=== PATIENT | male | born 1960 | race Caucasian/White ===

== ENCOUNTER 2021-05-04 19:39 | Emergency (ER) | payer OTHER, SELFPAY ==
--- NOTE | ~2021-05-04 | XR_ITS ---
EXAMINATION: XR KNEE, LEFT CLINICAL INFORMATION: BK and fall COMPARISON: None TECHNIQUE: Two views of the left knee. FINDINGS: There has been prior [id number] amputation of the tibia and fibula. There is soft tissue thickening and multiple surgical clips at the amputation site. The knee joint is intact. No acute fracture involving the knee joint. No joint effusion. Joint spaces are maintained. There are atherosclerotic calcifications. XR/XR knee LT 2V IMPRESSION: No acute traumatic injury. Expected postoperative changes from prior [id number] amputation.
[2021-05-04 20:56] VITALS: BP 133/76; BP 138/80; PULSE 88; PULSE 91; RESP 16; TEMP 36.5; O2SAT 99; BMI 37.4
--- NOTE | 2021-05-04 21:47 | ECG_ITS ---
Test Reason : FALL Blood Pressure : / mmHG Vent. Rate : 079 BPM Atrial Rate : 079 BPM P-R Int : 224 ms QRS Dur : 086 ms QT Int : 376 ms P-R-T Axes : 019 -11 080 degrees QTc Int : 431 ms Sinus rhythm with 1st degree A-V block Otherwise normal ECG When compared with ECG of 18-MAY-2007 08:57, VA interval has increased Nonspecific T wave abnormality now evident in Lateral leads Referred By: Dalila Matthew Electronically Signed By:KANU BOONE
--- NOTE | 2021-05-04 21:47 | ED_ITS ---
HPI - General Adult General Chief complaint: Wound/Laceration Stated complaint: FALL Time Seen by Provider: 05/04/21 21:47 Source: patient Mode of arrival: EMS History of Present Illness HPI narrative: This is a 61-year-old male who presents from a rehab facility after he states he does not like the place and got up to leave and then fell onto the floor causing bleeding from his recent BKA on the left. Patient denies hitting his head or loss of consciousness and denies pain anywhere else in his body. Otherwise, he denies fever, chills, shortness of breath, chest pain/palpitations, GI or symptoms. Related Data Allergies Allergy/AdvReac Type Severity Reaction Status Date / Time bee pollen [bee stings] Allergy Shortness Verified 05/04/21 20:23 of Breath Review of Systems Review of Systems: Pertinent positives and negatives as stated in HPI 10 point review of systems is otherwise negative. PMFSH Past Medical History Source: nursing notes reviewed Medical History Diabetes Toe amputee Unilateral complete BKA Social History Social History Advance Directives: No Advance Directives Information Provided: Yes Physical Exam Vital Signs: Vital Signs: Last Vital Signs Temp 97.7 F 05/04/21 20:56 Pulse 88 05/04/21 20:56 Resp 16 05/04/21 20:56 BP 133/76 05/04/21 20:56 Pulse Ox 99 05/04/21 20:56 Body Mass Index 37.4 VITAL SIGNS: Reviewed. GENERAL: Chronically ill, well nourished, in no acute distress. HEAD: Normocephalic/atraumatic EYES: PERRLA, EOMI OROPHARYNX: no oral lesions noted, posterior pharynx clear LUNGS: Normal breath sounds. No adventitious sounds or accessory muscle use. SpO2<99> CARDIOVASCULAR: Regular rate and rhythm without noted murmurs, no JVD or lower extremity edema. ABDOMEN: Obese, Soft, non-tender, non-distended with bowel sounds. RIGHT LOWER EXTREMITY: HEALING ULCER TO MEDIAL ASPECT OF DISTAL LOWER EXTREMITY WITH DRESSING CDI LEFT LOWER EXTREMITY: BKA, staple still intact, lateral aspect with minimal bleeding and obvious dehiscence however this does not appear to be new as there is noted granulation on the borders SKIN: Inspection of the skin reveals no rashes NEUROLOGIC: Alert and oriented x 4. Strength and sensation to light touch were grossly intact x 4. Course Course Course Narrative: 61-year-old male with multiple medical comorbidities, originally seen at [facility] for his surgery and otherwise on happy at the short-term rehab and on review of triage note staff at the facility say that patient purposely slipped out of the wheelchair. Although patient has wound dehiscence on his right BKA this does not appear to be new, however the noted hemostatic bleeding at the site likely occurred when patient slipped out of the chair but is otherwise stable at this time. Will obtain lab work and x-ray of the stump and if patient is stable for discharge will need to discuss his return to the facility or patient may need case management. Review of all investigations otherwise without acute findings and patient refuses to go back to the rehab center and is alert and oriented. He made arrangements with his brother who will be coming to pick him up and patient states that he gets VNA services through [facility]. Patient is otherwise discharged in stable condition with instructions to adhere to all recommendations from his surgeon as well as the VNA service. Medical Decision Making Lab Data Result diagrams: 05/04/21 22:22 05/04/21 22:22 Labs: Lab Results 05/04/21 05/04/21 05/04/21 Range/Units 22:22 22:22 22:22 WBC 10.0 (4.8-10.8) X10*3/uL RBC 3.62 L (4.60-5.80) X10*6/uL Hgb 9.1 L (14.0-18.0) g/dl Hct 30.0 L (42-52) % MCV 82.9 (80-98) fL MCH 25.1 L (27.0-33.0) pg MCHC 30.3 L (31.0-36.0) g/dl RDW 15.7 (11.0-16.0) % Plt Count 352 (160-400) X10*3/uL MPV 9.9 (9.4-12.4) fL Immature Gran % (Auto) 0.4 (0.0-0.4) % Neut % (Auto) 64.3 (45-73) % Lymph % (Auto) 25.5 (20-40) % Fajardo % (Auto) 4.8 (2-11) % Eos % (Auto) 4.7 H (0-4) % Baso % (Auto) 0.3 (0-2) % Lymph # (Auto) 2.6 (1.2-4.9) X10*3/uL Fajardo # (Auto) 0.5 (0.1-1.2) X10*3/uL Eos # (Auto) 0.5 H (0.0-0.4) X10*3/uL Baso # (Auto) 0.0 (0.0-0.2) X10*3/uL Abs Immat Gran (auto) 0.04 H (0.00-0.03) X10*3/uL Absolute Neuts (auto) 6.4 (2.0-8.3) X10*3/uL Absolute Nucleated RBC 0.000 (0.0-0.012) X10*3/uL Nucleated RBC % (auto) 0.0 (0.0-0.2) /100WBC PT 12.0 (9.9-13.0) SEC INR 1.1 (0.9-1.1) Sodium 138 (135-145) mmol/L Potassium 4.8 (3.3-5.1) mmol/L Chloride 106 (96-108) mmol/L Carbon Dioxide 25 (22-29) mmol/L Anion Gap 12 (12-20) BUN 12 (9-16) mg/dL Creatinine 1.08 (0.5-1.4) mg/dL Estim Creat Clear Calc 98.2 Estimated GFR > 60 Random Glucose 133 H (60-115) mg/dL Calcium 9.2 (8.4-10.2) mg/dL Total Bilirubin 0.4 (0.0-1.0) mg/dL AST 11 (5-37) U/L ALT 18 (0-40) U/L Alkaline Phosphatase 130 H (39-117) U/L Total Protein 7.9 (6.5-8.0) g/dL Albumin 3.6 (3.5-5.0) g/dL Coronavirus (PCR) (Negative) COVID-19 ([facility]) COVID-19 Clin Com Influenza Type A (PCR) (Negative) Influenza Type B (PCR) (Negative) RSV RNA Qual (PCR) (Negative) 05/04/21 05/04/21 Range/Units 22:22 22:22 WBC (4.8-10.8) X10*3/uL RBC (4.60-5.80) X10*6/uL Hgb (14.0-18.0) g/dl Hct (42-52) % MCV (80-98) fL MCH (27.0-33.0) pg MCHC (31.0-36.0) g/dl RDW (11.0-16.0) % Plt Count (160-400) X10*3/uL MPV (9.4-12.4) fL Immature Gran % (Auto) (0.0-0.4) % Neut % (Auto) (45-73) % Lymph % (Auto) (20-40) % Fajardo % (Auto) (2-11) % Eos % (Auto) (0-4) % Baso % (Auto) (0-2) % Lymph # (Auto) (1.2-4.9) X10*3/uL Fajardo # (Auto) (0.1-1.2) X10*3/uL Eos # (Auto) (0.0-0.4) X10*3/uL Baso # (Auto) (0.0-0.2) X10*3/uL Abs Immat Gran (auto) (0.00-0.03) X10*3/uL Absolute Neuts (auto) (2.0-8.3) X10*3/uL Absolute Nucleated RBC (0.0-0.012) X10*3/uL Nucleated RBC % (auto) (0.0-0.2) /100WBC PT (9.9-13.0) SEC INR (0.9-1.1) Sodium (135-145) mmol/L Potassium (3.3-5.1) mmol/L Chloride (96-108) mmol/L Carbon Dioxide (22-29) mmol/L Anion Gap (12-20) BUN (9-16) mg/dL Creatinine (0.5-1.4) mg/dL Estim Creat Clear Calc Estimated GFR Random Glucose (60-115) mg/dL Calcium (8.4-10.2) mg/dL Total Bilirubin (0.0-1.0) mg/dL AST (5-37) U/L ALT (0-40) U/L Alkaline Phosphatase (39-117) U/L Total Protein (6.5-8.0) g/dL Albumin (3.5-5.0) g/dL Coronavirus (PCR) NEGATIVE (Negative) COVID-19 ([facility]) Cancelled COVID-19 Clin Com Cancelled Influenza Type A (PCR) NEGATIVE (Negative) Influenza Type B (PCR) NEGATIVE (Negative) RSV RNA Qual (PCR) NEGATIVE (Negative) ECG Data Attestation: I personally reviewed and interpreted this ECG as follows: Prior ECG tracings: available for review (2006) Interpretation: Sinus rhythm with first-degree AV block, HR-79, CO-224, no STEMI, QRS/QTC are within normal limits Discharge Plan Discharge Clinical Impression: Fall Patient Disposition: Home, Self-Care Instructions: Fall Prevention for Older Adults (ED), Wound Healing and Your Diet (ED), Wound Dehiscence (ED), Fall Prevention (ED) Additional Instructions: 1. Resume all home medications as prescribed. 2. Follow-up with your doctor by calling the office in the morning to establish further outpatient management. Return to the ER for acute worsening symptoms. Referrals: Carmel Kong MD [Primary Care Provider] - 2 days
[2021-05-04 22:34] LABS: MANUAL DIFF FLAG NO
[2021-05-04 22:36] LABS: Basophils Percent Auto 0.3 % (0-2); Eosinophils Absolute Auto 0.5 X10*3/uL (0.0-0.4); Eosinophils Percent Auto 4.7 % (0-4); Hemoglobin 9.1 g/dl (14.0-18.0); Imm Gran Abs Auto 0.04 X10*3/uL (0.00-0.03); Imm Gran Pct Auto 0.4 % (0.0-0.4); Lymphocytes Absolute Auto 2.6 X10*3/uL (1.2-4.9); Lymphocytes Percent Auto 25.5 % (20-40); Mean Corpuscular HGB Conc 30.3 g/dl (31.0-36.0); Mean Corpuscular Hemoglobin 25.1 pg (27.0-33.0); Mean Corpuscular Volume 82.9 fL (80-98); Mean Platelet Volume 9.9 fL (9.4-12.4); Monocytes Absolute Auto 0.5 X10*3/uL (0.1-1.2); Monocytes Percent Auto 4.8 % (2-11); Neutrophils Absolute Auto 6.4 X10*3/uL (2.0-8.3); Neutrophils Percent Auto 64.3 % (45-73); Platelet Count 352 X10*3/uL (160-400); Red Blood Count 3.62 X10*6/uL (4.60-5.80); Red Cell Distribution Width 15.7 % (11.0-16.0)
[2021-05-04 22:52] LABS: INTERNATIONAL NORM RATIO 1.1 (0.9-1.1)
[2021-05-04 23:12] LABS: Alanine Aminotransferase 18 U/L (0-40); Albumin Level 3.6 g/dL (3.5-5.0); Anion Gap 12 (12-20); Aspartate Amino Transferase 11 U/L (5-37); Bilirubin Total 0.4 mg/dL (0.0-1.0); Blood Urea Nitrogen 12 mg/dL (9-16); Calcium 9.2 mg/dL (8.4-10.2); Carbon Dioxide 25 mmol/L (22-29); Chloride 106 mmol/L (96-108); Creatinine Clr Calc Pharmacy 98.2; Estimated Glomerular Filt Rate > 60; Glucose Random 133 mg/dL (60-115); Potassium 4.8 mmol/L (3.3-5.1); Sodium 138 mmol/L (135-145); Total Protein 7.9 g/dL (6.5-8.0)
[2021-05-04 23:15] LABS: Alkaline Phosphatase 130 U/L (39-117)
[2021-05-04 23:22] LABS: Influenza A PCR NEGATIVE (Negative); Influenza B PCR NEGATIVE (Negative); Resp Syncy Virus RNA Qual PCR NEGATIVE (Negative); SARS COV2 PCR INHOUSE NEGATIVE (Negative)
--- NOTE | 2021-05-05 01:54 | PC.NURSE ---
Patient was resistent to being admitted and refused to go back to rehab placement. Patient got himself up out of bed and was wheeling himself around in his wc and was stating you cant keep me here and I am leaving. Patent stated that his sister would take care of him. Patient also stated that he has a visiting nurse that comes in daily.
== END 2021-05-05 01:57 | disposition home or self-care (01) ==
PROVIDERS: Emergency Provider Student in an Organized Health Care Education/Training Program; PCP Internal Medicine
DX: Z03.89 Encounter for observation for other suspected diseases and conditions ruled out (principal); Z91.81 History of falling; Z89.512 Acquired absence of left leg below knee; Z89.421 Acquired absence of other right toe(s)
CPT/HCPCS: 0241U; 36415; 73560; 80053; 85025; 85610; 87635; 93005; 99283

== ENCOUNTER 2021-06-05 13:17 | Emergency (ER) | payer OTHER, SELFPAY ==
--- NOTE | ~2021-06-05 | US_ITS ---
EXAMINATION: US EXTREMITY NONVASCULAR CLINICAL INFORMATION: Left below-knee amputation pain. Evaluate for fluid collection. COMPARISON: Radiographs of the left knee from 06/05/2021 TECHNIQUE: Sonographic imaging of the left lower extremity at the site of below-knee amputation was performed using a high-resolution linear transducer. US/US extremity nonvascular FINDINGS AND IMPRESSION: The soft tissues are scanned throughout the region of the stump. There is no soft tissue mass or fluid collection. No abscess.
--- NOTE | ~2021-06-05 | XR_ITS ---
EXAMINATION: XR KNEE, LEFT CLINICAL INFORMATION: This is a 61-year-old male who status post below knee amputation. Pain. Status post fall. COMPARISON: Comparison is made to a previous study dated 05/04/2021. TECHNIQUE: 2 views of the left knee. FINDINGS: The surgical skin clips have been removed when compared to previous study. The other metallic clips are still present. The patient is status post below knee amputation with transection of the proximal diaphysis of both the tibia and fibula, respectively. There is dystrophic bone adjacent to the amputation site which appears new and is likely reactive. Vascular calcifications are seen within the posterior soft tissues consistent with atherosclerotic disease. On the lateral view there appears to be overall decrease in density in inferior and posterior to the amputation site. It is uncertain whether this represents fluid. This would be best evaluated with an ultrasound. No fracture or dislocation is seen. XR/XR knee LT 2V IMPRESSION: 1. The patient is status post below knee amputation. 2. No acute fracture or dislocation is seen. 3. Possible soft tissue swelling inferior and posterior to the application site.
[2021-06-05 13:25] VITALS: BP 112/68; PULSE 87; RESP 16; TEMP 36.7; O2SAT 99; BMI 39.3
--- NOTE | 2021-06-05 13:28 | ED_ITS ---
HPI - General Adult General Chief complaint: General Medical <CHERELLE Jarquin Last Filed: 06/05/21 18:08> Stated complaint: left leg pain <CHERELLE Jarquin Last Filed: 06/05/21 18:08> Time Seen by Provider: 06/05/21 13:28 <CHERELLE Jarquin Last Filed: 06/05/21 18:08> Source: patient <CHERELLE Jarquin Last Filed: 06/05/21 18:08> Mode of arrival: EMS <CHERELLE Jarquin Last Filed: 06/05/21 18:08> Limitations: no limitations <CHERELLE Jarquin Last Filed: 06/05/21 18:08> History of Present Illness HPI narrative: 61-year-old male presents for falling at home today. Patient had a left BKA 3 months ago [facility], [place]. Patient was seen here in April for fall, sent home with VNA services. Patient states VNA services never happened, he was sent to a rehab, but states they would not let him use the bathroom so he came home, and has been home for 1 day. States he is supposed to walk with a walker, but he goes to the bathroom without the walker because he does not want ?no help from anybody?. With his falls he did not have any loss of consciousnes, he did not hit his head. Patient has not been fitted for his prosthesis yet, states because he has had wound dehiscence. Patient states he is not getting follow- up. Patient states his sisters at home and called EMS because patient kept falling. Patient denies hitting his head or loss of consciousness and denies pain anywhere else in his body.? Otherwise, he denies fever, chills, shortness of breath, chest pain/palpitations, GI or symptoms. <CHERELLE Jarquin Last Filed: 06/05/21 18:08> Related Data Home medications: Home Medications Medication Instructions Recorded Confirmed amlodipine 10 mg tablet 10 mg PO DAILY 06/05/21 06/05/21 aspirin 81 mg tablet 81 mg PO DAILY 06/05/21 06/05/21 atorvastatin 40 mg tablet 40 mg PO BEDTIME 06/05/21 06/05/21 cholecalciferol (vit D3) 1,000 1 tab PO DAILY 06/05/21 06/05/21 unit-vitamin K2 (MK4) 100 mcg tablet clopidogrel 75 mg tablet 1 tab PO DAILY 06/05/21 06/05/21 clopidogrel 75 mg tablet 75 mg PO DAILY 06/05/21 06/05/21 doxazosin 4 mg tablet 4 mg PO BEDTIME 06/05/21 06/05/21 dulaglutide 1.5 mg/0.5 mL 0.5 ml SUBCUT QWEEK 06/05/21 06/05/21 subcutaneous pen injector (Trulicity) furosemide 20 mg tablet 20 mg PO DAILY 06/05/21 06/05/21 gabapentin 600 mg tablet 600 mg PO TID 06/05/21 06/05/21 glipizide 2.5 mg tablet, extended 2.5 mg PO DAILY 06/05/21 06/05/21 release 24 hr lisinopril 40 mg tablet 40 mg PO DAILY 06/05/21 06/05/21 metformin 750 mg tablet,extended 750 mg PO DAILY 06/05/21 06/05/21 release 24 hr metoprolol tartrate 50 mg tablet 50 mg PO BID 06/05/21 06/05/21 omeprazole 20 mg capsule,delayed 1 cap PO BID 06/05/21 06/05/21 release rivaroxaban 15 mg tablet (Xarelto) 15 mg PO DAILY 06/05/21 06/05/21 <CHERELLE Jarquin - Last Filed: 06/05/21 18:08> Allergies/adverse reactions: Allergies Allergy/AdvReac Type Severity Reaction Status Date / Time bee pollen [bee stings] Allergy Shortness Verified 05/04/21 20:23 of Breath <CHERELLE Jarquin Last Filed: 06/05/21 18:08> Review of Systems Constitutional: Constitutional: Denies chills, Denies fatigue, Denies fe renaldo(s), Denies headache(s), Denies malaise and Denies weakness <CHERELLE Jarquin Last Filed: 06/05/21 18:08> Eyes: Eyes: Denies diplopia <CHERELLE Jarquin Last Filed: 06/05/21 18:08> ENT: Denies vertigo, Denies dizziness, Denies otalgia, Denies headache(s), Denies mouth pain, Denies post nasal drip and Denies sore throat <CHERELLE Virk Chi - Last Filed: 06/05/21 18:08> Cardiovascular: Cardiovascular: Denies chest pain, Denies syncope, Denies leg edema, Denies lightheadedness, Denies Loss of Consciousness, Denies palpitations and Denies dyspnea <CHERELLE Jarquin Last Filed: 06/05/21 18:08> Respiratory: Respiratory: Denies chest congestion, Denies cough and Denies dyspnea <CHERELLE Jarquin Last Filed: 06/05/21 18:08> Gastrointestinal: Gastrointestinal: Denies abdominal pain, Denies h ematochezia, Denies constipation, Denies diarrhea and Denies vomiting <CHERELLE Jarquin Last Filed: 06/05/21 18:08> Genitourinary: Genitourinary: Reports no additional male genitourinary complaints <CHERELLE Jarquin Last Filed: 06/05/21 18:08> Musculoskeletal: Comments: Left leg pain <CHERELLE Jarquin Last Filed: 06/05/21 18:08> Integumentary/Breasts: Skin/Breast: Reports wounds <CHERELLE Jarquin Last Filed: 06/05/21 18:08> Comments: Wound dehiscence status post [id number] amputation on left <CHERELLE Jarquin Last Filed: 06/05/21 18:08> Neurologic: Denies confusion, Denies vertigo, Denies dizziness, Denies syncope, Denies headache(s) and Denies weakness <CHERELLE Jarquin Last Filed: 06/05/21 18:08> Psychiatric: Psychiatric: Reports anxiety, Denies confusion and Denies dep ression <CHERELLE Jarquin Last Filed: 06/05/21 18:08> Endocrine: Endocrine: Denies fatigue and Denies palpitations <CHERELLE Jarquin Last Filed: 06/05/21 18:08> PMFSH Past Medical History Medical History: Medical History Diabetes Toe amputee Unilateral complete BKA <CHERELLE Jarquin Last Filed: 06/05/21 18:08> Social History Social History: Social History Alcohol intake: unknown Patient Tobacco Use Status: Tobacco use Unknown Use of substances other than those prescribed or required for medical reasons: Unknown Advance Directives: No Advance Directives Information Provided: No <CHERELLE Jarquin - Last Filed: 06/05/21 18:08> Physical Exam Vital Signs: Vital Signs: Last Vital Signs Temp 97.6 F 06/05/21 22:35 Pulse 68 06/05/21 23:24 Resp 16 06/05/21 22:35 BP 147/65 H 06/05/21 23:24 Pulse Ox 98 06/05/21 22:35 Body Mass Index 39.3 <CHERELLE Jarquin - Last Filed: 06/05/21 18:08> Vital Signs: Last Vital Signs Temp 97.6 F 06/05/21 22:35 Pulse 68 06/05/21 23:24 Resp 16 06/05/21 22:35 BP 147/65 H 06/05/21 23:24 Pulse Ox 98 06/05/21 22:35 Body Mass Index 39.3 <Leandro Goode MD - Last Filed: 06/06/21 01:56> Const: General: no acute distress, alert, awake and ill appearing chronically; No confusion <CHERELLE Jarquin - Last Filed: 06/05/21 18:08> Nutritional Appearance: obese centrally obese <CHERELLE Jarquin - Last Filed: 06/05/21 18:08> Orientation/consciousness: patient oriented x3 and No confusion <CHERELLE Jarquin - Last Filed: 06/05/21 18:08> Limitations: no limitations <CHERELLE Jarquin Last Filed: 06/05/21 18:08> HENMT: Head: Yes normal to inspection, Yes normocephalic and Yes atraumatic <CHERELLE Jarquin - Last Filed: 06/05/21 18:08> Ears: hearing grossly normal bilaterally, external ears normal, TM's normal bilaterally and EAC's normal <CHERELLE Jarquin - Last Filed: 06/05/21 18:08> General nose exam: Normal external nose present <CHERELLE Jarquin Last Filed: 06/05/21 18:08> Face and sinus: Yes normal facial exam and Yes sinuses nontender <Florecita Harris [facility] Last Filed: 06/05/21 18:08> Mouth: Normal oral and palatal mucosa present <Florecita Harris [facility] Last Filed: 06/05/21 18:08> Throat: Yes posterior oropharynx normal <Florecita Harris [facility] Last Filed: 06/05/21 18:08> Eyes: Conjunctivae: conjunctivae normal <Florecita Harris [facility] Last Filed: 06/05/21 18:08> Pupils: Equal, round and reactive pupils present <Florecita Harris [facility] Last Filed: 06/05/21 18:08> EOM: EOMs intact bilaterally <Florecita Harris [facility] Last Filed: 06/05/21 18:08> Neck: Neck: Yes full ROM, Yes no lymphadenopathy and Yes supple <Florecita Harris [facility] Last Filed: 06/05/21 18:08> Resp: Effort & Inspection: normal respiratory effort and able to speak in complete sentences <Florecita Harris [facility] Last Filed: 06/05/21 18:08> Auscultation: clear to auscultation bilaterally, no crackles, no rales, no rhonchi and no wheezes <Florecita Harris [facility] Last Filed: 06/05/21 18:08> Cardio: Rate: regular rate <Florecita Harris [facility] Last Filed: 06/05/21 18:08> Rhythm: regular rhythm <Florecita Harris [facility] Last Filed: 06/05/21 18:08> Heart sounds: S1 normal heart sound present and S2 normal heart sound present <Florecita Harris [facility] Last Filed: 06/05/21 18:08> GI: Inspection: Yes normal to inspection <Florecita Harris [facility] Last Filed: 06/05/21 18:08> Palpation (GI): Soft to palpation, nontender, no guarding and not rigid <Florecita Harris [facility] Last Filed: 06/05/21 18:08> Percussion: Yes normal to percussion <Florecita Harris [facility] Last Filed: 06/05/21 18:08> Auscultation: normal bowel sounds <CHERELLE Jarquin Last Filed: 06/05/21 18:08> Skin: Other: Hemosiderin deposits right lower extremity, left below-knee amputation with wound dehiscence on lateral side, no redness, swelling, warmth. Multiple excoriations bilateral arms <CHERELLE Jarquin Last Filed: 06/05/21 18:08> Neuro: General: patient oriented x3 and No confusion <CHERELLE Jarquin Last Filed: 06/05/21 18:08> Cranial nerves: Yes Equal, round and reactive pupils present <CHERELLE Jarquin Last Filed: 06/05/21 18:08> Extrem: Other: Left obhfe-spel-bzuiveisdq, patient has full range of motion of left hip <CHERELLE Jarquin Last Filed: 06/05/21 18:08> Psych: Appearance: grossly normal <CHERELLE Jarquin Last Filed: 18:08> Affect: normal affect <CHERELLE Jarquin Last Filed: 06/05/21 18:08> Attitude: cooperative <CHERELLE Jarquin Last Filed: 06/05/21 18:08> Thought process: Normal thought process present <CHERELLE Jarquin Last Filed: 06/05/21 18:08> Course Course Course Narrative: 61-year-old male who is sent home from rehab yesterday and has been home for 1 day has experienced multiple falls because he is not using his walker. On exam, patient is chronically-ill appearing, and has a left xfnak-[id number] a mputation. There is wound dehiscence on lateral aspect. I obtained a wound culture. The area is not significantly red, swollen, or warm. Will get labs, x-ray, discussed with case management, get physical therapy evaluation. <CHERELLE Jarquin Last Filed: 06/05/21 18:08> Reevaluation(s) Reevaluation #1: Edmond with case management called sister [place], who lives on the 2nd floor. [place] states patient is not safe to stay with her. We will get a formal physical therapy evaluation, and Edmond will look into patient's insurance and try to get patient accepted to a assisted facility. XR shows :1. The patient is status post below knee amputation. 2. No acute fracture or dislocation is seen 3. Possible soft tissue swelling inferior and posterior to the application site. Radiology report also reads: On the lateral view there appears to be overall decrease in density in inferior and posterior to the amputation site. It is uncertain whether this represents fluid. This would be best evaluated with an ultrasound. Ordered US <CHERELLE Jarquin Last Filed: 06/05/21 18:08> Reevaluation #2: Care mgt note: pt was recently at [facility] , somewhere in [place], he is not sure where but does not want to return there.? evidently he left AMA.? the patient would like to go to a different [facility] as he cannot stay c his sister who lives on [address] and is unable to care for him.? ? pt will entertain snf's that are close to [place], [place] -? where his sister is. ? pt will have to stay in contract c [employer] insurance for this. ? we are waiting for a PT eval at this time and the snf may have a difficult time getting auth on the weekend which may create a barrier to getting him to [facility] before monday. ? dc plan is to [facility] pending PT eval and auth.? cm to cont. to follow. PT eval states patient would benefit from a formal assisted rehab, with prosthesis fitting US The soft tissues are scanned throughout the region of the stump. There is no soft tissue mass or fluid collection. No abscess. ? <CHERELLE Jarquin - Last Filed: 06/05/21 18:08> Reevaluation #3: Patient admitted to Physician obs started at 5:30 p.m. patient placed in physician obs due to case management evaluation that patient needs to go to short-term rehab and it being the weekend, making it difficult to get insurance authorization for placement in a rehab over the weekend. Physical therapy also wants patient to go to short-term rehab. Patient is resting comfortably, no apparent distress, lungs are clear, abdomen nontender, neurologically intact, cardiovascular regular rate and rhythm. <CHERELLE Jarquin Last Filed: 06/05/21 18:08> Time: 17:29 <CHERELLE Jarquin Last Filed: 06/05/21 18:08> Medical Decision Making Lab Data Result diagrams: : 06/05/21 14:44 06/05/21 14:44 <CHERELLE Jarquin - Last Filed: 06/05/21 18:08> Labs: Lab Results 06/05/21 06/05/21 06/05/21 Range/Units 14:44 14:44 14:44 WBC 9.7 (4.8-10.8) X10*3/uL RBC 4.20 L (4.60-5.80) X10*6/uL Hgb 10.2 L (14.0-18.0) g/dl Hct 33.9 L (42-52) % MCV 80.7 (80-98) fL MCH 24.3 L (27.0-33.0) pg MCHC 30.1 L (31.0-36.0) g/dl RDW 15.5 (11.0-16.0) % Plt Count 337 (160-400) X10*3/uL MPV 10.0 (9.4-12.4) fL Immature Gran % (Auto) 0.3 (0.0-0.4) % Neut % (Auto) 66.5 (45-73) % Lymph % (Auto) 22.1 (20-40) % Curry % (Auto) 5.3 (2-11) % Eos % (Auto) 5.4 H (0-4) % Baso % (Auto) 0.4 (0-2) % Lymph # (Auto) 2.2 (1.2-4.9) X10*3/uL Curry # (Auto) 0.5 (0.1-1.2) X10*3/uL Eos # (Auto) 0.5 H (0.0-0.4) X10*3/uL Baso # (Auto) 0.0 (0.0-0.2) X10*3/uL Abs Immat Gran (auto) 0.03 (0.00-0.03) X10*3/uL Absolute Neuts (auto) 6.5 (2.0-8.3) X10*3/uL Absolute Nucleated RBC 0.000 (0.0-0.012) X10*3/uL Nucleated RBC % (auto) 0.0 (0.0-0.2) /100WBC PT 12.5 (9.9-13.0) SEC INR 1.1 (0.9-1.1) APTT 36.3 (24.1-38.0) SEC Sodium 140 (135-145) mmol/L Potassium 4.2 (3.3-5.1) mmol/L Chloride 108 (96-108) mmol/L Carbon Dioxide 26 (22-29) mmol/L Anion Gap 10 L (12-20) BUN 24 H D (9-16) mg/dL Creatinine 1.20 (0.5-1.4) mg/dL Estim Creat Clear Calc 90.6 Estimated GFR > 60 Random Glucose 146 H (60-115) mg/dL Calcium 9.5 (8.4-10.2) mg/dL Total Bilirubin 0.3 (0.0-1.0) mg/dL AST 17 D (5-37) U/L ALT 35 (0-40) U/L Alkaline Phosphatase 131 H (39-117) U/L Total Protein 6.9 (6.5-8.0) g/dL Albumin 3.6 (3.5-5.0) g/dL <CHERELLE Jarquin - Last Filed: 06/05/21 18:08> Lab Results 06/05/21 06/05/21 06/05/21 Range/Units 14:44 14:44 14:44 WBC 9.7 (4.8-10.8) X10*3/uL RBC 4.20 L (4.60-5.80) X10*6/uL Hgb 10.2 L (14.0-18.0) g/dl Hct 33.9 L (42-52) % MCV 80.7 (80-98) fL MCH 24.3 L (27.0-33.0) pg MCHC 30.1 L (31.0-36.0) g/dl RDW 15.5 (11.0-16.0) % Plt Count 337 (160-400) X10*3/uL MPV 10.0 (9.4-12.4) fL Immature Gran % (Auto) 0.3 (0.0-0.4) % Neut % (Auto) 66.5 (45-73) % Lymph % (Auto) 22.1 (20-40) % Curry % (Auto) 5.3 (2-11) % Eos % (Auto) 5.4 H (0-4) % Baso % (Auto) 0.4 (0-2) % Lymph # (Auto) 2.2 (1.2-4.9) X10*3/uL Curry # (Auto) 0.5 (0.1-1.2) X10*3/uL Eos # (Auto) 0.5 H (0.0-0.4) X10*3/uL Baso # (Auto) 0.0 (0.0-0.2) X10*3/uL Abs Immat Gran (auto) 0.03 (0.00-0.03) X10*3/uL Absolute Neuts (auto) 6.5 (2.0-8.3) X10*3/uL Absolute Nucleated RBC 0.000 (0.0-0.012) X10*3/uL Nucleated RBC % (auto) 0.0 (0.0-0.2) /100WBC PT 12.5 (9.9-13.0) SEC INR 1.1 (0.9-1.1) APTT 36.3 (24.1-38.0) SEC Sodium 140 (135-145) mmol/L Potassium 4.2 (3.3-5.1) mmol/L Chloride 108 (96-108) mmol/L Carbon Dioxide 26 (22-29) mmol/L Anion Gap 10 L (12-20) BUN 24 H D (9-16) mg/dL Creatinine 1.20 (0.5-1.4) mg/dL Estim Creat Clear Calc 90.6 Estimated GFR > 60 Random Glucose 146 H (60-115) mg/dL Calcium 9.5 (8.4-10.2) mg/dL Total Bilirubin 0.3 (0.0-1.0) mg/dL AST 17 D (5-37) U/L ALT 35 (0-40) U/L Alkaline Phosphatase 131 H (39-117) U/L Total Protein 6.9 (6.5-8.0) g/dL Albumin 3.6 (3.5-5.0) g/dL <Leandro Goode MD - Last Filed: 06/06/21 01:56> Discharge Plan Discharge Clinical Impression: Hx of BKA Qualifiers: Laterality: left Qualified Code(s): Z89.512 - Acquired absence of left leg below knee <CHERELLE Jarquin - Last Filed: 06/05/21 18:08> Prescriptions: No Action omeprazole 20 mg capsule,delayed release(DR/EC) 1 cap PO BID RF: 0 Trulicity 1.5 mg/0.5 mL pen injector 0.5 ml subcut QWEEK RF: 0 clopidogrel 75 mg tablet 1 tab PO DAILY RF: 0 atorvastatin 40 mg Tablet 40 mg PO BEDTIME RF: 0 clopidogrel 75 mg Tablet 75 mg PO DAILY RF: 0 amlodipine 10 mg Tablet 10 mg PO DAILY RF: 0 glipizide 2.5 mg Tablet Extended Release 24hr 2.5 mg PO DAILY RF: 0 metoprolol tartrate 50 mg Tablet 50 mg PO BID RF: 0 doxazosin 4 mg Tablet 4 mg PO BEDTIME RF: 0 aspirin 81 mg Tablet 81 mg PO DAILY RF: 0 furosemide 20 mg Tablet 20 mg PO DAILY RF: 0 lisinopril 40 mg Tablet 40 mg PO DAILY RF: 0 metformin 750 mg Tablet Extended Release 24 Hr 750 mg PO DAILY RF: 0 Xarelto 15 mg Tablet 15 mg PO DAILY RF: 0 gabapentin 600 mg Tablet 600 mg PO TID RF: 0 vitamin D3-vitamin K2 (MK4) 1,000-100 unit-mcg Tablet 1 tab PO DAILY RF: 0 <CHERELLE Jarquin - Last Filed: 06/05/21 18:08>
--- NOTE | 2021-06-05 14:48 | MHC.CM.ED ---
pt was recently at [facility] , somewhere in [place], he is not sure where but does not want to return there. evidently he left AMA. the patient would like to go to a different STR as he cannot stay c his sister who lives on [address] and is unable to care for him. pt will entertain snf's that are close to [place], [place] - where his sister is. pt will have to stay in contract c [employer] insurance for this. we are waiting for a PT eval at this time and the snf may have a difficult time getting auth on the weekend which may create a barrier to getting him to STR before monday. dc plan is to STR pending PT eval and auth. cm to cont. to follow.
[2021-06-05 14:50] LABS: MANUAL DIFF FLAG NO
[2021-06-05 14:51] LABS: Basophils Percent Auto 0.4 % (0-2); Eosinophils Absolute Auto 0.5 X10*3/uL (0.0-0.4); Eosinophils Percent Auto 5.4 % (0-4); Hematocrit 33.9 % (42-52); Hemoglobin 10.2 g/dl (14.0-18.0); Imm Gran Abs Auto 0.03 X10*3/uL (0.00-0.03); Imm Gran Pct Auto 0.3 % (0.0-0.4); Lymphocytes Absolute Auto 2.2 X10*3/uL (1.2-4.9); Lymphocytes Percent Auto 22.1 % (20-40); Mean Corpuscular HGB Conc 30.1 g/dl (31.0-36.0); Mean Corpuscular Hemoglobin 24.3 pg (27.0-33.0); Mean Corpuscular Volume 80.7 fL (80-98); Monocytes Absolute Auto 0.5 X10*3/uL (0.1-1.2); Monocytes Percent Auto 5.3 % (2-11); Neutrophils Absolute Auto 6.5 X10*3/uL (2.0-8.3); Neutrophils Percent Auto 66.5 % (45-73); Platelet Count 337 X10*3/uL (160-400); Red Cell Distribution Width 15.5 % (11.0-16.0); White Blood Count 9.7 X10*3/uL (4.8-10.8)
[2021-06-05 14:56] LABS: INTERNATIONAL NORM RATIO 1.1 (0.9-1.1); Prothrombin Time 12.5 SEC (9.9-13.0)
[2021-06-05 14:59] LABS: Partial Thromboplastin Time 36.3 SEC (24.1-38.0)
--- NOTE | 2021-06-05 15:02 | PC.NURSE ---
physical therapist at bedside at this time
[2021-06-05 15:08] LABS: Alanine Aminotransferase 35 U/L (0-40); Albumin Level 3.6 g/dL (3.5-5.0); Alkaline Phosphatase 131 U/L (39-117); Anion Gap 10 (12-20); Aspartate Amino Transferase 17 U/L (5-37); Bilirubin Total 0.3 mg/dL (0.0-1.0); Blood Urea Nitrogen 24 mg/dL (9-16); Calcium 9.5 mg/dL (8.4-10.2); Carbon Dioxide 26 mmol/L (22-29); Chloride 108 mmol/L (96-108); Creatinine Clr Calc Pharmacy 90.6; Estimated Glomerular Filt Rate > 60; Glucose Random 146 mg/dL (60-115); Potassium 4.2 mmol/L (3.3-5.1); Sodium 140 mmol/L (135-145); Total Protein 6.9 g/dL (6.5-8.0)
[2021-06-05 17:12] VITALS: BP 135/67; PULSE 80; RESP 16; TEMP 36.7; O2SAT 94
[2021-06-05 22:35] VITALS: BP 147/65; PULSE 68; RESP 16; TEMP 36.4; O2SAT 98
[2021-06-05 23:24] VITALS: BP 147/65; PULSE 68
[2021-06-05] MEDS: Gabapentin 600 MG TABLET PO (23:24)
[2021-06-05] MEDS: Metoprolol Tartrate 50 MG TABLET PO (23:24)
[2021-06-05] MEDS: Doxazosin Mesylate 2 MG TABLET 4 MG PO (23:24)
[2021-06-05] MEDS: Atorvastatin Calcium 40 MG TABLET PO (23:25)
[2021-06-05] MEDS: Omeprazole 20 MG CAPSULE.DR PO (23:25)
[2021-06-06] VITALS (11 sets, daily range): BP systolic 77–132; BP diastolic 40–67; PULSE 54–85; RESP 14–18; TEMP 36–36.6; O2SAT 91–99
[2021-06-06] MEDS: amLODIPine Besylate 10 MG TABLET PO (09:16)
[2021-06-06] MEDS: Gabapentin 600 MG TABLET PO (09:17)
[2021-06-06] MEDS: lisinopriL 40 MG TABLET PO (09:17)
[2021-06-06] MEDS: Clopidogrel Bisulfate 75 MG TABLET PO (09:17)
[2021-06-06] MEDS: Aspirin 81 MG TAB.CHEW PO (09:17)
[2021-06-06] MEDS: Furosemide 20 MG TABLET PO (09:18)
[2021-06-06] MEDS: Omeprazole 20 MG CAPSULE.DR PO (09:18)
[2021-06-06] MEDS: Metoprolol Tartrate 50 MG TABLET PO (09:18)
[2021-06-06] MEDS: Rivaroxaban 15 MG TABLET PO (09:43)
[2021-06-06] MEDS: glipiZIDE XL 2.5 MG TAB.ER.24 PO (09:43)
[2021-06-06] MEDS: metFORMIN HCl ER 750 MG TAB.ER.24H PO (09:43)
[2021-06-06 11:09] LABS: Glucose, Whole Blood 160 mg/dL (60-115)
--- NOTE | 2021-06-06 11:30 | PC.NURSE ---
pt's l bka moderatel amt of purulent drainage note. l bka cleansed with ns followed by 4x4,, telfa and shaquille bandage.
[2021-06-06 12:56] LABS: Appearance Urine CLEAR; Color Urine YELLOW; Glucose Urine UA NEG (NEG); Leukocyte Esterase Urine 1+ (NEG); Nitrite Urine NEG (NEG); PH 5.5 (5.0-8.0); Specific Gravity - Urine 1.025 (1.005-1.025); Urine Blood TRACE (NEG); Urine Ketones NEG (NEG); Urine Protein NEG (NEG-TRACE)
[2021-06-06 13:09] LABS: Bacteria Urine TRACE /LPF; Squamous Epithelial Cell Urine TRACE /LPF
--- NOTE | 2021-06-06 14:07 | MHC.CM.ED ---
ref's have been made to area STR's. auth will be needed through monday. pt would like to stay as close to [place] as possible as his sister lives there. cm to cont. to follow.
[2021-06-06 14:29] LABS: Glucose, Whole Blood 121 mg/dL (60-115)
[2021-06-06 19:43] LABS: Glucose, Whole Blood 89 mg/dL (60-115)
--- NOTE | 2021-06-06 23:18 | PC.NURSE ---
This RN rec'd report from NATALIA Martinez at this time. This RN reviewing pt's chart/labs and notes elevated WBC count in UA as well as UA positive for leukocyte esterase. Dr Herman made aware. Per Dr Herman, suspicion for UA contamination. Plan for repeat clean catch UA. Pt to be made aware of need for additional urine sample.
--- NOTE | 2021-06-06 23:35 | PC.NURSE ---
This RN to bedside to meet/assess pt and notify of need for UA. Pt resting on stretcher in NAD, breathing with ease on RA. Pt aaox4. Pt's VS assessed, noted to be hypotensive as charted but is asx, denying dizziness, weakness, CP, SOB/MARKY, abd pain, n/v/d. Pt denies urinary sx. Pt also noted to be slightly hypoxic on RA. Upon this RN questioning pt about O2 dependency, pt admits yeah, I wear oxygen all of the time at home, but I didn't say nothing about to anyone and nobody asked. Pt reports he is on baseline 2L NC. Pt placed on 2L NC, sats improved to >/= 94%. Pt reports he has given two urine samples since his arrival to ED, but this RN only sees one resulted UA in computer. This RN called lab and asked if they have two separate UA samples in lab. Per Claudine in lab, there is no additional urine sample in lab. Pt made aware to clean head of penis with wipes x 2 prior to collecting urine sample. Pt expresses his understanding of these instructions. Dr Herman made aware of pt's BP and pt's c/o LLE pain. Per Virgil, tylenol to be ordered. Pt stretcher remains in low locked position, rails raised, call gong within reach.
[2021-06-06] MEDS: Acetaminophen 325 MG TABLET 650 MG PO (23:46)
[2021-06-07] VITALS (9 sets, daily range): BP systolic 111–142; BP diastolic 51–82; PULSE 60–83; RESP 16–18; TEMP 36.4–36.7; O2SAT 94–98
--- NOTE | 2021-06-07 02:16 | PC.NURSE ---
PT REPOSITIONED. PT DRESSING ON LEFT LEG CHANGED. PT GIVEN SANDWICH AND DIET GINGERALE.
--- NOTE | 2021-06-07 05:59 | PC.NURSE ---
This RN to bedside to assess pt. Pt asleep without NC on. This RN woke pt to reconnect NC, pt aaox4, states I don't want it on right now. When I need it, I'll let you know. This RN assessed pt's SpO2, sat 97% on RA, HR 61. Stretcher remains in low locked position, rails raised, call gong within reach.
[2021-06-07 06:36] LABS: Appearance Urine CLEAR; Color Urine YELLOW; Glucose Urine UA NEG (NEG); Leukocyte Esterase Urine 1+ (NEG); Nitrite Urine NEG (NEG); Specific Gravity - Urine >= 1.030 (1.005-1.025); UACC Culture Trigger YES; Urine Blood NEG (NEG); Urine Ketones NEG (NEG); Urine Protein NEG (NEG-TRACE)
[2021-06-07 06:47] LABS: Bacteria Urine 2+ /LPF; Squamous Epithelial Cell Urine 1+ /LPF
--- NOTE | 2021-06-07 07:39 | PC.NURSE ---
pt alert and oriented, skin pwd, respirations even and unlabored, pt ate 100% of his breakfast, pt assisted back into bed pt sniff placement
[2021-06-07] MEDS: Aspirin 81 MG TAB.CHEW PO (09:28)
[2021-06-07] MEDS: lisinopriL 40 MG TABLET PO (09:29)
[2021-06-07] MEDS: Gabapentin 600 MG TABLET PO ×2 (09:29→16:26)
[2021-06-07] MEDS: amLODIPine Besylate 10 MG TABLET PO (09:29)
[2021-06-07] MEDS: Furosemide 20 MG TABLET PO (09:29)
[2021-06-07] MEDS: Omeprazole 20 MG CAPSULE.DR PO ×2 (09:30→21:00)
[2021-06-07] MEDS: Metoprolol Tartrate 50 MG TABLET PO ×2 (09:30→21:00)
[2021-06-07] MEDS: Clopidogrel Bisulfate 75 MG TABLET PO (09:31)
[2021-06-07] MEDS: glipiZIDE XL 2.5 MG TAB.ER.24 PO (09:31)
[2021-06-07] MEDS: Rivaroxaban 15 MG TABLET PO (09:31)
[2021-06-07] MEDS: metFORMIN HCl ER 750 MG TAB.ER.24H PO (09:31)
[2021-06-07] MEDS: Cholecalciferol (Vitamin D3) 25 MCG TABLET PO (09:31)
[2021-06-07 09:45] LABS: Glucose, Whole Blood 114 mg/dL (60-115)
--- NOTE | 2021-06-07 10:01 | MHC.CM.ED ---
Addendum entered by Zakiya Chatman 06/07/21 10:03: Rapid Covid swab ordered. Original Note: Patient remains in ER. No bed offers have been made yet. Patient received [employer]ane [employer]ane Covid vaccine on 02/25. Copy of HCP obtained from [facility]. Referral broadcasted in [employer] to all facilities contracted with patient's insurance within 15 miles of his home. Continue to monitor for d/c needs.
--- NOTE | 2021-06-07 12:56 | MHC.CM.ED ---
Received message from Gerry at [facility] services requesting a return telephone call. Attempted to reach Gerry via telephone at [phone]. Left message requesting return telephone call. Continue to monitor for d/c needs.
[2021-06-07 13:37] LABS: COVID-19 Test Negative (Negative)
--- NOTE | 2021-06-07 16:00 | MHC.CM.ED ---
Patient remains in the ER. [facility] and [facility] are the only facilities willing to offer a bed at this time. NATALIA Caldwell CM will speak with patient about discharge planning. Continue to monitor for d/c needs.
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
[2021-06-07] MEDS: Atorvastatin Calcium 40 MG TABLET PO (21:00)
--- NOTE | 2021-06-07 21:00 | PC.NURSE ---
PT MEDICATED PER EMAR. PT IN W/C C/O IM HERE FOR SO LONG, WHEN CAN I LEAVE?'. CASE MGT IN ROOM TO SPEAK WITH PT. VS OBTAINED. PT DENIES ANY OTHER COMPLAINTS. WILL CONTINUE TO MONITOR PT.
[2021-06-08] VITALS: BP 132/58; PULSE 68; RESP 18
[2021-06-08 02:31] VITALS: BP 135/55; PULSE 64
[2021-06-08] MEDS: Doxazosin Mesylate 2 MG TABLET 4 MG PO ×2 (02:31→21:16)
--- NOTE | 2021-06-08 03:00 | PC.NURSE ---
PT IN HOSPITAL BED, SLEEPING, WAKES TO VOICE. RESPIRATIONS EASY, N/L. SKIN W/D. PT AWAITING FOR PT EVAL. WILL CONTINUE TO MONITOR PT.
--- NOTE | 2021-06-08 05:23 | PC.NURSE ---
PT IN W/C REQUESTING TO GO TO BED. PT IN HOSPITAL BED AND DENIES ANY COMPLAINTS. PT ALERT, RESPIRATIONS EASY, N/L. SKIN W/D. WILL CONTINUE TO MONITOR PT.
--- NOTE | 2021-06-08 07:08 | PC.NURSE ---
REPORT TO NATALIA BATES.
[2021-06-08 08:22] VITALS: BP 115/63; PULSE 79; RESP 16; O2SAT 99
[2021-06-08 08:39] LABS: Glucose, Whole Blood 218 mg/dL (60-115)
--- NOTE | 2021-06-08 08:46 | MHC.CM.ED ---
Patient remains in ER. [facility] aware their facility is 1st choice. Continue to monitor for d/c needs.
--- NOTE | 2021-06-08 08:55 | PC.NURSE ---
Pt is alert and oriented, able to make needs known to staff. BP soft this morning in 90s, repeat 115/63, Deedee VILLARREAL aware and BP meds held this morning. AM poc 218. Left leg stump dressing changed, some slough noted to medical corner of wound and healthy tissue to bed of wound, Deedee VILLARREAL in to assess wound, no new orders at this time. Pt able to utilize wheelchair to bathroom for AM care.
[2021-06-08] MEDS: Gabapentin 600 MG TABLET PO ×3 (09:10→21:16)
[2021-06-08] MEDS: Cholecalciferol (Vitamin D3) 25 MCG TABLET PO (09:10)
[2021-06-08] MEDS: Omeprazole 20 MG CAPSULE.DR PO ×2 (09:10→21:17)
[2021-06-08] MEDS: Aspirin 81 MG TAB.CHEW PO (09:10)
[2021-06-08] MEDS: Furosemide 20 MG TABLET PO (09:10)
[2021-06-08] MEDS: metFORMIN HCl ER 750 MG TAB.ER.24H PO (09:11)
[2021-06-08] MEDS: Rivaroxaban 15 MG TABLET PO (09:11)
[2021-06-08] MEDS: glipiZIDE XL 2.5 MG TAB.ER.24 PO (09:11)
[2021-06-08] MEDS: Clopidogrel Bisulfate 75 MG TABLET PO (09:11)
--- NOTE | 2021-06-08 11:51 | PC.NURSE ---
late entry for 11am. pt is up in wc, given coffee, wears mask appropriately. no complaints at this time. states once this stump is better i'm out of here . reoriented to pending CM status.
--- NOTE | 2021-06-08 12:20 | MHC.CM.ED ---
[facility] is able to offer a bed and is in the process of obtaining insurance auth. Continue to monitor for d/c needs.
--- NOTE | 2021-06-08 16:42 | PC.NURSE ---
pt has been self sufficient and without complaint.
[2021-06-08 18:00] VITALS: BP 121/65; PULSE 77; RESP 18; O2SAT 98
[2021-06-08 21:16] VITALS: BP 121/65; PULSE 72
[2021-06-08] MEDS: Atorvastatin Calcium 40 MG TABLET PO (21:16)
[2021-06-08 21:17] VITALS: BP 121/65; PULSE 74
[2021-06-08] MEDS: Metoprolol Tartrate 50 MG TABLET PO (21:17)
--- NOTE | 2021-06-08 23:13 | PC.NURSE ---
RN to RN with Kisha. Pt has been pleasant, chatting with staff and visitors, eating well and self sufficient with BR.
[2021-06-09] VITALS: RESP 68; O2SAT 98
--- NOTE | 2021-06-09 08:26 | MHC.CM.ED ---
Patient remains in ER. [facility] is still trying to obtain insurance auth. Continue to monitor for d/c needs.
[2021-06-09 08:53] LABS: Glucose, Whole Blood 179 mg/dL (60-115)
--- NOTE | 2021-06-09 09:47 | PC.NURSE ---
THIS RN WENT TO GIVE PATIENT MORNING MEDS. PATIENT TOLD ME I DON'T WANT ANY DAMN MEDS RIGHT NOW AND WENT BACK TO SLEEP. MEDS RETURNED TO [facility].
[2021-06-09 11:01] VITALS: BP 127/57; PULSE 72; RESP 18; TEMP 36.1; O2SAT 98
[2021-06-09] MEDS: amLODIPine Besylate 10 MG TABLET PO (11:02)
[2021-06-09] MEDS: Aspirin 81 MG TAB.CHEW PO (11:03)
[2021-06-09] MEDS: Metoprolol Tartrate 50 MG TABLET PO ×2 (11:03→21:10)
[2021-06-09] MEDS: Omeprazole 20 MG CAPSULE.DR PO ×2 (11:03→21:10)
[2021-06-09] MEDS: Furosemide 20 MG TABLET PO (11:03)
[2021-06-09] MEDS: Gabapentin 600 MG TABLET PO ×2 (11:03→21:11)
[2021-06-09] MEDS: Clopidogrel Bisulfate 75 MG TABLET PO (11:03)
[2021-06-09] MEDS: Cholecalciferol (Vitamin D3) 25 MCG TABLET PO (11:03)
[2021-06-09] MEDS: lisinopriL 40 MG TABLET PO (11:03)
[2021-06-09] MEDS: Rivaroxaban 15 MG TABLET PO (11:04)
--- NOTE | 2021-06-09 11:11 | PC.NURSE ---
patient originally refused pills. Eventually allowed me to give him his daily pills. Refuse diabetic pills. Explained importance to patient on taking these pills. patient states I am not taking that sh. VSS. Resting safely.
--- NOTE | 2021-06-09 18:46 | MHC.CM.ED ---
CM met with pt. Pt is aware that he will go to [facility] at 10 am tomorrow06/10/21. Informed that CM has requested that he has a wheelchair available to him when he arrives. Pt requesting telephone. Telephone given. CM to follow for d/c needs.
[2021-06-09 21:10] VITALS: BP 142/82; PULSE 78
[2021-06-09] MEDS: Doxazosin Mesylate 2 MG TABLET 4 MG PO (21:10)
[2021-06-09] MEDS: Atorvastatin Calcium 40 MG TABLET PO (21:11)
[2021-06-09 21:15] VITALS: BP 146/82; PULSE 72; RESP 18; O2SAT 98
[2021-06-09 22:00] VITALS: BP 107/59; PULSE 60; RESP 16; TEMP 36.8; O2SAT 100
[2021-06-10 07:45] VITALS: BP 83/41; PULSE 64; RESP 17; O2SAT 97
[2021-06-10 08:06] VITALS: BP 115/53
--- NOTE | 2021-06-10 08:27 | MHC.CM.ED ---
Patient will leave at 10am for [facility]. [facility] booked. Med nec in chart. Patient, Macie FISHER and Chelle VILLARREAL aware. Continue to monitor for d/c needs.
== END 2021-06-10 10:52 | disposition skilled nursing facility (03) ==
PROVIDERS: Internal Medicine; Physician Assistant; Emergency Provider Emergency Medicine; PCP Internal Medicine
DX: M79.605 Pain in left leg (principal); T81.30XA Disruption of wound, unspecified, initial encounter; Y83.9 Surgical procedure, unspecified as the cause of abnormal reaction of the patient, or of later complication, without mention of misadventure at the time of the procedure; Y92.9 Unspecified place or not applicable; M79.662 Pain in left lower leg; Z20.822 Contact with and (suspected) exposure to COVID-19; Z79.899 Other long term (current) drug therapy; Z89.512 Acquired absence of left leg below knee; Z91.81 History of falling
CPT/HCPCS: 36415; 73560; 76882; 80053; 81001; 82947; 85025; 85610; 85730; 87071; 87073; 87086; 87205; 87635; 97162; 99285

== ENCOUNTER 2022-03-13 15:55 | Emergency (ER) | payer OTHER, SELFPAY ==
--- NOTE | ~2022-03-13 | XR_ITS ---
EXAMINATION: XR CHEST CLINICAL INFORMATION: SOB COMPARISON: None TECHNIQUE: 2 views of the chest were obtained. FINDINGS: The lungs are hypoexpanded but clear of acute process. Heart size and pulmonary vascularity is normal. No gross bony abnormality seen except for mild dextro scoliosis. No lytic process. XR/XR chest 2V IMPRESSION: Mild dextro scoliosis. No acute process seen.
[2022-03-13 16:03] VITALS: BP 129/62; BP 150/70; PULSE 75; PULSE 80; RESP 16; TEMP 36.8; O2SAT 100; O2SAT 97; BMI 40.8
--- NOTE | 2022-03-13 16:14 | ED.GENADULT ---
HPI - General Adult General Chief complaint: General Medical Stated complaint: SOB 99% RA, STILL 99% ON 2LPM PER EMS Time Seen by Provider: 03/13/22 16:14 Source: patient and EMS Mode of arrival: EMS Limitations: no limitations History of Present Illness HPI narrative: Patient is a 61 year old male presenting to the emergency department today with shortness of breath secondary to being hot. Patient states that he is feeling hot at his house and that causes him to be short of breath and now he wants to stay here because he is alone when he is home. Patient denies any current dizziness, lightheadedness, abdominal pain, nausea, vomiting, fever, chills, blurry vision, double vision, loss of vision, chest pain, difficulty breathing, shortness of breath, back pain, night sweats, pain with urination, increased urinary frequency, increased urinary urgency, blood in his urine or stool, syncope or a near syncopal episode, recent trauma or falls, bowel incontinence, bladder incontinence, bowel retention, bladder retention, or any other complaints at this time. Patient states that he was seen at [facility] for this last night and they didn't do anything for him and kicked him out. Onset (ago): day(s) (1) Severity scale (1-10): 1 Relieving factors: none Exacerbating factors: none Associated symptoms: denies other symptoms Treatments prior to arrival: none Related Data Home Medications Medication Instructions Recorded Confirmed amlodipine 10 mg tablet 10 mg PO DAILY 06/05/21 06/05/21 aspirin 81 mg tablet 81 mg PO DAILY 06/05/21 06/05/21 atorvastatin 40 mg tablet 40 mg PO BEDTIME 06/05/21 06/05/21 cholecalciferol (vit D3) 1,000 1 tab PO DAILY 06/05/21 06/05/21 unit-vitamin K2 (MK4) 100 mcg tablet clopidogrel 75 mg tablet 1 tab PO DAILY 06/05/21 06/05/21 clopidogrel 75 mg tablet 75 mg PO DAILY 06/05/21 06/05/21 doxazosin 4 mg tablet 4 mg PO BEDTIME 06/05/21 06/05/21 dulaglutide 1.5 mg/0.5 mL 0.5 ml subcut QWEEK 06/05/21 06/05/21 subcutaneous pen injector (Trulicity) furosemide 20 mg tablet 20 mg PO DAILY 06/05/21 06/05/21 gabapentin 600 mg tablet 600 mg PO TID 06/05/21 06/05/21 glipizide 2.5 mg tablet, extended 2.5 mg PO DAILY 06/05/21 06/05/21 release 24 hr lisinopril 40 mg tablet 40 mg PO DAILY 06/05/21 06/05/21 metformin 750 mg tablet,extended 750 mg PO DAILY 06/05/21 06/05/21 release 24 hr metoprolol tartrate 50 mg tablet 50 mg PO BID 06/05/21 06/05/21 omeprazole 20 mg capsule,delayed 1 cap PO BID 06/05/21 06/05/21 release rivaroxaban 15 mg tablet (Xarelto) 15 mg PO DAILY 06/05/21 06/05/21 insulin detemir U-100 100 unit/mL 70 unit subcut BID@0630,1630 06/06/21 06/06/21 subcutaneous solution (Levemir U-100 Insulin) Allergies Allergy/AdvReac Type Severity Reaction Status Date / Time bee pollen [bee stings] Allergy Shortness Verified 05/04/21 20:23 of Breath Review of Systems Constitutional: Constitutional: Reports no additional constitutional complaints, Denies chills, Denies fever(s) and Denies night sweats Eyes: Eyes: Reports no additional eye complaints, Denies blurry vision, Denies change in vision, Denies diplopia, Denies eye discharge, Denies loss of vision and Denies eye pain ENT: Denies dizziness Cardiovascular: Cardiovascular: Reports no additional cardiovascular complaints, Denies chest pain, Denies lightheadedness, Denies Loss of Consciousness and Denies dyspnea Respiratory: Respiratory: Reports no additional respiratory complaints and Denies dyspnea Gastrointestinal: Gastrointestinal: Reports no additional gastrointestinal complaints, Denies abdominal pain, Denies melena, Denies hematochezia, Denies change in bowel habits and Denies change in stool character Genitourinary: Genitourinary: Reports no additional male genitourinary complaints, Denies hematuria, Denies oliguria, Denies difficulty urinating, Denies dysuria, Denies urinary frequency, Denies urinary hesitancy, Denies urinary incontinence and Denies urinary urgency Musculoskeletal: Musculoskeletal: Reports no additional musculoskeletal complaints, Denies numbness and Denies tingling Comments: left leg below knee amputation Neurologic: Denies dizziness, Denies loss of vision, Denies numbness and Denies tingling Psychiatric: Psychiatric: Reports no additional psychiatric complaints Endocrine: Endocrine: Reports no additional endocrine complaints Hematologic/Lymphatic: Hematologic/Lymphatic: Reports no additional hematologic/lymphatic complaints Allergic/Immunologic: Allergic/Immunologic: Reports no additional allergic/immunologic complaints [facility] Past Medical History Attestation statement: The following information was validated with the patient. Source: old records reviewed Medical History Diabetes Toe amputee Unilateral complete BKA Social History Social History Alcohol intake: unknown Patient Tobacco Use Status: Tobacco use Unknown Advance Directives: Yes Advance Directives on File: Yes Advance Directives Date on File: 06/07/21 Physical Exam ED Vital Signs: Vital Signs - 24 hr 03/13/22 16:03 03/13/22 18:45 Temperature 98.2 F 97.6 F Pulse Rate 75 64 Respiratory Rate 16 20 Blood Pressure 129/62 129/69 Pulse Oximetry 97 96 Oxygen Delivery Method Room Air Room Air BMI result Body Mass Index 40.8 Const General: cooperative, no acute distress, alert and awake Nutritional Appearance: well nourished Orientation/consciousness: patient oriented x3 Limitations: no limitations HENMT Head: Yes normal to inspection and Yes atraumatic Ears: hearing grossly normal bilaterally and external ears normal General nose exam: Normal external nose present, no nasal discharge noted and no epistaxis Face and sinus: Yes normal facial exam, No abrasion and No laceration Mouth: Normal oral and palatal mucosa present, no drooling and no muffled voice Eyes General: appearance normal, both eyes and all related structures Periorbital: periorbital findings normal Eyelids: Yes eyelids normal Conjunctivae: conjunctivae normal Pupils: Equal, round and reactive pupils present EOM: EOMs intact bilaterally Neck Neck: Yes normal visual inspection, Yes full ROM and Yes no lymphadenopathy Chest Chest palpation & inspection: normal inspection of the chest Resp Effort & Inspection: normal respiratory effort and able to speak in complete sentences Auscultation: clear to auscultation bilaterally Cardio Rate: regular rate Rhythm: regular rhythm GI Inspection: Yes normal to inspection Neuro General: patient oriented x3 and moves all extremities Cranial nerves: Yes Equal, round and reactive pupils present Cognition (Neuro): normal cognition Motor exam (neuro): 5/5 motor strength present throughout Sensory Exam: Normal double simultaneous stimulation for sensation Coordination: [id number] test normal Extrem Other: below left knee left lower leg amputee Psych Appearance: grossly normal Mental Status: mental status grossly normal Affect: normal affect Attitude: cooperative Thought process: Normal thought process present Thought content: Normal thought content present Insight: Good insight present (Psych) Medical Decision Making MDM Narrative Medical decision making narrative: Patient is a 61 year old male presenting to the emergency department today with resolved shortness of breath. Patient's physical exam was unremarkable. Patient's blood work showed a slightly elevated creatinine but was otherwise unremarkable. Patient's chest x-ray showed no acute process. I explained my physical exam findings as well as all test results to the patient. I answered all questions asked by the patient. Patient to be evaluated by case management tomorrow for possible assisted living placement. Differential Diagnosis Differential Diagnosis: feeling warm Medical Records Medical records reviewed: Yes I reviewed the patient's medical records. Lab Data Lab results reviewed: Yes I reviewed the patient's lab results. Result diagrams: 03/13/22 18:02 03/13/22 18:02 Labs: Lab Results 03/13/22 03/13/22 03/13/22 Range/Units 18:01 18:02 18:02 WBC 10.1 (4.8-10.8) X10*3/uL RBC 5.21 (4.60-5.80) X10*6/uL Hgb 12.7 L (14.0-18.0) g/dl Hct 41.5 L (42.0-52.0) % MCV 79.7 L (80.0-98.0) fL MCH 24.4 L (27.0-33.0) pg MCHC 30.6 L (31.0-36.0) g/dl RDW 14.6 (11.0-16.0) % Plt Count 348 (160-400) X10*3/uL MPV 10.1 (9.4-12.4) fL Immature Gran % (Auto) 0.5 H (0.0-0.4) % Neut % (Auto) 65.1 (45-73) % Lymph % (Auto) 25.1 (20-40) % [place] % (Auto) 5.8 (2-11) % Eos % (Auto) 3.0 (0-4) % Baso % (Auto) 0.5 (0-2) % Lymph # (Auto) 2.5 (1.2-4.9) X10*3/uL [place] # (Auto) 0.6 (0.1-1.2) X10*3/uL Eos # (Auto) 0.3 (0.0-0.4) X10*3/uL Baso # (Auto) 0.1 (0.0-0.2) X10*3/uL Abs Immat Gran (auto) 0.05 H (0.00-0.03) X10*3/uL Absolute Neuts (auto) 6.6 (2.0-8.3) x10*3/uL Absolute Nucleated RBC 0.000 (0.0-0.012) X10*3/uL Nucleated RBC % (auto) 0.0 (0.0-0.2) /100WBC Sodium 139 (135-145) mmol/L Potassium 4.0 (3.3-5.1) mmol/L Chloride 104 (96-108) mmol/L Carbon Dioxide 26 (22-29) mmol/L Anion Gap 13 (12-20) BUN 19 H (9-16) mg/dL Creatinine 1.63 H (0.5-1.4) mg/dL Estim Creat Clear Calc 64.2 Estimated GFR 43 Random Glucose 159 H (60-115) mg/dL Calcium 9.5 (8.4-10.2) mg/dL Magnesium 2.0 (1.6-2.6) mg/dL Total Bilirubin 0.6 (0.0-1.0) mg/dL AST 15 (5-37) U/L ALT 18 (0-40) U/L Alkaline Phosphatase 136 H (39-117) U/L Total Protein 7.5 (6.5-8.0) g/dL Albumin 3.9 (3.5-5.0) g/dL COVID-19 (JOSUE) (Negative) COVID-19 Clin Com Influenza Type A (JOCY) Negative (Negative) Influenza Type B (JOCY) Negative (Negative) Influenza A & B Note See Note 06/26/22 Range/Units 18:02 WBC (4.8-10.8) X10*3/uL RBC (4.60-5.80) X10*6/uL Hgb (14.0-18.0) g/dl Hct (42.0-52.0) % MCV (80.0-98.0) fL MCH (27.0-33.0) pg MCHC (31.0-36.0) g/dl RDW (11.0-16.0) % Plt Count (160-400) X10*3/uL MPV (9.4-12.4) fL Immature Gran % (Auto) (0.0-0.4) % Neut % (Auto) (45-73) % Lymph % (Auto) (20-40) % [place] % (Auto) (2-11) % Eos % (Auto) (0-4) % Baso % (Auto) (0-2) % Lymph # (Auto) (1.2-4.9) X10*3/uL [place] # (Auto) (0.1-1.2) X10*3/uL Eos # (Auto) (0.0-0.4) X10*3/uL Baso # (Auto) (0.0-0.2) X10*3/uL Abs Immat Gran (auto) (0.00-0.03) X10*3/uL Absolute Neuts (auto) (2.0-8.3) x10*3/uL Absolute Nucleated RBC (0.0-0.012) X10*3/uL Nucleated RBC % (auto) (0.0-0.2) /100WBC Sodium (135-145) mmol/L Potassium (3.3-5.1) mmol/L Chloride (96-108) mmol/L Carbon Dioxide (22-29) mmol/L Anion Gap (12-20) BUN (9-16) mg/dL Creatinine (0.5-1.4) mg/dL Estim Creat Clear Calc Estimated GFR Random Glucose (60-115) mg/dL Calcium (8.4-10.2) mg/dL Magnesium (1.6-2.6) mg/dL Total Bilirubin (0.0-1.0) mg/dL AST (5-37) U/L ALT (0-40) U/L Alkaline Phosphatase (39-117) U/L Total Protein (6.5-8.0) g/dL Albumin (3.5-5.0) g/dL COVID-19 (JOSUE) Negative (Negative) COVID-19 Clin Com See Note Influenza Type A (JOCY) (Negative) Influenza Type B (JOCY) (Negative) Influenza A & B Note Imaging Data Chest x-ray: Attestation: I personally reviewed and interpreted this imaging study as follows: My impression: No acute process. Radiologist's impression: EXAMINATION: XR CHEST CLINICAL INFORMATION: SOB COMPARISON: None TECHNIQUE: 2 views of the chest were obtained. FINDINGS: The lungs are hypoexpanded but clear of acute process. Heart size and pulmonary vascularity is normal. No gross bony abnormality seen except for mild dextro scoliosis. No lytic process. XR/XR chest 2V IMPRESSION: Mild dextro scoliosis. No acute process seen. Dictated By: Cirilo Rdz MD Signed By: Electronically signed by Cirilo Rdz MD 03/13/22 8798 Discharge Plan Discharge Clinical Impression: Hot skin Patient Disposition: Still a Patient Prescriptions: No [facility] omeprazole 20 mg capsule,delayed release(DR/EC) 1 cap PO BID Trulicity 1.5 mg/0.5 mL pen injector 0.5 ml subcut QWEEK clopidogrel 75 mg tablet 1 tab PO DAILY atorvastatin 40 mg Tablet 40 mg PO BEDTIME clopidogrel 75 mg Tablet 75 mg PO DAILY amlodipine 10 mg Tablet 10 mg PO DAILY glipizide 2.5 mg Tablet Extended Release 24hr 2.5 mg PO DAILY metoprolol tartrate 50 mg Tablet 50 mg PO BID doxazosin 4 mg Tablet 4 mg PO BEDTIME aspirin 81 mg Tablet 81 mg PO DAILY furosemide 20 mg Tablet 20 mg PO DAILY lisinopril 40 mg Tablet 40 mg PO DAILY metformin 750 mg Tablet Extended Release 24 Hr 750 mg PO DAILY Xarelto 15 mg Tablet 15 mg PO DAILY gabapentin 600 mg Tablet 600 mg PO TID vitamin D3-vitamin K2 (MK4) 1,000-100 unit-mcg Tablet 1 tab PO DAILY Levemir U-100 Insulin 100 unit/mL Solution 70 unit SUBCUT BID@1630,3987
--- NOTE | 2022-03-13 16:27 | MHC.CM.ED ---
Received case management consult from Blaire VILLARREAL. Patient came to ER due to feeling hot . Patient was at [facility] and was discharged. Patient activated EMS to come to [facility]. Work up is pending at this time. However, patient stated to Blaire that he didn't feel he can safely go home tonight. T/W met with patient in regards to discharge planning. Patient lives with his sister and brother in law and is active with [facility]. Patient states he just wants to spend 1 night in the ER so he can safely go home tomorrow. Patient's sister is currently in the hospital and his brother in law will return home tomorrow. T/W explained work up is pending. Blaire VILLARREAL aware. Continue to monitor for d/c needs.
[2022-03-13 18:06] LABS: MANUAL DIFF FLAG NO
[2022-03-13 18:14] LABS: Basophils Absolute Auto 0.1 X10*3/uL (0.0-0.2); Basophils Percent Auto 0.5 % (0-2); Eosinophils Absolute Auto 0.3 X10*3/uL (0.0-0.4); Hematocrit 41.5 % (42.0-52.0); Hemoglobin 12.7 g/dl (14.0-18.0); Imm Gran Abs Auto 0.05 X10*3/uL (0.00-0.03); Imm Gran Pct Auto 0.5 % (0.0-0.4); Lymphocytes Absolute Auto 2.5 X10*3/uL (1.2-4.9); Lymphocytes Percent Auto 25.1 % (20-40); Mean Corpuscular HGB Conc 30.6 g/dl (31.0-36.0); Mean Corpuscular Hemoglobin 24.4 pg (27.0-33.0); Mean Corpuscular Volume 79.7 fL (80.0-98.0); Mean Platelet Volume 10.1 fL (9.4-12.4); Monocytes Absolute Auto 0.6 X10*3/uL (0.1-1.2); Monocytes Percent Auto 5.8 % (2-11); Neutrophils Absolute Auto 6.6 x10*3/uL (2.0-8.3); Neutrophils Percent Auto 65.1 % (45-73); Platelet Count 348 X10*3/uL (160-400); Red Blood Count 5.21 X10*6/uL (4.60-5.80); Red Cell Distribution Width 14.6 % (11.0-16.0); White Blood Count 10.1 X10*3/uL (4.8-10.8)
[2022-03-13 18:23] LABS: COVID-19 Test Negative (Negative); IDNOW Serial# 16C4AD1C
[2022-03-13 18:24] LABS: Influenza A Negative (Negative); Influenza B2 Negative (Negative)
[2022-03-13 18:34] LABS: Alanine Aminotransferase 18 U/L (0-40); Albumin Level 3.9 g/dL (3.5-5.0); Alkaline Phosphatase 136 U/L (39-117); Anion Gap 13 (12-20); Aspartate Amino Transferase 15 U/L (5-37); Bilirubin Total 0.6 mg/dL (0.0-1.0); Blood Urea Nitrogen 19 mg/dL (9-16); Calcium 9.5 mg/dL (8.4-10.2); Carbon Dioxide 26 mmol/L (22-29); Chloride 104 mmol/L (96-108); Creatinine Clr Calc Pharmacy 64.2; Estimated Glomerular Filt Rate 43; Glucose Random 159 mg/dL (60-115); Sodium 139 mmol/L (135-145); Total Protein 7.5 g/dL (6.5-8.0)
--- NOTE | 2022-03-13 18:40 | PC.NURSE ---
pt alert and oriented, skin appropriate for ethnicity, respirations even and unlabored, pt pivoted on the commode very limited assistance, pt does reports some epigastric pain, states he has heart burn, pain at 10/10
[2022-03-13 18:45] VITALS: BP 129/69; PULSE 64; RESP 20; TEMP 36.4; O2SAT 96
[2022-03-13 23:20] VITALS: BP 149/67; RESP 16; TEMP 37.1
--- NOTE | 2022-03-14 01:19 | PC.NURSE ---
pt in no distress resting in bed. pt c/o left leg pain rated 10/10. pt states that this is chronic pain. pt given assistance getting repositioned in bed.
--- NOTE | 2022-03-14 02:45 | PC.NURSE ---
pt assisted up to W/C, voided in BR. no signs of distress
[2022-03-14 03:00] VITALS: BP 144/77; PULSE 60; RESP 20; O2SAT 96
[2022-03-14 06:11] VITALS: BP 106/51; PULSE 67; RESP 20; O2SAT 95
--- NOTE | 2022-03-14 12:22 | MHC.CM.PN ---
Met with pt who was sleeping. Reviewed home care situation and services. Pt requesting to sleep in the ED one more night . Informed pt that the ED is for persons with medical needs and not for lodging. Discussed return to home with existing [facility] services and family support. Pt states his PCP is Dr. Becerril, [facility] and that he uses an electric scooter to get to appointments, stores and the pharmacy. Discussed returning to home via BLS d/t unilateral BKA and poor safety awareness: pt agrees. Attempted to contact pt's next of kin/sister however the VM was not able to accept messages. Pt to return to home via [facility]. ED providers updated
[2022-03-14 13:15] VITALS: BP 139/59; PULSE 68; RESP 14; O2SAT 96
== END 2022-03-14 14:00 | disposition home or self-care (01) ==
PROVIDERS: Physician Assistant Medical; Emergency Provider Emergency Medicine Emergency Medical Services
DX: R20.8 Other disturbances of skin sensation (principal); E11.9 Type 2 diabetes mellitus without complications; Z89.512 Acquired absence of left leg below knee; Z20.822 Contact with and (suspected) exposure to COVID-19
CPT/HCPCS: 71046; 80053; 83735; 85025; 87502; 87635; 99284

== ENCOUNTER 2022-05-08 12:36 | Emergency (ER) | payer OTHER, SELFPAY ==
--- NOTE | ~2022-05-08 | US_ITS ---
EXAMINATION: ULTRASOUND ARTERIAL DUPLEX LOWER EXTREMITY LEFT CLINICAL INFORMATION: Left upper leg bruising, rule out vascular abnormality. COMPARISON: None TECHNIQUE: Multiple 2-D grayscale and duplex Doppler ultrasound images of the arteries of the left lower extremity were obtained. FINDINGS: Duplex Doppler interrogation of the bilateral lower extremities showed normal tri and biphasic arterial waveforms. Arterial peak systolic velocities are as follows: Left: Common femoral: 133 cm/sec Profunda femoral: 199 cm/sec Superficial femoral proximal: 106 cm/sec Superficial femoral mid: 134 cm/sec. Superficial femoral distal: 92 cm/sec Popliteal: 74 cm/sec. Status post below-knee amputation. Mild echogenic atherosclerotic plaque. US/US arterial duplex LE LT IMPRESSION: No hemodynamically significant arterial stenosis in the visualized arteries of the left lower extremity.
--- NOTE | 2022-05-08 12:41 | ED.GENADULT ---
HPI - General Adult General Chief complaint: Extremity Injury, Lower Stated complaint: L LEG PAIN Time Seen by Provider: 05/08/22 12:41 Source: patient and EMS Mode of arrival: EMS Limitations: no limitations History of Present Illness HPI narrative: Patient is a 62 year old male presenting to the emergency department today with left leg pain. Patient states that he noticed bruising to his left leg stump with some minimal pain. Patient states that he is not sure what the bruise is from but denies recent trauma. Patient states that he does have a prosthetic that goes on that leg and he has been using it. Patient states that he also has a small weeping wound on his right lower leg that his visiting nurse helps with. Patient denies any dizziness, lightheadedness, abdominal pain, nausea, vomiting, fever, chills, blurry vision, double vision, loss of vision, chest pain, difficulty breathing, shortness of breath, back pain, night sweats, pain with urination, increased urinary frequency, increased urinary urgency, blood in his urine or stool, syncope or a near syncopal episode, recent trauma or falls, bowel incontinence, bladder incontinence, bowel retention, bladder retention, or any other complaints at this time. Onset (ago): day(s) Location: left and lower extremity Radiation: non-radiation Severity: mild Severity scale (1-10): 3 Relieving factors: none Exacerbating factors: none Associated symptoms: denies other symptoms Treatments prior to arrival: none Related Data Home Medications Medication Instructions Recorded Confirmed amlodipine 10 mg tablet 10 mg PO DAILY 06/05/21 06/05/21 aspirin 81 mg tablet 81 mg PO DAILY 06/05/21 06/05/21 atorvastatin 40 mg tablet 40 mg PO BEDTIME 06/05/21 06/05/21 cholecalciferol (vit D3) 1,000 1 tab PO DAILY 06/05/21 06/05/21 unit-vitamin K2 (MK4) 100 mcg tablet clopidogrel 75 mg tablet 1 tab PO DAILY 06/05/21 06/05/21 clopidogrel 75 mg tablet 75 mg PO DAILY 06/05/21 06/05/21 doxazosin 4 mg tablet 4 mg PO BEDTIME 06/05/21 06/05/21 dulaglutide 1.5 mg/0.5 mL 0.5 ml subcut QWEEK 06/05/21 06/05/21 subcutaneous pen injector (Trulicity) furosemide 20 mg tablet 20 mg PO DAILY 06/05/21 06/05/21 gabapentin 600 mg tablet 600 mg PO TID 06/05/21 06/05/21 glipizide 2.5 mg tablet, extended 2.5 mg PO DAILY 06/05/21 06/05/21 release 24 hr lisinopril 40 mg tablet 40 mg PO DAILY 06/05/21 06/05/21 metformin 750 mg tablet,extended 750 mg PO DAILY 06/05/21 06/05/21 release 24 hr metoprolol tartrate 50 mg tablet 50 mg PO BID 06/05/21 06/05/21 omeprazole 20 mg capsule,delayed 1 cap PO BID 06/05/21 06/05/21 release rivaroxaban 15 mg tablet (Xarelto) 15 mg PO DAILY 06/05/21 06/05/21 insulin detemir U-100 100 unit/mL 70 unit subcut BID@0630,1630 06/06/21 06/06/21 subcutaneous solution (Levemir U-100 Insulin) Allergies Allergy/AdvReac Type Severity Reaction Status Date / Time bee pollen [bee stings] Allergy Shortness Verified 05/04/21 20:23 of Breath Review of Systems Constitutional: Constitutional: Reports no additional constitutional complaints, Denies chills, Denies fever(s) and Denies night sweats Eyes: Eyes: Reports no additional eye complaints, Denies blurry vision, Denies change in vision, Denies diplopia, Denies eye discharge, Denies loss of vision and Denies eye pain ENT: Denies dizziness Cardiovascular: Cardiovascular: Reports no additional cardiovascular complaints, Denies chest pain, Denies lightheadedness, Denies Loss of Consciousness and Denies dyspnea Respiratory: Respiratory: Reports no additional respiratory complaints and Denies dyspnea Gastrointestinal: Gastrointestinal: Reports no additional gastrointestinal complaints, Denies abdominal pain, Denies melena, Denies hematochezia, Denies change in bowel habits and Denies change in stool character Genitourinary: Genitourinary: Reports no additional male genitourinary complaints, Denies hematuria, Denies oliguria, Denies difficulty urinating, Denies dysuria, Denies urinary frequency, Denies urinary hesitancy, Denies urinary incontinence and Denies urinary urgency Musculoskeletal: Musculoskeletal: Reports no additional musculoskeletal complaints, Denies numbness and Denies tingling Integumentary/Breasts: Comments: bruising to the left upper leg Neurologic: Denies dizziness, Denies loss of vision, Denies numbness and Denies tingling Psychiatric: Psychiatric: Reports no additional psychiatric complaints Endocrine: Endocrine: Reports no additional endocrine complaints Hematologic/Lymphatic: Hematologic/Lymphatic: Reports no additional hematologic/lymphatic complaints Allergic/Immunologic: Allergic/Immunologic: Reports no additional allergic/immunologic complaints [facility] Past Medical History Attestation statement: The following information was validated with the patient. Source: old records reviewed Medical History Diabetes Toe amputee Unilateral complete BKA Social History Social History Alcohol intake: unknown Patient Tobacco Use Status: Tobacco use Unknown Advance Directives: Yes Advance Directives on File: Yes Advance Directives Date on File: 06/07/21 Physical Exam ED Vital Signs: Vital Signs - 24 hr 05/08/22 12:56 05/08/22 16:22 Pulse Rate 72 65 Respiratory Rate 16 16 Blood Pressure 133/63 136/42 L Pulse Oximetry 96 95 Oxygen Delivery Method Room Air Room Air BMI result Body Mass Index 40.5 Const General: cooperative, no acute distress, alert and awake Nutritional Appearance: well nourished Orientation/consciousness: patient oriented x3 Limitations: no limitations HENMT Head: Yes normal to inspection and Yes atraumatic Ears: hearing grossly normal bilaterally and external ears normal General nose exam: Normal external nose present, no nasal discharge noted and no epistaxis Face and sinus: Yes normal facial exam, No abrasion and No laceration Mouth: Normal oral and palatal mucosa present, no drooling and no muffled voice Eyes General: appearance normal, both eyes and all related structures Periorbital: periorbital findings normal Eyelids: Yes eyelids normal Conjunctivae: conjunctivae normal Pupils: Equal, round and reactive pupils present EOM: EOMs intact bilaterally Neck Neck: Yes normal visual inspection, Yes full ROM and Yes no lymphadenopathy Chest Chest palpation & inspection: normal inspection of the chest Resp Effort & Inspection: normal respiratory effort and able to speak in complete sentences Auscultation: clear to auscultation bilaterally Cardio Rate: regular rate Rhythm: regular rhythm GI Inspection: Yes normal to inspection Skin Other: erythematous rash present to the right abdomen, specifically under panus Wounds: wounds noted (chronic wound to the right lower leg, no erythema or warmth appreciated) Neuro General: patient oriented x3 and moves all extremities Cranial nerves: Yes Equal, round and reactive pupils present Cognition (Neuro): normal cognition Motor exam (neuro): 5/5 motor strength present throughout Sensory Exam: Normal double simultaneous stimulation for sensation Coordination: [id number] test normal Extrem Other: below knee amputation on the left side with circumferential bruising in various stages of the healing to the left upper leg General: Yes full ROM and Yes capillary refill normal Psych Appearance: grossly normal Mental Status: mental status grossly normal Affect: normal affect Attitude: cooperative Thought process: Normal thought process present Thought content: Normal thought content present Insight: Good insight present (Psych) Medical Decision Making MDM Narrative Medical decision making narrative: Patient is a 62 year old male presenting to the emergency department today with left leg pain and bruising. Patient's physical exam showed an obvious yeast dermatitis to his right abdomen/below his panus and circumferential bruising in various stages of healing to his left upper leg. Additionally, patient has below knee amputation of the left lower leg and has a chronic slow healing wound on the anterior right lower leg with no erythema or warmth. Patient's blood work showed a slightly elevated white blood cell count however, I believe this to be reactive and not due to any acute infectious process. Patient was concerned that the bruising meant that he would have to have lose more of the left leg however, the patient's left upper leg arterial ultrasound showed no acute process. I assured the patient that due to his negative work up and normal clinical presentation, he is not at present risk of losing more of his left leg. I explained to the patient that the bruising is likely secondary to his use of an ill fitting prosthetic leg. I explained that the patient should be using OTC topical yeast medications on his affected area under his panus. I explained my physical exam findings as well as all test results to the patient. I answered all questions asked by the patient. I stressed the importance of the patient taking his medication as prescribed. I stressed the importance of the patient following up with his primary care provider. I stressed the importance of the patient returning to the emergency department immediately if his symptoms were to worsen or if he were to develop any dizziness, shortness of breath, difficulty breathing, chest pain, blurry vision, loss of vision, nausea, vomiting, abdominal pain, fever, chills, back pain, or any other complaints. Patient verbalized agreement and understanding with this treatment plan and discharge. Differential Diagnosis Differential Diagnosis: superficial bruising, yeast infection Medical Records Medical records reviewed: Yes I reviewed the patient's medical records. Lab Data Lab results reviewed: Yes I reviewed the patient's lab results. Result diagrams: 05/08/22 14:01 05/08/22 15:01 Labs: Lab Results 05/08/22 05/08/22 05/08/22 Range/Units 14:01 14:01 15:01 WBC 12.5 H (4.8-10.8) X10*3/uL RBC 4.37 L (4.60-5.80) X10*6/uL Hgb 11.1 L (14.0-18.0) g/dl Hct 35.7 L (42.0-52.0) % MCV 81.7 (80.0-98.0) fL MCH 25.4 L (27.0-33.0) pg MCHC 31.1 (31.0-36.0) g/dl RDW 14.3 (11.0-16.0) % Plt Count 382 (160-400) X10*3/uL MPV 10.1 (9.4-12.4) fL Immature Gran % (Auto) 1.7 H (0.0-0.4) % Neut % (Auto) 71.8 (45-73) % Lymph % (Auto) 16.1 L (20-40) % [place] % (Auto) 6.0 (2-11) % Eos % (Auto) 4.1 H (0-4) % Baso % (Auto) 0.3 (0-2) % Lymph # (Auto) 2.0 (1.2-4.9) X10*3/uL [place] # (Auto) 0.8 (0.1-1.2) X10*3/uL Eos # (Auto) 0.5 H (0.0-0.4) X10*3/uL Baso # (Auto) 0.0 (0.0-0.2) X10*3/uL Abs Immat Gran (auto) 0.21 H (0.00-0.03) X10*3/uL Absolute Neuts (auto) 9.0 H (2.0-8.3) x10*3/uL Absolute Nucleated RBC 0.000 (0.0-0.012) X10*3/uL Nucleated RBC % (auto) 0.0 (0.0-0.2) /100WBC PT 14.3 H (10.0-13.1) SEC INR 1.2 H (0.9-1.1) APTT 40.0 H (26.0-36.4) SEC Sodium 137 (135-145) mmol/L Potassium 4.1 (3.3-5.1) mmol/L Chloride 103 (96-108) mmol/L Carbon Dioxide 24 (22-29) mmol/L Anion Gap 14 (12-20) BUN 26 H (9-16) mg/dL Creatinine 1.30 (0.5-1.4) mg/dL Estim Creat Clear Calc 84.0 Estimated GFR 56 Random Glucose 164 H (60-115) mg/dL Calcium 9.1 (8.4-10.2) mg/dL Magnesium 1.9 (1.6-2.6) mg/dL Total Bilirubin 0.7 (0.0-1.0) mg/dL AST 9 (5-37) U/L ALT 10 (0-40) U/L Alkaline Phosphatase 122 H (39-117) U/L Total Protein 6.6 (6.5-8.0) g/dL Albumin 3.3 L (3.5-5.0) g/dL Imaging Data Arterial US - left upepr leg: Attestation: I personally reviewed and interpreted this imaging study as follows: My impression: No acute process. Radiologist's impression: EXAMINATION: ULTRASOUND ARTERIAL DUPLEX LOWER EXTREMITY LEFT CLINICAL INFORMATION: Left upper leg bruising, rule out vascular abnormality.? COMPARISON: None? TECHNIQUE: Multiple 2-D grayscale and duplex Doppler ultrasound images of the arteries of the left lower extremity were obtained.? FINDINGS: Duplex Doppler interrogation of the bilateral lower extremities showed normal tri and biphasic arterial waveforms. Arterial peak systolic velocities are as follows: Left: Common femoral: ? ? ? 133 cm/sec Profunda femoral:? ? ? 199 cm/sec Superficial femoral proximal:? 106 cm/sec Superficial femoral mid: ? ? 134 cm/sec. Superficial femoral distal:? ? 92 cm/sec Popliteal: ? 74 cm/sec. Status post below-knee amputation. Mild echogenic atherosclerotic plaque. US/US arterial duplex LE LT IMPRESSION: No hemodynamically significant arterial stenosis in the visualized arteries of the left lower extremity.? Dictated By: Ayo Mcdonald MD Signed By: Electronically signed by Ayo Mcdonald MD 05/08/22 4105 Discharge Plan Discharge Clinical Impression: Superficial bruising, Yeast dermatitis Patient Disposition: Home, Self-Care Instructions: Contusion in Adults (ED), Skin Yeast Infection (ED) Additional Instructions: Follow up with your primary care provider. Return to the emergency department immediately if your symptoms worsen or if you develop any dizziness, shortness of breath, difficulty breathing, chest pain, blurry vision, loss of vision, nausea, vomiting, abdominal pain, fever, chills, back pain, or any other complaints. Prescriptions: No Action omeprazole 20 mg capsule,delayed release(DR/EC) 1 cap PO BID Trulicity 1.5 mg/0.5 mL pen injector 0.5 ml subcut QWEEK clopidogrel 75 mg tablet 1 tab PO DAILY atorvastatin 40 mg Tablet 40 mg PO BEDTIME clopidogrel 75 mg Tablet 75 mg PO DAILY amlodipine 10 mg Tablet 10 mg PO DAILY glipizide 2.5 mg Tablet Extended Release 24hr 2.5 mg PO DAILY metoprolol tartrate 50 mg Tablet 50 mg PO BID doxazosin 4 mg Tablet 4 mg PO BEDTIME aspirin 81 mg Tablet 81 mg PO DAILY furosemide 20 mg Tablet 20 mg PO DAILY lisinopril 40 mg Tablet 40 mg PO DAILY metformin 750 mg Tablet Extended Release 24 Hr 750 mg PO DAILY Xarelto 15 mg Tablet 15 mg PO DAILY gabapentin 600 mg Tablet 600 mg PO TID vitamin D3-vitamin K2 (MK4) 1,000-100 unit-mcg Tablet 1 tab PO DAILY Levemir U-100 Insulin 100 unit/mL Solution 70 unit SUBCUT BID@0630,1630 Referrals: [facility] [place]] (Call to establish and follow up with a primary care provider. If you already have a primary care provider, please call and follow up with them. ) [facility] [place]] (Call to establish and follow up with a primary care provider. If you already have a primary care provider, please call and follow up with them. ) [facility] [Provider [facility]] (Call to establish and follow up with a primary care provider. If you already have a primary care provider, please call and follow up with them. ) Interventions: ED Discharge Assessment Last Done: 05/08/22 17:03 Discharge Date/Time: 05/08/22 17:04 Print Language: [place]
[2022-05-08 12:56] VITALS: BP 133/63; BP 133/93; PULSE 72; PULSE 77; RESP 16; O2SAT 95; O2SAT 96; BMI 40.5
[2022-05-08 14:07] LABS: MANUAL DIFF FLAG NO
[2022-05-08 14:08] LABS: Basophils Percent Auto 0.3 % (0-2); Eosinophils Absolute Auto 0.5 X10*3/uL (0.0-0.4); Eosinophils Percent Auto 4.1 % (0-4); Hematocrit 35.7 % (42.0-52.0); Hemoglobin 11.1 g/dl (14.0-18.0); Imm Gran Abs Auto 0.21 X10*3/uL (0.00-0.03); Imm Gran Pct Auto 1.7 % (0.0-0.4); Lymphocytes Percent Auto 16.1 % (20-40); Mean Corpuscular HGB Conc 31.1 g/dl (31.0-36.0); Mean Corpuscular Hemoglobin 25.4 pg (27.0-33.0); Mean Corpuscular Volume 81.7 fL (80.0-98.0); Mean Platelet Volume 10.1 fL (9.4-12.4); Monocytes Absolute Auto 0.8 X10*3/uL (0.1-1.2); Neutrophils Percent Auto 71.8 % (45-73); Platelet Count 382 X10*3/uL (160-400); Red Blood Count 4.37 X10*6/uL (4.60-5.80); Red Cell Distribution Width 14.3 % (11.0-16.0); White Blood Count 12.5 X10*3/uL (4.8-10.8)
[2022-05-08 14:15] LABS: INTERNATIONAL NORM RATIO 1.2 (0.9-1.1); Prothrombin Time 14.3 SEC (10.0-13.1)
[2022-05-08 15:26] LABS: Alanine Aminotransferase 10 U/L (0-40); Albumin Level 3.3 g/dL (3.5-5.0); Alkaline Phosphatase 122 U/L (39-117); Anion Gap 14 (12-20); Aspartate Amino Transferase 9 U/L (5-37); Bilirubin Total 0.7 mg/dL (0.0-1.0); Blood Urea Nitrogen 26 mg/dL (9-16); Calcium 9.1 mg/dL (8.4-10.2); Carbon Dioxide 24 mmol/L (22-29); Chloride 103 mmol/L (96-108); Estimated Glomerular Filt Rate 56; Glucose Random 164 mg/dL (60-115); Potassium 4.1 mmol/L (3.3-5.1); Sodium 137 mmol/L (135-145); Total Protein 6.6 g/dL (6.5-8.0)
[2022-05-08 15:27] LABS: Magnesium 1.9 mg/dL (1.6-2.6)
[2022-05-08 16:22] VITALS: BP 136/42; PULSE 65; RESP 16; O2SAT 95
== END 2022-05-08 17:04 | disposition home or self-care (01) ==
PROVIDERS: Physician Assistant Medical; Emergency Provider Emergency Medicine
DX: S80.12XA Contusion of left lower leg, initial encounter (principal); M79.605 Pain in left leg; R60.0 Localized edema; B37.2 Candidiasis of skin and nail; X58.XXXA Exposure to other specified factors, initial encounter; Y93.9 Activity, unspecified; Y92.9 Unspecified place or not applicable; Y99.9 Unspecified external cause status; Z79.899 Other long term (current) drug therapy; E11.9 Type 2 diabetes mellitus without complications; Z79.4 Long term (current) use of insulin; Z79.82 Long term (current) use of aspirin
CPT/HCPCS: 36415; 80053; 82550; 83735; 85025; 85610; 85730; 93926; 99283; 99284

== ENCOUNTER 2022-05-08 20:14 | Emergency (ER) | payer OTHER, SELFPAY ==
--- NOTE | ~2022-05-08 | US_ITS ---
EXAMINATION: US VENOUS ULTRASOUND WITH DOPPLER LOWER EXTREMITY, LEFT CLINICAL INFORMATION: Left leg pain. History of left below knee amputation. COMPARISON: None TECHNIQUE: Ultrasound of the deep veins is performed from the hip to the calf with compression sonography and color and pulse Doppler assessment. Spectral analysis with color-flow imaging is performed. FINDINGS: There is no evidence for deep venous thrombosis in the left common femoral, profunda femoral, femoral and popliteal veins. No left popliteal cyst. The subcutaneous soft tissues are unremarkable. US/US venous duplex LE LT IMPRESSION: No evidence of deep venous thrombosis in the visualized veins of the left lower extremity.
--- NOTE | ~2022-05-08 | XR_ITS ---
EXAMINATION: XR FEMUR, LEFT CLINICAL INFORMATION: Pain. COMPARISON: 06/05/2021 knee radiographs TECHNIQUE: AP and lateral views of the left femur were obtained. FINDINGS: No fracture or cortical disruption. Alignment maintained at the knee and hip. Partially visualized below knee arthroplasty. Vascular calcifications. XR/XR femur LT 2V IMPRESSION: No acute osseous abnormality.
[2022-05-08 20:24] VITALS: BP 138/80; PULSE 78
[2022-05-08 21:20] VITALS: BP 144/71; PULSE 71; RESP 24; TEMP 35.9; O2SAT 98; BMI 40.6
--- NOTE | 2022-05-08 23:35 | PC.NURSE ---
per pt: this is bullshit, I want to lay down, i had a bed when I was here earlier. I'm going to lay down on the floor. Pt educated to limited bed availability in PE area. Pt verbalized understanding of education and verbally confirmed that he would not lay on the floor.
--- NOTE | 2022-05-08 23:55 | ED.GENADULT ---
HPI - General Adult General Chief complaint: General Medical Stated complaint: left leg pain Time Seen by Provider: 05/08/22 23:55 Source: patient and EMS Mode of arrival: EMS Limitations: no limitations History of Present Illness HPI narrative: 62-year-old male s/p a left BKA with chronic use of prosthesis he claimed that is fitting well with no pain or symptoms related to the prosthesis, declined any trauma, was seen earlier for left thigh pain that started about 3 days ago and progressively getting worse, patient had an arterial ultrasound showed no arterial occlusion, patient also noted a bruise on his left thigh that started 3 days ago patient do not recall falling or trauma to the left thigh. Related Data Home Medications Medication Instructions Recorded Confirmed amlodipine 10 mg tablet 10 mg PO DAILY 06/05/21 06/05/21 aspirin 81 mg tablet 81 mg PO DAILY 06/05/21 06/05/21 atorvastatin 40 mg tablet 40 mg PO BEDTIME 06/05/21 06/05/21 cholecalciferol (vit D3) 1,000 1 tab PO DAILY 06/05/21 06/05/21 unit-vitamin K2 (MK4) 100 mcg tablet clopidogrel 75 mg tablet 1 tab PO DAILY 06/05/21 06/05/21 clopidogrel 75 mg tablet 75 mg PO DAILY 06/05/21 06/05/21 doxazosin 4 mg tablet 4 mg PO BEDTIME 06/05/21 06/05/21 dulaglutide 1.5 mg/0.5 mL 0.5 ml subcut QWEEK 06/05/21 06/05/21 subcutaneous pen injector (Trulicity) furosemide 20 mg tablet 20 mg PO DAILY 06/05/21 06/05/21 gabapentin 600 mg tablet 600 mg PO TID 06/05/21 06/05/21 glipizide 2.5 mg tablet, extended 2.5 mg PO DAILY 06/05/21 06/05/21 release 24 hr lisinopril 40 mg tablet 40 mg PO DAILY 06/05/21 06/05/21 metformin 750 mg tablet,extended 750 mg PO DAILY 06/05/21 06/05/21 release 24 hr metoprolol tartrate 50 mg tablet 50 mg PO BID 06/05/21 06/05/21 omeprazole 20 mg capsule,delayed 1 cap PO BID 06/05/21 06/05/21 release rivaroxaban 15 mg tablet (Xarelto) 15 mg PO DAILY 06/05/21 06/05/21 insulin detemir U-100 100 unit/mL 70 unit subcut BID@0630,1630 06/06/21 06/06/21 subcutaneous solution (Levemir U-100 Insulin) Allergies Allergy/AdvReac Type Severity Reaction Status Date / Time bee pollen [bee stings] Allergy Shortness Verified 05/08/22 21:23 of Breath Review of Systems Review of Systems: All other systems are reviewed and are negative Constitutional: Reports as per HPI and Reports no additional constitutional complaints Eyes: Reports as per HPI and Reports no additional eye complaints Reports system reviewed and no additional complaints, except as documented Cardiovascular: Reports as per HPI and Reports no additional cardiovascular complaints Respiratory: Reports as per HPI and Reports no additional respiratory complaints Gastrointestinal: Reports as per HPI and Reports no additional gastrointestinal complaints Genitourinary: Reports no additional female genitourinary complaints Musculoskeletal: Reports no additional musculoskeletal complaints Skin/Breast: Reports system reviewed and no additional complaints, except as docu Psychiatric: Reports no additional psychiatric complaints Endocrine: Reports no additional endocrine complaints Hematologic/Lymphatic: Reports no additional hematologic/lymphatic complaints Allergic/Immunologic: Reports no additional allergic/immunologic complaints Reports system reviewed and no additional complaints, except as documented and Reports Abnormal speech present [facility] Past Medical History Medical History Diabetes Toe amputee Unilateral complete BKA Social History Social History Alcohol intake: unknown Patient Tobacco Use Status: Tobacco use Unknown Advance Directives: Yes Advance Directives on File: Yes Advance Directives Date on File: 06/07/21 Physical Exam ED Vital Signs: Vital Signs - 24 hr 05/08/22 21:20 Temperature 96.7 F L Pulse Rate 71 Respiratory Rate 24 H Blood Pressure 144/71 H Pulse Oximetry 98 Oxygen Delivery Method Room Air BMI result Body Mass Index 40.6 Vital signs have been reviewed as appeared to be correct. Blood pressure normal. Heart rate normal. Respiration rate elevated. Temperature normal. Oxygen saturation normal. Appearance: Alert. Oriented X3. No acute distress. Head: Normal external exam. Normocephalic. Atraumatic. No Pacheco signs noted. No raccoon eyes noted Eyes: PERRLA. EOMI. Conjunctiva and sclera normal. Eyelids normal. ENT: TM's Normal. Pharynx normal. Uvula midline. Moist mucous membranes. No trismus noted. No drooling noted. No muffled voice noted. Neck: Normal inspection. Neck supple. FROM. No adenopathy. Thyroid Normal. No meningeal signs. No neck mass noted. CVS: Normal heart rate and rhythm. Heart sound normal. No murmurs noted. Pulses normal throughout. Respiratory: No respiratory distress. Painless inspiration. Breath sounds normal. No wheezes/rales/rhonchi noted. Chest nontender. No accessory muscle usage noted or decreased air movement noted. Abdomen: Soft and nontender. Bowel sounds normal in all 4 quadrants. No distention noted. No organomegaly noted. No visible injury noted. Back: No CVA tenderness. Full range of motion noted. Skin: Skin warm and dry. Normal skin color. Normal skin turgor. No rashes/lesions/lacerations noted. Extremities: Superficial ecchymosis on the anterior aspect of the left thigh, point of tenderness on the inner thigh area, no fluctuation, no deformity. S/p BKA Neuro: Oriented X 3. Cranial nerve exam: II-XII are grossly intact No motor deficit. No sensory deficit. Reflexes normal. Course Course Course Narrative: 62-year-old male with left BKA, patient has been using the same prosthesis for the past 3 months complaining of mild pain at the stump area, there is an ecchymosis on the front of the left thigh with no known trauma or injury to the left thigh likely from using the prosthesis, rhabdomyolysis is unlikely with normal CPK. Will check ultrasound for rule out DVT. Signed out to Dr. Iyer. Discharge Plan Discharge Clinical Impression: Hx of BKA Patient Disposition: Still a Patient Prescriptions: No Action omeprazole 20 mg capsule,delayed release(DR/EC) 1 cap PO BID Trulicity 1.5 mg/0.5 mL pen injector 0.5 ml subcut QWEEK clopidogrel 75 mg tablet 1 tab PO DAILY atorvastatin 40 mg Tablet 40 mg PO BEDTIME clopidogrel 75 mg Tablet 75 mg PO DAILY amlodipine 10 mg Tablet 10 mg PO DAILY glipizide 2.5 mg Tablet Extended Release 24hr 2.5 mg PO DAILY metoprolol tartrate 50 mg Tablet 50 mg PO BID doxazosin 4 mg Tablet 4 mg PO BEDTIME aspirin 81 mg Tablet 81 mg PO DAILY furosemide 20 mg Tablet 20 mg PO DAILY lisinopril 40 mg Tablet 40 mg PO DAILY metformin 750 mg Tablet Extended Release 24 Hr 750 mg PO DAILY Xarelto 15 mg Tablet 15 mg PO DAILY gabapentin 600 mg Tablet 600 mg PO TID vitamin D3-vitamin K2 (MK4) 1,000-100 unit-mcg Tablet 1 tab PO DAILY Levemir U-100 Insulin 100 unit/mL Solution 70 unit SUBCUT BID@0630,8610
[2022-05-09] MEDS: oxyCODONE HCl Immed Release 5 MG TABLET PO ×2 (00:32→12:05)
[2022-05-09 04:00] VITALS: BP 134/66; PULSE 65; O2SAT 99
--- NOTE | 2022-05-09 04:11 | PC.NURSE ---
pt asleep in recliner, respiratory effort unlabored reg no use of accessory muscles present, in no acute distress, will continu to monitor pt
--- NOTE | 2022-05-09 06:15 | PC.NURSE ---
plan of care is for US to r/o DVT in AM
--- NOTE | 2022-05-09 10:31 | PC.NURSE ---
NEEDS AMB TRANSFER HOME DUE TO MOBILITY COMPLICTIONS
[2022-05-09 10:42] VITALS: BP 117/58; PULSE 69; RESP 16; O2SAT 96
--- NOTE | 2022-05-09 13:19 | MHC.CM.ED ---
Received case management consult from Dr Hernández. Patient came to ER due to leg pain. Work up essentially negative. Patient has been to the ER multiple times recently. Patient is supposed to be active with VNA. Dr Hernández requesting T/W verify patient is active with [facility]. Patient has been active with [facility]. T/W spoke with [facility]. He is not active with their agency. They are not able to accept him as a patient. Patient's PCP is Dr Bri Becerril. T/w spoke with PCP's office. Orders for VNA were sent to [facility]. T/W sent a referral in [facility] to [facility]. They are able to accept patient and are requesting ER d/c summary and face to face. Both uploaded and sent via fax to [phone]. Dr Hernández aware. Continue to monitor for d/c needs.
== END 2022-05-09 14:57 | disposition home or self-care (01) ==
PROVIDERS: Emergency Medicine; Emergency Provider Emergency Medicine; PCP Internal Medicine
DX: M79.605 Pain in left leg (principal); R60.0 Localized edema; Z79.899 Other long term (current) drug therapy; Z79.82 Long term (current) use of aspirin
CPT/HCPCS: 73552; 93971; 99284; 99285

== ENCOUNTER 2023-05-27 01:17 | Emergency (ER) | payer OTHER, SELFPAY ==
--- NOTE | 2023-05-27 | ECG_ITS ---
Test Reason : CP Blood Pressure : / mmHG Vent. Rate : 070 BPM Atrial Rate : 070 BPM P-R Int : 234 ms QRS Dur : 086 ms QT Int : 392 ms P-R-T Axes : 005 -19 054 degrees QTc Int : 423 ms Sinus rhythm with 1st degree A-V block Nonspecific T wave abnormality Abnormal ECG When compared with ECG of 04-MAY-2021 23:05, No significant change was found Referred By: Generic ED Physician Electronically Signed By:KANU BOONE
[2023-05-27 01:39] VITALS: BP 126/73; BP 127/67; PULSE 69; PULSE 88; RESP 18; TEMP 36.7; O2SAT 91; O2SAT 98; BMI 37.7
[2023-05-27 01:44] VITALS: BP 127/67; PULSE 67; PULSE 69; RESP 11; TEMP 36.7; O2SAT 92
[2023-05-27 02:15] LABS: MANUAL DIFF FLAG NO
--- NOTE | 2023-05-27 02:21 | PC.NURSE ---
PT presented to ED via ems with multiple complaints including chest pain, eye pain, and right morataya pain. Pt was seen at [facility] for similar complaints yesterday. EMS reports that pt calls often especially when it is hot. Pt doesn't have ac at home. 324mg aspirin po given en route, 18gauge iv in left forearm placed by EMS. Right leg wound draining purulent fluid noted. Pt currently has it bandaged and indicates it is an ongoing issue that he received VNA services for daily but nurse has not been to his home in two days due to insurance issue. Right eye is inflamed, Pt notes he was prescribed eye drops at [facility]. Labs drawn, ekg ordered and completed. Continuous cardiac monitoring in place- NSR with first degree av block. Call gong within in reach. Plan of care ongoing.
[2023-05-27 02:25] LABS: Basophils Absolute Auto 0.1 X10*3/uL (0.0-0.2); Basophils Percent Auto 0.4 % (0-2); Eosinophils Absolute Auto 0.4 X10*3/uL (0.0-0.4); Eosinophils Percent Auto 2.9 % (0-4); Hematocrit 42.5 % (42.0-52.0); Hemoglobin 14.1 g/dl (14.0-18.0); Imm Gran Abs Auto 0.09 X10*3/uL (0.00-0.03); Imm Gran Pct Auto 0.7 % (0.0-0.4); Lymphocytes Absolute Auto 3.1 X10*3/uL (1.2-4.9); Mean Corpuscular HGB Conc 33.2 g/dl (31.0-36.0); Mean Corpuscular Hemoglobin 26.6 pg (27.0-33.0); Mean Platelet Volume 10.2 fL (9.4-12.4); Monocytes Absolute Auto 0.9 X10*3/uL (0.1-1.2); Monocytes Percent Auto 7.3 % (2-11); Neutrophils Absolute Auto 7.8 x10*3/uL (2.0-8.3); Neutrophils Percent Auto 63.7 % (45-73); Platelet Count 293 X10*3/uL (160-400); Red Blood Count 5.31 X10*6/uL (4.60-5.80); Red Cell Distribution Width 13.6 % (11.0-16.0); White Blood Count 12.2 X10*3/uL (4.8-10.8)
[2023-05-27 02:30] LABS: Anion Gap 14 (12-20); Blood Urea Nitrogen 22 mg/dL (9-16); Calcium 10.1 mg/dL (8.4-10.2); Carbon Dioxide 17 mmol/L (22-29); Chloride 104 mmol/L (96-108); Estimated Glomerular Filt Rate 50; Glucose Random 226 mg/dL (60-115); Potassium 3.9 mmol/L (3.3-5.1); Sodium 131 mmol/L (135-145)
[2023-05-27 02:37] LABS: Troponin-I High Sensitivity 5.8 ng/L (<3.5-35.0)
--- NOTE | 2023-05-27 02:37 | ED_ITS ---
HPI - Chest Pain General Chief Complaint: Chest Pain Stated Complaint: cp Time Seen by Provider: 05/27/23 02:22 Source: patient Mode of arrival: EMS Limitations: no limitations History of Present Illness HPI narrative: Patient with multiple comorbid conditions left BKA was seen at [facility] last night as his AC was not working it was hot with multiple complaints with workup negative Related Data Home Medications Medication Instructions Recorded Confirmed amlodipine 10 mg tablet 10 mg PO DAILY 06/05/21 06/05/21 aspirin 81 mg tablet 81 mg PO DAILY 06/05/21 06/05/21 atorvastatin 40 mg tablet 40 mg PO BEDTIME 06/05/21 06/05/21 cholecalciferol (vit D3) 1,000 1 tab PO DAILY 06/05/21 06/05/21 unit-vitamin K2 (MK4) 100 mcg tablet clopidogrel 75 mg tablet 1 tab PO DAILY 06/05/21 06/05/21 clopidogrel 75 mg tablet 75 mg PO DAILY 06/05/21 06/05/21 doxazosin 4 mg tablet 4 mg PO BEDTIME 06/05/21 06/05/21 dulaglutide 1.5 mg/0.5 mL 0.5 ml subcut QWEEK 06/05/21 06/05/21 subcutaneous pen injector (Trulicity) furosemide 20 mg tablet 20 mg PO DAILY 06/05/21 06/05/21 gabapentin 600 mg tablet 600 mg PO TID 06/05/21 06/05/21 glipizide 2.5 mg tablet, extended 2.5 mg PO DAILY 06/05/21 06/05/21 release 24 hr lisinopril 40 mg tablet 40 mg PO DAILY 06/05/21 06/05/21 metformin 750 mg tablet,extended 750 mg PO DAILY 06/05/21 06/05/21 release 24 hr metoprolol tartrate 50 mg tablet 50 mg PO BID 06/05/21 06/05/21 omeprazole 20 mg capsule,delayed 1 cap PO BID 06/05/21 06/05/21 release rivaroxaban 15 mg tablet (Xarelto) 15 mg PO DAILY 06/05/21 06/05/21 insulin detemir U-100 100 unit/mL 70 unit subcut BID@0630,1630 06/06/21 06/06/21 subcutaneous solution (Levemir U-100 Insulin) Previous Rx's Medication Instructions Recorded cephalexin 500 mg capsule 500 mg PO QID 10 days #40 caps 05/27/23 doxycycline hyclate 100 mg tablet 100 mg PO BID #20 tabs 05/27/23 Allergies Allergy/AdvReac Type Severity Reaction Status Date / Time bee pollen [bee stings] Allergy Shortness Verified 05/08/22 21:23 of Breath Review of Systems 2 Review of Systems: Yes all other systems are reviewed and are negative [facility] Past Medical History Medical History Toe amputee Unilateral complete BKA Diabetes Social History Social History Alcohol intake: former Patient Tobacco Use Status: Tobacco use Unknown Smoked in Last 30 Days: No Use of substances other than those prescribed or required for medical reasons: No Advance Directives: Yes Advance Directives on File: Yes Advance Directives Date on File: 06/07/21 Physical Exam 2 Vital Signs: Vital Signs: Last Vital Signs Temp 98.0 F 05/27/23 01:44 Pulse 69 05/27/23 01:44 Resp 11 L 05/27/23 01:44 BP 127/67 05/27/23 01:44 Pulse Ox 92 05/27/23 01:44 O2 Del Method Room Air 05/27/23 01:44 BMI result Body Mass Index 37.7 Appearance: Alert. Oriented X3. No acute distress. Eyes: PERRLA, No Nystagmus ENT: Pharynx normal. Oral Mucosa moist Neck: Normal inspection. Neck supple. CVS: Normal heart rate and rhythm. Pulses normal. Respiratory: No respiratory distress. Equal air entry bilateral, no wheezing/rales/rhonchi Abdomen: Soft and nontender. Bowel sounds are present, no mass palpable, no CVA tenderness Skin: Skin warm and dry. Normal skin color. Normal skin turgor. Extremities: No lower extremity edema. Left AKA right Choudhary lower extremity with erythema and some serous discharge Neuro: Oriented X 3. Medications Administered Discontinued Medications Generic Name Dose Route Start Last Admin Trade Name Freq PRN Reason Stop Dose Admin Cephalexin HCl 500 mg 05/27/23 04:29 05/27/23 05:08 Cephalexin 500 Mg Capsule PO 05/27/23 04:30 500 mg ONCE ONE Administration Doxycycline Monohydrate 100 mg 05/27/23 04:29 05/27/23 05:08 Doxycycline Monohydrate 100 Mg Capsule PO 05/27/23 04:30 100 mg ONCE ONE Administration Medical Decision Making Medical Decision Making [facility] Narrative: At time of evaluation patient refuse any chest pain denies any complaints wanted to sleep noted to have slight serous discharge in the right leg lower extremities with cellulitis discharge patient on doxycycline and Keflex patient says that does not have any visiting nurse coming lately for wound dressing change Lab Data [facility] Lab Attestation statement: I reviewed the patient's lab results. 05/27/23 02:11 05/27/23 02:11 Labs: Lab Results 05/27/23 Range/Units 02:11 WBC 12.2 H (4.8-10.8) X10*3/uL RBC 5.31 D (4.60-5.80) X10*6/uL Hgb 14.1 D (14.0-18.0) g/dl Hct 42.5 (42.0-52.0) % MCV 80.0 (80.0-98.0) fL MCH 26.6 L (27.0-33.0) pg MCHC 33.2 (31.0-36.0) g/dl RDW 13.6 (11.0-16.0) % Plt Count 293 (160-400) X10*3/uL MPV 10.2 (9.4-12.4) fL Immature Gran % (Auto) 0.7 H (0.0-0.4) % Neut % (Auto) 63.7 (45-73) % Lymph % (Auto) 25.0 (20-40) % Mitchell % (Auto) 7.3 (2-11) % Eos % (Auto) 2.9 (0-4) % Baso % (Auto) 0.4 (0-2) % Lymph # (Auto) 3.1 (1.2-4.9) X10*3/uL Mitchell # (Auto) 0.9 (0.1-1.2) X10*3/uL Eos # (Auto) 0.4 (0.0-0.4) X10*3/uL Baso # (Auto) 0.1 (0.0-0.2) X10*3/uL Abs Immat Gran (auto) 0.09 H (0.00-0.03) X10*3/uL Absolute Neuts (auto) 7.8 (2.0-8.3) x10*3/uL Absolute Nucleated RBC 0.000 (0.0-0.012) X10*3/uL Nucleated RBC % (auto) 0.0 (0.0-0.2) /100WBC Sodium 131 L (135-145) mmol/L Potassium 3.9 (3.3-5.1) mmol/L Chloride 104 (96-108) mmol/L Carbon Dioxide 17 L (22-29) mmol/L Anion Gap 14 (12-20) BUN 22 H (9-16) mg/dL Creatinine 1.42 H (0.5-1.4) mg/dL Estim Creat Clear Calc 73.0 Estimated GFR 50 Random Glucose 226 H (60-115) mg/dL Calcium 10.1 D (8.4-10.2) mg/dL Troponin I High Sens 5.8 (<3.5-35.0) ng/L Discharge Plan Discharge Clinical Impression: Atypical chest pain, Cellulitis of leg, right Patient Disposition: Home, Self-Care Instructions: Chest Pain (ED), Cellulitis (ED) Additional Instructions: Local care as advised of the right leg wound Take antibiotic Follow-up with PCP Prescriptions: New cephalexin 500 mg capsule 500 mg PO QID 10 Days Qty: 40 0RF doxycycline hyclate 100 mg tablet 100 mg PO BID Qty: 20 0RF No Action omeprazole 20 mg capsule,delayed release(DR/EC) 1 cap PO BID Trulicity 1.5 mg/0.5 mL pen injector 0.5 ml subcut QWEEK clopidogrel 75 mg tablet 1 tab PO DAILY atorvastatin 40 mg Tablet 40 mg PO BEDTIME clopidogrel 75 mg Tablet 75 mg PO DAILY amlodipine 10 mg Tablet 10 mg PO DAILY glipizide 2.5 mg Tablet Extended Release 24hr 2.5 mg PO DAILY metoprolol tartrate 50 mg Tablet 50 mg PO BID doxazosin 4 mg Tablet 4 mg PO BEDTIME aspirin 81 mg Tablet 81 mg PO DAILY furosemide 20 mg Tablet 20 mg PO DAILY lisinopril 40 mg Tablet 40 mg PO DAILY metformin 750 mg Tablet Extended Release 24 Hr 750 mg PO DAILY Xarelto 15 mg Tablet 15 mg PO DAILY gabapentin 600 mg Tablet 600 mg PO TID vitamin D3-vitamin K2 (MK4) 1,000-100 unit-mcg Tablet 1 tab PO DAILY Levemir U-100 Insulin 100 unit/mL Solution 70 unit SUBCUT BID@6100,2055 Interventions: ED Discharge Assessment Last Done: 05/27/23 06:39 Discharge Date/Time: 05/27/23 06:40
--- OUTSIDE RECORDS SUMMARY | 2023-05-27 03:09 | XMS_ITS | Continuity of Care Document ---
Author Name Unknown Organization [facility] Address [address] [place] [id number]- Care Team Providers Care Lease Out Man Name Role Phone Bri Becerril MD Primary Care Physician Encounter [facility] Date(s): 07/29/21 - 11/06/21 [facility] [address] [place] [address]- Attending Physician: Babak De La Cruz MD Admitting Physician: Babak De La Cruz MD Referring Physician: Bri Becerril MD Allergies, Adverse Reactions, Alerts No Known Medication Allergies Substance Reaction Severity Status Bee Stings swelling Active Immunizations Given and Recorded Vaccine Date Status Refusal Reason SARS-CoV-2 (COVID-19) Ad26 vaccine 1 02/25/21 Give n Influenza Virus Vaccine (oldterm) 07/27/20 Recorde d influenza virus vaccine, inactivated 07/17/19 Give n influenza virus vaccine, inactivated 06/19/19 Give n influenza virus vaccine, inactivated 2 12/29/17 Gi ray influenza virus vaccine, inactivated 06/08/11 Pedro rded pneumococcal 23-valent vaccine 06/06/16 Given pneumococcal 23-valent vaccine 08/08/11 Recorded tetanus/diphtheria/pertussis, acel(Tdap) 08/30/13 Recorded Pneumococcal Vaccine (oldterm) 3 05/22/07 Given 1Result Comment: Pt did give verbal consent to receive the Cricket COVID vaccine 2Early/Late Reason: Med Not Available 3Result Comment: Lot# [id number] Exp 01/29/09 Medications acetaminophen 325 mg oral tablet 650 mg, By Mouth, Every 4 hours, PRN, Temperature Greater than 100.5, Refills 0, Maintenance, Pain , Mild, 05/28/21 11:57:00 EDT, Partial fill upon patient request if the prescription is for a schedule II opioid drug. Start Date: 05/28/21 Status: Ordered albuterol 0.083% inhalation solution 3 mL = 2.5 mg, Inhalation, Every 6 hours, PRN for wheezing, # 60 each, 2 Refills, Maintenance, 09/05/19 10:10:00 EST, Solution, [facility] #[id number], 183, cm, 08/30/19 19:46:00 EST, Height, 141, kg, 08/30/19 19:46:00 EST, Dry Weight Start Date: 09/05/19 Status: Ordered amLODIPine 5 mg oral tablet 10 mg, 2, tablet, By Mouth, Daily, Refills 0, Maintenance, 05/21/21 11:25:00 EDT, Partial fill uponpatient request if the prescription is for a schedule II opioid drug. Start Date: 05/21/21 Status: Ordered Aspirin Low Dose 81 mg oral delayed release tablet See Instructions, # 90 tablet, Refills 1 Tot. Refills 1, TAKE 1 TABLET BY MOUTH DAILY, [facility] #[id number] Start Date: 06/24/19 Status: Ordered atorvastatin 40 mg oral tablet 1 tablet, By Mouth, Daily at bedtime, # 90 tablet, 1 Refills, Maintenance, 11/23/20 11:14:00 EST, [facility] #[id number], 179, cm, 11/11/20 11:50:00 EST, Height, 120.5, kg, 10/18/20 16:27:00 EST, Dry Weight Start Date: 11/23/20 Status: Ordered Betadine 10% solution See Instructions, For wound dressing, # 1 each, 5 Refills, Maintenance, 04/03/21 13:35:00 EDT, [facility]/pharmacy #[id number], Partial fill upon patient request if the prescription is for a schedule II opioid drug., For wound dressing, 183, cm, 03/17/21 11:22:00... Start Date: 04/03/21 Status: Ordered clopidogrel 75 mg oral tablet 75 mg, 1, tablet, By Mouth, Daily, # 42 tablet, Refills 0, Tot. Refills 0, Maintenance, 03/04/21 10:46:00 EDT, Route to Pharmacy Electronically, [facility], Partial fill upon patient request if the prescription is for a schedule II opioi... Start Date: 03/04/21 Stop Date: 04/15/21 Status: Ordered doxazosin 4 mg oral tablet 1 tablet, By Mouth, Daily at bedtime, # 90 tablet, 1 Refills, Maintenance, 07/31/20 13:33:00 EST, [facility] #[id number], 183, cm, 06/09/20 12:58:00 EDT, Height, 141, kg, 02/21/20 1:50:00 EDT, Dry Weight Start Date: 07/31/20 Status: Ordered furosemide 20 mg oral tablet 1, tablet, By Mouth, Daily, # 90 tablet, Refills 1, Tot. Refills 1, Maintenance, 12/23/19 9:21:00 EDT, Route to Pharmacy Electronically, [facility] #[id number], 183, cm, 11/21/19 15:07:00 EST, Height, 137, kg, 11/15/19 0:16:00 EST, Dry Weight Start Date: 12/23/19 Stop Date: 06/20/20 Status: Ordered gabapentin 600 mg oral tablet 1 tablet = 600 mg, By Mouth, 3 times a day, # 90 tablet, 1 Refills, Maintenance, 10/30/20 13:02:00 EST, Tablet, [facility] #[id number], 179, cm, 10/18/20 16:27:00 EST, Height, 120.5, kg, 10/18/20 16:27:00 EST, Dry Weight Start Date: 10/30/20 Status: Ordered glipiZIDE 2.5 mg oral tablet, extended release 1 tablet = 2.5 mg, By Mouth, Daily, # 90 tablet, 1 Refills, Maintenance, 05/08/20 13:04:00 EDT, ER Tablet, [facility] #[id number], 183, cm, 02/22/20 3:42:00 EDT, Height, 141, kg, 02/21/20 1:50:00 EDT, Dry Weight Start Date: 05/08/20 Stop Date: 11/04/20 Status: Ordered insulin lispro 100 u/ml subcutaneous injection 12-26 units, Subcutaneous Injection, 3 times a day before meals, << Sliding Scale Comments >> 100 - 149 12 units Call if less than 70 150 - 199 14 units 200 - 249 16 units 250 - 299 18 units 300 - 349 20 units 350 - 399 22 units... Start Date: 05/21/21 Status: Ordered Lantus 100 u/ml subcutaneous solution = 30 units, Subcutaneous Injection, Daily, # 10 mL, 0 Refills, Maintenance, 05/25/21 10:54:00 EDT, Solution, Partial fill upon patient request if the prescription is for a schedule II opioid drug. Start Date: 05/25/21 Status: Ordered Lantus Inj 0.42 mL = 42 units, Subcutaneous Injection, Daily at bedtime, 0 Refills, Maintenance, 05/21/21 11:26:00 EDT, Injection, Partial fill upon patient request if the prescription is for a schedule II opioid drug. Start Date: 05/21/21 Status: Ordered Left BKA prosthetic Left BKA prosthetic, See Instructions, # 1 each, Refills 0, Tot. Refills 0, Maintenance, Please fitpatient for Left BKA prosthetic, 07/20/21 9:12:00 EDT, Supply Start Date: 07/20/21 Status: Ordered lisinopril 40 mg oral tablet 1 tablet = 40 mg, By Mouth, Daily, # 30 tablet, 0 Refills, Maintenance, 05/18/21 14:56:00 EDT, Tablet, Partial fill upon patient request if the prescription is for a schedule II opioid drug. Start Date: 05/18/21 Status: Ordered metFORMIN 750 mg oral tablet, extended release 1 tablet = 750 mg, By Mouth, Daily, 0 Refills, Maintenance, 09/02/20 18:31:00 EST, Partial fill upon patient request if the prescription is for a schedule II opioid drug. Start Date: 09/02/20 Status: Ordered metoprolol 50 mg oral tablet 50 mg, 1, tablet, By Mouth, 2 times a day, # 180 tablet, Refills 0, Maintenance, 10/01/20 17:57:00 EST, Partial fill upon patient request if the prescription is for a schedule II opioid drug. Start Date: 10/01/20 Status: Ordered PriLOSEC OTC 20 mg oral delayed release tablet 1 tablet = 20 mg, By Mouth, 2 times a day, # 180 tablet, 1 Refills, Maintenance, 11/16/20 9:25:00 EST, EC Tablet, [facility] #[id number], 179, cm, 11/11/20 11:50:00 EST, Height, 120.5, kg, 10/18/20 16:27:00 EST, Dry Weight Start Date: 11/16/20 Stop Date: 05/15/21 Status: Ordered Trulicity Pen 1.5 mg/0.5 mL subcutaneous solution 0.5 mL = 1.5 mg, Subcutaneous Injection, Every week, rotate injection sites, # 2 mL, 6 Refills, Maintenance, 10/21/20 13:40:00 EST, Solution, [facility] #[id number], Partial fill upon patient request if the prescription is for a schedule II opioi... Start Date: 10/21/20 Status: Ordered Ventolin HFA 108 mcg/inh inhalation aerosol with adapter 2 puffs, Inhalation, Every 4 hours, # 18 Gm, 1 Refills, Maintenance, 11/11/19 13:17:00 EST, [facility] #[id number], 183, cm, 10/31/19 14:18:00 EST, Height, 141, kg, 08/30/19 19:46:00 EST, Dry Weight Start Date: 11/11/19 Status: Ordered Vitamin D3 1000 intl units oral tablet 1 tablet = 1,000 International_Units, By Mouth, Daily, # 90 tablet, 1 Refills, Maintenance, 12/11/19 12:04:00 EDT, Tablet, [facility] #[id number], 183, cm, 11/21/19 15:07:00 EST, Height, 137, kg, 11/15/19 0:16:00 EST, Dry Weight Start Date: 12/11/19 Stop Date: 06/08/20 Status: Ordered Xarelto 20 mg oral tablet 1 tablet = 20 mg, By Mouth, Daily at supper, # 30 tablet, 0 Refills, Maintenance, 05/29/21 23:18:00EDT, Tablet, Partial fill upon patient request if the prescription is for a schedule II opioid drug. Start Date: 05/29/21 Status: Ordered Problem List Condition Effective Dates Status Health Status Inform ant Anemia(Confirmed) Active Chronic back pain(Confirmed) Active Chronic kidney disease(Confirmed) Active Chronic obstructive pulmonar y disease (COPD)(Confirmed) Active Diabetic neuropathy(Confirmed) Active Diabetic ulcer of right lowe r leg(Confirmed) Active H/O: TIA(Confirmed) Active Heartburn(Confirmed) Active History of amputation of foot(Confirmed) Active Hyperlipidemia(Confirmed) Active Hypertensive disorder(Confirmed) Active Knee pain(Confirmed) Active Morbid obesity(Confirmed) Active Noncompliance with medicatio n regimen(Confirmed) Active Obese class II(Confirmed) Active Heme positive stool(Confirmed) Active Open wound, left below knee stump(Confirmed) Active Diabetic ulcer of left lower leg(Confirmed) Active Popliteal cyst(Confirmed) Active Type 2 diabetes mellitus(Confirmed) Active Urge incontinence(Confirmed) Active Social History Social History Type Response Smoking Status Never (less than 100 in lifetime) entered on: 06/01/21 Sex
--- OUTSIDE RECORDS SUMMARY | 2023-05-27 03:09 | XMS_ITS | Continuity of Care Document ---
Author Name Unknown Organization [facility] ter Address [address] [place] [id number]- Care Team Providers Care District Leader Name Role Phone Bri Becerril MD Primary Care Physician Encounter [facility] Date(s): 04/04/22 - 04/09/[address] [id number]- Discharge Disposition: A-D/C AMA Attending Physician: Mode Corona MD Admitting Physician: Mode Corona MD Referring Physician: Not on Staff, Referring MD Allergies, Adverse Reactions, Alerts No Known Medication Allergies Substance Reaction Severity Status Bee Stings swelling Active Immunizations Given and Recorded Vaccine Date Status Refusal Reason SARS-CoV-2 (COVID-19) mRNA-1273 vaccine 12/23/21 G iven influenza virus vaccine, inactivated 07/29/21 Pedro rded influenza virus vaccine, inactivated 07/17/19 Give n influenza virus vaccine, inactivated 06/19/19 Give n influenza virus vaccine, inactivated 1 12/29/17 Gi ray influenza virus vaccine, inactivated 06/08/11 Pedro rded SARS-CoV-2 (COVID-19) Ad26 vaccine 2 02/25/21 Give n Influenza Virus Vaccine (oldterm) 07/27/20 Recorde d pneumococcal 23-valent vaccine 06/06/16 Given pneumococcal 23-valent vaccine 08/08/11 Recorded tetanus/diphtheria/pertussis, acel(Tdap) 08/30/13 Recorded Pneumococcal Vaccine (oldterm) 3 05/22/07 Given Not Given Vaccine Date Status Refusal Reason SARS-CoV-2 mRNA ([id number]) vax 4 03/19/22 Not Given Patient Refuses 1Early/Late Reason: Med Not Available 2Result Comment: Pt did give verbal consent to receive the Cricket COVID vaccine 3Result Comment: Lot# [id number] Exp 01/29/09 4Result Comment: never vacinated Medications albuterol 0.083% inhalation solution 3 mL = 2.5 mg, Inhalation, Every 6 hours, PRN for wheezing, # 60 each, 2 Refills, Maintenance, 12/08/21 15:07:00 EDT, Solution, [facility]/pharmacy #[id number], 178, cm, 12/06/21 13:33:00 EDT, Height, 139, kg, 11/26/21 17:26:00 EST, Dry Weight Start Date: 12/08/21 Status: Ordered amLODIPine 5 mg oral tablet 5 mg, 1, tablet, By Mouth, Daily, # 90 tablet, Refills 1, Tot. Refills 1, Maintenance, 12/27/21 14:28:00 EDT, [id number] fill upon patient request if the prescription is for a schedule II opioid drug.... Start Date: 12/27/21 Status: Ordered Aspirin Low Dose 81 mg oral delayed release tablet See Instructions, TAKE 1 TABLET BY MOUTH DAILY, # 90 tablet, 0 Refills, Soft Stop, 12/27/21 14:29:00 EDT, [facility]/pharmacy #[id number], 180, cm, 12/24/21 7:50:00 EDT, Height, 127.8, kg, 12/22/21 22:17:00 EDT, Dry Weight Start Date: 12/27/21 Status: Ordered atorvastatin 40 mg oral tablet 1 tablet, By Mouth, Daily at bedtime, # 90 tablet, 0 Refills, Maintenance, 12/27/21 14:28:00 EDT, [facility]/pharmacy #[id number], 180, cm, 12/24/21 7:50:00 EDT, Height, 127.8, kg, 12/22/21 22:17:00 EDT, Dry Weight Start Date: 12/27/21 Status: Ordered BD UF MINI PEN NEEDLE [id number] BD UF MINI PEN NEEDLE [id number], See Instructions, # 300 Unknown, 3 Refills, USE TO INJECT INSULIN 3 TIMES DAILY, 180, cm, 01/07/22 16:17:00 EDT, Height, 127.8, kg, 12/27/21 17:00:00 EDT, Dry Weight Start Date: 02/01/22 Status: Ordered Carafate 1 gm oral tablet 1 Gm, 1, tablet, By Mouth, 3 times a day before meals and bedtime, # 120 tablet, Refills 0, Tot. Refills 0, Maintenance, 03/20/22 10:56:00 EDT, Route to Pharmacy Electronically, [facility]/pharmacy #[id number], Partial fill upon patient request if the prescription... Start Date: 03/20/22 Status: Ordered cefpodoxime 200 mg oral tablet 1 tablet = 200 mg, By Mouth, 2 times a day, # 6 tablet, 0 Refills, Soft Stop, 03/16/22 11:01:00 EDT, Tablet, [facility], Partial fill upon patient request if the prescription is for a schedule II opioid drug., 183, cm, 03/15/22 21:45:00 EDT, H... Start Date: 03/16/22 Stop Date: 03/19/22 Status: Ordered Chem 7 in a week Chem 7 in a week, See Instructions, # 1 each, Refills 0, Tot. Refills 0, Maintenance, Results to PCP, 12/01/21 15:18:00 EDT, Supply Start Date: 12/01/21 Status: Ordered clopidogrel 75 mg oral tablet 75 mg, 1, tablet, By Mouth, Daily, # 90 tablet, Refills 0, Tot. Refills 0, Maintenance, 01/19/22 15:07:00 EDT, Route to Pharmacy Electronically, [facility]/pharmacy #[id number], Partial fill upon patient request if the prescription is for a schedule II opioid drug... Start Date: 01/19/22 Status: Ordered doxazosin 4 mg oral tablet 1 tablet, By Mouth, Daily at bedtime, # 90 tablet, 0 Refills, Maintenance, 12/27/21 14:32:00 EDT, [facility]/pharmacy #[id number], 180, cm, 12/24/21 7:50:00 EDT, Height, 127.8, kg, 12/22/21 22:17:00 EDT, Dry Weight Start Date: 12/27/21 Status: Ordered Freestyle Lite Lancets See Instructions, # 300 each, Refills 2, Tot. Refills 2, Maintenance, Use to check glucose four times daily Dx:E11.9, 01/13/22 16:29:00 EDT, Supply, 180, cm, 01/07/22 16:17:00 EDT, Height, 127.8, kg,12/27/21 17:00:00 EDT, Dry Weight Start Date: 01/13/22 Stop Date: 04/13/22 Status: Ordered Freestyle Lite Monitor See Instructions, # 1 each, Refills 0, Tot. Refills 0, Maintenance, Use to check glucose twice daily Dx:E11.9, 03/03/22 15:29:00 EDT, Supply, 180, cm, 01/07/22 16:17:00 EDT, Height, 127.8, kg, 12/27/21 17:00:00 EDT, Dry Weight Start Date: 03/03/22 Stop Date: 04/02/22 Status: Ordered Freestyle Lite Monitor See Instructions, # 1 each, Refills 0, Tot. Refills 0, Maintenance, Use to check glucose four timesdaily Dx:E11.9, 01/05/22 13:06:00 EDT, Supply, 180, cm, 12/27/21 17:00:00 EDT, Height, 127.8, kg, 12/27/21 17:00:00 EDT, Dry Weight Start Date: 01/05/22 Stop Date: 04/05/22 Status: Ordered Freestyle Lite Test Strips See Instructions, # 300 each, Refills 2, Tot. Refills 2, Maintenance, Use to check glucoes twice daily Dx:E11.9, 01/13/22 16:30:00 EDT, Supply, 180, cm, 01/07/22 16:17:00 EDT, Height, 127.8, kg, 12/27/21 17:00:00 EDT, Dry Weight Start Date: 01/13/22 Stop Date: 04/13/22 Status: Ordered furosemide 20 mg oral tablet 1, tablet, By Mouth, Daily, for 90 days, # 90 tablet, Refills 1, Tot. Refills 1, Hard Stop 06/06/2215:08:00 EDT, 12/08/21 15:08:00 EDT, Route to Pharmacy Electronically, [facility]/pharmacy #[id number], 178, cm,12/06/21 13:33:00 EDT, Height, 139, kg, 11/26/21 17... Start Date: 12/08/21 Stop Date: 06/06/22 Status: Ordered gabapentin 300 mg oral capsule 600 mg, Capsule, By Mouth, 04/09/22 15:00:00 EDT Start Date: 04/09/22 Stop Date: 04/09/22 Status: Completed gabapentin 300 mg oral capsule 600 mg, Capsule, By Mouth, 04/09/22 9:00:00 EDT Start Date: 04/09/22 Stop Date: 04/09/22 Status: Completed gabapentin 600 mg oral tablet 1 tablet = 600 mg, By Mouth, 3 times a day, # 90 tablet, 1 Refills, Maintenance, 12/08/21 15:08:00 EDT, Tablet, [facility], 178, cm, 12/06/21 13:33:00 EDT, Height, 139, kg, 11/26/21 17:26:00 EST, Dry Weight Start Date: 12/08/21 Status: Ordered glipiZIDE 2.5 mg oral tablet, extended release 1 tablet = 2.5 mg, By Mouth, Daily, for 90 days, # 90 tablet, 1 Refills, Hard Stop 06/06/22 15:08:00 EDT, 12/08/21 15:08:00 EDT, ER Tablet, [facility], 178, cm, 12/06/21 13:33:00 EDT, Height,139, kg, 11/26/21 17:26:00 EST, Dry Weight Start Date: 12/08/21 Stop Date: 06/06/22 Status: Ordered Insulin Lispro KwikPen 100 units/mL injectable solution See Instructions, Inject 12-26 units subcut three tines daily before meals based on sliding scale Discontinue Lispro vials, # 45 mL, 3 Refills, Maintenance, 01/05/22 13:05:00 EDT, [facility],Partial fill upon patient request if the prescript... Start Date: 01/05/22 Status: Ordered Lantus Solostar Pen 100 units/mL subcutaneous solution See Instructions, 30 units Subcutaneous Injection Daily Discontinue Lantus vials, # 45 mL, 3 Refills, Maintenance, 01/05/22 13:03:00 EDT, Solution, [facility], Partial fill upon patient request if the prescription is for a schedule II opioid... Start Date: 01/05/22 Status: Ordered Left Below Knee Replacement Socket Left Below Knee Replacement Socket, See Instructions, # 1 each, Refills 0, Tot. Refills 0, Maintenance, Dx: Left Below Knee Amputation, 01/20/22 18:11:00 EDT, Supply Start Date: 01/20/22 Status: Ordered Left BKA prosthetic Left BKA prosthetic, See Instructions, # 1 each, Refills 0, Tot. Refills 0, Maintenance, Please fitpatient for Left BKA prosthetic, 07/20/21 9:12:00 EDT, Supply Start Date: 07/20/21 Status: Ordered losartan 50 mg oral tablet 50 mg, 1, tablet, By Mouth, Daily, # 90 tablet, Refills 1, Tot. Refills 1, Maintenance, 03/13/22 16:15:00 EDT, Route to Pharmacy Electronically, [facility]/pharmacy #[id number], Partial fill upon patient request if the prescription is for a schedule II opioid drug... Start Date: 03/13/22 Status: Ordered metoprolol 50 mg oral tablet 50 mg, Tablet, By Mouth, 04/08/22 21:00:00 EDT Start Date: 04/08/22 Stop Date: 04/08/22 Status: Completed metoprolol 50 mg oral tablet 50 mg, 1, tablet, By Mouth, 2 times a day, # 180 tablet, Refills 2, Tot. Refills 2, Maintenance, 03/16/22 10:59:00 EDT, Route to Pharmacy Electronically, [facility]/pharmacy #[id number], Partial fill upon patientrequest if the prescription is for a schedule II op... Start Date: 03/16/22 Stop Date: 12/11/22 Status: Ordered Pen [place], 31 G x 8 mm BD Ultra Fine III See Instructions, # 300 each, Refills 1, Tot. Refills 1, Maintenance, Use to inject Insulin five times daily Dx:E11.9, 02/02/22 11:07:00 EDT, Supply, 180, cm, 01/07/22 16:17:00 EDT, Height, 127.8, kg, 12/27/21 17:00:00 EDT, Dry Weight Start Date: 02/02/22 Status: Ordered PriLOSEC OTC 20 mg oral delayed release tablet 1 tablet = 20 mg, By Mouth, 2 times a day, for 90 days, # 180 tablet, 1 Refills, Hard Stop 06/06/2215:09:00 EDT, 12/08/21 15:09:00 EDT, EC Tablet, [facility], 178, cm, 12/06/21 13:33:00 EDT,Height, 139, kg, 11/26/21 17:26:00 EST, Dry Weight Start Date: 12/08/21 Stop Date: 06/06/22 Status: Ordered Trulicity Pen 1.5 mg/0.5 mL subcutaneous solution 0.5 mL = 1.5 mg, Subcutaneous Injection, Every week, rotate injection sites, # 6.5 mL, 3 Refills, Maintenance, 12/27/21 14:31:00 EDT, Solution, [facility], Partial fill upon patient request if the prescription is for a schedule II opioid drug.... Start Date: 12/27/21 Status: Ordered Ventolin HFA 108 mcg/inh inhalation aerosol with adapter 2 puffs, Inhalation, Every 4 hours, # 3 each, 1 Refills, Maintenance, 03/16/22 10:58:00 EDT, [facility], 183, cm, 03/15/22 21:45:00 EDT, Height, 129.6, kg, 03/15/22 21:45:00 EDT, Dry Weight Start Date: 03/16/22 Stop Date: 09/12/22 Status: Ordered Vitamin D3 1000 intl units oral tablet 1 tablet = 1,000 International_Units, By Mouth, Daily, # 90 tablet, 1 Refills, Maintenance, 12/08/21 15:07:00 EDT, Tablet, [facility], 178, cm, 12/06/21 13:33:00 EDT, Height, 139, kg, 11/26/21 17:26:00 EST, Dry Weight Start Date: 12/08/21 Stop Date: 06/06/22 Status: Ordered Xarelto 20 mg oral tablet See Instructions, TAKE 1 TABLET BY MOUTH DAILY AT SUPPER, # 90 tablet, 1 Refills, 02/10/22 23:04:00EDT, [id number], 180, cm, 01/07/22 16:17:00 EDT, Height, 127.8, kg, 12/27/21 17:00:00 EDT, Dry Weight Start Date: 02/10/22 Status: Ordered Problem List Condition Effective Dates [...] Active Noncompliance with medicatio n regimen(Confirmed) Active Heme positive stool(Confirmed) Active Open wound, left below knee stump(Confirmed) Active Severe obesity(Confirmed) Active Diabetic ulcer of left lower leg(Confirmed) Active Diabetic ulcer of lower leg(Confirmed) Active Popliteal cyst(Confirmed) Active Type 2 diabetes mellitus(Confirmed) Active Urge incontinence(Confirmed) Active Vital Signs Most recent to oldest [Reference Range]: 1 2 3 Oxygen Saturation [94-100 %] 100 % (04/09/22 12:50 PM) 99 % (04/09/22 5:35 AM) 97 % (04/08/22 9:40 PM) Pulse Rate [55-90 bpm] 68 bpm (04/09/22 12:50 PM) 74 bpm (04/09/22 5:35 AM) 89 bpm (04/08/22 9:40 PM) Blood Pressure [90-138/55-84 mm Hg] 140/70mm Hg *H* (04/09/22 12:50 PM) 119/62mm Hg (04/09/22 5:35 AM) 109/78mm Hg (04/08/22 9:40 PM) Respiratory Rate [16-30 br/min] 18 br/min (04/09/22 2:36 PM) 188 br/min *H* (04/09/22 1:51 PM) 18 br/min (04/09/22 12:51 PM) Temperature [96.8-100.4 DegF] 97.6 DegF (04/08/22 4:53 PM) 97.5 DegF (04/08/22 8:54 AM) 98.9 DegF (04/07/22 6:05 AM) Liters per Minute 2 L/min (04/09/22 12:50 PM) 2 L/min (04/09/22 5:35 AM) 1.5 L/min (04/06/22 11:29 PM) Mode of Delivery (Oxygen) Nasal cannula (04/09/22 12:50 PM) Nasal cannula (04/09/22 5:35 AM) Room air (04/08/22 9:40 PM) Blood pressure sites Arm, left (04/08/22 4:53 PM) Arm, right (04/08/22 8:54 AM) Arm, right (04/08/22 6:40 AM) Temperature Route Oral (04/08/22 4:53 PM) Oral (04/08/22 8:54 AM) Oral (04/07/22 6:05 AM) Dry Weight 133.9 kg (04/08/22 12:14 PM) Weight Obtained Via Standing scale (04/08/22 12:14 PM) Social History Social History Type Response Smoking Status Former smoker, quit more than 30 days ago; Patient wants NRT during admission No; Type: Cigarettes; Other: quit 2020. one years ago. Started at age 14 at 2 packs a day to start and one pack a week after that.; entered on: 03/10/22 Sex
--- OUTSIDE RECORDS SUMMARY | 2023-05-27 03:09 | XMS_ITS | Continuity of Care Document ---
Author Name Unknown Organization [facility] Address [address] [place] [id number]- Care Team Providers Care Fuel Cell Systems Engineer Name Role Phone Bri Becerril MD Primary Care Physician Encounter [facility] Date(s): 11/03/21 - 11/10/21 [facility] [address] [place] [address]- Attending Physician: Babak De La Cruz MD Admitting Physician: Babak De La Cruz MD Allergies, Adverse Reactions, Alerts No Known [...] 2 Refills, Maintenance, 09/05/19 10:10:00 EST, Solution, [email or web address] #[id number], 183, cm, 08/30/19 19:46:00 EST, Height, 141, [...] 1, TAKE 1 TABLET BY MOUTH DAILY, [email or web address] #[id number] Start Date: 06/24/19 Status: Ordered atorvastatin 40 mg oral tablet 1 tablet, By Mouth, Daily at bedtime, # 90 tablet, 1 Refills, Maintenance, 11/23/20 11:14:00 EST, [email or web address] #[id number], 179, cm, 11/11/20 11:50:00 EST, Height, 120.5, kg, 10/18/20 16:27:00 EST, Dry Weight Start Date: 11/23/20 Status: Ordered Betadine 10% solution See Instructions, For wound dressing, # 1 each, 5 Refills, Maintenance, 04/03/21 13:35:00 EDT, [facility]/pharmacy #[id number], Partial fill upon patient request if the prescription is for a schedule II opioid drug., For wound dressing, 183, cm, 03/17/21 11:22:00... Start Date: 04/03/21 Status: Ordered clopidogrel 75 mg oral tablet 75 mg, 1, tablet, By Mouth, Daily, # 42 tablet, Refills 0, Tot. Refills 0, Maintenance, 03/04/21 10:46:00 EDT, Route to Pharmacy Electronically, [facility], Partial fill upon patient request if the prescription is for a schedule II opioi... Start Date: 03/04/21 Stop Date: 04/15/21 Status: Ordered doxazosin 4 mg oral tablet 1 tablet, By Mouth, Daily at bedtime, # 90 tablet, 1 Refills, Maintenance, 07/31/20 13:33:00 EST, [email or web address] #[id number], 183, cm, 06/09/20 12:58:00 EDT, Height, 141, kg, 02/21/20 1:50:00 EDT, Dry Weight Start Date: 07/31/20 Status: Ordered furosemide 20 mg oral tablet 1, tablet, By Mouth, Daily, # 90 tablet, Refills 1, Tot. Refills 1, Maintenance, 12/23/19 9:21:00 EDT, Route to Pharmacy Electronically, [email or web address] #[id number], 183, cm, 11/21/19 15:07:00 EST, Height, 137, kg, 11/15/19 0:16:00 EST, Dry Weight Start Date: 12/23/19 Stop Date: 06/20/20 Status: Ordered gabapentin 600 mg oral tablet 1 tablet = 600 mg, By Mouth, 3 times a day, # 90 tablet, 1 Refills, Maintenance, 10/30/20 13:02:00 EST, Tablet, [email or web address] #[id number], 179, cm, 10/18/20 16:27:00 EST, Height, 120.5, kg, 10/18/20 16:27:00 EST, Dry Weight Start Date: 10/30/20 Status: Ordered glipiZIDE 2.5 mg oral tablet, extended release 1 tablet = 2.5 mg, By Mouth, Daily, # 90 tablet, 1 Refills, Maintenance, 05/08/20 13:04:00 EDT, ER Tablet, [email or web address] #[id number], 183, cm, 02/22/20 3:42:00 EDT, Height, 141, [...] Refills, Maintenance, 11/16/20 9:25:00 EST, EC Tablet, [facility] #[id number], 179, cm, 11/11/20 11:50:00 EST, Height, 120.5, kg, 10/18/20 16:27:00 EST, Dry Weight Start Date: 11/16/20 Stop Date: 05/15/21 Status: Ordered Trulicity Pen 1.5 mg/0.5 mL subcutaneous solution 0.5 mL = 1.5 mg, Subcutaneous Injection, Every week, rotate injection sites, # 2 mL, 6 Refills, Maintenance, 10/21/20 13:40:00 EST, Solution, [email or web address] #[id number], Partial fill upon patient request if the prescription is for a schedule II opioi... Start Date: 10/21/20 Status: Ordered Ventolin HFA 108 mcg/inh inhalation aerosol with adapter 2 puffs, Inhalation, Every 4 hours, # 18 Gm, 1 Refills, Maintenance, 11/11/19 13:17:00 EST, [facility] #[id number], 183, cm, 10/31/19 14:18:00 EST, Height, 141, kg, 08/30/19 19:46:00 EST, Dry Weight Start Date: 11/11/19 Status: Ordered Vitamin D3 1000 intl units oral tablet 1 tablet = 1,000 International_Units, By Mouth, Daily, # 90 tablet, 1 Refills, Maintenance, 12/11/19 12:04:00 EDT, Tablet, [email or web address] #[id number], 183, cm, 11/21/19 15:07:00 EST, Height, 137, [...] Most recent to oldest [Reference Range]: 1 Height 183 cm (11/03/21 11:19 AM) Weight 132 kg (11/03/21 11:19 AM) Pulse Rate [55-90 bpm] 96 bpm *H* (11/03/21 11:19 AM) Body Mass Index [18.5-24.99] 39.42 *>HHI* (11/03/21 11:19 AM) Blood Pressure [90-138/55-84 mm Hg] 150/ 68mm Hg *H* (11/03/21 11:19 AM) Mode of Delivery (Oxygen) Room air (11/03/21 11:19 AM) Blood pressure sites Arm, right (11/03/21 11:19 AM) Weight Obtained Via Patient/family state d (11/03/21 11:19 AM) Social History Social History Type Response Smoking Status Never (less than 100 in lifetime) entered on: 06/01/21 Sex
--- OUTSIDE RECORDS SUMMARY | 2023-05-27 03:10 | XMS_ITS | Continuity of Care Document ---
Author Name Unknown Organization [facility] ter Address [address] [place] [id number]- Care Team Providers Care Charger Operator Helper Name Role Phone Bri Becerril MD Primary Care Physician Encounter [facility] Date(s): 03/30/22 - 03/31/[address] [address]- Discharge Disposition: A-D/C Home Attending Physician: Chuy Mott MD Admitting Physician: Chuy Mott MD Referring Physician: Not on Staff, Referring [...] Vaccine Date Status Refusal Reason SARS-CoV-2 mRNA ([id number]) vax 4 03/19/22 Not Given Patient Refuses 1Early/Late Reason: Med Not Available 2Result Comment: Pt did give verbal consent to receive the Cricket COVID vaccine 3Result Comment: Lot# [id number] Exp 01/29/09 4Result Comment: never vacinated Medications albuterol 0.083% inhalation solution 3 mL = 2.5 mg, Inhalation, Every 6 hours, PRN for wheezing, # 60 each, 2 Refills, Maintenance, 12/08/21 15:07:00 EDT, Solution, [facility]/pharmacy #[id number], 178, cm, 12/06/21 13:33:00 EDT, Height, 139, kg, 11/26/21 17:26:00 EST, Dry Weight Start Date: 12/08/21 Status: Ordered amLODIPine 5 mg oral tablet 5 mg, 1, tablet, By Mouth, Daily, # 90 tablet, Refills 1, Tot. Refills 1, Maintenance, 12/27/21 14:28:00 EDT, Route to Pharmacy Electronically, [facility]/pharmacy #[id number], Partial fill upon patient request if the prescription is for a schedule II opioid drug.... Start Date: 12/27/21 Status: Ordered Aspirin Low Dose 81 mg oral delayed release tablet See Instructions, TAKE 1 TABLET BY MOUTH DAILY, # 90 tablet, 0 Refills, Soft Stop, 12/27/21 14:29:00 EDT, [facility]/pharmacy #1234, 180, cm, 12/24/21 7:50:00 EDT, Height, 127.8, kg, 12/22/21 22:17:00 EDT, Dry Weight Start Date: 12/27/21 Status: Ordered atorvastatin 40 mg oral tablet 1 tablet, By Mouth, Daily at bedtime, # 90 tablet, 0 Refills, Maintenance, 12/27/21 14:28:00 EDT, [facility]/pharmacy #1234, 180, cm, 12/24/21 7:50:00 EDT, Height, 127.8, kg, 12/22/21 22:17:00 EDT, Dry Weight Start Date: 12/27/21 Status: Ordered BD UF MINI PEN NEEDLE [id number] BD UF MINI PEN NEEDLE [id number], See Instructions, # 300 Unknown, 3 Refills, [...] 03/20/22 10:56:00 EDT, Route to Pharmacy Electronically, [facility]/pharmacy #[id number], Partial fill upon patient request if the prescription... Start Date: 03/20/22 Status: Ordered cefpodoxime 200 mg oral tablet 1 tablet = 200 mg, By Mouth, 2 times a day, # 6 tablet, 0 Refills, Soft Stop, 03/16/22 11:01:00 EDT, Tablet, [facility]/pharmacy #1234, Partial fill upon patient request [...] 01/19/22 15:07:00 EDT, Route to Pharmacy Electronically, [facility]/pharmacy #1234, Partial fill upon patient request if the prescription is for a schedule II opioid drug... Start Date: 01/19/22 Status: Ordered doxazosin 4 mg oral tablet 1 tablet, By Mouth, Daily at bedtime, # 90 tablet, 0 Refills, Maintenance, 12/27/21 14:32:00 EDT, [facility]/pharmacy #1234, 180, cm, 12/24/21 7:50:00 EDT, [...] 12/08/21 15:08:00 EDT, Route to Pharmacy Electronically, [facility]/pharmacy #1234, 178, cm,12/06/21 13:33:00 EDT, Height, 139, kg, 11/26/21 17... Start Date: 12/08/21 Stop Date: 06/06/22 Status: Ordered gabapentin 600 mg oral tablet [...] 03/13/22 16:15:00 EDT, Route to Pharmacy Electronically, [facility]/pharmacy #1234, Partial fill upon patient request if the prescription is for a schedule II opioid drug... Start Date: 03/13/22 Status: Ordered metoprolol 50 mg oral tablet 50 mg, 1, tablet, By Mouth, 2 times a day, # 180 tablet, Refills 2, Tot. Refills 2, Maintenance, 03/16/22 10:59:00 EDT, Route to Pharmacy Electronically, [facility]/pharmacy #1234, Partial fill upon patientrequest if the prescription is for a schedule II op... Start Date: 03/16/22 Stop Date: 12/11/22 Status: Ordered Pen [place], 31 G x 8 mm BD Ultra [...] 06/06/2215:09:00 EDT, 12/08/21 15:09:00 EDT, EC Tablet, [facility]/pharmacy #1234, 178, cm, 12/06/21 13:33:00 EDT,Height, 139, kg, 11/26/21 17:26:00 EST, Dry Weight Start Date: 12/08/21 Stop Date: 06/06/22 Status: Ordered Trulicity Pen 1.5 mg/0.5 mL subcutaneous solution 0.5 mL = 1.5 mg, Subcutaneous Injection, Every week, rotate injection sites, # 6.5 mL, 3 Refills, Maintenance, 12/27/21 14:31:00 EDT, Solution, [facility]/pharmacy #1234, Partial fill upon patient request [...] 1 Refills, Maintenance, 12/08/21 15:07:00 EDT, Tablet, [facility]/pharmacy #1234, 178, cm, 12/06/21 13:33:00 EDT, [...] 2 diabetes mellitus(Confirmed) Active Urge incontinence(Confirmed) Active Results Radiology Reports * Exam Date Time Procedure Performing Provider Status 03/30/22 3:47 PM Chest 2 Views Frontal and Lat Gerri Chahal; Milana (Verified) Notes: (Chest 2 Views Frontal and Lat) Reason For Exam: Chest Pain;Other: RESULT: Chest 2 Views Frontal and Lat Examination: Chest performed on 03/30/2022. History: Increased shortness of breath. Findings: Frontal and lateral views of the chest are compared to a prior study dated 03/29/2022. The cardiac and mediastinal silhouettes are within normal limits. The lungs are clear. The osseous and soft tissue structures are unremarkable. Impression: There is no acute cardiopulmonary disease. WSN: [id number] Ordering Physician: Carolina Waddell Dictated By: Christelle Danielle MD Dictated Date/Time: 03/30/22 3:52 pm Reviewed By: Christelle Danielle MD Signed By: Christelle Danielle MD Signed Date/Time: 03/30/22 3:52 pm Transcribed By: JOSÉ Transcribed Date/Time: 03/30/22 3:52 pm Vital Signs Most recent to oldest [Reference Range]: 1 2 3 Height 183 cm (03/31/22 2:39 PM) 183 cm (03/31/22 5:22 AM) 183 cm (03/30/22 11:18 PM) Weight 136 kg (03/31/22 2:39 PM) 136 kg (03/31/22 5:22 AM) 136 kg (03/30/22 11:18 PM) Oxygen Saturation [94-100 %] 99 % (03/31/22 2:39 PM) 98 % (03/31/22 8:37 AM) 98 % (03/31/22 5:22 AM) Pulse Rate [55-90 bpm] 69 bpm (03/31/22 2:39 PM) 65 bpm (03/31/22 8:37 AM) 64 bpm (03/31/22 5:22 AM) Body Mass Index [18.5-24.99] 40.61 *>HHI* (03/31/22 2:39 PM) 40.61 *>HHI* (03/31/22 5:22 AM) Blood Pressure [90-138/55-84 mm Hg] 168/91mm Hg *H* (03/31/22 2:39 PM) 127/79mm Hg (03/31/22 8:37 AM) 137/65mm Hg (03/31/22 5:22 AM) Respiratory Rate [16-30 br/min] 16 br/min (03/31/22 2:39 PM) 20 br/min (03/31/22 8:37 AM) 18 br/min (03/31/22 5:22 AM) Temperature [96.8-100.4 DegF] 97.6 DegF (03/31/22 2:39 PM) 98.6 DegF (03/31/22 8:37 AM) 98.1 DegF (03/31/22 5:22 AM) Liters per Minute 2 L/min (03/31/22 8:37 AM) 2 L/min (03/31/22 5:22 AM) 1.5 L/min (03/30/22 6:19 PM) Mode of Delivery (Oxygen) Room air (03/31/22 2:39 PM) Nasal cannula (03/31/22 8:37 AM) Nasal cannula (03/31/22 5:22 AM) Blood pressure sites Arm, right (03/31/22 8:37 AM) Arm, left (03/31/22 1:59 AM) Arm, left (03/31/22 1:17 AM) Temperature Route Oral (03/31/22 2:39 PM) Oral (03/31/22 8:37 AM) Oral (03/31/22 5:22 AM) Weight Obtained Via Patient/family stated (03/30/22 2:35 PM) Social History Social History Type Response Smoking Status Former smoker, quit more than 30 days ago; Patient wants NRT during admission No; Type: Cigarettes; Other: quit 2020. one years ago. Started at age 14 at 2 packs a day to start and one pack a week after that.; entered on: 03/10/22 Sex
--- OUTSIDE RECORDS SUMMARY | 2023-05-27 03:10 | XMS_ITS | Continuity of Care Document ---
Author Name Unknown Organization [facility] Address [address] [place] [phone]- Care Team Providers Care Unit Aide Tech Name Role Phone Jone DE LA ROSA, Bri Barrett Primary Care Physician Encounter [facility] Date(s): 07/26/22 - 10/08/22 [facility] [address] [place], [place] [address] Attending Physician: Babak De La Cruz MD Admitting Physician: Babak De La Cruz MD Referring Physician: Babak De La Cruz MD Allergies, [...] Vaccine Date Status Refusal Reason SARS-CoV-2 mRNA ([id number]) vax 4 03/19/22 Not Given Patient Refuses 1Early/Late Reason: Med Not Available 2Result Comment: Pt did give verbal consent to receive the Cricket COVID vaccine 3Result Comment: Lot# [id number] Exp 01/29/09 4Result Comment: never vacinated Medications albuterol 0.083% inhalation solution 3 mL = 2.5 mg, Inhalation, Every 6 hours, PRN for wheezing, # 60 each, 5 Refills, Maintenance, 05/31/22 9:33:00 EDT, Solution, [facility], 183, cm, 05/01/22 21:57:00 EDT, Height, 136,kg, 05/01/22 21:57:00 EDT, Dry Weight Start Date: 05/31/22 Status: Ordered amLODIPine 5 mg oral tablet 5 mg, 1, tablet, By Mouth, Daily, # 90 tablet, Refills 1, Tot. Refills 1, Maintenance, 07/25/22 17:23:00 EST, Route to Pharmacy Electronically, [facility], Partial fill upon patient request if the prescription is for a schedule II opioid d... Start Date: 07/25/22 Status: Ordered Aspirin Low Dose 81 mg oral delayed release tablet See Instructions, TAKE 1 TABLET BY MOUTH DAILY, # 90 tablet, 1 Refills, Soft Stop, 05/31/22 9:33:00EDT, [facility], 183, cm, 05/01/22 21:57:00 EDT, Height, 136, kg, 05/01/22 21:57:00EDT, Dry Weight Start Date: 05/31/22 Status: Ordered atorvastatin 40 mg oral tablet 1 tablet, By Mouth, Daily at bedtime, # 90 tablet, 1 Refills, Maintenance, 07/25/22 17:24:00 EST, [facility], 183, cm, 05/01/22 21:57:00 EDT, Height, 136, kg, 05/01/22 21:57:00 EDT, Dry Weight Start Date: 07/25/22 Status: Ordered Automatic arm blood pressure cuff Automatic arm blood pressure cuff, See Instructions, # 1 each, Refills 0, Tot. Refills 0, Maintenance, Use twice daily to check BP, 06/07/22 16:06:00 EDT, Supply Start Date: 06/07/22 Status: Ordered BD UF MINI PEN NEEDLE [id number] BD UF MINI PEN NEEDLE [id number], See Instructions, # 300 Unknown, 3 Refills, USE TO INJECT INSULIN 3 TIMES DAILY, 180, cm, 01/07/22 16:17:00 EDT, Height, 127.8, kg, 12/27/21 17:00:00 EDT, Dry Weight Start Date: 02/01/22 Status: Ordered BP Moitor BP Moitor, See Instructions, # 1 each, Refills 0, Tot. Refills 0, Maintenance, Dx:HTN, 09/13/22 12:07:00 EST, Supply, 183, cm, 05/01/22 21:57:00 EDT, Height, 136, kg, 05/01/22 21:57:00 EDT, Dry Weight Start Date: 09/13/22 Status: Ordered BP monitor; arm cuff BP monitor; arm cuff, See Instructions, # 1 each, Refills 0, Tot. Refills 0, Maintenance, Dx:HTN, 06/18/22 21:14:00 EDT, Supply, 183, cm, 05/01/22 21:57:00 EDT, Height, 136, kg, 05/01/22 21:57:00 EDT, Dry Weight Start Date: 06/18/22 Status: Ordered cefpodoxime 200 mg oral tablet 1 tablet = 200 mg, By Mouth, 2 times a day, # 6 tablet, 0 Refills, Soft Stop, 03/16/22 11:01:00 EDT, Tablet, [facility]/pharmacy #[id number], Partial fill upon patient request if [...] Status: Ordered clopidogrel 75 mg oral tablet 1, tablet, By Mouth, Daily, # 90 tablet, Refills 1, Tot. Refills 1, Maintenance, 07/25/22 17:18:00 EST, Route to Pharmacy Electronically, [facility], 183, cm, 05/01/22 21:57:00 EDT, Height, 136, kg, 05/01/22 21:57:00 EDT, Dry Weight Start Date: 07/25/22 Status: Ordered doxazosin 4 mg oral tablet 1 tablet, By Mouth, Daily at bedtime, # 90 tablet, 1 Refills, Maintenance, 07/25/22 17:22:00 EST, [facility], 183, cm, 05/01/22 21:57:00 EDT, Height, 136, kg, 05/01/22 21:57:00 EDT, Dry Weight Start Date: 07/25/22 Status: Ordered famotidine 20 mg oral tablet 1, tablet, By Mouth, 2 times a day, # 56 tablet, Refills 2, Tot. Refills 2, Maintenance, 09/30/22 11:22:00 EST, Route to Pharmacy Electronically, [facility], 183, cm, 05/01/22 21:57:00 EDT, Height, 136, kg, 05/01/22 21:57:00 EDT, Dry Weight Start Date: 09/30/22 Status: Ordered Freestyle Lite Lancets See Instructions, # 300 each, Refills 5, Tot. Refills 5, Maintenance, Use to check glucose four times daily Dx:E11.9, 05/31/22 9:33:00 EDT, Supply, 183, cm, 05/01/22 21:57:00 EDT, Height, 136, kg, 05/01/22 21:57:00 EDT, Dry Weight Start Date: 05/31/22 Stop Date: 11/27/22 Status: Ordered Freestyle Lite Monitor See Instructions, [...] Refills 1, Tot. Refills 1, Hard Stop 239:33:00 EDT, 08/29/22 9:33:00 EST, Route to Pharmacy Electronically, [facility], 183, cm, 05/01/22 21:57:00 EDT, Height, 136, kg, 05/01/22... Start Date: 08/29/22 Stop Date: 02/25/23 Status: Ordered gabapentin 600 mg oral tablet 1 tablet = 600 mg, By Mouth, 3 times a day, # 270 tablet, 1 Refills, Maintenance, 07/25/22 17:19:00EST, Tablet, [facility], 183, cm, 05/01/22 21:57:00 EDT, Height, 136, kg, 05/01/22 21:57:00 EDT, Dry Weight Start Date: 07/25/22 Status: Ordered glipiZIDE 2.5 mg oral tablet, extended release 1 tablet, By Mouth, Daily, # 90 tablet, 1 Refills, Maintenance, 07/25/22 17:18:00 EST, [facility], 183, cm, 05/01/22 21:57:00 EDT, Height, 136, kg, 05/01/22 21:57:00 EDT, Dry Weight Start Date: 07/25/22 Status: Ordered Insulin Lispro KwikPen 100 units/mL injectable solution See Instructions, Inject 12-26 units subcut three tines daily before meals based on sliding scale Discontinue Lispro vials, # 15 mL, 3 Refills, Maintenance, 07/25/22 17:25:00 EST, [facility], Partial fill upon patient request if the presc... Start Date: 07/25/22 Status: Ordered Lantus Solostar Pen 100 units/mL subcutaneous solution See Instructions, 30 units Subcutaneous Injection Daily Discontinue Lantus vials, # 45 mL, 0 Refills, Maintenance, 05/31/22 9:33:00 EDT, Solution, [facility], Partial fill upon patient request if the prescription is for a schedule II opio... Start Date: 05/31/22 Status: Ordered Left Below Knee Replacement Socket [...] tablet, Refills 1, Tot. Refills 1, Maintenance, 07/25/22 17:21:00 EST, Route to Pharmacy Electronically, [facility], Partial fill upon patient request if the prescription is for a schedule II opioid... Start Date: 07/25/22 Status: Ordered metoprolol 50 mg oral tablet 50 mg, 1, tablet, By Mouth, 2 times a day, # 180 tablet, Refills 2, Tot. Refills 2, Maintenance, 09/07/23 10:59:00 EST, Route to Pharmacy Electronically, [facility], Partial fill uponpatient request if the prescription is for a schedule I... Start Date: 09/07/23 Status: Ordered metoprolol 50 mg oral tablet 50 mg, 1, tablet, By Mouth, 2 times a day, for 90 days, # 180 tablet, Refills 2, Tot. Refills 2, Hard Stop 09/07/23 10:59:00 EST, 12/11/22 10:59:00 EDT, Route to Pharmacy Electronically, [facility], Partial fill upon patient request if the... Start Date: 12/11/22 Stop Date: 09/07/23 Status: Ordered metoprolol 50 mg oral tablet 50 mg, 1, tablet, By Mouth, 2 times a day, for 90 days, # 180 tablet, Refills 2, Tot. Refills 2, Hard Stop 12/11/22 10:59:00 EDT, 03/16/22 10:59:00 EDT, Route to Pharmacy Electronically, [facility]/pharmacy#1234, Partial fill upon patient request if the pre... Start Date: 03/16/22 Stop Date: 12/11/22 Status: Ordered Pen [place], 31 G x 8 mm BD Ultra Fine III See Instructions, # 300 each, Refills 5, Tot. Refills 5, Maintenance, Use to inject Insulin five times daily Dx:E11.9, 05/31/22 14:45:00 EDT, Supply, 183, cm, 05/01/22 21:57:00 EDT, Height, 136, kg, 05/01/22 21:57:00 EDT, Dry Weight Start Date: 05/31/22 Status: Ordered PriLOSEC OTC 20 mg oral delayed release tablet 1 tablet = 20 mg, By Mouth, 2 times a day, for 90 days, # 180 tablet, 3 Refills, Hard Stop 239:33:00 EST, 08/29/22 9:33:00 EST, EC Tablet, [facility], 183, cm, 05/01/22 21:57:00 EDT, Height, 136, kg, 05/01/22 21:57:00 EDT, Dry Weight Start Date: 08/29/22 Stop Date: 08/24/23 Status: Ordered Pulse Oximeter Pulse Oximeter, See Instructions, # 1 each, Refills 0, Tot. Refills 0, Maintenance, Dx: COPD, 06/18/22 21:13:00 EDT, Supply, 183, cm, 05/01/22 21:57:00 EDT, Height, 136, kg, 05/01/22 21:57:00 EDT, Dry Weight Start Date: 06/18/22 Status: Ordered Pulse oximeter Pulse oximeter, See Instructions, # 1 each, Refills 0, Tot. Refills 0, Maintenance, Use as needed for monitoring oxygen saturation and pulse, 06/07/22 16:06:00 EDT, Supply Start Date: 06/07/22 Status: Ordered Scooter repair Scooter repair, See Instructions, # 1 each, Refills 0, Tot. Refills 0, Maintenance, To: Seating andMobility Please repair patient's scooter, 04/21/22 13:26:00 EDT, Supply Start Date: 04/21/22 Status: Ordered sucralfate 1 gm oral tablet 1, tablet, By Mouth, 3 times a day before meals, AND BEDTIME., # 270 tablet, Refills 1, Tot. Refills 1, Maintenance, 07/25/22 17:17:00 EST, Route to Pharmacy Electronically, [facility], 183, cm, 05/01/22 21:57:00 EDT, Height, 136, kg, 04/18... Start Date: 07/25/22 Status: Ordered Transfer Bench See Instructions, # 1 each, Maintenance, standard 4 wheeled walker Dx: Left BKA ht: 6 ft; wt: 134 kg, 04/11/22 10:47:00 EDT, Supply Start Date: 04/11/22 Status: Ordered Trulicity Pen 1.5 mg/0.5 mL subcutaneous solution 0.5 mL = 1.5 mg, Subcutaneous Injection, Every week, rotate injection sites, # 2.5 mL, 2 Refills, Maintenance, 07/25/22 17:22:00 EST, Solution, [facility], Partial fill upon patient request if the prescription is for a schedule II opioid d... Start Date: 07/25/22 Status: Ordered Ventolin HFA 108 mcg/inh inhalation aerosol with adapter 2 puffs, Inhalation, Every 4 hours, # 3 each, 1 Refills, Maintenance, 05/31/22 9:33:00 EDT, JAYCE [facility]os; [facility], 183, cm, 05/01/22 21:57:00 EDT, Height, 136, kg, 05/01/22 21:57:00 EDT, Dry Weight Start Date: 05/31/22 Stop Date: 11/27/22 Status: Ordered Vitamin D3 1000 intl units oral tablet 1 tablet = 1,000 International_Units, By Mouth, Daily, # 90 tablet, 1 Refills, Maintenance, 11/27/22 9:33:00 EDT, Tablet, [facility], 183, cm, 05/01/22 21:57:00 EDT, Height, 136, kg, 05/01/22 21:57:00 EDT, Dry Weight Start Date: 11/27/22 Status: Ordered Vitamin D3 1000 intl units oral tablet 1 tablet = 1,000 International_Units, By Mouth, Daily, for 90 days, # 90 tablet, 1 Refills, Hard Stop 11/27/22 9:33:00 EDT, 05/31/22 9:33:00 EDT, Tablet, [facility], 183, cm, 05/01/2221:57:00 EDT, Height, 136, kg, 05/01/22 21:57:00 EDT, D... Start Date: 05/31/22 Stop Date: 11/27/22 Status: Ordered Walker See Instructions, # 1 each, Maintenance, standard 4 wheeled walker Dx: Left BKA ht: 6 ft; wt: 134 kg, 04/11/22 10:47:00 EDT, Supply Start Date: 04/11/22 Status: Ordered Xarelto 20 mg oral tablet See Instructions, TAKE 1 TABLET BY MOUTH DAILY AT SUPPER, # 90 tablet, 1 Refills, 07/25/22 17:20:00EST, [facility], 183, cm, 05/01/22 21:57:00 EDT, Height, 136, kg, 05/01/22 21:57:00EDT, Dry Weight Start Date: 07/25/22 Status: Ordered Problem List Condition Confirmation Course Effective Dates Status H ealth Status Informant Anemia Confirmed Active Chronic back pain Confirmed Active Chronic kidney disease Confirmed Active Chronic obstructive pulmonary disease (COPD) Confirmed Active Diabetic neuropathy Confirmed Active Diabetic ulcer of right lower leg Confirmed Active H/O: TIA Confirmed Active Heartburn Confirmed Active History of amputation of foot Confirmed Active History of below-knee amputation of left lower extremity Confirmed Active Hyperlipidemia Confirmed Active Hypertensive disorder Confirmed Active Knee pain Confirmed Active Morbid obesity Confirmed Active Noncompliance with medication regimen Confirmed Active Heme positive stool Confirmed Active Open wound, left below knee stump Confirmed Active Severe obesity Confirmed Active Diabetic ulcer of left lower leg Confirmed Active Diabetic ulcer of lower leg Confirmed Active Popliteal cyst Confirmed Active Left thigh pain Confirmed Active Type 2 diabetes mellitus Confirmed Active Infection, upper respiratory Confirmed Active Urge incontinence Confirmed Active Social History Social History Type Response Smoking Status Never (less than 100 in lifetime) entered on: 06/01/21 Sex Patient Care team information Care Team Personnel Name: Tita Walton NP Position: [facility] Associate Professional Member Role: Primary Care Nurse Address: Address: [address] [place] [address]- [place] Name: Vaishnavi Mack Position: [facility] Office Staff Member Role: Lifetime Consulting Physician Name: Kenia Montez RN Position: [facility] RN Member Role: Primary Care Nurse Name: Serena Starr RN Position: [facility] PCO RN Member Role: Primary Care Nurse Name: Amelie Easley RN Position: [facility] ED RN W/OE and Tasks Member Role: Primary Care Nurse Name: Gina Zee RN Position: [facility] RN Member Role: Primary Care Nurse Name: Olga Nielsen Position: [facility] Outreach Member Role: Lifetime Consulting Physician Name: Francisca Madera RN Position: [facility] RN Member Role: Primary Care Nurse Name: Aakash Bowman RN Position: [facility] RN Member Role: Primary Care Nurse Name: Ced Page RN Position: [facility] RN Member Role: Primary Care Nurse Name: Jerri Moctezuma RN Position: [facility] RN Member Role: Primary Care Nurse Name: Damari Coates RN Position: [facility] SN RN Member Role: Primary Care Nurse Name: Michelle Paul RN Position: [facility] RN Member Role: Primary Care Nurse Name: Gema Chu RN Position: [facility] RN Member Role: Primary Care Nurse Name: Yenni Ledezma RN Position: [facility] RN Member Role: Primary Care Nurse Name: Benja Camarena MD Position: [facility] Renal MD Member Role: Lifetime Consulting Physician Address: Address: [address] [facility] [place] [address]- [place] Name: Herbie Mullen MD Position: [facility] Renal MD Member Role: Lifetime Consulting Physician Address: Address: [address] [place] [address] [facility] [place] [address]- [place] Name: Ayo Walter RN Position: [facility] ED RN W/OE and Tasks Member Role: Primary Care Nurse Name: Bri Becerril MD Position: [facility] Primary Care Physician Member Role: PCP Address: Address: [address] [place] [address], [address] [place] [address]- Name: Marge Haas RN Position: [facility] RN Member Role: Primary Care Nurse Name: Mckenzie Gallo RN Position: [facility] RN Member Role: Primary Care Nurse Care Team Related Persons Name: MICHELLE RAE Address: home [address] [address] Name: KEILY HERNANDEZ Address: [address] [place] [address] Name: CHUY MAYO
--- OUTSIDE RECORDS SUMMARY | 2023-05-27 03:10 | XMS_ITS | Continuity of Care Document ---
Author Name Unknown Organization [facility] Address [address] [place] [address]- Care Team Providers Care Ios Developer Name Role Phone Bri Becerril MD Primary Care Physician [phone] Encounter [facility] [place] Date(s): 05/03/21 - 06/02/21 [facility] [address] [place] [address]- Allergies, Adverse Reactions, Alerts No Known Medication [...] 2 Refills, Maintenance, 09/05/19 10:10:00 EST, Solution, [email or web address] #[id number], 183, cm, 08/30/19 19:46:00 EST, Height, 141, [...] 1, TAKE 1 TABLET BY MOUTH DAILY, [email or web address] #[id number] Start Date: 06/24/19 Status: Ordered atorvastatin 40 mg oral tablet 1 tablet, By Mouth, Daily at bedtime, # 90 tablet, 1 Refills, Maintenance, 11/23/20 11:14:00 EST, [email or web address] #[id number], 179, cm, 11/11/20 11:50:00 EST, Height, 120.5, kg, 10/18/20 16:27:00 EST, Dry Weight Start Date: 11/23/20 Status: Ordered Betadine 10% solution See Instructions, For wound dressing, # 1 each, 5 Refills, Maintenance, 04/03/21 13:35:00 EDT, [facility]/pharmacy #[id number], Partial fill upon patient request if the prescription is for a schedule II opioid drug., For wound dressing, 183, cm, 03/17/21 11:22:00... Start Date: 04/03/21 Status: Ordered clopidogrel 75 mg oral tablet 75 mg, 1, tablet, By Mouth, Daily, # 42 tablet, Refills 0, Tot. Refills 0, Maintenance, 03/04/21 10:46:00 EDT, Route to Pharmacy Electronically, [facility], Partial fill upon patient request if the prescription is for a schedule II opioi... Start Date: 03/04/21 Stop Date: 04/15/21 Status: Ordered doxazosin 4 mg oral tablet 1 tablet, By Mouth, Daily at bedtime, # 90 tablet, 1 Refills, Maintenance, 07/31/20 13:33:00 EST, [email or web address] #[id number], 183, cm, 06/09/20 12:58:00 EDT, Height, 141, kg, 02/21/20 1:50:00 EDT, Dry Weight Start Date: 07/31/20 Status: Ordered furosemide 20 mg oral tablet 1, tablet, By Mouth, Daily, # 90 tablet, Refills 1, Tot. Refills 1, Maintenance, 12/23/19 9:21:00 EDT, Route to Pharmacy Electronically, [email or web address] #[id number], 183, cm, 11/21/19 15:07:00 EST, Height, 137, kg, 11/15/19 0:16:00 EST, Dry Weight Start Date: 12/23/19 Stop Date: 06/20/20 Status: Ordered gabapentin 600 mg oral tablet 1 tablet = 600 mg, By Mouth, 3 times a day, # 90 tablet, 1 Refills, Maintenance, 10/30/20 13:02:00 EST, Tablet, [email or web address] #[id number], 179, cm, 10/18/20 16:27:00 EST, Height, 120.5, kg, 10/18/20 16:27:00 EST, Dry Weight Start Date: 10/30/20 Status: Ordered glipiZIDE 2.5 mg oral tablet, extended release 1 tablet = 2.5 mg, By Mouth, Daily, # 90 tablet, 1 Refills, Maintenance, 05/08/20 13:04:00 EDT, ER Tablet, [email or web address] #[id number], 183, cm, 02/22/20 3:42:00 EDT, Height, 141, [...] opioid drug. Start Date: 05/21/21 Status: Ordered lisinopril 40 mg oral tablet [...] Refills, Maintenance, 11/16/20 9:25:00 EST, EC Tablet, [facility] #[id number], 179, cm, 11/11/20 11:50:00 EST, Height, 120.5, kg, 10/18/20 16:27:00 EST, Dry Weight Start Date: 11/16/20 Stop Date: 05/15/21 Status: Ordered Trulicity Pen 1.5 mg/0.5 mL subcutaneous solution 0.5 mL = 1.5 mg, Subcutaneous Injection, Every week, rotate injection sites, # 2 mL, 6 Refills, Maintenance, 10/21/20 13:40:00 EST, Solution, [facility] #[id number], Partial fill upon patient request if the prescription is for a schedule II opioi... Start Date: 10/21/20 Status: Ordered Ventolin HFA 108 mcg/inh inhalation aerosol with adapter 2 puffs, Inhalation, Every 4 hours, # 18 Gm, 1 Refills, Maintenance, 11/11/19 13:17:00 EST, [facility] #[id number], 183, cm, 10/31/19 14:18:00 EST, Height, 141, kg, 08/30/19 19:46:00 EST, Dry Weight Start Date: 11/11/19 Status: Ordered Vitamin D3 1000 intl units oral tablet 1 tablet = 1,000 International_Units, By Mouth, Daily, # 90 tablet, 1 Refills, Maintenance, 12/11/19 12:04:00 EDT, Tablet, [facility] #[id number], 183, cm, 11/21/19 15:07:00 EST, Height, 137, [...]
--- OUTSIDE RECORDS SUMMARY | 2023-05-27 03:10 | XMS_ITS | Continuity of Care Document ---
Author Name Unknown Organization [facility] Address [address] [place] [id number]- Care Team Providers Care Manager Concrete Name Role Phone Jone DE LA ROSA, Bri Barrett Primary Care Physician [place] [facility] [place]24[place]22 - 11/24/22 [facility] [address] [place] [address]- Attending Physician: Babak De La Cruz MD [...] Vaccine Date Status Refusal Reason SARS-CoV-2 mRNA ([id number]) vax 4 03/19/22 Not Given Patient Refuses [...] Dose 81 mg oral delayed release tablet 1 tablet, By Mouth, Daily, # 28 tablet, 0 Refills, Maintenance, 10/28/22 16:20:00 [facility], 183, cm, 05/01/22 21:57:00 EDT, Height, 136, kg, 05/01/22 21:57:00 EDT, Dry Weight Start Date: 10/28/22 Status: Ordered atorvastatin 40 mg oral tablet 1 tablet, By Mouth, Daily at bedtime, # 90 tablet, 1 Refills, Maintenance, 07/25/22 17:24:00 [facility], 183, cm, 05/01/22 21:57:00 EDT, Height, 136, kg, 05/01/22 21:57:00 EDT, Dry Weight Start Date: 07/25/22 Status: Ordered Automatic arm blood pressure cuff Automatic arm blood pressure cuff, See Instructions, # 1 each, Refills 0, Tot. Refills 0, Maintenance, Use twice daily to check BP, 06/07/22 16:06:00 EDT, Supply Start Date: 06/07/22 Status: Ordered BD UF MINI PEN NEEDLE [id number] BD UF MINI PEN NEEDLE [id number], See Instructions, # 300 Unknown, 3 Refills, [...] Refills, Soft Stop, 03/16/22 11:01:00 EDT, Tablet, [facility]/pharmacy #1234, Partial fill upon patient request if [...] 03/16/22 10:59:00 EDT, Route to Pharmacy Electronically, [facility]/pharmacy#1234, Partial fill upon patient request if the pre... Start Date: 03/16/22 Stop Date: 12/11/22 Status: Ordered Pen Berry, 31 G x 8 mm BD Ultra [...] a day before meals, AND BEDTIME., # 112 tablet, Refills 0, Maintenance, 10/28/22 11:46:00 EST, Route to Pharmacy Electronically, [facility], 183, cm, 05/01/22 21:57:00 EDT, Height, 136, kg, 05/01/22 21:57:00... Start Date: 10/28/22 Status: Ordered Transfer Bench See Instructions, # 1 each, Maintenance, standard 4 wheeled walker Dx: Left BKA ht: 6 ft; wt: 134 kg, 04/11/22 10:47:00 EDT, Supply Start Date: 04/11/22 Status: Ordered Trulicity Pen 1.5 mg/0.5 mL subcutaneous solution See Instructions, INJECT 0.5ML SUBCUTANEOUSLY ONCE WEEKLY. ROTATE INJECTION SITES., # 2 mL, 0 Refills, Maintenance, 10/28/22 11:45:00 EST, [facility], 183, cm, 05/01/22 21:57:00 EDT, Height, 136, kg, 05/01/22 21:57:00 EDT, Dry Weight Start Date: 10/28/22 Status: Ordered Urinal (hand-held) Urinal (hand-held), See Instructions, # 1 each, Refills 0, Tot. Refills 0, Maintenance, Non-ambulatory, 10/10/22 17:19:00 EST, Supply Start Date: 10/10/22 Status: Ordered Ventolin HFA 108 mcg/inh inhalation [...] Team Personnel Name: Tita Walton NP Position: [facility] Associate Professional Member Role: Primary Care Nurse Address: Address: [address] [place] [address] Tra[facility] Services [address] Name: Vaishnavi Mack Position: [facility] [place] Office Staff Member Role: Lifetime Consulting Physician Name: Kenia Montez RN Position: [facility] RN Member Role: Primary Care Nurse Name: Serena Starr RN Position: [facility] AMB Nurse Member Role: Primary Care Nurse Name: Amelie Easley RN Position: [facility] ED RN W/OE and Tasks Member Role: Primary Care Nurse Name: Gina Zee RN Position: [facility] RN Member Role: Primary Care Nurse Name: Olga Nielsen Position: [facility] Outreach Member Role: Lifetime Consulting Physician Name: Francisca Madera RN Position: [facility] RN Member Role: Primary Care Nurse Name: Aakash Bowman RN Position: [facility] RN Member Role: Primary Care Nurse Name: Ced Page RN Position: [facility] RN Member Role: Primary Care Nurse Name: Jerri Moctezuma RN Position: [facility] RN Member Role: Primary Care Nurse Name: Damari Coates RN Position: [facility] RN Member Role: Primary Care Nurse Name: Michelle Paul RN Position: [facility] RN Member Role: Primary Care Nurse Name: Gema Chu RN Position: [facility] RN Member Role: Primary Care Nurse Name: Yenni Ledezma RN Position: [facility] RN Member Role: Primary Care Nurse Name: Benja Camarena MD Position: [facility] Renal MD Member Role: Lifetime Consulting Physician Address: Address: [address] [facility] [address] [facility] [place] [address]- [place] Name: Herbie Mullen MD Position: [facility] Renal MD Member Role: Lifetime Consulting Physician Address: Address: [address] [facility] [place] [address]- Name: Ayo Walter RN Position: [facility] ED RN W/OE and Tasks Member Role: Primary Care Nurse Name: Jone DE LA ROSA, Bri Barrett Position: [facility] Primary Care Physician Member Role: PCP Address: Address: [address] [place] [address], [address] [place] [address]- [place] Name: Marge Haas RN Position: [facility] Onco RN Member Role: Primary Care Nurse Name: Mckenzie Gallo RN Position: S RN Member Role: Primary Care Nurse Care Team Related Persons Name: MICHELLE RAE Address: home [address] [facility] [address] [place], [place] Name: KEILY HERNANDEZ Address: home [address] [place] [address] Name: CHUY MAYO
--- OUTSIDE RECORDS SUMMARY | 2023-05-27 03:10 | XMS_ITS | Continuity of Care Document ---
Author Name Unknown Organization [facility] ter Address [address] [place] [address]- Care Team Providers Care Order Puller Name Role Phone Dom DE LA ROSA, Tylor A Primary Care Physician Encounter [facility] [place] Date(s): 04/24/21 - 04/24/[address] [address]- Encounter Diagnosis Below-knee amputation of left lower extremity(Final) - 04/23/21 Discharge Disposition: A-D/C AMA Attending Physician: Earl Shea MD Admitting Physician: Earl Shea MD Referring Physician: Not on Staff, Referring MD Allergies, Adverse Reactions, Alerts Substance Reaction Severity Status Bee Stings swelling [...] 3Result Comment: Lot# [id number] Exp 01/29/09 Medications albuterol 0.083% inhalation solution 3 mL = 2.5 mg, Inhalation, Every 6 hours, PRN for wheezing, # 60 each, 2 Refills, Maintenance, 09/05/19 10:10:00 EST, Solution, [facility] #[id number], 183, cm, 08/30/19 19:46:00 EST, Height, 141, kg, 08/30/19 19:46:00 EST, Dry Weight Start Date: 09/05/19 Status: Ordered amLODIPine 5 mg oral tablet 5 mg, 1, tablet, By Mouth, Daily, # 30 tablet, Refills 1, Tot. Refills 1, Maintenance, 04/03/21 13:27:00 EDT, Route to Pharmacy Electronically, [facility]/pharmacy #[id number], Partial fill upon patient request if the prescription is for a schedule II opioid drug.... Start Date: 04/03/21 Status: Ordered Aspirin Low Dose 81 mg oral delayed release tablet See Instructions, # 90 tablet, Refills 1 Tot. Refills 1, TAKE 1 TABLET BY MOUTH DAILY, [facility] #[id number] Start Date: 06/24/19 Status: Ordered atorvastatin 40 mg oral tablet 1 tablet, By Mouth, Daily at bedtime, # 90 tablet, 1 Refills, Maintenance, 11/23/20 11:14:00 EST, [facility] #[id number], 179, cm, 11/11/20 11:50:00 EST, Height, 120.5, kg, 10/18/20 16:27:00 EST, Dry Weight Start Date: 11/23/20 Status: Ordered Basaglar KwikPen 100 units/mL subcutaneous solution See Instructions, Inject 40 units subcut every AM and 34 units every PM, # 12 mL, 3 Refills, Maintenance, 12/16/20 14:32:00 EDT Start Date: 12/16/20 Status: Ordered Betadine 10% solution See Instructions, For wound dressing, # 1 each, 5 Refills, Maintenance, 04/03/21 13:35:00 EDT, [facility]/pharmacy #[id number], Partial fill upon patient request if the prescription is for a schedule II opioid drug., For wound dressing, 183, cm, 03/17/21 11:22:00... Start Date: 04/03/21 Status: Ordered clopidogrel 75 mg oral tablet 75 mg, 1, tablet, By Mouth, Daily, # 42 tablet, Refills 0, Tot. Refills 0, Maintenance, 03/04/21 10:46:00 EDT, Route to Pharmacy Electronically, [facility], Partial fill upon patient request if the prescription is for a schedule II opioi... Start Date: 03/04/21 Stop Date: 04/15/21 Status: Ordered doxazosin 4 mg oral tablet 1 tablet, By Mouth, Daily at bedtime, # 90 tablet, 1 Refills, Maintenance, 07/31/20 13:33:00 EST, [facility] #[id number], 183, cm, 06/09/20 12:58:00 EDT, Height, 141, kg, 02/21/20 1:50:00 EDT, Dry Weight Start Date: 07/31/20 Status: Ordered furosemide 20 mg oral tablet 1, tablet, By Mouth, Daily, # 90 tablet, Refills 1, Tot. Refills 1, Maintenance, 12/23/19 9:21:00 EDT, Route to Pharmacy Electronically, [facility] #[id number], 183, cm, 11/21/19 15:07:00 EST, Height, 137, kg, 11/15/19 0:16:00 EST, Dry Weight Start Date: 12/23/19 Stop Date: 06/20/20 Status: Ordered gabapentin 600 mg oral tablet 1 tablet = 600 mg, By Mouth, 3 times a day, # 90 tablet, 1 Refills, Maintenance, 10/30/20 13:02:00 EST, Tablet, [facility] #[id number], 179, cm, 10/18/20 16:27:00 EST, Height, 120.5, kg, 10/18/20 16:27:00 EST, Dry Weight Start Date: 10/30/20 Status: Ordered glipiZIDE 2.5 mg oral tablet, extended release 1 tablet = 2.5 mg, By Mouth, Daily, # 90 tablet, 1 Refills, Maintenance, 05/08/20 13:04:00 EDT, ER Tablet, [facility] #[id number], 183, cm, 02/22/20 3:42:00 EDT, Height, 141, kg, 02/21/20 1:50:00 EDT, Dry Weight Start Date: 05/08/20 Stop Date: 11/04/20 Status: Ordered Humalog Kwik Pen 100 units/mL subcutaneous injection See Instructions, Subcutaneous Infusion, 100 - 149 4 units 150 - 199 6 units 200 - 249 8 units 250 - 299 10 units 300 - 349 12 units 350 - 399 14 units, # 3 each, 5 Refills, Maintenance, 04/03/21 13:20:00 EDT, [facility]/pharmacy #[id number],... Start Date: 04/03/21 Stop Date: 09/30/21 Status: Ordered Keflex monohydrate 500 mg oral capsule 1 capsule = 500 mg, By Mouth, 4 times a day, for 7 days, # 28 capsule, 0 Refills, Acute 04/27/21 1:52:00 EDT, 04/20/21 1:52:00 EDT, Capsule, Partial fill upon patient request if the prescription is for a schedule II opioid drug. Start Date: 04/20/21 Stop Date: 04/27/21 Status: Ordered metFORMIN 750 mg oral tablet, [...] Refills, Maintenance, 11/16/20 9:25:00 EST, EC Tablet, [facility] #[id number], 179, cm, 11/11/20 11:50:00 EST, Height, 120.5, kg, 10/18/20 16:27:00 EST, Dry Weight Start Date: 11/16/20 Stop Date: 05/15/21 Status: Ordered Trulicity Pen 1.5 mg/0.5 mL subcutaneous solution 0.5 mL = 1.5 mg, Subcutaneous Injection, Every week, rotate injection sites, # 2 mL, 6 Refills, Maintenance, 10/21/20 13:40:00 EST, Solution, [facility] #[id number], Partial fill upon patient request if the prescription is for a schedule II opioi... Start Date: 10/21/20 Status: Ordered Ventolin HFA 108 mcg/inh inhalation aerosol with adapter 2 puffs, Inhalation, Every 4 hours, # 18 Gm, 1 Refills, Maintenance, 11/11/19 13:17:00 EST, [facility] #[id number], 183, cm, 10/31/19 14:18:00 EST, Height, 141, kg, 08/30/19 19:46:00 EST, Dry Weight Start Date: 11/11/19 Status: Ordered Vitamin D3 1000 intl units oral tablet 1 tablet = 1,000 International_Units, By Mouth, Daily, # 90 tablet, 1 Refills, Maintenance, 12/11/19 12:04:00 EDT, Tablet, [facility] #[id number], 183, cm, 11/21/19 15:07:00 EST, Height, 137, kg, 11/15/19 0:16:00 EST, Dry Weight Start Date: 12/11/19 Stop Date: 06/08/20 Status: Ordered WALKER WALKER, See Instructions, # 1 each, Refills 0, Tot. Refills 0, Maintenance, DX: S/P L2 amputation, 03/04/21 12:49:00 EDT, Supply Start Date: 03/04/21 Status: Ordered Problem List Condition Effective Dates [...] n regimen(Confirmed) Active Heme positive stool(Confirmed) Active Diabetic ulcer of left lower leg(Confirmed) Active Popliteal cyst(Confirmed) Active Type 2 diabetes mellitus(Confirmed) Active Urge incontinence(Confirmed) Active Results Orders for Microbiology Reports Name Date Wound Superficial Culture W/ Gram Smear (Superficial Wound Culture W/ Gram Smear) 04/23/21 Blood Culture 04/23/21 Blood Culture #2 04/23/21 Microbiology Reports TEST:Superficial Wound Culture STATUS:Unauthenticated BODY SITE: SOURCE:SWAB1 COLLECTED DATE/TIME:04/23/21 7:49 PM Superficial Wound Culture SPECIMEN DESCRIPTION : SWAB LEG LT SPECIAL REQUESTS : NONE GRAM STAIN : 2+ POLYMORPHONUCLEAR LEUKOCYTES 4+ GRAM NEGATIVE RODS 3+ GRAM POSITIVE COCCI REPORT STATUS : PRELIMINARY REPORT TEST:Blood Culture STATUS:Unauthenticated BODY SITE: SOURCE:Blood COLLECTED DATE/TIME:04/23/21 3:30 PM Blood Culture SPECIMEN DESCRIPTION : BLOOD NO SITE SPECIAL REQUESTS : NONE CULTURE : NO GROWTH AFTER 24 HOURS REPORT STATUS : PRELIMINARY REPORT TEST:Blood Culture, Second Order STATUS:Unauthenticated BODY SITE: SOURCE:Blood COLLECTED DATE/TIME:04/23/21 3:30 PM Blood Culture, Second Order SPECIMEN DESCRIPTION : BLOOD NO SITE SPECIAL REQUESTS : NONE CULTURE : NO GROWTH AFTER 24 HOURS REPORT STATUS : PRELIMINARY REPORT Vital Signs Most recent to oldest [Reference Range]: 1 2 3 Height 182 cm (04/24/21 3:35 AM) Weight 119.1 kg (04/24/21 3:33 AM) Oxygen Saturation [94-100 %] 97 % (04/24/21 3:35 AM) 97 % (04/24/21 3:33 AM) 97 % (04/24/21 2:37 AM) Pulse Rate [55-90 bpm] 67 bpm (04/24/21 3:35 AM) 67 bpm (04/24/21 3:33 AM) 67 bpm (04/24/21 2:37 AM) Blood Pressure [90-138/55-84 mm Hg] 151/70mm Hg *H* (04/24/21 3:35 AM) 151/70mm Hg *H* (04/24/21 3:33 AM) 138/73mm Hg (04/24/21 2:37 AM) Respiratory Rate [16-30 br/min] 18 br/min (04/24/21 3:35 AM) 18 br/min (04/24/21 3:33 AM) 18 br/min (04/24/21 2:37 AM) Temperature [96.8-100.4 DegF] 97.9 DegF (8/7/21 3:35 AM) 97.9 DegF (04/24/21 3:33 AM) 98.3 DegF (04/24/21 12:17 AM) Mode of Delivery (Oxygen) Room air (04/24/21 3:35 AM) Room air (04/24/21 3:33 AM) Room air (04/24/21 2:37 AM) Blood pressure sites Arm, left (04/24/21 3:35 AM) Arm, left (04/24/21 3:33 AM) Arm, left (04/24/21 2:37 AM) Temperature Route Oral (04/24/21 3:35 AM) Oral (04/24/21 3:33 AM) Oral (04/24/21 12:17 AM) Weight Obtained Via Bed scale (04/24/21 3:35 AM) Bed scale (04/24/21 3:33 AM) Dry Weight Obtained Via Bed scale (04/24/21 3:35 AM) Social History Social History Type Response Smoking Status Former smoker, quit more than 30 days ago; Patient wants NRT during admission No; Type: Cigarettes entered on: 04/24/21 Sex
--- OUTSIDE RECORDS SUMMARY | 2023-05-27 03:10 | XMS_ITS | Continuity of Care Document ---
Author Name Unknown Organization [facility] Address [address] [place] [address]- Care Team Providers Care Hvac Sheet Metal Installer Helper Name Role Phone Jone DE LA ROSA, Bri Barrett Primary Care Physician [place] [facility] [place] - 01/01/22 [facility] [address], [place] [address] Attending Physician: Babak De La Cruz MD Admitting Physician: Babak De La Cruz MD Referring Physician: Babak De La Cruz MD Allergies, Adverse Reactions, Alerts No Known Medication Allergies Substance Reaction Severity Status Bee Stings swelling Active Immunizations Given and Recorded Vaccine Date Status Refusal Reason SARS-CoV-2 (COVID-19) mRNA-1273 vaccine 12/23/21 G iven SARS-CoV-2 (COVID-19) Ad26 vaccine 1 02/25/21 Give [...] 3Result Comment: Lot# [id number] 01/29/09 Medications acetaminophen-codeine 300 mg-15 mg oral tablet 1 tablet, By Mouth, 2 times a day, PRN Pain , Severe, for 7 days, May cause drowsiness. NOt to drive after taking the med, # 14 tablet, 0 Refills, Acute 04/21/22 16:09:00 EDT, 12/30/21 16:09:00 EDT, Tablet, [facility]/pharmacy #[id number], Partial fill upon patien... Start Date: 12/30/21 Stop Date: 01/06/22 Status: Ordered albuterol 0.083% inhalation solution 3 mL = 2.5 mg, Inhalation, Every 6 hours, PRN for wheezing, # 60 each, 2 Refills, Maintenance, 12/08/21 15:07:00 EDT, Solution, [facility]/pharmacy #[id number], 178, cm, 12/06/21 13:33:00 EDT, Height, 139, kg, 11/26/21 17:26:00 EST, Dry Weight Start Date: 12/08/21 Status: Ordered amLODIPine 5 mg oral tablet 5 mg, 1, tablet, By Mouth, Daily, # 90 tablet, Refills 1, Tot. Refills 1, Maintenance, 12/27/21 14:28:00 EDT, Route to Pharmacy Electronically, [facility]/pharmacy #[id number], Partial fill upon patient request if the prescription is for a schedule II opioid drug.... Start Date: 12/27/21 Status: Ordered Aspirin Low Dose 81 mg oral delayed release tablet See Instructions, TAKE 1 TABLET BY MOUTH DAILY, # 90 tablet, 0 Refills, Soft Stop, 12/27/21 14:29:00 EDT, [facility]/pharmacy #[id number], 180, cm, 12/24/21 7:50:00 EDT, Height, 127.8, kg, 12/22/21 22:17:00 EDT, Dry Weight Start Date: 12/27/21 Status: Ordered atorvastatin 40 mg oral tablet 1 tablet, By Mouth, Daily at bedtime, # 90 tablet, 0 Refills, Maintenance, 12/27/21 14:28:00 EDT, [facility]/pharmacy #[id number], 180, cm, 12/24/21 7:50:00 EDT, Height, 127.8, kg, 12/22/21 22:17:00 EDT, Dry Weight Start Date: 12/27/21 Status: Ordered Chem 7 in a week Chem 7 in a week, See Instructions, # 1 each, Refills 0, Tot. Refills 0, Maintenance, Results to PCP, 12/01/21 15:18:00 EDT, Supply Start Date: 12/01/21 Status: Ordered clopidogrel 75 mg oral tablet 75 mg, 1, tablet, By Mouth, Daily, # 90 tablet, Refills 0, Tot. Refills 0, Maintenance, 01/19/22 15:07:00 EDT, Route to Pharmacy Electronically, [facility]/pharmacy #[id number], Partial fill upon patient request if the prescription is for a schedule II opioid drug... Start Date: 01/19/22 Status: Ordered clopidogrel 75 mg oral tablet 75 mg, 1, tablet, By Mouth, Daily, for 42 days, # 42 tablet, Refills 0, Tot. Refills 0, Hard Stop 01/19/22 15:07:00 EDT, 12/08/21 15:07:00 EDT, Route to Pharmacy Electronically, [facility]/pharmacy #[id number], Partial fill upon patient request if the prescription... Start Date: 12/08/21 Stop Date: 01/19/22 Status: Ordered doxazosin 4 mg oral tablet 1 tablet, By Mouth, Daily at bedtime, # 90 tablet, 0 Refills, Maintenance, 12/27/21 14:32:00 EDT, [facility]/pharmacy #1234, 180, cm, 12/24/21 7:50:00 EDT, Height, 127.8, kg, 12/22/21 22:17:00 EDT, Dry Weight Start Date: 12/27/21 Status: Ordered furosemide 20 mg oral tablet 1, tablet, By Mouth, Daily, # 90 tablet, Refills 0, Tot. Refills 0, Maintenance, 12/27/21 14:32:00 EDT, Route to Pharmacy Electronically, [facility]/pharmacy #[id number], 180, cm, 12/24/21 7:50:00 EDT, Height, 127.8, kg, 12/22/21 22:17:00 EDT, Dry Weight Start Date: 12/27/21 Status: Ordered furosemide 20 mg oral tablet 1, tablet, By Mouth, Daily, for 90 days, # 90 tablet, Refills 1, Tot. Refills 1, Hard Stop 06/06/2215:08:00 EDT, 12/08/21 15:08:00 EDT, Route to Pharmacy Electronically, [facility]/pharmacy #[id number], 178, cm,12/06/21 13:33:00 EDT, Height, 139, kg, 11/26/21 17... Start Date: 12/08/21 Stop Date: 06/06/22 Status: Ordered gabapentin 600 mg oral tablet 1 tablet = 600 mg, By Mouth, 3 times a day, # 90 tablet, 1 Refills, Maintenance, 12/08/21 15:08:00 EDT, Tablet, [facility]/pharmacy #1234, 178, cm, 12/06/21 13:33:00 EDT, Height, 139, kg, 11/26/21 17:26:00 EST, Dry Weight Start Date: 12/08/21 Status: Ordered glipiZIDE 2.5 mg oral tablet, extended release 1 tablet = 2.5 mg, By Mouth, Daily, # 90 tablet, 0 Refills, Maintenance, 06/06/22 15:08:00 EDT, ER Tablet, [facility]/pharmacy #1234, 180, cm, 12/24/21 7:50:00 EDT, Height, 127.8, kg, 12/22/21 22:17:00 EDT,Dry Weight Start Date: 06/06/22 Status: Ordered glipiZIDE 2.5 mg oral tablet, extended release 1 tablet = 2.5 mg, By Mouth, Daily, for 90 days, # 90 tablet, 1 Refills, Hard Stop 06/06/22 15:08:00 EDT, 12/08/21 15:08:00 EDT, ER Tablet, [facility]/pharmacy #1234, 178, cm, 12/06/21 13:33:00 EDT, Height,139, kg, 11/26/21 17:26:00 EST, Dry Weight Start Date: 12/08/21 Stop Date: 06/06/22 Status: Ordered insulin lispro 100 u/ml subcutaneous injection 12-26 units, Subcutaneous Injection, 3 times a day before meals, << Sliding Scale Comments >> 100 - 149 12 units Call if less than 70 150 - 199 14 units 200 - 249 16 units 250 - 299 18 units 300 - 349 20 units 350 - 399 22 units... Start Date: 12/27/21 Status: Ordered Lantus 100 u/ml subcutaneous solution = 30 units, Subcutaneous Injection, Daily, # 15 mL, 3 Refills, Maintenance, 12/27/21 14:33:00 EDT, Injection, [facility]/pharmacy #1234, Partial fill upon patient request if the prescription is for a schedule II opioid drug., 180, cm, 12/24/21 7:50:00 EDT, H... Start Date: 12/27/21 Status: Ordered Left BKA prosthetic Left BKA prosthetic, See Instructions, # 1 each, Refills 0, Tot. Refills 0, Maintenance, Please fitpatient for Left BKA prosthetic, 07/20/21 9:12:00 EDT, Supply Start Date: 07/20/21 Status: Ordered metoprolol 50 mg oral tablet 50 mg, 1, tablet, By Mouth, 2 times a day, # 180 tablet, Refills 0, Tot. Refills 0, Maintenance, 12/27/21 14:35:00 EDT, Route to Pharmacy Electronically, [facility]/pharmacy #[id number], Partial fill upon patientrequest if the prescription is for a schedule II op... Start Date: 12/27/21 Status: Ordered PriLOSEC OTC 20 mg oral delayed release tablet 1 tablet = 20 mg, By Mouth, 2 times a day, # 180 tablet, 0 Refills, Maintenance, 06/06/22 15:09:00 EDT, EC Tablet, [facility]/pharmacy #1234, 180, cm, 12/24/21 7:50:00 EDT, Height, 127.8, kg, 12/22/21 22:17:00 EDT, Dry Weight Start Date: 06/06/22 Status: Ordered PriLOSEC OTC 20 mg oral delayed release tablet 1 tablet = 20 mg, By Mouth, 2 times a day, for 90 days, # 180 tablet, 1 Refills, Hard Stop 06/06/2215:09:00 EDT, 12/08/21 15:09:00 EDT, EC Tablet, [facility]/pharmacy #1234, 178, cm, 12/06/21 13:33:00 EDT,Height, 139, [...] hours, # 18 Gm, 1 Refills, Maintenance, 12/08/21 15:07:00 EDT, [facility]/pharmacy #1234, 178, cm, 12/06/21 13:33:00 EDT, Height, 139, kg, 11/26/21 17:26:00 EST, Dry Weight Start Date: 12/08/21 Status: Ordered Vitamin D3 1000 intl units [...] supper, # 30 tablet, 0 Refills, Maintenance, 12/08/21 15:09:00EDT, Tablet, [facility]/pharmacy #1234, Partial fill upon patient request if the prescription is for a schedule II opioid drug., 178, cm, 12/06/21 13:33:00 ED... Start Date: 12/08/21 Status: Ordered Problem List Condition Effective Dates [...]
--- OUTSIDE RECORDS SUMMARY | 2023-05-27 03:10 | XMS_ITS | Continuity of Care Document ---
Author Name Unknown Organization [facility] Address [address] [place] [id number]- Care Team Providers Care Camera Engineer Name Role Phone Bri Becerril MD Primary Care Physician Encounter [facility] [place](s): 05/03/21 - 08/18/21 [facility] [address] [place] [address]- Attending Physician: Babak De La Cruz MD Admitting Physician: Babak De La Cruz MD Referring Physician: Tylor Fernandes MD Allergies, Adverse Reactions, Alerts No Known [...] 2 Refills, Maintenance, 09/05/19 10:10:00 EST, Solution, [facility] #[id number], 183, cm, 08/30/19 19:46:00 EST, Height, 141, [...] 1, TAKE 1 TABLET BY MOUTH DAILY, [facility] #[id number] Start Date: 06/24/19 Status: Ordered atorvastatin 40 mg oral tablet 1 tablet, By Mouth, Daily at bedtime, # 90 tablet, 1 Refills, Maintenance, 11/23/20 11:14:00 EST, [facility] #[id number], 179, cm, 11/11/20 11:50:00 EST, Height, 120.5, kg, 10/18/20 16:27:00 EST, Dry Weight Start Date: 11/23/20 Status: Ordered Betadine 10% solution See Instructions, For wound dressing, # 1 each, 5 Refills, Maintenance, 04/03/21 13:35:00 EDT, [facility]/pharmacy #1234, Partial fill upon patient request if the prescription is for a schedule II opioid drug., For wound dressing, 183, cm, 03/17/21 11:22:00... Start Date: 04/03/21 Status: Ordered clopidogrel 75 mg oral tablet 75 mg, 1, tablet, By Mouth, Daily, # 42 tablet, Refills 0, Tot. Refills 0, Maintenance, 03/04/21 10:46:00 EDT, Route to Pharmacy Electronically, [facility], Partial fill upon patient request if the prescription is for a schedule II opioi... Start Date: 03/04/21 Stop Date: 04/15/21 Status: Ordered doxazosin 4 mg oral tablet 1 tablet, By Mouth, Daily at bedtime, # 90 tablet, 1 Refills, Maintenance, 07/31/20 13:33:00 EST, [facility] #[id number], 183, cm, 06/09/20 12:58:00 EDT, Height, 141, kg, 02/21/20 1:50:00 EDT, Dry Weight Start Date: 07/31/20 Status: Ordered furosemide 20 mg oral tablet 1, tablet, By Mouth, Daily, # 90 tablet, Refills 1, Tot. Refills 1, Maintenance, 12/23/19 9:21:00 EDT, Route to Pharmacy Electronically, [facility] #[id number], 183, cm, 11/21/19 15:07:00 EST, Height, 137, kg, 11/15/19 0:16:00 EST, Dry Weight Start Date: 12/23/19 Stop Date: 06/20/20 Status: Ordered gabapentin 600 mg oral tablet 1 tablet = 600 mg, By Mouth, 3 times a day, # 90 tablet, 1 Refills, Maintenance, 10/30/20 13:02:00 EST, Tablet, [facility] #[id number], 179, cm, 10/18/20 16:27:00 EST, Height, 120.5, kg, 10/18/20 16:27:00 EST, Dry Weight Start Date: 10/30/20 Status: Ordered glipiZIDE 2.5 mg oral tablet, extended release 1 tablet = 2.5 mg, By Mouth, Daily, # 90 tablet, 1 Refills, Maintenance, 05/08/20 13:04:00 EDT, ER Tablet, [facility] #[id number], 183, cm, 02/22/20 3:42:00 EDT, Height, 141, [...] Refills, Maintenance, 11/16/20 9:25:00 EST, EC Tablet, [facility] #[id number], 179, cm, 11/11/20 11:50:00 EST, Height, 120.5, kg, 10/18/20 16:27:00 EST, Dry Weight Start Date: 11/16/20 Stop Date: 05/15/21 Status: Ordered Trulicity Pen 1.5 mg/0.5 mL subcutaneous solution 0.5 mL = 1.5 mg, Subcutaneous Injection, Every week, rotate injection sites, # 2 mL, 6 Refills, Maintenance, 10/21/20 13:40:00 EST, Solution, [facility] #[id number], Partial fill upon patient request if the prescription is for a schedule II opioi... Start Date: 10/21/20 Status: Ordered Ventolin HFA 108 mcg/inh inhalation aerosol with adapter 2 puffs, Inhalation, Every 4 hours, # 18 Gm, 1 Refills, Maintenance, 11/11/19 13:17:00 EST, [facility] #[id number], 183, cm, 10/31/19 14:18:00 EST, Height, 141, kg, 08/30/19 19:46:00 EST, Dry Weight Start Date: 11/11/19 Status: Ordered Vitamin D3 1000 intl units oral tablet 1 tablet = 1,000 International_Units, By Mouth, Daily, # 90 tablet, 1 Refills, Maintenance, 12/11/19 12:04:00 EDT, Tablet, [facility] #[id number], 183, cm, 11/21/19 15:07:00 EST, Height, 137, [...]
--- OUTSIDE RECORDS SUMMARY | 2023-05-27 03:10 | XMS_ITS | Continuity of Care Document ---
Author Name Unknown Organization [facility] ter Address [address] [place] [address]- Care Team Providers Care Painter Spring Name Role Phone Jone DE LA ROSA, Bri Barrett Primary Care Physician Encounter [facility] Date(s): 10/09/20 - 11/08/[address] [address] Allergies, Adverse Reactions, Alerts Substance Reaction Severity Status Bee Stings swelling Active Immunizations Given and Recorded Vaccine Date Status Refusal Reason Influenza Virus Vaccine (oldterm) 07/27/20 Recorde d influenza virus vaccine, inactivated 07/17/19 Give n influenza virus vaccine, inactivated 06/19/19 Give n influenza virus vaccine, inactivated 1 12/29/17 Gi ray pneumococcal 23-valent vaccine 06/06/16 Given Pneumococcal Vaccine (oldterm) 2 05/22/07 Given 1Early/Late Reason: Med Not Available 2Result Comment: Lot# [id number] 01/29/09 Medications albuterol 0.083% inhalation solution 3 mL = 2.5 mg, Inhalation, Every 6 hours, PRN for wheezing, # 60 each, 2 Refills, Maintenance, 09/05/19 10:10:00 EST, Solution, [facility] #[id number], 183, cm, 08/30/19 19:46:00 EST, Height, 141, kg, 08/30/19 19:46:00 EST, Dry Weight Start Date: 09/05/19 Status: Ordered amLODIPine 10 mg oral tablet 1 tablet, By Mouth, Daily, # 90 tablet, 0 Refills, Maintenance, 07/06/20 9:56:00 EDT, [facility] #[id number], 183, cm, 06/09/20 12:58:00 EDT, Height, 141, kg, 02/21/20 1:50:00 EDT, Dry Weight Start Date: 07/06/20 Status: Ordered Aspirin Low Dose 81 mg oral delayed release tablet See Instructions, # 90 tablet, Refills 1 Tot. Refills 1, TAKE 1 TABLET BY MOUTH DAILY, [facility] #[id number] Start Date: 06/24/19 Status: Ordered atorvastatin 40 mg oral tablet 1 tablet, By Mouth, Daily at bedtime, # 90 tablet, 1 Refills, Maintenance, 12/09/19 20:32:00 EDT, [facility] #[id number], 183, cm, 11/21/19 15:07:00 EST, Height, 137, kg, 11/15/19 0:16:00 EST, Dry Weight Start Date: 12/09/19 Status: Ordered Basaglar KwikPen 100 units/mL subcutaneous solution See Instructions, Subcutaneous Infusion Inject 70 units every morning and 55 every evening, # 15 mL, 2 Refills, Maintenance, 05/22/20 15:36:00 EDT, [facility] #[id number], 183, cm, 02/22/20 3:42:00 EDT, Height, 141, kg, 02/21/20 1:50:00 EDT, Dry... Start Date: 05/22/20 Status: Ordered Clopidogrel = 75 mg, By Mouth, 0 Refills, Maintenance, 09/02/20 18:30:00 EST, Partial fill upon patient requestif the prescription is for a schedule II opioid drug. Start Date: 09/02/20 Status: Ordered doxazosin 4 mg oral tablet 1 tablet, By Mouth, Daily at bedtime, # 90 tablet, 1 Refills, Maintenance, 07/31/20 13:33:00 EST, [facility] #[id number], 183, cm, 06/09/20 12:58:00 EDT, Height, 141, kg, 02/21/20 1:50:00 EDT, Dry Weight Start Date: 07/31/20 Status: Ordered enoxaparin 150 mg/mL injectable solution 1 mL = 150 mg, Subcutaneous Injection, Every 12 hours, # 60 each, 1 Refills, Acute 12/03/20 17:56:00 EDT, 10/31/20 17:54:00 EST, Injection, [facility] #[id number], Partial fill upon patient request if the prescription is for a schedule II opioid... Start Date: 10/31/20 Stop Date: 12/03/20 Status: Ordered furosemide 20 mg oral tablet 1, tablet, By Mouth, Daily, # 90 tablet, Refills 1, Tot. Refills 1, Maintenance, 12/23/19 9:21:00 EDT, Route to Pharmacy Electronically, [facility] #[id number], 183, cm, 11/21/19 15:07:00 EST, Height, 137, kg, 11/15/19 0:16:00 EST, Dry Weight Start Date: 12/23/19 Stop Date: 06/20/20 Status: Ordered gabapentin 600 mg oral tablet 1 tablet = 600 mg, By Mouth, 3 times a day, # 90 tablet, 1 Refills, Maintenance, 10/30/20 13:02:00 EST, Tablet, [facility] #[id number], 179, cm, 10/18/20 16:27:00 EST, Height, 120.5, kg, 10/18/20 16:27:00 EST, Dry Weight Start Date: 10/30/20 Status: Ordered glipiZIDE 2.5 mg oral tablet, extended release 1 tablet = 2.5 mg, By Mouth, Daily, # 90 tablet, 1 Refills, Maintenance, 05/08/20 13:04:00 EDT, ER Tablet, [facility] #[id number], 183, cm, 02/22/20 3:42:00 EDT, Height, 141, kg, 02/21/20 1:50:00 EDT, Dry Weight Start Date: 05/08/20 Stop Date: 11/04/20 Status: Ordered lisinopril 40 mg oral tablet 1 tablet, By Mouth, Daily, # 90 tablet, 0 Refills, Maintenance, 07/06/20 9:55:00 EDT, [facility] #[id number], 183, cm, 06/09/20 12:58:00 EDT, Height, 141, kg, 02/21/20 1:50:00 EDT, Dry Weight Start Date: 07/06/20 Status: Ordered metFORMIN 750 mg oral tablet, extended release 1 tablet = 750 mg, By Mouth, Daily, 0 Refills, Maintenance, 09/02/20 18:31:00 EST, Partial fill upon patient request if the prescription is for a schedule II opioid drug. Start Date: 09/02/20 Status: Ordered methocarbamol 750 mg oral tablet See Instructions, TAKE 1 TABLET BY MOUTH THREE TIMES DAILY FOR 10 DAYS TAKE NEEDED FOR BACK PAIN.NOT TO DRIVE AFTER TAKING MED, # 90 tablet, 1 Refills, Soft Stop, 05/05/20 14:29:00 EDT, [facility] #[id number], 183, cm, 02/22/20 3:42:00 EDT, He... Start Date: 05/05/20 Status: Ordered metoprolol 50 mg oral tablet [...] By Mouth, 2 times a day, # 60 tablet, 1 Refills, Maintenance, 05/05/20 14:29:00 EDT, EC Tablet, [facility] #[id number], 183, cm, 02/22/20 3:42:00 EDT, Height, 141, kg, 02/20/:50:00 EDT, Dry Weight Start Date: 05/05/20 Status: Ordered Trulicity Pen 1.5 mg/0.5 mL subcutaneous solution 0.5 mL = 1.5 mg, Subcutaneous Injection, Every week, rotate injection sites, # 2 mL, 6 Refills, Maintenance, 10/21/20 13:40:00 EST, Solution, [facility] #[id number], Partial fill upon patient request if the prescription is for a schedule II opioi... Start Date: 10/21/20 Status: Ordered Ventolin HFA 108 mcg/inh inhalation aerosol with adapter 2 puffs, Inhalation, Every 4 hours, # 18 Gm, 1 Refills, Maintenance, 11/11/19 13:17:00 EST, [facility] #[id number], 183, cm, 10/31/19 14:18:00 EST, Height, 141, kg, 08/30/19 19:46:00 EST, Dry Weight Start Date: 11/11/19 Status: Ordered Vitamin D3 1000 intl units oral tablet 1 tablet = 1,000 International_Units, By Mouth, Daily, # 90 tablet, 1 Refills, Maintenance, 12/11/19 12:04:00 EDT, Tablet, [facility] #[id number], 183, cm, 11/21/19 15:07:00 EST, Height, 137, kg, 11/15/19 0:16:00 EST, Dry Weight Start Date: 12/11/19 Stop Date: 06/08/20 Status: Ordered Xarelto 15 mg oral tablet 1 tablet = 15 mg, By Mouth, 2 times a day, with food, # 42 tablet, 0 Refills, Maintenance, 10/01/2116:58:00 EST, Tablet, Partial fill upon patient request if the prescription is for a schedule II opioid drug. Start Date: 10/01/20 Stop Date: 10/22/20 Status: Ordered Problem List Condition Effective Dates Status Health Status Inform ant Anemia(Confirmed) Active Chronic back pain(Confirmed) Active Chronic kidney disease(Confirmed) Active Chronic obstructive pulmonar y disease (COPD)(Confirmed) Active Diabetic neuropathy(Confirmed) Active Diabetic ulcer of right lowe r leg(Confirmed) Active H/O: TIA(Confirmed) Active Heartburn(Confirmed) Active History of amputation of foot(Confirmed) Active Hyperlipidemia(Confirmed) Active Hypertensive disorder(Confirmed) Active Knee pain(Confirmed) Active Morbid obesity(Confirmed) Active Heme positive stool(Confirmed) Active Diabetic ulcer of left lower leg(Confirmed) Active Popliteal cyst(Confirmed) Active Type 2 diabetes mellitus(Confirmed) Active Urge incontinence(Confirmed) Active Social History Social History Type Response Smoking Status 5-9 cigarettes (betw een 1/4 to 1/2 pack)/day in last 30 days entered on: 10/01/20 Sex
--- OUTSIDE RECORDS SUMMARY | 2023-05-27 03:10 | XMS_ITS | Continuity of Care Document ---
Author Name Unknown Organization [facility] Address [address] [place] [address]- Care Team Providers Care Ethical Hacker Name Role Phone Jone DE LA ROSA, Bri Barrett Primary Care Physician [phone] [place] [facility] [place] 12/13/21 [facility] [address] [place] [address]- Attending Physician: Babak eD La Cruz MD Admitting Physician: Babak De La Cruz MD Referring Physician: Anand Becerril MD Allergies, Adverse Reactions, Alerts No [...] acetaminophen 325 mg oral tablet 650 mg, 2, tablet, By Mouth, Every 4 hours, PRN, Temperature Greater than 100.5, # 90 tablet, Refills 0, Tot. Refills 0, Maintenance, Pain , Mild, 12/08/21 15:06:00 EDT, Route to Pharmacy Electronically, [facility]/pharmacy #[id number], Partial fill upon patient r... Start Date: 12/08/21 Status: Ordered albuterol 0.083% inhalation solution 3 mL = 2.5 mg, Inhalation, Every 6 hours, PRN for wheezing, # 60 each, 2 Refills, Maintenance, 12/08/21 15:07:00 EDT, Solution, [facility]/pharmacy #[id number], 178, cm, 12/06/21 13:33:00 EDT, Height, 139, kg, 11/26/21 17:26:00 EST, Dry Weight Start Date: 12/08/21 Status: Ordered amLODIPine 5 mg oral tablet 10 mg, 2, tablet, By Mouth, Daily, # 60 tablet, Refills 0, Tot. Refills 0, Maintenance, 12/08/21 15:07:00 EDT, Route to Pharmacy Electronically, [facility]/pharmacy #[id number], Partial fill upon patient request if the prescription is for a schedule II opioid drug... Start Date: 12/08/21 Status: Ordered Aspirin Low Dose 81 mg oral delayed release tablet See Instructions, TAKE 1 TABLET BY MOUTH DAILY, # 90 tablet, 1 Refills, Soft Stop, 12/08/21 15:07:00 EDT, [facility]/pharmacy #1234, 178, cm, 12/06/21 13:33:00 EDT, Height, 139, kg, 11/26/21 17:26:00 EST, Dry Weight Start Date: 12/08/21 Status: Ordered atorvastatin 40 mg oral tablet 1 tablet, By Mouth, Daily at bedtime, # 90 tablet, 1 Refills, Maintenance, 12/08/21 15:07:00 EDT, [facility]/pharmacy #1234, 178, cm, 12/06/21 13:33:00 EDT, Height, 139, kg, 11/26/21 17:26:00 EST, Dry Weight Start Date: 12/08/21 Status: Ordered Betadine 10% solution See Instructions, For wound dressing, # 1 each, 5 Refills, Maintenance, 04/03/21 13:35:00 EDT, [facility]/pharmacy #1234, Partial fill upon patient request if the prescription is for a schedule II opioid drug., For wound dressing, 183, cm, 03/17/21 11:22:00... Start Date: 04/03/21 Status: Ordered Chem 7 in a week Chem 7 in a week, See Instructions, # 1 each, Refills 0, Tot. Refills 0, Maintenance, Results to PCP, 12/01/21 15:18:00 EDT, Supply Start Date: 12/01/21 Status: Ordered clopidogrel 75 mg oral tablet 75 mg, 1, tablet, By Mouth, Daily, # 42 tablet, Refills 0, Tot. Refills 0, Maintenance, 12/08/21 15:07:00 EDT, Route to Pharmacy Electronically, [facility]/pharmacy #[id number], Partial fill upon patient request if the prescription is for a schedule II opioid drug... Start Date: 12/08/21 Stop Date: 01/19/22 Status: Ordered doxazosin 4 mg oral tablet 1 tablet, By Mouth, Daily at bedtime, # 90 tablet, 1 Refills, Maintenance, 12/08/21 15:07:00 EDT, [facility]/pharmacy #1234, 178, cm, 12/06/21 13:33:00 EDT, Height, 139, kg, 11/26/21 17:26:00 EST, Dry Weight Start Date: 12/08/21 Status: Ordered doxycycline hyclate 100 mg oral capsule 1 capsule = 100 mg, By Mouth, 2 times a day, for 7 days, # 14 capsule, 0 Refills, Acute 12/17/21 20:59:00 EDT, 12/10/21 20:59:00 EDT, Capsule, [facility]/pharmacy #1234, Partial fill upon patient request ifthe prescription is for a schedule II opioid drug.,... Start Date: 12/10/21 Stop Date: 12/17/21 Status: Ordered furosemide 20 mg oral tablet 1, tablet, By Mouth, Daily, # 90 tablet, Refills 1, Tot. Refills 1, Maintenance, 12/08/21 15:08:00 EDT, Route to Pharmacy Electronically, [facility]/pharmacy #[id number], 178, cm, 12/06/21 13:33:00 EDT, Height, 139, kg, 11/26/21 17:26:00 EST, Dry Weight Start Date: 12/08/21 Stop Date: 06/06/22 Status: Ordered gabapentin 600 mg oral tablet 1 tablet = 600 mg, By Mouth, 3 times a day, # 90 tablet, 1 Refills, Maintenance, 12/08/21 15:08:00 EDT, Tablet, [facility]/pharmacy #1234, 178, cm, 12/06/21 13:33:00 EDT, Height, 139, kg, 11/26/21 17:26:00 EST, Dry Weight Start Date: 12/08/21 Status: Ordered glipiZIDE 2.5 mg oral tablet, extended release 1 tablet = 2.5 mg, By Mouth, Daily, # 90 tablet, 1 Refills, Maintenance, 12/08/21 15:08:00 EDT, ER Tablet, [facility]/pharmacy #1234, 178, cm, 12/06/21 13:33:00 EDT, Height, 139, kg, 11/26/21 17:26:00 EST, Dry Weight Start Date: 12/08/21 Stop Date: 06/06/22 Status: Ordered insulin glargine 100 u/ml subcutaneous solution = 42 units, Subcutaneous Injection, Daily at bedtime, # 12 mL, 0 Refills, Maintenance, 12/08/21 15:12:00 EDT, Injection, [facility], Partial fill upon patient request if the prescription is for a schedule II opioid drug., 178, cm, 12/06/21 13:... Start Date: 12/08/21 Status: Ordered insulin lispro 100 u/ml subcutaneous injection 12-26 units, Subcutaneous Injection, 3 times a day before meals, << Sliding Scale Comments >> 100 - 149 12 units Call if less than 70 150 - 199 14 units 200 - 249 16 units 250 - 299 18 units 300 - 349 20 units 350 - 399 22 units... Start Date: 12/08/21 Status: Ordered Lantus 100 u/ml subcutaneous solution = 30 units, Subcutaneous Injection, Daily, # 12 mL, 0 Refills, Maintenance, 12/08/21 15:08:00 EDT, Injection, [facility], Partial fill upon patient request if the prescription is for a schedule II opioid drug., 178, cm, 12/06/21 13:33:00 EDT,... Start Date: 12/08/21 Status: Ordered Left BKA prosthetic Left BKA prosthetic, See Instructions, # 1 each, Refills 0, Tot. Refills 0, Maintenance, Please fitpatient for Left BKA prosthetic, 07/20/21 9:12:00 EDT, Supply Start Date: 07/20/21 Status: Ordered metoprolol 50 mg oral tablet 50 mg, 1, tablet, By Mouth, 2 times a day, # 60 tablet, Refills 0, Tot. Refills 0, Maintenance, 12/08/21 15:08:00 EDT, Route to Pharmacy Electronically, [facility]/pharmacy #1234, Partial fill upon patient request if the prescription is for a schedule II opi... Start Date: 12/08/21 Status: Ordered PriLOSEC OTC 20 mg oral delayed release tablet 1 tablet = 20 mg, By Mouth, 2 times a day, # 180 tablet, 1 Refills, Maintenance, 12/08/21 15:09:00 EDT, EC Tablet, [facility]/pharmacy #1234, 178, cm, 12/06/21 13:33:00 EDT, Height, 139, kg, 11/26/21 17:26:00 EST, Dry Weight Start Date: 12/08/21 Stop Date: 06/06/22 Status: Ordered Trulicity Pen 1.5 mg/0.5 mL subcutaneous solution 0.5 mL = 1.5 mg, Subcutaneous Injection, Every week, rotate injection sites, # 2 mL, 6 Refills, Maintenance, 12/08/21 15:07:00 EDT, Solution, [facility]/pharmacy #1234, Partial fill upon patient request if the prescription is for a schedule II opioid drug.,... Start Date: 12/08/21 Status: Ordered Ventolin HFA 108 mcg/inh inhalation [...] recent to oldest [Reference Range]: 1 Height 178 cm (12/06/21 1:33 PM) Weight 139.0 kg (12/06/21 1:33 PM) Pulse Rate [55-90 bpm] 70 bpm (12/06/21 1:33 PM) Body Mass Index [18.5-24.99] 43.87 *>HHI* (12/06/21 1:33 PM) Blood Pressure [90-138/55-84 mm Hg] 130/ 76mm Hg (12/06/21 1:33 PM) Blood pressure sites Arm, right (12/06/21 1:33 PM) Weight Obtained Via Patient/family state d (12/06/21 1:33 PM) Social History Social History Type Response Smoking Status Never (less than 100 in lifetime) entered on: 06/01/21 Sex
--- OUTSIDE RECORDS SUMMARY | 2023-05-27 03:10 | XMS_ITS | Continuity of Care Document ---
Author Name Unknown Organization [facility] Address [address] [place] [id number]- Care Team Providers Care Life Insurance Specialist Name Role Phone Bri Becerril MD Primary Care Physician Encounter [facility] [place] Date(s): 05/03/21 - 05/10/21 [facility] [address] [place] [address]- Attending Physician: Babak De La Cruz MD [...] 2 Refills, Maintenance, 09/05/19 10:10:00 EST, Solution, [facility][id number], 183, cm, 08/30/19 19:46:00 EST, Height, 141, kg, 08/30/19 19:46:00 EST, Dry Weight Start Date: 09/05/19 Status: Ordered amLODIPine 5 mg oral tablet 5 mg, 1, tablet, By Mouth, Daily, # 30 tablet, Refills 1, Tot. Refills 1, Maintenance, 04/03/21 13:27:00 EDT, Route to Pharmacy Electronically, [facility]/pharmacy #[id number], Partial fill upon patient request if the prescription is for a schedule II opioid drug.... Start Date: 04/03/21 Status: Ordered Aspirin Low Dose 81 mg oral delayed release tablet See Instructions, # 90 tablet, Refills 1 Tot. Refills 1, TAKE 1 TABLET BY MOUTH DAILY, [facility] #[id number] Start Date: 06/24/19 Status: Ordered atorvastatin 40 mg oral tablet 1 tablet, By Mouth, Daily at bedtime, # 90 tablet, 1 Refills, Maintenance, 11/23/20 11:14:00 EST, [email or web address] #[id number], 179, cm, 11/11/20 11:50:00 EST, Height, 120.5, kg, 10/18/20 16:27:00 EST, Dry Weight Start Date: 11/23/20 Status: Ordered Augmentin 875 Tablet 1, tablet, By Mouth, 2 times a day, Maintenance, 05/04/21 14:04:00 EDT Start Date: 05/04/21 Stop Date: 05/06/21 Status: Ordered Betadine 10% solution See Instructions, For wound dressing, # 1 each, 5 Refills, Maintenance, 04/03/21 13:35:00 EDT, [facility]/pharmacy #[id number], Partial fill upon patient request if the prescription is for a schedule II opioid drug., For wound dressing, 183, cm, 03/17/21 11:22:00... Start Date: 04/03/21 Status: Ordered clopidogrel 75 mg oral tablet 75 mg, 1, tablet, By Mouth, Daily, # 42 tablet, Refills 0, Tot. Refills 0, Maintenance, 03/04/21 10:46:00 EDT, Route to Pharmacy Electronically, [facility], Partial fill upon patient request if the prescription is for a schedule II opioi... Start Date: 03/04/21 Stop Date: 04/15/21 Status: Ordered doxazosin 4 mg oral tablet 1 tablet, By Mouth, Daily at bedtime, # 90 tablet, 1 Refills, Maintenance, 07/31/20 13:33:00 EST, [facility] #[id number], 183, cm, 06/09/20 12:58:00 EDT, Height, 141, kg, 02/21/20 1:50:00 EDT, Dry Weight Start Date: 07/31/20 Status: Ordered furosemide 20 mg oral tablet 1, tablet, By Mouth, Daily, # 90 tablet, Refills 1, Tot. Refills 1, Maintenance, 12/23/19 9:21:00 EDT, Route to Pharmacy Electronically, [facility] #[id number], 183, cm, 11/21/19 15:07:00 EST, Height, 137, kg, 11/15/19 0:16:00 EST, Dry Weight Start Date: 12/23/19 Stop Date: 06/20/20 Status: Ordered gabapentin 600 mg oral tablet 1 tablet = 600 mg, By Mouth, 3 times a day, # 90 tablet, 1 Refills, Maintenance, 10/30/20 13:02:00 EST, Tablet, [facility] #[id number], 179, cm, 10/18/20 16:27:00 EST, Height, 120.5, kg, 10/18/20 16:27:00 EST, Dry Weight Start Date: 10/30/20 Status: Ordered glipiZIDE 2.5 mg oral tablet, extended release 1 tablet = 2.5 mg, By Mouth, Daily, # 90 tablet, 1 Refills, Maintenance, 05/08/20 13:04:00 EDT, ER Tablet, [facility] #[id number], 183, cm, 02/22/20 3:42:00 EDT, Height, 141, [...] each, 5 Refills, Maintenance, 04/03/21 13:20:00 EDT, [facility]/pharmacy #[id number],... Start Date: 04/03/21 Stop Date: 09/30/21 Status: Ordered Insulin Glargine Inj 0.34 mL = 34 units, Subcutaneous Injection, Daily at bedtime, 0 Refills, Maintenance, 05/04/21 14:05:00 EDT, Injection, Partial fill upon patient request if the prescription is for a schedule II opioid drug. Start Date: 05/04/21 Status: Ordered Insulin Glargine Inj 0.4 mL = 40 units, Subcutaneous Injection, Daily in AM, 0 Refills, Maintenance, 05/04/21 14:05:00 EDT, Injection, Partial fill upon patient request if the prescription is for a schedule II opioid drug. Start Date: 05/04/21 Status: Ordered metFORMIN 750 mg oral tablet, [...] Refills, Maintenance, 11/16/20 9:25:00 EST, EC Tablet, [email or web address] #[id number], 179, cm, 11/11/20 11:50:00 EST, Height, 120.5, kg, 10/18/20 16:27:00 EST, Dry Weight Start Date: 11/16/20 Stop Date: 05/15/21 Status: Ordered Trulicity Pen 1.5 mg/0.5 mL subcutaneous solution 0.5 mL = 1.5 mg, Subcutaneous Injection, Every week, rotate injection sites, # 2 mL, 6 Refills, Maintenance, 10/21/20 13:40:00 EST, Solution, [facility] #[id number], Partial fill upon patient request if the prescription is for a schedule II opioi... Start Date: 10/21/20 Status: Ordered Ventolin HFA 108 mcg/inh inhalation aerosol with adapter 2 puffs, Inhalation, Every 4 hours, # 18 Gm, 1 Refills, Maintenance, 11/11/19 13:17:00 EST, [facility] #[id number], 183, cm, 10/31/19 14:18:00 EST, Height, 141, kg, 08/30/19 19:46:00 EST, Dry Weight Start Date: 11/11/19 Status: Ordered Vitamin D3 1000 intl units oral tablet 1 tablet = 1,000 International_Units, By Mouth, Daily, # 90 tablet, 1 Refills, Maintenance, 12/11/19 12:04:00 EDT, Tablet, [facility] #[id number], 183, cm, 11/21/19 15:07:00 EST, Height, 137, kg, 11/15/19 0:16:00 EST, Dry Weight Start Date: 12/11/19 Stop Date: 06/08/20 Status: Ordered Problem List Condition Effective Dates [...] oldest [Reference Range]: 1 Height 183 cm (05/03/21 4:11 PM) Weight 122 kg (05/03/21 4:11 PM) Oxygen Saturation [94-100 %] 99 % (05/03/21 4:11 PM) Pulse Rate [55-90 bpm] 65 bpm (05/03/21 4:11 PM) Body Mass Index [18.5-24.99] 36.43 *>HHI* (05/03/21 4:11 PM) Blood Pressure [90-138/55-84 mm Hg] 136/ 70mm Hg (05/03/21 4:11 PM) Mode of Delivery (Oxygen) Room air (05/03/21 4:11 PM) Blood pressure sites Arm, left (05/03/21 4:11 PM) Weight Obtained Via Patient/family state d (05/03/21 4:11 PM) Social History Social History Type Response Smoking Status Former smoker, quit more than 30 days ago; Patient wants NRT during admission No; Type: Cigarettes entered on: 04/24/21 Sex
--- OUTSIDE RECORDS SUMMARY | 2023-05-27 03:10 | XMS_ITS | Continuity of Care Document ---
Author Name Unknown Organization [facility] Address [address] [place] [address]- Care Team Providers Care Body Joiner Name Role Phone Bri Becerril MD Primary Care Physician [place] [facility] [place] 04/09/22 - 04/11/[address] [address]- Encounter Diagnosis Suicidal ideation(Final) - 04/10/22 CKD (chronic kidney disease)(Final) - 04/10/22 Hx of BKA(Final) - 04/11/22 Discharge Disposition: A-D/C Home Attending Physician: Anuj Tello MD Admitting Physician: Anuj Tello MD Referring Physician: Not on Staff, Referring [...] Vaccine Date Status Refusal Reason SARS-CoV-2 mRNA ([id number]) vax 4 03/19/22 Not Given Patient Refuses 1Early/Late Reason: Med Not Available 2Result Comment: Pt did give verbal consent to receive the [employer] COVID vaccine 3Result Comment: Lot# [id number] Exp 01/29/09 4Result Comment: never vacinated Medications albuterol 0.083% inhalation solution 3 mL = 2.5 mg, Inhalation, Every 6 hours, PRN for wheezing, # 60 each, 2 Refills, Maintenance, 12/08/21 15:07:00 EDT, Solution, [facility]/pharmacy #[id number], 178, cm, 12/06/21 13:33:00 EDT, Height, 139, kg, 11/26/21 17:26:00 EST, Dry Weight Start Date: 12/08/21 Status: Ordered amLODIPine 5 mg oral tablet 5 mg, 1, tablet, By Mouth, Daily, # 90 tablet, Refills 1, Tot. Refills 1, Maintenance, 12/27/21 14:28:00 EDT, Route to Pharmacy Electronically, [facility]/pharmacy #[id number], Partial fill upon patient request if the prescription is for a schedule II opioid drug.... Start Date: 12/27/21 Status: Ordered Aspirin Low Dose 81 mg oral delayed release tablet See Instructions, TAKE 1 TABLET BY MOUTH DAILY, # 90 tablet, 0 Refills, Soft Stop, 12/27/21 14:29:00 EDT, [facility]/pharmacy #[id number], 180, cm, 12/24/21 7:50:00 EDT, Height, 127.8, kg, 12/22/21 22:17:00 EDT, Dry Weight Start Date: 12/27/21 Status: Ordered atorvastatin 40 mg oral tablet 1 tablet, By Mouth, Daily at bedtime, # 90 tablet, 0 Refills, Maintenance, 12/27/21 14:28:00 EDT, [facility], 180, cm, 12/24/21 7:50:00 EDT, Height, 127.8, kg, 12/22/21 22:17:00 EDT, Dry Weight Start Date: 12/27/21 Status: Ordered BD UF MINI PEN NEEDLE [id number] BD UF MINI PEN NEEDLE [id number], See Instructions, # 300 Unknown, 3 Refills, [...] 03/20/22 10:56:00 EDT, Route to Pharmacy Electronically, [id number], Partial fill upon patient request [...] 01/19/22 15:07:00 EDT, Route to Pharmacy Electronically, [id number], Partial fill upon patient request if the prescription is for a schedule II opioid drug... Start Date: 01/19/22 Status: Ordered doxazosin 4 mg oral tablet 1 tablet, By Mouth, Daily at bedtime, # 90 tablet, 0 Refills, Maintenance, 12/27/21 14:32:00 EDT, [facility], 180, cm, 12/24/21 7:50:00 EDT, Height, [...] 12/08/21 15:08:00 EDT, Route to Pharmacy Electronically, [id number], 178, cm,12/06/21 13:33:00 EDT, Height, 139, kg, 11/26/21 17... Start Date: 12/08/21 Stop Date: 06/06/22 Status: Ordered gabapentin 300 mg oral capsule 600 mg, Capsule, By Mouth, 04/11/22 9:00:00 EDT Start Date: 04/11/22 Stop Date: 04/11/22 Status: Completed gabapentin 600 mg oral tablet 1 tablet = 600 mg, By Mouth, 3 times a day, # 90 tablet, 1 Refills, Maintenance, 12/08/21 15:08:00 EDT, Tablet, [facility]/pharmacy #1234, 178, cm, 12/06/21 13:33:00 EDT, Height, 139, kg, 11/26/21 17:26:00 EST, Dry Weight Start Date: 12/08/21 Status: Ordered glipiZIDE 2.5 mg oral tablet, extended release 1 tablet = 2.5 mg, By Mouth, Daily, for 90 days, # 90 tablet, 1 Refills, Hard Stop 06/06/22 15:08:00 EDT, 12/08/21 15:08:00 EDT, ER Tablet, [facility]/pharmacy #[id number], 178, cm, 12/06/21 13:33:00 EDT, [...] 3 Refills, Maintenance, 01/05/22 13:03:00 EDT, Solution, [facility]/pharmacy #[id number], Partial fill upon patient [...] 03/13/22 16:15:00 EDT, Route to Pharmacy Electronically, [facility]/pharmacy #[id number], Partial fill upon patient request if the prescription is for a schedule II opioid drug... Start Date: 03/13/22 Status: Ordered metoprolol 50 mg oral tablet 50 mg, 1, tablet, By Mouth, 2 times a day, # 180 tablet, Refills 2, Tot. Refills 2, Maintenance, 03/16/22 10:59:00 EDT, Route to Pharmacy Electronically, [facility]/pharmacy #[id number], Partial fill upon patientrequest if the prescription is for a schedule II op... Start Date: 03/16/22 Stop Date: 12/11/22 Status: Ordered Pen [place], 31 G x 8 mm BD Ultra [...] 06/06/2215:09:00 EDT, 12/08/21 15:09:00 EDT, EC Tablet, [facility]/pharmacy #1234, 178, cm, 12/06/21 13:33:00 EDT,Height, 139, kg, 11/26/21 17:26:00 EST, Dry Weight Start Date: 12/08/21 Stop Date: 06/06/22 Status: Ordered ProAir HFA 90 mcg/inh inhalation aerosol 1 puffs, Inhalation, Every 6 hours, PRN as needed for wheezing, # 8 Gm, 0 Refills, Maintenance, 04/10/22 10:59:00 EDT, Aerosol, [facility], Partial fill upon patient request if the prescription is for a schedule II opioid drug., 1 puffs Inhala... Start Date: 04/10/22 Status: Ordered Transfer Bench See Instructions, # 1 each, Maintenance, standard 4 wheeled walker Dx: Left BKA ht: 6 ft; wt: 134 kg, 04/11/22 10:47:00 EDT, Supply Start Date: 04/11/22 Status: Ordered Trulicity Pen 1.5 mg/0.5 mL subcutaneous solution 0.5 mL = 1.5 mg, Subcutaneous Injection, Every week, rotate injection sites, # 6.5 mL, 3 Refills, Maintenance, 12/27/21 14:31:00 EDT, Solution, [facility]/pharmacy #[id number], Partial fill upon patient [...] 1 Refills, Maintenance, 12/08/21 15:07:00 EDT, Tablet, [facility]/pharmacy #[id number], 178, cm, 12/06/21 13:33:00 EDT, Height, 139, kg, 11/26/21 17:26:00 EST, Dry Weight Start Date: 12/08/21 Stop Date: 06/06/22 Status: Ordered Walker See Instructions, # 1 each, Maintenance, standard 4 wheeled walker Dx: Left BKA ht: 6 ft; wt: 134 kg, 04/11/22 10:47:00 EDT, Supply Start Date: 04/11/22 Status: Ordered Xarelto 20 mg oral tablet See Instructions, TAKE 1 TABLET BY MOUTH DAILY AT SUPPER, # 90 tablet, 1 Refills, 02/10/22 23:04:00EDT, [facility]/pharmacy #[id number], 180, cm, 01/07/22 16:17:00 EDT, Height, [...] 1 2 3 Oxygen Saturation [94-100 %] 93 % *L* (04/11/22 10:00 AM) 97 % (04/11/22 8:52 AM) 97 % (04/11/22 12:12 AM) Pulse Rate [55-90 bpm] 62 bpm (04/11/22 10:00 AM) 64 bpm (04/11/22 8:52 AM) 64 bpm (04/11/22 12:12 AM) Blood Pressure [90-138/55-84 mm Hg] 117/58mm Hg (04/11/22 10:00 AM) 122/66mm Hg (04/11/22 8:52 AM) 130/66mm Hg (04/11/22 12:12 AM) Respiratory Rate [16-30 br/min] 20 br/min (04/11/22 10:00 AM) 18 br/min (04/11/22 9:06 AM) 18 br/min (04/11/22 8:52 AM) Temperature [96.8-100.4 DegF] 97.2 DegF (04/11/22 10:00 AM) 97.8 DegF (04/11/22 12:12 AM) 97.6 DegF (04/10/22 1:52 PM) Mode of Delivery (Oxygen) Room air (04/11/22 10:00 AM) Room air (04/11/22 8:52 AM) Room air (04/11/22 12:12 AM) Blood pressure sites Arm, right (04/11/22 10:00 AM) Arm, right (04/11/22 8:52 AM) Arm, right (04/11/22 12:12 AM) Temperature Route Oral (04/11/22 10:00 AM) Oral (04/11/22 12:12 AM) Oral (04/10/22 1:52 PM) Social History Social History Type Response Smoking Status Former smoker, quit more than 30 days ago; Patient wants NRT during admission No; Type: Cigarettes; Other: quit 2020. one years ago. Started at age 14 at 2 packs a day to start and one pack a week after that.; entered on: 03/10/22 Sex
--- OUTSIDE RECORDS SUMMARY | 2023-05-27 03:10 | XMS_ITS | Continuity of Care Document ---
Author Name Unknown Organization [facility] ter Address [address] [place] [address]- Care Team Providers Care Project Analyst Name Role Phone Bri Becerril MD Primary Care Physician Encounter [facility] Date(s): 05/18/21 - 05/21/[address] [address] Discharge Disposition: A-D/C Home Attending Physician: Huy Yu MD Admitting Physician: Huy Yu MD Referring Physician: Not on Staff, Referring [...] 2 Refills, Maintenance, 09/05/19 10:10:00 EST, Solution, [facility] #[id number], 183, cm, 08/30/19 19:46:00 EST, Height, 141, kg, 08/30/19 19:46:00 EST, Dry Weight Start Date: 09/05/19 Status: Ordered amLODIPine 5 mg oral tablet 10 mg, Tablet, By Mouth, 05/21/21 9:00:00 EDT Start Date: 05/21/21 Stop Date: 05/21/21 Status: Completed amLODIPine 5 mg oral tablet 10 mg, 2, tablet, By Mouth, Daily, Refills 0, Maintenance, 05/21/21 11:25:00 EDT, Partial fill uponpatient request if the prescription is for a schedule II opioid drug. Start Date: 05/21/21 Status: Ordered Aspirin Low Dose 81 mg oral delayed release tablet See Instructions, # 90 tablet, Refills 1 Tot. Refills 1, TAKE 1 TABLET BY MOUTH DAILY, [facility] #[id number] Start Date: 06/24/19 Status: Ordered atorvastatin 40 mg oral tablet 1 tablet, By Mouth, Daily at bedtime, # 90 tablet, 1 Refills, Maintenance, 11/23/20 11:14:00 EST, [facility] #[id number], 179, cm, 11/11/20 11:50:00 EST, Height, 120.5, kg, 10/18/20 16:27:00 EST, Dry Weight Start Date: 11/23/20 Status: Ordered Augmentin 875 Tablet 1, tablet, By Mouth, 2 times a day, Maintenance, 05/04/21 14:04:00 EDT Start Date: 05/04/21 Stop Date: 05/06/21 Status: Ordered Betadine 10% solution See Instructions, For wound dressing, # 1 each, 5 Refills, Maintenance, 04/03/21 13:35:00 EDT, [facility]/pharmacy #[id number], Partial fill upon patient request if the prescription is for a schedule II opioid drug., For wound dressing, 183, cm, 03/17/21 11:22:00... Start Date: 04/03/21 Status: Ordered clopidogrel 75 mg oral tablet 75 mg, 1, tablet, By Mouth, Daily, # 42 tablet, Refills 0, Tot. Refills 0, Maintenance, 03/04/21 10:46:00 EDT, Route to Pharmacy Electronically, [facility], Partial fill upon patient request if the prescription is for a schedule II opioi... Start Date: 03/04/21 Stop Date: 04/15/21 Status: Ordered doxazosin 4 mg oral tablet 1 tablet, By Mouth, Daily at bedtime, # 90 tablet, 1 Refills, Maintenance, 07/31/20 13:33:00 EST, [facility] #[id number], 183, cm, 06/09/20 12:58:00 EDT, Height, 141, kg, 02/21/20 1:50:00 EDT, Dry Weight Start Date: 07/31/20 Status: Ordered furosemide 20 mg oral tablet 1, tablet, By Mouth, Daily, # 90 tablet, Refills 1, Tot. Refills 1, Maintenance, 12/23/19 9:21:00 EDT, Route to Pharmacy Electronically, [facility] #[id number], 183, cm, 11/21/19 15:07:00 EST, Height, 137, kg, 11/15/19 0:16:00 EST, Dry Weight Start Date: 12/23/19 Stop Date: 06/20/20 Status: Ordered gabapentin 300 mg oral capsule 600 mg, Capsule, By Mouth, 05/21/21 9:00:00 EDT Start Date: 05/21/21 Stop Date: 05/21/21 Status: Completed gabapentin 600 mg oral tablet 1 tablet = 600 mg, By Mouth, 3 times a day, # 90 tablet, 1 Refills, Maintenance, 10/30/20 13:02:00 EST, Tablet, [facility] #[id number], 179, cm, 10/18/20 16:27:00 EST, Height, 120.5, kg, 10/18/20 16:27:00 EST, Dry Weight Start Date: 10/30/20 Status: Ordered glipiZIDE 2.5 mg oral tablet, extended release 1 tablet = 2.5 mg, By Mouth, Daily, # 90 tablet, 1 Refills, Maintenance, 05/08/20 13:04:00 EDT, ER Tablet, [facility] #[id number], 183, cm, 02/22/20 3:42:00 EDT, Height, 141, [...] units... Start Date: 05/21/21 Status: Ordered Lantus Inj 0.42 mL = [...] opioid drug. Start Date: 10/01/20 Status: Ordered metoprolol 50 mg oral tablet 50 mg, Tablet, By Mouth, 05/21/21 9:00:00 EDT Start Date: 05/21/21 Stop Date: 05/21/21 Status: Completed PriLOSEC OTC 20 mg oral delayed release tablet 1 tablet = 20 mg, By Mouth, 2 times a day, # 180 tablet, 1 Refills, Maintenance, 11/16/20 9:25:00 EST, EC Tablet, [facility] #[id number], 179, cm, 11/11/20 11:50:00 EST, Height, 120.5, kg, 10/18/20 16:27:00 EST, Dry Weight Start Date: 11/16/20 Stop Date: 05/15/21 Status: Ordered Trulicity Pen 1.5 mg/0.5 mL subcutaneous solution 0.5 mL = 1.5 mg, Subcutaneous Injection, Every week, rotate injection sites, # 2 mL, 6 Refills, Maintenance, 10/21/20 13:40:00 EST, Solution, [facility] #[id number], Partial fill upon patient request if the prescription is for a schedule II opioi... Start Date: 10/21/20 Status: Ordered Tylenol 325 mg oral tablet 650 mg, Tablet, By Mouth, 05/21/21 9:00:00 EDT Start Date: 05/21/21 Stop Date: 05/21/21 Status: Completed Ventolin HFA 108 mcg/inh inhalation aerosol with adapter 2 puffs, Inhalation, Every 4 hours, # 18 Gm, 1 Refills, Maintenance, 11/11/19 13:17:00 EST, [facility] #[id number], 183, cm, 10/31/19 14:18:00 EST, Height, 141, kg, 08/30/19 19:46:00 EST, Dry Weight Start Date: 11/11/19 Status: Ordered Vitamin D3 1000 intl units oral tablet 1 tablet = 1,000 International_Units, By Mouth, Daily, # 90 tablet, 1 Refills, Maintenance, 12/11/19 12:04:00 EDT, Tablet, [facility] #[id number], 183, cm, 11/21/19 15:07:00 EST, Height, 137, kg, 11/15/19 0:16:00 EST, Dry Weight Start Date: 12/11/19 Stop Date: 06/08/20 Status: Ordered Xarelto 15 mg oral tablet 1 tablet = 15 mg, By Mouth, 2 times a day, with food, # 42 tablet, 0 Refills, Maintenance, 05/18/2114:53:00 EDT, Tablet, Partial fill upon patient request if the prescription is for a schedule II opioid drug. Start Date: 05/18/21 Stop Date: 06/08/21 Status: Ordered Problem List Condition Effective Dates [...] Results Orders for Microbiology Reports Name Date Anaerobic Culture (ANAEROBIC CULTURE) 05/20/21 Fungal Culture, Nonrespiratory (FUNGAL C ULT,NON-RESPIRATORY) 05/20/21 Tissue Culture w/ Gram Smear (TISSUE/BIO PSY CULT.) 05/20/21 Blood Culture 05/18/21 Blood Culture #2 05/18/21 Microbiology Reports TEST:Anaerobic Culture STATUS:Unauthenticated BODY SITE: SOURCE:TISSUE1 COLLECTED DATE/TIME:05/20/21 2:36 PM Anaerobic Culture SPECIMEN DESCRIPTION : TISSUE LEFT BKA STUMP E SWAB SPECIAL REQUESTS : NONE CULTURE : NO ANAEROBES ISOLATED SO FAR. REPORT STATUS : PRELIMINARY REPORT TEST:Tissue/Biopsy Culture STATUS:Unauthenticated BODY SITE: SOURCE:TISSUE1 COLLECTED DATE/TIME:05/20/21 2:36 PM Tissue/Biopsy Culture SPECIMEN DESCRIPTION : TISSUE LEFT BKA STUMP E SWAB SPECIAL REQUESTS : NONE GRAM STAIN : 1+ TISSUE CELLS NO ORGANISMS SEEN REPORT STATUS : PRELIMINARY REPORT TEST:Fungal Culture, Non-Respiratory STATUS:Unauthenticated BODY SITE: SOURCE:TISSUE1 COLLECTED DATE/TIME:05/20/21 2:36 PM Fungal Culture, Non-Respiratory SPECIMEN DESCRIPTION : TISSUE LEFT BKA STUMP E SWAB SPECIAL REQUESTS : NONE DIRECT EXAM : NO FUNGAL ELEMENTS OBSERVED REPORT STATUS : PRELIMINARY REPORT TEST:Blood Culture STATUS:Unauthenticated BODY SITE: SOURCE:Blood COLLECTED DATE/TIME:05/18/21 4:05 PM Blood Culture SPECIMEN DESCRIPTION : BLOOD R AC SPECIAL REQUESTS : NONE CULTURE : NO GROWTH 3 DAYS REPORT STATUS : PRELIMINARY REPORT TEST:Blood Culture, Second Order STATUS:Unauthenticated BODY SITE: SOURCE:Blood COLLECTED DATE/TIME:05/18/21 4:05 PM Blood Culture, Second Order SPECIMEN DESCRIPTION : BLOOD LAC SPECIAL REQUESTS : NONE CULTURE : NO GROWTH 3 DAYS REPORT STATUS : PRELIMINARY REPORT Vital Signs Most recent to oldest [Reference Range]: 1 2 3 Height 183 cm (05/21/21 12:06 PM) 183 cm (05/21/21 7:42 AM) 183 cm (05/20/21 7:36 PM) Weight 126.5 kg (05/20/21 12:04 PM) 126.5 kg (05/19/21 5:20 PM) 126.5 kg (05/19/21 3:08 AM) Oxygen Saturation [94-100 %] 100 % (05/21/21 12:06 PM) 96 % (05/21/21 7:42 AM) 97 % (05/21/21 4:00 AM) Pulse Rate [55-90 bpm] 61 bpm (05/21/21 12:06 PM) 78 bpm (05/21/21 8:54 AM) 78 bpm (05/21/21 7:42 AM) Body Mass Index [18.5-24.99] 37.77 *>HHI* (05/20/21 12:04 PM) 37.77 *>HHI* (05/19/21 5:20 PM) 37.77 *>HHI* (05/18/21 2:28 PM) Blood Pressure [90-138/55-84 mm Hg] 72/32mm Hg *L* (05/21/21 12:06 PM) 142/73mm Hg *H* (05/21/21 8:55 AM) 142/73mm Hg *H* (05/21/21 8:54 AM) Respiratory Rate [16-30 br/min] 18 br/min (05/21/21 12:21 PM) 18 br/min (05/21/21 12:06 PM) 18 br/min (05/21/21 9:54 AM) Temperature [96.8-100.4 DegF] 97.6 DegF (05/21/21 12:06 PM) 98.0 DegF (05/21/21 7:42 AM) 97.9 DegF (05/21/21 4:00 AM) Mode of Delivery (Oxygen) Room air (05/21/21 12:06 PM) Room air (05/21/21 7:42 AM) Room air (05/21/21 4:00 AM) Blood pressure sites Arm, right (05/21/21 12:06 PM) Arm, left (05/21/21 7:42 AM) Arm, right (05/21/21 4:00 AM) Temperature Route Oral (05/21/21 12:06 PM) Oral (05/21/21 7:42 AM) Oral (05/21/21 4:00 AM) Dry Weight 126.5 kg (05/18/21 2:28 PM) Social History Social History Type Response Smoking Status Former smoker, quit more than 30 days ago; Patient wants NRT during admission No; Type: Cigarettes entered on: 04/24/21 Sex
--- OUTSIDE RECORDS SUMMARY | 2023-05-27 03:10 | XMS_ITS | Continuity of Care Document ---
Author Name Unknown Organization [facility] Address [address] [place] [address]- Care Team Providers Care Pairer Inspector Name Role Phone Jone DE LA ROSA, Bri Barrett Primary Care Physician [phone] Encounter [facility] Date(s): 05/28/21 - 07/31/21 [facility] [address] [place] [address]- Attending Physician: Babak De La Cruz MD [...] 2 Refills, Maintenance, 09/05/19 10:10:00 EST, Solution, [facility] #[id number], 183, cm, 08/30/19 19:46:00 EST, Height, 141, [...] 1, TAKE 1 TABLET BY MOUTH DAILY, [facility] #[id number] Start Date: 06/24/19 Status: Ordered atorvastatin 40 mg oral tablet 1 tablet, By Mouth, Daily at bedtime, # 90 tablet, 1 Refills, Maintenance, 11/23/20 11:14:00 EST, [facility] #[id number], 179, cm, 11/11/20 11:50:00 EST, Height, 120.5, kg, 10/18/20 16:27:00 EST, Dry Weight Start Date: 11/23/20 Status: Ordered Betadine 10% solution See Instructions, For wound dressing, # 1 each, 5 Refills, Maintenance, 04/03/21 13:35:00 EDT, [facility]/pharmacy #[id number], Partial fill upon patient request if the prescription is for a schedule II opioid drug., For wound dressing, 183, cm, 03/17/21 11:22:00... Start Date: 04/03/21 Status: Ordered clopidogrel 75 mg oral tablet 75 mg, 1, tablet, By Mouth, Daily, # 42 tablet, Refills 0, Tot. Refills 0, Maintenance, 03/04/21 10:46:00 EDT, Route to Pharmacy Electronically, [facility], Partial fill upon patient request if the prescription is for a schedule II opioi... Start Date: 03/04/21 Stop Date: 04/15/21 Status: Ordered doxazosin 4 mg oral tablet 1 tablet, By Mouth, Daily at bedtime, # 90 tablet, 1 Refills, Maintenance, 07/31/20 13:33:00 EST, [facility] #[id number], 183, cm, 06/09/20 12:58:00 EDT, Height, 141, kg, 02/21/20 1:50:00 EDT, Dry Weight Start Date: 07/31/20 Status: Ordered furosemide 20 mg oral tablet 1, tablet, By Mouth, Daily, # 90 tablet, Refills 1, Tot. Refills 1, Maintenance, 12/23/19 9:21:00 EDT, Route to Pharmacy Electronically, [facility] #[id number], 183, cm, 11/21/19 15:07:00 EST, Height, 137, kg, 11/15/19 0:16:00 EST, Dry Weight Start Date: 12/23/19 Stop Date: 06/20/20 Status: Ordered gabapentin 600 mg oral tablet 1 tablet = 600 mg, By Mouth, 3 times a day, # 90 tablet, 1 Refills, Maintenance, 10/30/20 13:02:00 EST, Tablet, [facility] #[id number], 179, cm, 10/18/20 16:27:00 EST, Height, 120.5, kg, 10/18/20 16:27:00 EST, Dry Weight Start Date: 10/30/20 Status: Ordered glipiZIDE 2.5 mg oral tablet, extended release 1 tablet = 2.5 mg, By Mouth, Daily, # 90 tablet, 1 Refills, Maintenance, 05/08/20 13:04:00 EDT, ER Tablet, [facility] #[id number], 183, cm, 02/22/20 3:42:00 EDT, Height, 141, [...] Refills, Maintenance, 11/16/20 9:25:00 EST, EC Tablet, [facility] #[id number], 179, cm, 11/11/20 11:50:00 EST, Height, 120.5, kg, 10/18/20 16:27:00 EST, Dry Weight Start Date: 11/16/20 Stop Date: 05/15/21 Status: Ordered Trulicity Pen 1.5 mg/0.5 mL subcutaneous solution 0.5 mL = 1.5 mg, Subcutaneous Injection, Every week, rotate injection sites, # 2 mL, 6 Refills, Maintenance, 10/21/20 13:40:00 EST, Solution, [facility] #[id number], Partial fill upon patient request if the prescription is for a schedule II opioi... Start Date: 10/21/20 Status: Ordered Ventolin HFA 108 mcg/inh inhalation aerosol with adapter 2 puffs, Inhalation, Every 4 hours, # 18 Gm, 1 Refills, Maintenance, 11/11/19 13:17:00 EST, [facility] #[id number], 183, cm, 10/31/19 14:18:00 EST, Height, 141, kg, 08/30/19 19:46:00 EST, Dry Weight Start Date: 11/11/19 Status: Ordered Vitamin D3 1000 intl units oral tablet 1 tablet = 1,000 International_Units, By Mouth, Daily, # 90 tablet, 1 Refills, Maintenance, 12/11/19 12:04:00 EDT, Tablet, [facility] #[id number], 183, cm, 11/21/19 15:07:00 EST, Height, 137, [...]
--- OUTSIDE RECORDS SUMMARY | 2023-05-27 03:10 | XMS_ITS | Continuity of Care Document ---
Author Name Unknown Organization [facility] ter Address [address] [place] [id number]- Care Team Providers Care Speech Lang Path Therapist Name Role Phone Bri Becerril MD Primary Care Physician Encounter 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 Discharge Disposition: A-D/C Home Attending Physician: Tulio Verma MD Admitting Physician: Tulio Verma MD Referring Physician: Not on Staff, Referring [...] 2 Refills, Maintenance, 09/05/19 10:10:00 EST, Solution, [facility] #[id number], 183, cm, 08/30/19 19:46:00 EST, Height, 141, [...] 1, TAKE 1 TABLET BY MOUTH DAILY, [facility] #[id number] Start Date: 06/24/19 Status: Ordered atorvastatin 40 mg oral tablet 1 tablet, By Mouth, Daily at bedtime, # 90 tablet, 1 Refills, Maintenance, 11/23/20 11:14:00 EST, [facility] #[id number], 179, cm, 11/11/20 11:50:00 EST, Height, 120.5, kg, 10/18/20 16:27:00 EST, Dry Weight Start Date: 11/23/20 Status: Ordered Betadine 10% solution See Instructions, For wound dressing, # 1 each, 5 Refills, Maintenance, 04/03/21 13:35:00 EDT, [facility]/pharmacy #[id number], Partial fill upon patient request if the prescription is for a schedule II opioid drug., For wound dressing, 183, cm, 03/17/21 11:22:00... Start Date: 04/03/21 Status: Ordered clopidogrel 75 mg oral tablet 75 mg, 1, tablet, By Mouth, Daily, # 42 tablet, Refills 0, Tot. Refills 0, Maintenance, 03/04/21 10:46:00 EDT, Route to Pharmacy Electronically, [facility], Partial fill upon patient request if the prescription is for a schedule II opioi... Start Date: 03/04/21 Stop Date: 04/15/21 Status: Ordered doxazosin 4 mg oral tablet 1 tablet, By Mouth, Daily at bedtime, # 90 tablet, 1 Refills, Maintenance, 07/31/20 13:33:00 EST, [facility] #[id number], 183, cm, 06/09/20 12:58:00 EDT, Height, 141, kg, 02/21/20 1:50:00 EDT, Dry Weight Start Date: 07/31/20 Status: Ordered furosemide 20 mg oral tablet 1, tablet, By Mouth, Daily, # 90 tablet, Refills 1, Tot. Refills 1, Maintenance, 12/23/19 9:21:00 EDT, Route to Pharmacy Electronically, [facility] #[id number], 183, cm, 11/21/19 15:07:00 EST, Height, 137, kg, 11/15/19 0:16:00 EST, Dry Weight Start Date: 12/23/19 Stop Date: 06/20/20 Status: Ordered gabapentin 300 mg oral capsule 600 mg, Capsule, By Mouth, 06/03/21 9:00:00 EDT Start Date: 06/03/21 Stop Date: 06/03/21 Status: Completed gabapentin 300 mg oral capsule 600 mg, Capsule, By Mouth, 06/03/21 15:00:00 EDT Start Date: 06/03/21 Stop Date: 06/03/21 Status: Completed gabapentin 600 mg oral tablet 1 tablet = 600 mg, By Mouth, 3 times a day, # 90 tablet, 1 Refills, Maintenance, 10/30/20 13:02:00 EST, Tablet, [facility] #[id number], 179, cm, 10/18/20 16:27:00 EST, Height, 120.5, kg, 10/18/20 16:27:00 EST, Dry Weight Start Date: 10/30/20 Status: Ordered glipiZIDE 2.5 mg oral tablet, extended release 1 tablet = 2.5 mg, By Mouth, Daily, # 90 tablet, 1 Refills, Maintenance, 05/08/20 13:04:00 EDT, ER Tablet, [facility] #[id number], 183, cm, 02/22/20 3:42:00 EDT, Height, 141, [...] Refills, Maintenance, 11/16/20 9:25:00 EST, EC Tablet, [facility] #[id number], 179, cm, 11/11/20 11:50:00 EST, Height, 120.5, kg, 10/18/20 16:27:00 EST, Dry Weight Start Date: 11/16/20 Stop Date: 05/15/21 Status: Ordered Trulicity Pen 1.5 mg/0.5 mL subcutaneous solution 0.5 mL = 1.5 mg, Subcutaneous Injection, Every week, rotate injection sites, # 2 mL, 6 Refills, Maintenance, 10/21/20 13:40:00 EST, Solution, [facility] #[id number], Partial fill upon patient request if the prescription is for a schedule II opioi... Start Date: 10/21/20 Status: Ordered Ventolin HFA 108 mcg/inh inhalation aerosol with adapter 2 puffs, Inhalation, Every 4 hours, # 18 Gm, 1 Refills, Maintenance, 11/11/19 13:17:00 EST, [facility] #[id number], 183, cm, 10/31/19 14:18:00 EST, Height, 141, kg, 08/30/19 19:46:00 EST, Dry Weight Start Date: 11/11/19 Status: Ordered Vitamin D3 1000 intl units oral tablet 1 tablet = 1,000 International_Units, By Mouth, Daily, # 90 tablet, 1 Refills, Maintenance, 12/11/19 12:04:00 EDT, Tablet, [facility] #[id number], 183, cm, 11/21/19 15:07:00 EST, Height, 137, [...] 1 2 3 Oxygen Saturation [94-100 %] 98 % (06/03/21 2:22 PM) 100 % (06/03/21 6:15 AM) 100 % (06/03/21 4:13 AM) Pulse Rate [55-90 bpm] 73 bpm (06/03/21 2:22 PM) 63 bpm (06/03/21 6:15 AM) 70 bpm (06/03/21 4:13 AM) Blood Pressure [90-138/55-84 mm Hg] 119/65mm Hg (06/03/21 2:22 PM) 109/42mm Hg (06/03/21 6:15 AM) 112/54mm Hg (06/03/21 4:13 AM) Respiratory Rate [16-30 br/min] 18 br/min (06/03/21 6:35 PM) 18 br/min (06/03/21 2:22 PM) 18 br/min (06/03/21 8:45 AM) Temperature [96.8-100.4 DegF] 98.0 DegF (06/03/21 2:22 PM) 97.9 DegF (06/02/21 8:53 PM) 97.4 DegF (06/02/21 4:40 AM) Mode of Delivery (Oxygen) Room air (06/03/21 2:22 PM) Room air (06/03/21 6:15 AM) Room air (06/03/21 4:13 AM) Blood pressure sites Arm, left (06/03/21 2:22 PM) Arm, right (06/03/21 6:15 AM) Arm, left (06/03/21 4:13 AM) Temperature Route Oral (06/03/21 2:22 PM) Oral (06/02/21 8:53 PM) Oral (06/02/21 4:40 AM) Social History Social History Type Response Smoking Status Never (less than 100 in lifetime) entered on: 06/01/21 Sex
--- OUTSIDE RECORDS SUMMARY | 2023-05-27 03:10 | XMS_ITS | Continuity of Care Document ---
Author Name Unknown Organization [facility] Address [address] [place] [address]- Care Team Providers Care Customer Care Consultant Name Role Phone Bri Becerril MD Primary Care Physician Encounter [facility] Date(s): 07/20/21 - 08/19/21 [facility] [address] [place] [address]- Allergies, Adverse Reactions, Alerts No Known Medication [...] 2 Refills, Maintenance, 09/05/19 10:10:00 EST, Solution, [facility] #[id number], 183, cm, 08/30/19 19:46:00 EST, Height, 141, [...] 1, TAKE 1 TABLET BY MOUTH DAILY, [facility] #[id number] Start Date: 06/24/19 Status: Ordered atorvastatin 40 mg oral tablet 1 tablet, By Mouth, Daily at bedtime, # 90 tablet, 1 Refills, Maintenance, 11/23/20 11:14:00 EST, [facility] #[id number], 179, cm, 11/11/20 11:50:00 EST, Height, 120.5, kg, 10/18/20 16:27:00 EST, Dry Weight Start Date: 11/23/20 Status: Ordered Betadine 10% solution See Instructions, For wound dressing, # 1 each, 5 Refills, Maintenance, 04/03/21 13:35:00 EDT, [facility]/pharmacy #[id number], Partial fill upon patient request if the prescription is for a schedule II opioid drug., For wound dressing, 183, cm, 03/17/21 11:22:00... Start Date: 04/03/21 Status: Ordered clopidogrel 75 mg oral tablet 75 mg, 1, tablet, By Mouth, Daily, # 42 tablet, Refills 0, Tot. Refills 0, Maintenance, 03/04/21 10:46:00 EDT, Route to Pharmacy Electronically, [facility], Partial fill upon patient request if the prescription is for a schedule II opioi... Start Date: 03/04/21 Stop Date: 04/15/21 Status: Ordered doxazosin 4 mg oral tablet 1 tablet, By Mouth, Daily at bedtime, # 90 tablet, 1 Refills, Maintenance, 07/31/20 13:33:00 EST, [facility] #[id number], 183, cm, 06/09/20 12:58:00 EDT, Height, 141, kg, 02/21/20 1:50:00 EDT, Dry Weight Start Date: 07/31/20 Status: Ordered furosemide 20 mg oral tablet 1, tablet, By Mouth, Daily, # 90 tablet, Refills 1, Tot. Refills 1, Maintenance, 12/23/19 9:21:00 EDT, Route to Pharmacy Electronically, [facility] #[id number], 183, cm, 11/21/19 15:07:00 EST, Height, 137, kg, 11/15/19 0:16:00 EST, Dry Weight Start Date: 12/23/19 Stop Date: 06/20/20 Status: Ordered gabapentin 600 mg oral tablet 1 tablet = 600 mg, By Mouth, 3 times a day, # 90 tablet, 1 Refills, Maintenance, 10/30/20 13:02:00 EST, Tablet, [facility] #[id number], 179, cm, 10/18/20 16:27:00 EST, Height, 120.5, kg, 10/18/20 16:27:00 EST, Dry Weight Start Date: 10/30/20 Status: Ordered glipiZIDE 2.5 mg oral tablet, extended release 1 tablet = 2.5 mg, By Mouth, Daily, # 90 tablet, 1 Refills, Maintenance, 05/08/20 13:04:00 EDT, ER Tablet, [facility] #[id number], 183, cm, 02/22/20 3:42:00 EDT, Height, 141, [...] Refills, Maintenance, 11/16/20 9:25:00 EST, EC Tablet, [facility] #[id number], 179, cm, 11/11/20 11:50:00 EST, Height, 120.5, kg, 10/18/20 16:27:00 EST, Dry Weight Start Date: 11/16/20 Stop Date: 05/15/21 Status: Ordered Trulicity Pen 1.5 mg/0.5 mL subcutaneous solution 0.5 mL = 1.5 mg, Subcutaneous Injection, Every week, rotate injection sites, # 2 mL, 6 Refills, Maintenance, 10/21/20 13:40:00 EST, Solution, [facility] #[id number], Partial fill upon patient request if the prescription is for a schedule II opioi... Start Date: 10/21/20 Status: Ordered Ventolin HFA 108 mcg/inh inhalation aerosol with adapter 2 puffs, Inhalation, Every 4 hours, # 18 Gm, 1 Refills, Maintenance, 11/11/19 13:17:00 EST, [facility] #[id number], 183, cm, 10/31/19 14:18:00 EST, Height, 141, kg, 08/30/19 19:46:00 EST, Dry Weight Start Date: 11/11/19 Status: Ordered Vitamin D3 1000 intl units oral tablet 1 tablet = 1,000 International_Units, By Mouth, Daily, # 90 tablet, 1 Refills, Maintenance, 12/11/19 12:04:00 EDT, Tablet, [facility] #[id number], 183, cm, 11/21/19 15:07:00 EST, Height, 137, [...]
--- OUTSIDE RECORDS SUMMARY | 2023-05-27 03:10 | XMS_ITS | Continuity of Care Document ---
Author Name Unknown Organization [facility] Address [address] [place] [address]- Care Team Providers Care Crib Pad Maker Name Role Phone Jone DE LA ROSA, Bri Barrett Primary Care Physician [phone] [place]counter [facility] [place] Date(s): 10/25/22 - 11/24/22 [facility] [address] [place] [address]- Attending Physician: Marlin Steen Admitting Physician: AdmtrMarlin Referring Physician: Admtr ArDeyanira Allergies, Adverse Reactions, Alerts No Known Medication [...] Vaccine Date Status Refusal Reason SARS-CoV-2 mRNA ([id number]) vax 4 03/19/22 Not Given Patient Refuses [...] tablet, 0 Refills, Maintenance, 10/28/22 16:20:00 [facility], 183, cm, 05/01/22 21:57:00 EDT, Height, 136, [...] Status: Ordered BD UF MINI PEN NEEDLE [id number] BD UF MINI PEN NEEDLE [id number], See Instructions, # 300 Unknown, 3 Refills, [...] Refills, Soft Stop, 03/16/22 11:01:00 EDT, Tablet, [facility]/pharmacy #[id number], Partial fill upon patient [...] 03/16/22 10:59:00 EDT, Route to Pharmacy Electronically, [facility]/pharmacy#[id number], Partial fill upon patient request if the pre... Start Date: 03/16/22 Stop Date: 12/11/22 Status: Ordered Pen [place], 31 G x 8 mm BD Ultra [...] 11:46:00 EST, Route to Pharmacy Electronically, [facility], 183, cm, 05/01/22 21:57:00 EDT, Height, 136, [...] 0 Refills, Maintenance, 10/28/22 11:45:00 EST, [facility], 183, cm, 05/01/22 21:57:00 EDT, Height, 136, [...] Care team information Care Team Personnel Name: Anton DIAZ, Tita Culp Position: [facility] Associate Professional Member Role: Primary Care Nurse Address: Address: [address] [place] [address] Tra[facility] Services [address] Name: Vaishnavi Mack Position: [facility] [place] Office Staff Member Role: Lifetime Consulting Physician Name: Kenia Montez RN Position: [facility] RN Member Role: Primary Care Nurse Name: Serena Starr RN Position: [facility] AMB Nurse Member Role: Primary Care Nurse Name: Amelie Easley RN Position: [facility] ED RN W/OE and Tasks Member Role: Primary Care Nurse Name: Gina Zee RN Position: [facility] RN Member Role: Primary Care Nurse Name: Olga Nielsen Position: [facility] Outreach Member Role: Lifetime Consulting Physician Name: Francisca Madera RN Position: [facility] RN Member Role: Primary Care Nurse Name: Aakash Bowman RN Position: [facility] RN Member Role: Primary Care Nurse Name: Ced Page RN Position: [facility] RN Member Role: Primary Care Nurse Name: Jerri Moctezuma RN Position: [facility] RN Member Role: Primary Care Nurse Name: Damari Coates RN Position: [facility] RN Member Role: Primary Care Nurse Name: Michelle Paul RN Position: [facility] RN Member Role: Primary Care Nurse Name: Gema Chu RN Position: [facility] RN Member Role: Primary Care Nurse Name: Yenni Ledezma RN Position: [facility] RN Member Role: Primary Care Nurse Name: Benja Camarena MD Position: [facility] Renal MD Member Role: Lifetime Consulting Physician Address: Address: [address] [place] [address] [address] [facility] [place] [address]- [place] Name: Herbie Mullen MD Position: [facility] Renal MD Member Role: Lifetime Consulting Physician Address: Address: [address] [facility] [place] [address]- [place] Name: Ayo Walter RN Position: [facility] ED RN W/OE and Tasks Member Role: Primary Care Nurse Name: Bri Becerril MD Position: [facility] Primary Care Physician Member Role: PCP Address: Address: [address] [place] [address], [address] [place] [address]- [place] Name: Marge Haas RN Position: [facility] Onco RN Member Role: Primary Care Nurse Name: Mckenzie Gallo RN Position: S RN Member Role: Primary Care Nurse Care Team Related Persons Name: MICHELLE RAE Address: home [address] [address] Name: KEILY HERNANDEZ Address: home [address] [place] [address] Name: CHUY MAYO
--- OUTSIDE RECORDS SUMMARY | 2023-05-27 03:10 | XMS_ITS | Continuity of Care Document ---
Author Name Unknown Organization [facility] ter Address [address] [place] [address]- Care Team Providers Care Community Relations Coordinator Name Role Phone Bri Becerril MD Primary Care Physician [phone] Encounter [facility] [place] Date(s): 05/29/21 - 05/31/[address] [address]- Encounter Diagnosis Back pain, chronic(Final) - 05/31/21 Discharge Disposition: A-D/C Home Attending Physician: Rachel Bills MD Admitting Physician: Rachel Bills MD Referring Physician: Not on Staff, Referring [...] 2 Refills, Maintenance, 09/05/19 10:10:00 EST, Solution, [facility] #[id number], 183, cm, 08/30/19 19:46:00 EST, Height, 141, kg, 08/30/19 19:46:00 EST, Dry Weight Start Date: 09/05/19 Status: Ordered amLODIPine 10 mg oral tablet 10 mg, Tablet, By Mouth, 05/31/21 9:00:00 EDT Start Date: 05/31/21 Stop Date: 05/31/21 Status: Completed amLODIPine 5 mg oral tablet [...] 1, TAKE 1 TABLET BY MOUTH DAILY, [facility] #[id number] Start Date: 06/24/19 Status: Ordered atorvastatin 40 mg oral tablet 1 tablet, By Mouth, Daily at bedtime, # 90 tablet, 1 Refills, Maintenance, 11/23/20 11:14:00 EST, [facility] #[id number], 179, cm, 11/11/20 11:50:00 EST, Height, 120.5, kg, 10/18/20 16:27:00 EST, Dry Weight Start Date: 11/23/20 Status: Ordered Betadine 10% solution See Instructions, For wound dressing, # 1 each, 5 Refills, Maintenance, 04/03/21 13:35:00 EDT, [facility]/pharmacy #[id number], Partial fill upon patient request if the prescription is for a schedule II opioid drug., For wound dressing, 183, cm, 03/17/21 11:22:00... Start Date: 04/03/21 Status: Ordered clopidogrel 75 mg oral tablet 75 mg, 1, tablet, By Mouth, Daily, # 42 tablet, Refills 0, Tot. Refills 0, Maintenance, 03/04/21 10:46:00 EDT, Route to Pharmacy Electronically, [facility], Partial fill upon patient request if the prescription is for a schedule II opioi... Start Date: 03/04/21 Stop Date: 04/15/21 Status: Ordered doxazosin 4 mg oral tablet 1 tablet, By Mouth, Daily at bedtime, # 90 tablet, 1 Refills, Maintenance, 07/31/20 13:33:00 EST, [facility] #[id number], 183, cm, 06/09/20 12:58:00 EDT, Height, 141, kg, 02/21/20 1:50:00 EDT, Dry Weight Start Date: 07/31/20 Status: Ordered furosemide 20 mg oral tablet 1, tablet, By Mouth, Daily, # 90 tablet, Refills 1, Tot. Refills 1, Maintenance, 12/23/19 9:21:00 EDT, Route to Pharmacy Electronically, [facility] #[id number], 183, cm, 11/21/19 15:07:00 EST, Height, 137, kg, 11/15/19 0:16:00 EST, Dry Weight Start Date: 12/23/19 Stop Date: 06/20/20 Status: Ordered gabapentin 300 mg oral capsule 600 mg, Capsule, By Mouth, 05/30/21 21:00:00 EDT Start Date: 05/30/21 Stop Date: 05/30/21 Status: Completed gabapentin 300 mg oral capsule 600 mg, Capsule, By Mouth, 05/31/21 9:00:00 EDT Start Date: 05/31/21 Stop Date: 05/31/21 Status: Completed gabapentin 600 mg oral tablet 1 tablet = 600 mg, By Mouth, 3 times a day, # 90 tablet, 1 Refills, Maintenance, 10/30/20 13:02:00 EST, Tablet, [facility] #[id number], 179, cm, 10/18/20 16:27:00 EST, Height, 120.5, kg, 10/18/20 16:27:00 EST, Dry Weight Start Date: 10/30/20 Status: Ordered glipiZIDE 2.5 mg oral tablet, extended release 1 tablet = 2.5 mg, By Mouth, Daily, # 90 tablet, 1 Refills, Maintenance, 05/08/20 13:04:00 EDT, ER Tablet, [facility] #[id number], 183, cm, 02/22/20 3:42:00 EDT, Height, 141, [...] drug. Start Date: 05/21/21 Status: Ordered lisinopril 20 mg oral tablet 40 mg, Tablet, By Mouth, 05/31/21 9:00:00 EDT Start Date: 05/31/21 Stop Date: 05/31/21 Status: Completed lisinopril 40 mg oral tablet 1 tablet [...] oral tablet 50 mg, Tablet, By Mouth, 05/30/21 21:00:00 EDT Start Date: 05/30/21 Stop Date: 05/30/21 Status: Completed metoprolol 50 mg oral tablet [...] Refills, Maintenance, 11/16/20 9:25:00 EST, EC Tablet, [facility] #[id number], 179, cm, 11/11/20 11:50:00 EST, Height, 120.5, kg, 10/18/20 16:27:00 EST, Dry Weight Start Date: 11/16/20 Stop Date: 05/15/21 Status: Ordered Trulicity Pen 1.5 mg/0.5 mL subcutaneous solution 0.5 mL = 1.5 mg, Subcutaneous Injection, Every week, rotate injection sites, # 2 mL, 6 Refills, Maintenance, 10/21/20 13:40:00 EST, Solution, [facility] #[id number], Partial fill upon patient request if the prescription is for a schedule II opioi... Start Date: 10/21/20 Status: Ordered Ventolin HFA 108 mcg/inh inhalation aerosol with adapter 2 puffs, Inhalation, Every 4 hours, # 18 Gm, 1 Refills, Maintenance, 11/11/19 13:17:00 EST, [facility] #[id number], 183, cm, 10/31/19 14:18:00 EST, Height, 141, kg, 08/30/19 19:46:00 EST, Dry Weight Start Date: 11/11/19 Status: Ordered Vitamin D3 1000 intl units oral tablet 1 tablet = 1,000 International_Units, By Mouth, Daily, # 90 tablet, 1 Refills, Maintenance, 12/11/19 12:04:00 EDT, Tablet, [facility] #[id number], 183, cm, 11/21/19 15:07:00 EST, Height, 137, [...] 3 Oxygen Saturation [94-100 %] 98 % (05/31/21 9:02 AM) 100 % (05/30/21 10:41 PM) 99 % (05/30/21 1:28 AM) Pulse Rate [55-90 bpm] 59 bpm (05/31/21 9:02 AM) 59 bpm (05/30/21 10:41 PM) 71 bpm (05/30/21 1:28 AM) Blood Pressure [90-138/55-84 mm Hg] 137/70mm Hg (05/31/21 10:11 AM) 137/70mm Hg (05/31/21 10:10 AM) 137/72mm Hg (05/31/21 9:02 AM) Respiratory Rate [16-30 br/min] 18 br/min (05/31/21 10:11 AM) 19 br/min (05/31/21 9:02 AM) 18 br/min (05/30/21 10:41 PM) Temperature [96.8-100.4 DegF] 97.9 DegF (05/31/21 9:02 AM) 98.3 DegF (05/30/21 10:41 PM) 98.1 DegF (05/30/21 1:28 AM) Mode of Delivery (Oxygen) Room air (05/31/21 9:02 AM) Room air (05/30/21 10:41 PM) Room air (05/30/21 1:28 AM) Blood pressure sites Arm, right (05/31/21 9:02 AM) Temperature Route Oral (05/31/21 9:02 AM) Oral (05/30/21 10:41 PM) Oral (05/30/21 1:28 AM) Social History Social History Type Response Tobacco Use: 4 or less cigar ettes(less than 1/4 pack)/day in last 30 days. Sex
--- OUTSIDE RECORDS SUMMARY | 2023-05-27 03:10 | XMS_ITS | Continuity of Care Document ---
Author Name Unknown Organization [facility] ter Address [address] [place] [address]- Care Team Providers Care Well Reactivator Operator Name Role Phone Jone DE LA ROSA, Bri Barrett Primary Care Physician Encounter [facility] Date(s): 04/25/21 - 04/28/[address] [address] Discharge Disposition: A-Transfer VNA/Home Health Attending Physician: Kathia Genao MD Admitting Physician: Dayday Gr MD Referring Physician: Not on Staff, Referring [...] 3Result Comment: Lot# [id number] Exp 01/29/09 Medications Acetaminophen Tablet 650 mg, Tablet, By Mouth, Every 4 hours, PRN for Pain , Mild, Temperature Greater than 100.5, Routine, 04/25/21 20:13:00 EDT Start Date: 04/25/21 Stop Date: 04/28/21 Status: Discontinued albuterol 0.083% inhalation solution 3 mL = 2.5 mg, Inhalation, Every 6 hours, PRN for wheezing, # 60 each, 2 Refills, Maintenance, 09/05/19 10:10:00 EST, Solution, [facility] #[id number], 183, cm, 08/30/19 19:46:00 EST, Height, 141, kg, 08/30/19 19:46:00 EST, Dry Weight Start Date: 09/05/19 Status: Ordered amLODIPine 5 mg oral tablet 5 mg, 1, tablet, By Mouth, Daily, # 30 tablet, Refills 1, Tot. Refills 1, Maintenance, 04/03/21 13:27:00 EDT, Route to Pharmacy Electronically, [facility]/pharmacy #[id number], Partial fill upon patient request if the prescription is for a schedule II opioid drug.... Start Date: 04/03/21 Status: Ordered amLODIPine 5 mg oral tablet 5 mg, Tablet, By Mouth, Hold for: SBP less than 100, 04/28/21 9:00:00 EDT Start Date: 04/28/21 Stop Date: 04/28/21 Status: Completed amoxicillin-clavulanate 875 mg-125 mg oral tablet 1 tablet, By Mouth, 2 times a day, for 7 days, # 14 tablet, 0 Refills, Acute 05/05/21 8:05:00 EDT, 04/28/21 8:05:00 EDT, Tablet, [facility], Partial fill upon patient request if the prescription is for a schedule II opioid drug., 183, cm... Start Date: 04/28/21 Stop Date: 05/05/21 Status: Ordered Aspirin Low Dose 81 mg oral delayed release tablet See Instructions, # 90 tablet, Refills 1 Tot. Refills 1, TAKE 1 TABLET BY MOUTH DAILY, [facility] #[id number] Start Date: 06/24/19 Status: Ordered atorvastatin 40 mg oral tablet 1 tablet, By Mouth, Daily at bedtime, # 90 tablet, 1 Refills, Maintenance, 11/23/20 11:14:00 EST, [facility] #[id number], 179, cm, 11/11/20 11:50:00 EST, Height, 120.5, [...] each, 5 Refills, Maintenance, 04/03/21 13:35:00 EDT, [facility]/pharmacy #[id number], Partial fill upon patient request if the prescription is for a schedule II opioid drug., For wound dressing, 183, cm, 03/17/21 11:22:00... Start Date: 04/03/21 Status: Ordered clopidogrel 75 mg oral tablet 75 mg, 1, tablet, By Mouth, Daily, # 42 tablet, Refills 0, Tot. Refills 0, Maintenance, 03/04/21 10:46:00 EDT, Route to Pharmacy Electronically, [facility], Partial fill upon patient request if the prescription is for a schedule II opioi... Start Date: 03/04/21 Stop Date: 04/15/21 Status: Ordered doxazosin 4 mg oral tablet 1 tablet, By Mouth, Daily at bedtime, # 90 tablet, 1 Refills, Maintenance, 07/31/20 13:33:00 EST, [facility] #[id number], 183, cm, 06/09/20 12:58:00 EDT, Height, 141, kg, 02/21/20 1:50:00 EDT, Dry Weight Start Date: 07/31/20 Status: Ordered furosemide 20 mg oral tablet 1, tablet, By Mouth, Daily, # 90 tablet, Refills 1, Tot. Refills 1, Maintenance, 12/23/19 9:21:00 EDT, Route to Pharmacy Electronically, [facility] #[id number], 183, cm, 11/21/19 15:07:00 EST, Height, 137, kg, 11/15/19 0:16:00 EST, Dry Weight Start Date: 12/23/19 Stop Date: 06/20/20 Status: Ordered gabapentin 300 mg oral capsule 600 mg, Capsule, By Mouth, 04/28/21 9:00:00 EDT Start Date: 04/28/21 Stop Date: 04/28/21 Status: Completed gabapentin 600 mg oral tablet 1 tablet = 600 mg, By Mouth, 3 times a day, # 90 tablet, 1 Refills, Maintenance, 10/30/20 13:02:00 EST, Tablet, [facility] #[id number], 179, cm, 10/18/20 16:27:00 EST, Height, 120.5, kg, 10/18/20 16:27:00 EST, Dry Weight Start Date: 10/30/20 Status: Ordered glipiZIDE 2.5 mg oral tablet, extended release 1 tablet = 2.5 mg, By Mouth, Daily, # 90 tablet, 1 Refills, Maintenance, 05/08/20 13:04:00 EDT, ER Tablet, [facility] #[id number], 183, cm, 02/22/20 3:42:00 EDT, Height, 141, [...] each, 5 Refills, Maintenance, 04/03/21 13:20:00 EDT, [facility]/pharmacy #[id number],... Start Date: 04/03/21 Stop Date: 09/30/21 Status: Ordered metFORMIN 750 mg oral tablet, [...] oral tablet 50 mg, Tablet, By Mouth, Hold for: SBP less than 100 or heart rate less than 55, 04/28/21 9:00:00 EDT Start Date: 04/28/21 Stop Date: 04/28/21 Status: Completed PriLOSEC OTC 20 mg oral delayed release tablet 1 tablet = 20 mg, By Mouth, 2 times a day, # 180 tablet, 1 Refills, Maintenance, 11/16/20 9:25:00 EST, EC Tablet, [facility] #[id number], 179, cm, 11/11/20 11:50:00 EST, Height, 120.5, kg, 10/18/20 16:27:00 EST, Dry Weight Start Date: 11/16/20 Stop Date: 05/15/21 Status: Ordered Trulicity Pen 1.5 mg/0.5 mL subcutaneous solution 0.5 mL = 1.5 mg, Subcutaneous Injection, Every week, rotate injection sites, # 2 mL, 6 Refills, Maintenance, 10/21/20 13:40:00 EST, Solution, [facility] #[id number], Partial fill upon patient request if the prescription is for a schedule II opioi... Start Date: 10/21/20 Status: Ordered Ventolin HFA 108 mcg/inh inhalation aerosol with adapter 2 puffs, Inhalation, Every 4 hours, # 18 Gm, 1 Refills, Maintenance, 11/11/19 13:17:00 EST, [facility] #[id number], 183, cm, 10/31/19 14:18:00 EST, Height, 141, kg, 08/30/19 19:46:00 EST, Dry Weight Start Date: 11/11/19 Status: Ordered Vitamin D3 1000 intl units oral tablet 1 tablet = 1,000 International_Units, By Mouth, Daily, # 90 tablet, 1 Refills, Maintenance, 12/11/19 12:04:00 EDT, Tablet, [facility] #[id number], 183, cm, 11/21/19 15:07:00 EST, Height, 137, [...] Range]: 1 2 3 Height 183 cm (04/26/21 8:17 PM) 183 cm (04/26/21 4:21 AM) 183 cm (04/25/21 8:00 PM) Weight 118 kg (04/25/21 8:00 PM) Oxygen Saturation [94-100 %] 100 % (04/28/21 7:00 AM) 96 % (04/27/21 11:00 PM) 100 % (04/27/21 7:00 PM) Pulse Rate [55-90 bpm] 62 bpm (04/28/21 8:13 AM) 62 bpm (04/28/21 7:00 AM) 89 bpm (04/27/21 11:00 PM) Body Mass Index [18.5-24.99] 35.24 *>HHI* (04/25/21 8:00 PM) Blood Pressure [90-138/55-84 mm Hg] 106/70mm Hg (04/28/21 8:13 AM) 106/70mm Hg (04/28/21 8:13 AM) 106/70mm Hg (04/28/21 7:00 AM) Respiratory Rate [16-30 br/min] 18 br/min (04/28/21 8:12 AM) 18 br/min (04/28/21 7:00 AM) 16 br/min (04/28/21 6:57 AM) Temperature [96.8-100.4 DegF] 97.4 DegF (04/28/21 7:00 AM) 97.8 DegF (04/27/21 11:00 PM) 97.7 DegF (04/27/21 7:00 PM) Mode of Delivery (Oxygen) Room air (04/28/21 7:00 AM) Room air (04/27/21 11:00 PM) Room air (04/27/21 7:00 PM) Blood pressure sites Arm, right (04/28/21 7:00 AM) Arm, right (04/27/21 11:00 PM) Arm, right (04/27/21 7:00 PM) Temperature Route Oral (04/28/21 7:00 AM) Oral (04/27/21 11:00 PM) Oral (04/27/21 7:00 PM) Dry Weight 118 kg (04/25/21 8:00 PM) Social History Social History Type Response Smoking Status Former smoker, quit more than 30 days ago; Patient wants NRT during admission No; Type: Cigarettes entered on: 04/24/21 Sex
--- OUTSIDE RECORDS SUMMARY | 2023-05-27 03:10 | XMS_ITS | Continuity of Care Document ---
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 Refills 1, Maintenance, 04/03/21 13:27:00 EDT, Route to Pharmacy Electronically, [facility]/pharmacy #[id number], Partial fill upon patient request if the prescription is for a schedule II opioid drug.... Start Date: 04/03/21 Status: Ordered Aspirin Low Dose 81 mg oral delayed release tablet See Instructions, # 90 tablet, Refills 1 Tot. Refills 1, TAKE 1 TABLET BY MOUTH DAILY, [facility] #[id number] Start Date: 06/24/19 Status: Ordered atorvastatin 40 mg oral tablet 1 tablet, By Mouth, Daily at bedtime, # 90 tablet, 1 Refills, Maintenance, 11/23/20 11:14:00 EST, [facility] #[id number], 179, cm, 11/11/20 11:50:00 EST, Height, 120.5, [...] each, 5 Refills, Maintenance, 04/03/21 13:35:00 EDT, [facility]/pharmacy #[id number], Partial fill upon patient request if the prescription is for a schedule II opioid drug., For wound dressing, 183, cm, 03/17/21 11:22:00... Start Date: 04/03/21 Status: Ordered clopidogrel 75 mg oral tablet 75 mg, 1, tablet, By Mouth, Daily, # 42 tablet, Refills 0, Tot. Refills 0, Maintenance, 03/04/21 10:46:00 EDT, Route to Pharmacy Electronically, [facility], Partial fill upon patient request if the prescription is for a schedule II opioi... Start Date: 03/04/21 Stop Date: 04/15/21 Status: Ordered doxazosin 4 mg oral tablet 1 tablet, By Mouth, Daily at bedtime, # 90 tablet, 1 Refills, Maintenance, 07/31/20 13:33:00 EST, [facility] #[id number], 183, cm, 06/09/20 12:58:00 EDT, Height, 141, kg, 02/21/20 1:50:00 EDT, Dry Weight Start Date: 07/31/20 Status: Ordered furosemide 20 mg oral tablet 1, tablet, By Mouth, Daily, # 90 tablet, Refills 1, Tot. Refills 1, Maintenance, 12/23/19 9:21:00 EDT, Route to Pharmacy Electronically, [facility] #[id number], 183, cm, 11/21/19 15:07:00 EST, Height, 137, kg, 11/15/19 0:16:00 EST, Dry Weight Start Date: 12/23/19 Stop Date: 06/20/20 Status: Ordered gabapentin 600 mg oral tablet 1 tablet = 600 mg, By Mouth, 3 times a day, # 90 tablet, 1 Refills, Maintenance, 10/30/20 13:02:00 EST, Tablet, [facility] #[id number], 179, cm, 10/18/20 16:27:00 EST, Height, 120.5, kg, 10/18/20 16:27:00 EST, Dry Weight Start Date: 10/30/20 Status: Ordered glipiZIDE 2.5 mg oral tablet, extended release 1 tablet = 2.5 mg, By Mouth, Daily, # 90 tablet, 1 Refills, Maintenance, 05/08/20 13:04:00 EDT, ER Tablet, [facility] #[id number], 183, cm, 02/22/20 3:42:00 EDT, Height, 141, [...] each, 5 Refills, Maintenance, 04/03/21 13:20:00 EDT, [facility]/pharmacy #[id number],... Start Date: 04/03/21 Stop Date: 09/30/21 [...] opioid drug. Start Date: 10/01/20 Status: Ordered oxyCODONE 5 mg oral tablet 5 mg, Tablet, By Mouth, Once, STAT, 04/20/21 9:33:00 EDT, Stop date 04/20/21 9:33:00 EDT Start Date: 04/20/21 Stop Date: 04/20/21 Status: Completed PriLOSEC OTC 20 mg oral delayed release tablet 1 tablet = 20 mg, By Mouth, 2 times a day, # 180 tablet, 1 Refills, Maintenance, 11/16/20 9:25:00 EST, EC Tablet, [facility] #[id number], 179, cm, 11/11/20 11:50:00 EST, Height, 120.5, kg, 10/18/20 16:27:00 EST, Dry Weight Start Date: 11/16/20 Stop Date: 05/15/21 Status: Ordered Trulicity Pen 1.5 mg/0.5 mL subcutaneous solution 0.5 mL = 1.5 mg, Subcutaneous Injection, Every week, rotate injection sites, # 2 mL, 6 Refills, Maintenance, 10/21/20 13:40:00 EST, Solution, [facility] #[id number], Partial fill upon patient request if the prescription is for a schedule II opioi... Start Date: 10/21/20 Status: Ordered Ventolin HFA 108 mcg/inh inhalation aerosol with adapter 2 puffs, Inhalation, Every 4 hours, # 18 Gm, 1 Refills, Maintenance, 11/11/19 13:17:00 EST, [facility] #[id number], 183, cm, 10/31/19 14:18:00 EST, Height, 141, kg, 08/30/19 19:46:00 EST, Dry Weight Start Date: 11/11/19 Status: Ordered Vitamin D3 1000 intl units oral tablet 1 tablet = 1,000 International_Units, By Mouth, Daily, # 90 tablet, 1 Refills, Maintenance, 12/11/19 12:04:00 EDT, Tablet, [facility] #[id number], 183, cm, 11/21/19 15:07:00 EST, Height, 137, kg, 11/15/19 0:16:00 EST, Dry Weight Start Date: 12/11/19 Stop Date: 06/08/20 Status: Ordered ERLINDA WALKER, See Instructions, # 1 each, Refills [...] to oldest [Reference Range]: 1 2 3 Weight 136 kg (04/20/21 8:44 AM) Oxygen Saturation [94-100 %] 98 % (04/20/21 10:42 AM) 98 % (04/20/21 9:48 AM) 94 % (04/20/21 8:44 AM) Pulse Rate [55-90 bpm] 77 bpm (04/20/21 10:42 AM) 78 bpm (04/20/21 9:48 AM) 78 bpm (04/20/21 8:44 AM) Blood Pressure [90-138/55-84 mm Hg] 137/69mm Hg (04/20/21 10:42 AM) 139/74mm Hg *H* (04/20/21 9:48 AM) 141/77mm Hg *H* (04/20/21 9:23 AM) Respiratory Rate [16-30 br/min] 17 br/min (04/20/21 10:42 AM) 17 br/min (04/20/21 9:48 AM) 19 br/min (04/20/21 9:36 AM) Temperature [96.8-100.4 DegF] 98.3 DegF (04/20/21 10:42 AM) 98.2 DegF (04/20/21 9:48 AM) 98.1 DegF (04/20/21 8:44 AM) Mode of Delivery (Oxygen) Room air (04/20/21 10:42 AM) Room air (04/20/21 9:48 AM) Room air (04/20/21 8:44 AM) Blood pressure sites Arm, left (04/20/21 10:42 AM) Arm, left (04/20/21 9:48 AM) Arm, left (04/20/21 8:44 AM) Temperature Route Oral (04/20/21 10:42 AM) Oral (04/20/21 9:48 AM) Oral (8/3/21 8:44 AM) Social History Social History Type Response Tobacco Use: 4 or less cigar ettes(less than 1/4 pack)/day in last 30 days. Sex
--- OUTSIDE RECORDS SUMMARY | 2023-05-27 03:10 | XMS_ITS | Continuity of Care Document ---
Author Name Unknown Organization [facility] Address [address] [place] [id number]- Care Team Providers Care Crown Perforator Operator Name Role Phone Jone DE LA ROSA, Bri Barrett Primary Care Physician [place] [facility] [id number] Date(s): 05/05/20 - 06/04/[address] [place] [id number] [facility] Attending Physician: Marlin Steen Admitting Physician: Admtr, Mariln Referring Physician: Admtr, Ar8 Allergies, Adverse Reactions, Alerts Substance Reaction Severity Status Bee Stings swelling Active Immunizations Given and Recorded Vaccine Date Status Refusal Reason influenza virus vaccine, inactivated 07/17/19 Give n [...] 2 Refills, Maintenance, 09/05/19 10:10:00 EST, Solution, [facility] #[id number], 183, cm, 08/30/19 19:46:00 EST, Height, 141, kg, 08/30/19 19:46:00 EST, Dry Weight Start Date: 09/05/19 Status: Ordered amLODIPine 10 mg oral tablet 1 tablet, By Mouth, Daily, # 90 tablet, 1 Refills, Maintenance, 01/07/20 9:52:00 EDT, [facility] #[id number], 183, cm, 11/21/19 15:07:00 EST, Height, 137, kg, 11/15/19 0:16:00 EST, Dry Weight Start Date: 01/07/20 Status: Ordered Aspirin Low Dose 81 mg oral delayed release tablet See Instructions, # 90 tablet, Refills 1 Tot. Refills 1, TAKE 1 TABLET BY MOUTH DAILY, [facility] #[id number] Start Date: 06/24/19 Status: Ordered atorvastatin 40 mg oral tablet 1 tablet, By Mouth, Daily at bedtime, # 90 tablet, 1 Refills, Maintenance, 12/09/19 20:32:00 EDT, [facility] #[id number], 183, cm, 11/21/19 15:07:00 EST, Height, 137, kg, 11/15/19 0:16:00 EST, Dry Weight Start Date: 12/09/19 Status: Ordered B-D PEN NDL MINI [id number](12/01)PRPL B-D PEN NDL MINI [id number](12/01)PRPL, See Instructions, # 300 each, 1 Refills, Maintenance, USE TO INJECT INSULIN THREE TIMES DAILY, 183, cm, 02/22/20 3:42:00 EDT, Height, 141, kg, 02/21/20 1:50:00 EDT, Dry Weight Start Date: 05/14/20 Status: Ordered B-D PEN NDL MINI [id number](12/01)PRPL B-D PEN NDL MINI [id number](12/01)PRPL, See Instructions, # 300 each, 1 Refills, Maintenance, USE TO INJECT INSULIN THREE TIMES DAILY, 183, cm, 02/22/20 3:42:00 EDT, Height, 141, kg, 02/21/20 1:50:00 EDT, Dry Weight Start Date: 04/27/20 Status: Ordered B-D PEN NDL MINI [id number](12/01)PRPL B-D PEN NDL MINI [id number](12/01)PRPL, See Instructions, # 300 each, 1 Refills, Maintenance, USE TO INJECT INSULIN THREE TIMES DAILY, 183, cm, 02/22/20 3:42:00 EDT, Height, 141, kg, 02/21/20 1:50:00 EDT, Dry Weight Start Date: 05/06/20 Status: Ordered B-D PEN NDL MINI [id number](12/01)PRPL B-D PEN NDL MINI [id number](12/01)PRPL, See Instructions, # 300 each, 1 Refills, Maintenance, USE TO INJECT INSULIN THREE TIMES DAILY, 183, cm, 02/22/20 3:42:00 EDT, Height, 141, kg, 02/21/20 1:50:00 EDT, Dry Weight Start Date: 03/31/20 Status: Ordered Basaglar KwikPen 100 units/mL subcutaneous solution See Instructions, Subcutaneous Infusion Inject 70 units every morning and 50 every evening, # 15 mL, 2 Refills, Maintenance, 05/22/20 15:36:00 EDT, [facility] #[id number], 183, cm, 02/22/20 3:42:00 EDT, Height, 141, kg, 02/21/20 1:50:00 EDT, Dry... Start Date: 05/22/20 Status: Ordered doxazosin 4 mg oral tablet 1 tablet, By Mouth, Daily at bedtime, # 90 tablet, 1 Refills, Maintenance, 02/13/20 18:59:00 EDT, [facility] #[id number], 183, cm, 11/21/19 15:07:00 EST, Height, 137, kg, 11/15/19 0:16:00 EST, Dry Weight Start Date: 02/13/20 Status: Ordered furosemide 20 mg oral tablet 1, tablet, By Mouth, Daily, # 90 tablet, Refills 1, Tot. Refills 1, Maintenance, 12/23/19 9:21:00 EDT, Route to Pharmacy Electronically, [facility] #[id number], 183, cm, 11/21/19 15:07:00 EST, Height, 137, kg, 11/15/19 0:16:00 EST, Dry Weight Start Date: 12/23/19 Stop Date: 06/20/20 Status: Ordered gabapentin 300 mg oral capsule 1, capsule, By Mouth, 2 times a day, # 180 capsule, Refills 1, Tot. Refills 1, Maintenance, 01/10/20 13:52:00 EDT, Route to Pharmacy Electronically, [facility] #[id number], 183, cm, 11/21/19 15:07:00 EST, Height, 137, kg, 11/15/19 0:16:00 EST, [facility]. Start Date: 01/10/20 Stop Date: 07/08/20 Status: Ordered gabapentin 600 mg oral tablet 1 tablet = 600 mg, By Mouth, 3 times a day, # 90 tablet, 1 Refills, Maintenance, 04/16/20 12:44:00 EDT, Tablet, [facility] #[id number], 183, cm, 02/22/20 3:42:00 EDT, Height, 141, kg, 02/21/20 1:50:00 EDT, Dry Weight Start Date: 04/16/20 Status: Ordered glipiZIDE 2.5 mg oral tablet, extended release 1 tablet = 2.5 mg, By Mouth, Daily, # 90 tablet, 1 Refills, Maintenance, 05/08/20 13:04:00 EDT, ER Tablet, [facility] #[id number], 183, cm, 02/22/20 3:42:00 EDT, Height, 141, kg, 02/21/20 1:50:00 EDT, Dry Weight Start Date: 05/08/20 Stop Date: 11/04/20 Status: Ordered lisinopril 40 mg oral tablet 1 tablet, By Mouth, Daily, # 90 tablet, 1 Refills, Maintenance, 01/07/20 9:51:00 EDT, [facility] #[id number], 183, cm, 11/21/19 15:07:00 EST, Height, 137, kg, 11/15/19 0:16:00 EST, Dry Weight Start Date: 01/07/20 Status: Ordered methocarbamol 750 mg oral tablet See Instructions, TAKE 1 TABLET BY MOUTH THREE TIMES DAILY FOR 10 DAYS TAKE NEEDED FOR BACK PAIN.NOT TO DRIVE AFTER TAKING MED, # 90 tablet, 1 Refills, Soft Stop, 05/05/20 14:29:00 EDT, [facility] #[id number], 183, cm, 02/22/20 3:42:00 EDT, He... Start Date: 05/05/20 Status: Ordered Metoprolol Tartrate 25 mg oral tablet 1 tablet, By Mouth, 2 times a day, # 60 tablet, 2 Refills, Maintenance, 12/09/19 20:38:00 EDT, [facility] #[id number], 183, cm, 11/21/19 15:07:00 EST, Height, 137, kg, 11/15/19 0:16:00 EST, Dry Weight Start Date: 12/09/19 Status: Ordered Ozempic (0.25 mg or 0.5 mg dose) 2 mg/1.5 mL subcutaneous solution See Instructions, INJECT 0.25 SUBCUTANEOUSLY EVERY 4 WEEKS, # 1.5 mL, 2 Refills, 04/07/20 13:23:00 EDT, [facility] #[id number], 183, cm, 02/22/20 3:42:00 EDT, Height, 141, kg, 02/21/20 1:50:00 EDT, Dry Weight Start Date: 04/07/20 Status: Ordered PriLOSEC OTC 20 mg oral delayed release tablet 1 tablet = 20 mg, By Mouth, 2 times a day, # 60 tablet, 1 Refills, Maintenance, 05/05/20 14:29:00 EDT, EC Tablet, [facility] #[id number], 183, cm, 02/22/20 3:42:00 EDT, Height, 141, kg, :50:00 EDT, Dry Weight Start Date: 05/05/20 Status: Ordered rivaroxaban 15 mg oral tablet 1 tablet = 15 mg, By Mouth, 2 times a day with meals, # 60 tablet, 2 Refills, Maintenance, :59:00 EDT, Tablet, [facility] #[id number], 183, cm, 02/22/20 3:42:00 EDT, Height, 141, kg, 02/21/20 1:50:00 EDT, Dry Weight Start Date: 04/15/20 Stop Date: 07/14/20 Status: Ordered silver sulfADIAZINE 1% topical cream See Instructions, APPLY EXTERNALLY TO THE AFFECTED AREA TWICE DAILY, # 50 Gm, 0 Refills, Acute, [facility] #[id number], 20, APPLY EXTERNALLY TO THE AFFECTED AREA TWICE DAILY, 183, cm, 02/22/20 3:42:00 EDT, Height, 141, kg, 02/21/20 1:50:00 EDT, D... Start Date: 04/20/20 Status: Ordered Trulicity Pen 0.75 mg/0.5 mL subcutaneous solution 0.5 mL = 0.75 mg, Subcutaneous Injection, Every week, rotate injection sites Discontinue Ozempic, #2 mL, 3 Refills, Maintenance, 04/19/20 13:24:00 EDT, Solution, [facility] #[id number], 183, cm, 02/22/20 3:42:00 EDT, Height, 141, kg, 02/21/20... Start Date: 04/19/20 Status: Ordered Ventolin HFA 108 mcg/inh inhalation aerosol with adapter 2 puffs, Inhalation, Every 4 hours, # 18 Gm, 1 Refills, Maintenance, 11/11/19 13:17:00 EST, [facility] #[id number], 183, cm, 10/31/19 14:18:00 EST, Height, 141, kg, 08/30/19 19:46:00 EST, Dry Weight Start Date: 11/11/19 Status: Ordered Vitamin D3 1000 intl units oral tablet 1 tablet = 1,000 International_Units, By Mouth, Daily, # 90 tablet, 1 Refills, Maintenance, 12/11/19 12:04:00 EDT, Tablet, [facility] #[id number], 183, cm, 11/21/19 15:07:00 EST, Height, 137, [...] Morbid obesity(Confirmed) Active Heme positive stool(Confirmed) Active Popliteal cyst(Confirmed) Active Type 2 diabetes mellitus(Confirmed) Active Urge incontinence(Confirmed) Active Social History Social History Type Response Tobacco Use: 4 or less cigar ettes(less than 1/4 pack)/day in last 30 days. Sex
--- OUTSIDE RECORDS SUMMARY | 2023-05-27 03:11 | XMS_ITS | Continuity of Care Document ---
Author Name Unknown Organization [facility] Address [address] [place] [id number]- Care Team Providers Care Net Developer Name Role Phone Bri Becerril MD Primary Care Physician Encounter [facility] [place] Date(s): 03/10/22 - 07/08/22 [facility] [address] [place] [address]- Attending Physician: Babak De La Cruz MD [...] Vaccine Date Status Refusal Reason SARS-CoV-2 mRNA ([id number]) vax 4 03/19/22 Not Given Patient Refuses [...] tablet, Refills 0, Tot. Refills 0, Maintenance, 05/31/22 9:33:00 EDT, Route to Pharmacy Electronically, [facility], Partial fill upon patient request if the prescription is for a schedule II opioid . Start Date: 05/31/22 Status: Ordered Aspirin Low Dose 81 mg [...] bedtime, # 90 tablet, 1 Refills, Maintenance, 05/31/22 9:33:00 EDT, [facility], 183, cm, 05/01/22 21:57:00 EDT, Height, 136, kg, 05/01/22 21:57:00 EDT, Dry Weight Start Date: 05/31/22 Status: Ordered Automatic arm blood pressure cuff Automatic arm blood pressure cuff, See Instructions, # 1 each, Refills 0, Tot. Refills 0, Maintenance, Use twice daily to check BP, 06/07/22 16:06:00 EDT, Supply Start Date: 06/07/22 Status: Ordered BD UF MINI PEN NEEDLE [id number] BD UF MINI PEN NEEDLE [id number], See Instructions, # 300 Unknown, 3 Refills, USE TO INJECT INSULIN 3 TIMES DAILY, 180, cm, 01/07/22 16:17:00 EDT, Height, 127.8, kg, 12/27/21 17:00:00 EDT, Dry Weight Start Date: 02/01/22 Status: Ordered BP monitor; arm cuff BP [...] Refills, Soft Stop, 03/16/22 11:01:00 EDT, Tablet, [facility]/pharmacy #[id number], Partial fill upon [...] tablet, Refills 1, Tot. Refills 1, Maintenance, 05/31/22 14:45:00 EDT, Route to Pharmacy Electronically, [facility], 183, cm, 05/01/22 21:57:00 EDT, Height, 136, kg, 05/01/22 21:57:00 EDT, Dry Weight Start Date: 05/31/22 Status: Ordered doxazosin 4 mg oral tablet 1 tablet, By Mouth, Daily at bedtime, # 90 tablet, 0 Refills, Maintenance, 05/31/22 9:33:00 EDT, [facility], 183, cm, 05/01/22 21:57:00 EDT, Height, 136, kg, 05/01/22 21:57:00 EDT, Dry Weight Start Date: 05/31/22 Status: Ordered famotidine 20 mg oral tablet 20 mg, 1, tablet, By Mouth, 2 times a day, # 60 tablet, Refills 2, Tot. Refills 2, Maintenance, 05/31/22 9:33:00 EDT, Route to Pharmacy Electronically, [facility], Partial fill upon patient request if the prescription is for a schedule II... Start Date: 05/31/22 Stop Date: 08/29/22 Status: Ordered Freestyle Lite Lancets See Instructions, [...] for 90 days, # 90 tablet, Refills 0, Tot. Refills 0, Hard Stop :33:00 EST, 05/31/22 9:33:00 EDT, Route to Pharmacy Electronically, [facility], 183, cm, 05/01/22 21:57:00 EDT, Height, 136, kg, 05/01/22... Start Date: 05/31/22 Stop Date: 08/29/22 Status: Ordered gabapentin 600 mg oral tablet 1 tablet = 600 mg, By Mouth, 3 times a day, # 90 tablet, 1 Refills, Maintenance, 05/31/22 14:45:00 EDT, Tablet, [facility], 183, cm, 05/01/22 21:57:00 EDT, Height, 136, kg, 05/01/22 21:57:00 EDT, Dry Weight Start Date: 05/31/22 Status: Ordered glipiZIDE 2.5 mg oral tablet, extended release 1 tablet, By Mouth, Daily, # 90 tablet, 1 Refills, Maintenance, 06/24/22 10:13:00 EDT, [id number], 183, cm, 05/01/22 21:57:00 EDT, Height, 136, kg, 05/01/22 21:57:00 EDT, Dry Weight Start Date: 06/24/22 Status: Ordered Insulin Lispro KwikPen 100 units/mL injectable solution See Instructions, Inject 12-26 units subcut three tines daily before meals based on sliding scale Discontinue Lispro vials, # 45 mL, 0 Refills, Maintenance, 05/31/22 9:33:00 EDT, [facility], Partial fill upon patient request if the prescr... Start Date: 05/31/22 Status: Ordered Lantus Solostar Pen 100 units/mL [...] tablet, Refills 0, Tot. Refills 0, Maintenance, 05/31/22 9:33:00 EDT, Route to Pharmacy Electronically, [facility], Partial fill upon patient request if the prescription is for a schedule II opioid d... Start Date: 05/31/22 Status: Ordered metoprolol 50 mg oral tablet 50 mg, 1, tablet, By Mouth, 2 times a day, # 180 tablet, Refills 2, Tot. Refills 2, Maintenance, 12/11/22 10:59:00 EDT, Route to Pharmacy Electronically, [facility], Partial fill uponpatient request if the prescription is for a schedule I... Start Date: 12/11/22 Stop Date: 09/07/23 Status: Ordered metoprolol 50 mg oral tablet 50 mg, 1, tablet, By Mouth, 2 times a day, for 90 days, # 180 tablet, Refills 2, Tot. Refills 2, Hard Stop 12/11/22 10:59:00 EDT, 03/16/22 10:59:00 EDT, Route to Pharmacy Electronically, [facility]/pharmacy#[id number], Partial fill upon patient request if the pre... Start Date: 03/16/22 Stop Date: 12/11/22 Status: Ordered [place], 31 G x 8 mm BD Ultra [...] day, for 90 days, # 180 tablet, 0 Refills, Hard Stop :33:00 EST, 05/31/22 9:33:00 EDT, EC Tablet, [facility], 183, cm, 05/01/22 21:57:00 EDT, Height, 136, kg, 05/01/22 21:57:00 EDT, Dry Weight Start Date: 05/31/22 Stop Date: 08/29/22 Status: Ordered Pulse Oximeter Pulse Oximeter, See [...] a day before meals, AND BEDTIME., # 360 tablet, Refills 1, Tot. Refills 1, Maintenance, 07/08/22 16:12:00 EDT, Route to Pharmacy Electronically, [facility]/pharmacy #[id number], 183, cm, 05/01/22 21:57:00 EDT, Height, 136, kg, 05/01/22... Start Date: 07/08/22 Status: Ordered Transfer Bench See Instructions, # 1 each, Maintenance, standard 4 wheeled walker Dx: Left BKA ht: 6 ft; wt: 134 kg, 04/11/22 10:47:00 EDT, Supply Start Date: 04/11/22 Status: Ordered Trulicity Pen 1.5 mg/0.5 mL subcutaneous solution 0.5 mL = 1.5 mg, Subcutaneous Injection, Every week, rotate injection sites, # 6.5 mL, 0 Refills, Maintenance, 05/31/22 9:33:00 EDT, Solution, [facility], Partial fill upon patient request if the prescription is for a schedule II opioid Start Date: 05/31/22 Status: Ordered Ventolin HFA 108 mcg/inh inhalation aerosol with adapter 2 puffs, Inhalation, Every 4 hours, # 3 each, 1 Refills, Maintenance, 05/31/22 9:33:00 EDT, [facility], 183, cm, 05/01/22 21:57:00 EDT, Height, 136, kg, 05/01/22 21:57:00 EDT, Dry Weight Start Date: 05/31/22 Stop Date: 11/27/22 Status: Ordered Vitamin D3 1000 intl units oral tablet 1 tablet = 1,000 International_Units, By Mouth, Daily, # 90 tablet, 1 Refills, Maintenance, 05/31/22 9:33:00 EDT, Tablet, [facility], [...] AT SUPPER, # 90 tablet, 1 Refills, 05/31/22 14:45:00EDT, [facility], 183, cm, 05/01/22 21:57:00 EDT, Height, 136, kg, 05/01/22 21:57:00EDT, Dry Weight Start Date: 05/31/22 Status: Ordered Problem List Condition Confirmation Course Effective Dates Status H ealth Status Informant Anemia Confirmed Active Chronic back pain Confirmed Active Chronic kidney disease Confirmed Active Chronic obstructive pulmonary disease (COPD) Confirmed Active Diabetic neuropathy Confirmed Active Diabetic ulcer of right lower leg Confirmed Active H/O: TIA Confirmed Active Heartburn Confirmed Active History of amputation of foot Confirmed Active Hyperlipidemia Confirmed Active Hypertensive disorder Confirmed Active Knee pain Confirmed Active Morbid obesity Confirmed Active Noncompliance with medication regimen Confirmed Active Heme positive stool Confirmed Active Open wound, left below knee stump Confirmed Active Severe obesity Confirmed Active Diabetic ulcer of left lower leg Confirmed Active Diabetic ulcer of lower leg Confirmed Active Popliteal cyst Confirmed Active Type 2 diabetes mellitus Confirmed Active Urge incontinence Confirmed Active Social History Social History Type Response Smoking Status Never (less than 100 in lifetime) entered on: 06/01/21 Sex Patient Care team information Personnel Name: Jone DE LA ROSA, Bri Barrett Address: Address: [address] [place] [address], [address] [place], [place] [address]
--- OUTSIDE RECORDS SUMMARY | 2023-05-27 03:11 | XMS_ITS | Continuity of Care Document ---
Author Name Unknown Organization [facility] Address [address] [place] [id number]- Care Team Providers Care Machine Hostler Name Role Phone Bri Becerril MD Primary Care Physician Encounter [facility] [place] Date(s): 03/18/21 - 04/17/21 [facility] [address] [place] [address]- Allergies, Adverse Reactions, Alerts Substance Reaction Severity [...] 2 Refills, Maintenance, 09/05/19 10:10:00 EST, Solution, [facility] #[id number], 183, cm, 08/30/19 19:46:00 EST, Height, 141, kg, 08/30/19 19:46:00 EST, Dry Weight Start Date: 09/05/19 Status: Ordered amLODIPine 5 mg oral tablet 5 mg, 1, tablet, By Mouth, Daily, # 30 tablet, Refills 1, Tot. Refills 1, Maintenance, 04/03/21 13:27:00 EDT, Route to Pharmacy Electronically, [facility]/pharmacy #[id number], Partial fill upon patient request if the prescription is for a schedule II opioid drug.... Start Date: 04/03/21 Status: Ordered Aspirin Low Dose 81 mg oral delayed release tablet See Instructions, # 90 tablet, Refills 1 Tot. Refills 1, TAKE 1 TABLET BY MOUTH DAILY, [facility] #[id number] Start Date: 06/24/19 Status: Ordered atorvastatin 40 mg oral tablet 1 tablet, By Mouth, Daily at bedtime, # 90 tablet, 1 Refills, Maintenance, 11/23/20 11:14:00 EST, [facility] #[id number], 179, cm, 11/11/20 11:50:00 EST, Height, 120.5, [...] each, 5 Refills, Maintenance, 04/03/21 13:35:00 EDT, [facility]/pharmacy #[id number], Partial fill upon patient request if the prescription is for a schedule II opioid drug., For wound dressing, 183, cm, 03/17/21 11:22:00... Start Date: 04/03/21 Status: Ordered clopidogrel 75 mg oral tablet 75 mg, 1, tablet, By Mouth, Daily, # 42 tablet, Refills 0, Tot. Refills 0, Maintenance, 03/04/21 10:46:00 EDT, Route to Pharmacy Electronically, [facility], Partial fill upon patient request if the prescription is for a schedule II opioi... Start Date: 03/04/21 Stop Date: 04/15/21 Status: Ordered doxazosin 4 mg oral tablet 1 tablet, By Mouth, Daily at bedtime, # 90 tablet, 1 Refills, Maintenance, 07/31/20 13:33:00 EST, [facility] #42597, 183, cm, 06/09/20 12:58:00 EDT, Height, 141, kg, 02/21/20 1:50:00 EDT, Dry Weight Start Date: 07/31/20 Status: Ordered furosemide 20 mg oral tablet 1, tablet, By Mouth, Daily, # 90 tablet, Refills 1, Tot. Refills 1, Maintenance, 12/23/19 9:21:00 EDT, Route to Pharmacy Electronically, [facility] #[id number], 183, cm, 11/21/19 15:07:00 EST, Height, 137, kg, 11/15/19 0:16:00 EST, Dry Weight Start Date: 12/23/19 Stop Date: 06/20/20 Status: Ordered gabapentin 600 mg oral tablet 1 tablet = 600 mg, By Mouth, 3 times a day, # 90 tablet, 1 Refills, Maintenance, 10/30/20 13:02:00 EST, Tablet, [facility] #84734, 179, cm, 10/18/20 16:27:00 EST, Height, 120.5, kg, 10/18/20 16:27:00 EST, Dry Weight Start Date: 10/30/20 Status: Ordered glipiZIDE 2.5 mg oral tablet, extended release 1 tablet = 2.5 mg, By Mouth, Daily, # 90 tablet, 1 Refills, Maintenance, 05/08/20 13:04:00 EDT, ER Tablet, [facility] #31892, 183, cm, 02/22/20 3:42:00 EDT, Height, 141, [...] each, 5 Refills, Maintenance, 04/03/21 13:20:00 EDT, [facility]/pharmacy #[id number],... Start Date: 04/03/21 Stop Date: 09/30/21 [...] Refills, Maintenance, 11/16/20 9:25:00 EST, EC Tablet, [facility] #99709, 179, cm, 11/11/20 11:50:00 EST, Height, 120.5, kg, 10/18/20 16:27:00 EST, Dry Weight Start Date: 11/16/20 Stop Date: 05/15/21 Status: Ordered Trulicity Pen 1.5 mg/0.5 mL subcutaneous solution 0.5 mL = 1.5 mg, Subcutaneous Injection, Every week, rotate injection sites, # 2 mL, 6 Refills, Maintenance, 10/21/20 13:40:00 EST, Solution, [facility] #[id number], Partial fill upon patient request if the prescription is for a schedule II opioi... Start Date: 10/21/20 Status: Ordered Ventolin HFA 108 mcg/inh inhalation aerosol with adapter 2 puffs, Inhalation, Every 4 hours, # 18 Gm, 1 Refills, Maintenance, 11/11/19 13:17:00 EST, [facility] #74542, 183, cm, 10/31/19 14:18:00 EST, Height, 141, kg, 08/30/19 19:46:00 EST, Dry Weight Start Date: 11/11/19 Status: Ordered Vitamin D3 1000 intl units oral tablet 1 tablet = 1,000 International_Units, By Mouth, Daily, # 90 tablet, 1 Refills, Maintenance, 12/11/19 12:04:00 EDT, Tablet, [facility] #00507, 183, cm, 11/21/19 15:07:00 EST, Height, 137, [...]
--- OUTSIDE RECORDS SUMMARY | 2023-05-27 03:11 | XMS_ITS | Continuity of Care Document ---
Author Name Unknown Organization [facility] Address [address] [place] [address]- Care Team Providers Care Lag Screwer Name Role Phone Jone DE LA ROSA, Bri Barrett Primary Care Physician Encounter [facility] [place] Date(s): 07/02/21 - 07/09/21 [facility] [address] [place] [address]- Attending Physician: Babak De La Cruz MD [...] 2 Refills, Maintenance, 09/05/19 10:10:00 EST, Solution, [facility] #[id number], 183, cm, 08/30/19 19:46:00 EST, Height, 141, [...] 1, TAKE 1 TABLET BY MOUTH DAILY, [facility] #[id number] Start Date: 06/24/19 Status: Ordered atorvastatin 40 mg oral tablet 1 tablet, By Mouth, Daily at bedtime, # 90 tablet, 1 Refills, Maintenance, 11/23/20 11:14:00 EST, [facility] #[id number], 179, cm, 11/11/20 11:50:00 EST, Height, 120.5, kg, 10/18/20 16:27:00 EST, Dry Weight Start Date: 11/23/20 Status: Ordered Betadine 10% solution See Instructions, For wound dressing, # 1 each, 5 Refills, Maintenance, 04/03/21 13:35:00 EDT, [facility]/pharmacy #1234, Partial fill upon patient request if the prescription is for a schedule II opioid drug., For wound dressing, 183, cm, 03/17/21 11:22:00... Start Date: 04/03/21 Status: Ordered clopidogrel 75 mg oral tablet 75 mg, 1, tablet, By Mouth, Daily, # 42 tablet, Refills 0, Tot. Refills 0, Maintenance, 03/04/21 10:46:00 EDT, Route to Pharmacy Electronically, [facility], Partial fill upon patient request if the prescription is for a schedule II opioi... Start Date: 03/04/21 Stop Date: 04/15/21 Status: Ordered doxazosin 4 mg oral tablet 1 tablet, By Mouth, Daily at bedtime, # 90 tablet, 1 Refills, Maintenance, 07/31/20 13:33:00 EST, [facility] #[id number], 183, cm, 06/09/20 12:58:00 EDT, Height, 141, kg, 02/21/20 1:50:00 EDT, Dry Weight Start Date: 07/31/20 Status: Ordered furosemide 20 mg oral tablet 1, tablet, By Mouth, Daily, # 90 tablet, Refills 1, Tot. Refills 1, Maintenance, 12/23/19 9:21:00 EDT, Route to Pharmacy Electronically, [facility] #[id number], 183, cm, 11/21/19 15:07:00 EST, Height, 137, kg, 11/15/19 0:16:00 EST, Dry Weight Start Date: 12/23/19 Stop Date: 06/20/20 Status: Ordered gabapentin 600 mg oral tablet 1 tablet = 600 mg, By Mouth, 3 times a day, # 90 tablet, 1 Refills, Maintenance, 10/30/20 13:02:00 EST, Tablet, [facility] #[id number], 179, cm, 10/18/20 16:27:00 EST, Height, 120.5, kg, 10/18/20 16:27:00 EST, Dry Weight Start Date: 10/30/20 Status: Ordered glipiZIDE 2.5 mg oral tablet, extended release 1 tablet = 2.5 mg, By Mouth, Daily, # 90 tablet, 1 Refills, Maintenance, 05/08/20 13:04:00 EDT, ER Tablet, [facility] #[id number], 183, cm, 02/22/20 3:42:00 EDT, Height, 141, [...] Refills, Maintenance, 11/16/20 9:25:00 EST, EC Tablet, [facility] #[id number], 179, cm, 11/11/20 11:50:00 EST, Height, 120.5, kg, 10/18/20 16:27:00 EST, Dry Weight Start Date: 11/16/20 Stop Date: 05/15/21 Status: Ordered Trulicity Pen 1.5 mg/0.5 mL subcutaneous solution 0.5 mL = 1.5 mg, Subcutaneous Injection, Every week, rotate injection sites, # 2 mL, 6 Refills, Maintenance, 10/21/20 13:40:00 EST, Solution, [facility] #[id number], Partial fill upon patient request if the prescription is for a schedule II opioi... Start Date: 10/21/20 Status: Ordered Ventolin HFA 108 mcg/inh inhalation aerosol with adapter 2 puffs, Inhalation, Every 4 hours, # 18 Gm, 1 Refills, Maintenance, 11/11/19 13:17:00 EST, [facility] #[id number], 183, cm, 10/31/19 14:18:00 EST, Height, 141, kg, 08/30/19 19:46:00 EST, Dry Weight Start Date: 11/11/19 Status: Ordered Vitamin D3 1000 intl units oral tablet 1 tablet = 1,000 International_Units, By Mouth, Daily, # 90 tablet, 1 Refills, Maintenance, 12/11/19 12:04:00 EDT, Tablet, [facility] #38394, 183, cm, 11/21/19 15:07:00 EST, Height, 137, [...] oldest [Reference Range]: 1 Height 183 cm (07/02/21 3:44 PM) Weight 131.8 kg (07/02/21 3:44 PM) Oxygen Saturation [94-100 %] 97 % (07/02/21 3:44 PM) Pulse Rate [55-90 bpm] 83 bpm (07/02/21 3:44 PM) Body Mass Index [18.5-24.99] 39.36 *>HHI* (07/02/21 3:44 PM) Blood Pressure [90-138/55-84 mm Hg] 104/ 60mm Hg (07/02/21 3:44 PM) Mode of Delivery (Oxygen) Room air (07/02/21 3:44 PM) Blood pressure sites Arm, left (07/02/21 3:44 PM) Weight Obtained Via Patient/family state d (07/02/21 3:44 PM) Social History Social History Type Response Smoking Status Never (less than 100 in lifetime) entered on: 06/01/21 Sex
--- OUTSIDE RECORDS SUMMARY | 2023-05-27 03:11 | XMS_ITS | Continuity of Care Document ---
Author Name Unknown Organization [facility] Address [address] [place] [address]- Care Team Providers Care Cash Application Clerk Name Role Phone Bri Becerril MD Primary Care Physician Encounter [facility] Date(s): 06/15/22 - 09/08/22 [facility] [address] [place] [id number] Attending Physician: Shannan Coughlin NP Admitting Physician: Shannan Coughlin NP Referring Physician: Bri Becerril MD Allergies, Adverse [...] Vaccine Date Status Refusal Reason SARS-CoV-2 mRNA ([id number]) vax 4 03/19/22 Not Given Patient Refuses [...] 17:23:00 EST, Route to Pharmacy Electronically, [facility] [...] Status: Ordered BD UF MINI PEN NEEDLE [id number] BD UF MINI PEN NEEDLE [id number], See Instructions, # 300 Unknown, 3 Refills, [...] Refills, Soft Stop, 03/16/22 11:01:00 EDT, Tablet, [facility]/pharmacy #[id number], Partial fill upon patient request [...] times a day, # 60 tablet, Refills 1, Maintenance, 08/05/22 12:37:00 EST, Route to Pharmacy Electronically, [facility], 183, cm, 05/01/22 21:57:00 EDT, Height, 136, kg, 05/01/22 21:57:00 EDT, Dry Weight Start Date: 08/05/22 Status: Ordered Freestyle Lite Lancets See Instructions, [...] 03/16/22 10:59:00 EDT, Route to Pharmacy Electronically, [facility]/pharmacy#[id number], Partial fill upon patient request if the pre... Start Date: 03/16/22 Stop Date: 12/11/22 Status: Ordered Pen Lamar, 31 G x 8 mm BD Ultra [...] SUPPER, # 90 tablet, 1 Refills, 07/25/22 17:20:00[facility], 183, cm, [...] Personnel Name: Anton DIAZ, Tita Culp Position: [facility] Associate Professional Member Role: Primary Care Nurse Address: Address: [address] [place] [address] Tra[facility] [place], [place] [address] Name: Vaishnavi Mack Position: [facility] [place] Office Staff Member Role: Lifetime Consulting Physician Name: Kenia Montez RN Position: [facility] RN Member Role: Primary Care Nurse Name: Serena Starr RN Position: [facility] PCO RN Member Role: Primary Care Nurse Name: Amelie Easley RN Position: [facility] RN Member Role: Primary Care Nurse Name: Gina Zee RN Position: [facility] RN Member Role: Primary Care Nurse Name: Olga Nielsen Position: [facility] Outreach Member Role: Lifetime Consulting Physician Name: Francisca Madera RN Position: [facility] RN Member Role: Primary Care Nurse Name: Aakash Bowman RN Position: [facility] RN Member Role: Primary Care Nurse Name: Ced Page RN Position: [facility] RN Member Role: Primary Care Nurse Name: Jerri Moctezuma RN Position: [facility] RN Member Role: Primary Care Nurse Name: Damari Coates RN Position: [facility] SN RN Member Role: Primary Care Nurse Name: Michelle Paul RN Position: [facility] RN Member Role: Primary Care Nurse Name: Gema Chu RN Position: [facility] RN Member Role: Primary Care Nurse Name: Yenni Ledezma RN Position: [facility] RN Member Role: Primary Care Nurse Name: Benja Camarena MD Position: [facility] Renal MD Member Role: Lifetime Consulting Physician Address: Address: [address] [place] [address] [address] [facility] [place] [address]- Name: Herbie Mullen MD Position: [facility] Renal MD Member Role: Lifetime Consulting Physician Address: Address: [address] [place] [address] [facility] [place] [address]- Name: Ayo Walter RN Position: [facility] ED RN W/OE and Tasks Member Role: Primary Care Nurse Name: Bri Becerril MD Position: [facility] Primary Care Physician Member Role: PCP Address: Address: [address] [place] [address], [address] [place] [address]- [place] Name: Marge Haas RN Position: [facility] RN Member Role: Primary Care Nurse Name: Mckenzie Gallo RN Position: [facility] RN Member Role: Primary Care Nurse Care Team Related Persons Name: MICHELLE RAE Address: home [address] [facility] [address] [place] [address] Name: KEILY HERNANDEZ Address: home [address] [place] [address] Name: CHUY MAYO
--- OUTSIDE RECORDS SUMMARY | 2023-05-27 03:11 | XMS_ITS | Continuity of Care Document ---
Author Name Unknown Organization [facility] Address [address] [place] [address]- Care Team Providers Care Sterile Processing Tech Name Role Phone Bri Becerril MD Primary Care Physician [phone] [place] [facility] 03/16/22 - 03/17/[address] [address]- Encounter Diagnosis Shortness of breath(Final) - 03/17/22 Discharge Disposition: A-D/C Home Attending Physician: Yovany Perez MD Admitting Physician: Yovany Perez MD Referring Physician: Not on Staff, Referring [...] Recorded Pneumococcal Vaccine (oldterm) 3 05/22/07 Given 1Early/Late Reason: Med Not Available 2Result Comment: Pt did give verbal consent to receive the Cricket COVID vaccine 3Result Comment: Lot# [id number] Exp 01/29/09 Medications albuterol 0.083% inhalation solution 3 mL = 2.5 mg, Inhalation, Every 6 hours, PRN for wheezing, # 60 each, 2 Refills, Maintenance, 12/08/21 15:07:00 EDT, Solution, [facility]/pharmacy #1234, 178, cm, 12/06/21 13:33:00 EDT, Height, 139, kg, 11/26/21 17:26:00 EST, Dry Weight Start Date: 12/08/21 Status: Ordered amLODIPine 5 mg oral tablet 5 mg, 1, tablet, By Mouth, Daily, # 90 tablet, Refills 1, Tot. Refills 1, Maintenance, 12/27/21 14:28:00 EDT, Route to Pharmacy Electronically, [facility]/pharmacy #1234, Partial fill upon patient request if the prescription is for a schedule II opioid drug.... Start Date: 12/27/21 Status: Ordered Aspirin Low Dose 81 mg oral delayed release tablet See Instructions, TAKE 1 TABLET BY MOUTH DAILY, # 90 tablet, 0 Refills, Soft Stop, 12/27/21 14:29:00 EDT, [facility]/pharmacy #1234, 180, cm, 12/24/21 7:50:00 EDT, Height, 127.8, kg, 12/22/21 22:17:00 EDT, Dry Weight Start Date: 12/27/21 Status: Ordered atorvastatin 40 mg oral tablet 1 tablet, By Mouth, Daily at bedtime, # 90 tablet, 0 Refills, Maintenance, 12/27/21 14:28:00 EDT, [facility]/pharmacy #1234, 180, cm, 12/24/21 7:50:00 EDT, Height, 127.8, kg, 12/22/21 22:17:00 EDT, Dry Weight Start Date: 12/27/21 Status: Ordered BD UF MINI PEN NEEDLE [id number] BD UF MINI PEN NEEDLE [id number], See Instructions, # 300 Unknown, 3 Refills, USE TO INJECT INSULIN 3 TIMES DAILY, 180, cm, 01/07/22 16:17:00 EDT, Height, 127.8, kg, 12/27/21 17:00:00 EDT, Dry Weight Start Date: 02/01/22 Status: Ordered cefpodoxime 200 mg oral tablet 1 tablet = 200 mg, By Mouth, 2 times a day, # 6 tablet, 0 Refills, Soft Stop, 03/16/22 11:01:00 EDT, Tablet, [facility]/pharmacy #1234, Partial fill upon patient request if [...] 01/19/22 15:07:00 EDT, Route to Pharmacy Electronically, [facility]/pharmacy #1234, Partial fill upon patient request if the prescription is for a schedule II opioid drug... Start Date: 01/19/22 Status: Ordered doxazosin 4 mg oral tablet 1 tablet, By Mouth, Daily at bedtime, # 90 tablet, 0 Refills, Maintenance, 12/27/21 14:32:00 EDT, [facility]/pharmacy #1234, 180, cm, 12/24/21 7:50:00 EDT, Height, [...] 12/08/21 15:08:00 EDT, Route to Pharmacy Electronically, [facility]/pharmacy #1234, 178, cm,12/06/21 13:33:00 EDT, Height, 139, kg, 11/26/21 17... Start Date: 12/08/21 Stop Date: 06/06/22 Status: Ordered gabapentin 600 mg oral tablet 1 tablet = 600 mg, By Mouth, 3 times a day, # 90 tablet, 1 Refills, Maintenance, 12/08/21 15:08:00 EDT, Tablet, [facility]/pharmacy #1234, 178, cm, 12/06/21 13:33:00 EDT, Height, 139, kg, 11/26/21 17:26:00 EST, Dry Weight Start Date: 12/08/21 Status: Ordered glipiZIDE 2.5 mg oral tablet, extended release 1 tablet = 2.5 mg, By Mouth, Daily, # 90 tablet, 0 Refills, Maintenance, 06/06/22 15:08:00 EDT, ER Tablet, [facility]/pharmacy #1234, 180, cm, 12/24/21 7:50:00 EDT, Height, 127.8, kg, 12/22/21 22:17:00 EDT,Dry Weight Start Date: 06/06/22 Status: Ordered glipiZIDE 2.5 mg oral tablet, extended release 1 tablet = 2.5 mg, By Mouth, Daily, for 90 days, # 90 tablet, 1 Refills, Hard Stop 06/06/22 15:08:00 EDT, 12/08/21 15:08:00 EDT, ER Tablet, [facility]/pharmacy #1234, 178, cm, 12/06/21 13:33:00 EDT, Height,139, [...] 350 - 399 22 units... Start Date: 03/10/22 Status: Ordered Insulin Lispro KwikPen 100 units/mL injectable solution See Instructions, Inject 12-26 units subcut three tines daily before meals based on sliding scale Discontinue Lispro vials, # 45 mL, 3 Refills, Maintenance, 01/05/22 13:05:00 EDT, [facility]acy #1234,Partial fill upon patient request if the prescript... Start Date: 01/05/22 Status: Ordered Lantus 100 u/ml subcutaneous solution = 30 units, Subcutaneous Injection, Daily, # 15 mL, 3 Refills, Maintenance, 03/10/22 15:10:00 EDT, Injection, [facility]/pharmacy #1234, Partial fill upon patient request if the prescription is for a schedule II opioid drug., 180, cm, 03/10/22 10:59:00 EDT,... Start Date: 03/10/22 Status: Ordered Lantus Solostar Pen 100 units/mL subcutaneous solution See Instructions, 30 units Subcutaneous Injection Daily Discontinue Lantus vials, # 45 mL, 3 Refills, Maintenance, 01/05/22 13:03:00 EDT, Solution, [facility]/pharmacy #1234, Partial fill upon patient request if [...] 03/13/22 16:15:00 EDT, Route to Pharmacy Electronically, [facility]/pharmacy #1234, Partial fill upon patient request if the prescription is for a schedule II opioid drug... Start Date: 03/13/22 Status: Ordered metoprolol 50 mg oral tablet 50 mg, 1, tablet, By Mouth, 2 times a day, # 180 tablet, Refills 2, Tot. Refills 2, Maintenance, 03/16/22 10:59:00 EDT, Route to Pharmacy Electronically, [facility]/pharmacy #1234, Partial fill upon patientrequest if the prescription is for a schedule II op... Start Date: 03/16/22 Stop Date: 12/11/22 Status: Ordered Pen Ogden, 31 G x 8 mm BD Ultra [...] 06/06/2215:09:00 EDT, 12/08/21 15:09:00 EDT, EC Tablet, [facility]/pharmacy #1234, 178, cm, 12/06/21 13:33:00 EDT,Height, 139, kg, 11/26/21 17:26:00 EST, Dry Weight Start Date: 12/08/21 Stop Date: 06/06/22 Status: Ordered Trulicity Pen 1.5 mg/0.5 mL subcutaneous solution 0.5 mL = 1.5 mg, Subcutaneous Injection, Every week, rotate injection sites, # 6.5 mL, 3 Refills, Maintenance, 12/27/21 14:31:00 EDT, Solution, [facility]/pharmacy #1234, Partial fill upon patient request if [...] # 90 tablet, 1 Refills, 02/10/22 23:04:00EDT, [facility]/pharmacy #1234, 180, cm, 01/07/22 16:17:00 EDT, Height, [...] Exam Date Time Procedure Performing Provider Status 03/16/22 7:58 PM Chest 2 Views Frontal and Lat Paula Mulligan (Verified) Notes: (Chest 2 Views Frontal and Lat) Reason For Exam: Chest Pain;Other: RESULT: Chest 2 Views Frontal and Lat Chest 2 Views Frontal and Lat Hx of Present Illness: pt reports SOB x2 days, I was in [facility] and I told them and they still sent me home , assoc. dry cough. denies any other complaints.; Reason: Other:; Chest Pain; Clinical Question(s): Other: COMPARISON: 03/12/2022 FINDINGS: LINES AND TUBES: None. LUNGS AND PLEURA: Clear lungs. Normal pulmonary vascularity. No pleural effusion. No pneumothorax. HEART, MEDIASTINUM AND CINTHIA: Heart is normal in size. Normal upper mediastinal and hilar contour. BONES AND SOFT TISSUES: No acute abnormality. IMPRESSION: No acute abnormality. WSN: [id number] Ordering Physician: Fang Joseph Dictated By: Katharine DE LA ROSA, Luiz Mosquera Dictated Date/Time: 03/16/22 8:00 pm Reviewed By: Luiz Alcantar MD Signed By: Luiz Alcantar MD Signed Date/Time: 03/16/22 8:00 pm Transcribed By: JOSÉ Transcribed Date/Time: 03/16/22 8:00 pm Vital Signs Most recent to oldest [Reference Range]: 1 2 3 Oxygen Saturation [94-100 %] 95 % (03/17/22 5:01 AM) 98 % (03/17/22 12:21 AM) 100 % (03/16/22 10:09 PM) Pulse Rate [55-90 bpm] 66 bpm (03/17/22 5:01 AM) 68 bpm (03/17/22 12:21 AM) 55 bpm (03/16/22 10:09 PM) Blood Pressure [90-138/55-84 mm Hg] 133/62mm Hg (03/17/22 5:01 AM) 118/62mm Hg (03/17/22 12:21 AM) 117/64mm Hg (03/16/22 10:09 PM) Respiratory Rate [16-30 br/min] 18 br/min (03/17/22 5:01 AM) 16 br/min (03/16/22 10:09 PM) 20 br/min (03/16/22 6:15 PM) Temperature [96.8-100.4 DegF] 97.5 DegF (03/17/22 12:21 AM) 97.6 DegF (03/16/22 10:03 PM) 97.3 DegF (03/16/22 8:12 PM) Mode of Delivery (Oxygen) Room air (03/17/22 5:01 AM) Room air (03/16/22 10:09 PM) Room air (03/16/22 10:03 PM) Blood pressure sites Arm, right (03/17/22 12:21 AM) Arm, right (03/16/22 10:09 PM) Arm, left (03/16/22 10:03 PM) Temperature Route Oral (03/17/22 12:21 AM) Temporal (03/16/22 10:03 PM) Temporal (03/16/22 8:12 PM) Social History Social History Type Response Smoking Status Former smoker, quit more than 30 days ago; Patient wants NRT during admission No; Type: Cigarettes; Other: quit 2020. one years ago. Started at age 14 at 2 packs a day to start and one pack a week after that.; entered on: 03/10/22 Sex
--- OUTSIDE RECORDS SUMMARY | 2023-05-27 03:11 | XMS_ITS | Continuity of Care Document ---
Author Name Unknown Organization [facility] Address [address] [place] [address]- Care Team Providers Care Limousine Driver Name Role Phone Dom DE LA ROSA, Tylor A Primary Care Physician [phone] Encounter [facility] Date(s): 03/23/21 - 04/22/21 [facility] [address] [place] [address]- Attending Physician: Admtr, Ar8 Admitting Physician: Admtr, Ar8 Referring Physician: Admtr, Ar8 Allergies, Adverse Reactions, [...] 2 Refills, Maintenance, 09/05/19 10:10:00 EST, Solution, [facility] #[id number], 183, cm, 08/30/19 19:46:00 EST, Height, 141, kg, 08/30/19 19:46:00 EST, Dry Weight Start Date: 09/05/19 Status: Ordered amLODIPine 5 mg oral tablet 5 mg, 1, tablet, By Mouth, Daily, # 30 tablet, Refills 1, Tot. Refills 1, Maintenance, 04/03/21 13:27:00 EDT, Route to Pharmacy Electronically, [facility]/pharmacy #1234, Partial fill upon patient request if the prescription is for a schedule II opioid drug.... Start Date: 04/03/21 Status: Ordered Aspirin Low Dose 81 mg oral delayed release tablet See Instructions, # 90 tablet, Refills 1 Tot. Refills 1, TAKE 1 TABLET BY MOUTH DAILY, [facility] #[id number] Start Date: 06/24/19 Status: Ordered atorvastatin 40 mg oral tablet 1 tablet, By Mouth, Daily at bedtime, # 90 tablet, 1 Refills, Maintenance, 11/23/20 11:14:00 EST, [facility] #[id number], 179, cm, 11/11/20 11:50:00 EST, Height, 120.5, [...] 5 Refills, Maintenance, 04/03/21 13:35:00 EDT, [facility]/pharmacy #1234, Partial fill upon patient request if the prescription is for a schedule II opioid drug., For wound dressing, 183, cm, 03/17/21 11:22:00... Start Date: 04/03/21 Status: Ordered clopidogrel 75 mg oral tablet 75 mg, 1, tablet, By Mouth, Daily, # 42 tablet, Refills 0, Tot. Refills 0, Maintenance, 03/04/21 10:46:00 EDT, Route to Pharmacy Electronically, [facility], Partial fill upon patient request if the prescription is for a schedule II opioi... Start Date: 03/04/21 Stop Date: 04/15/21 Status: Ordered doxazosin 4 mg oral tablet 1 tablet, By Mouth, Daily at bedtime, # 90 tablet, 1 Refills, Maintenance, 07/31/20 13:33:00 EST, [facility] #[id number], 183, cm, 06/09/20 12:58:00 EDT, Height, 141, kg, 02/21/20 1:50:00 EDT, Dry Weight Start Date: 07/31/20 Status: Ordered furosemide 20 mg oral tablet 1, tablet, By Mouth, Daily, # 90 tablet, Refills 1, Tot. Refills 1, Maintenance, 12/23/19 9:21:00 EDT, Route to Pharmacy Electronically, [facility] #[id number], 183, cm, 11/21/19 15:07:00 EST, Height, 137, kg, 11/15/19 0:16:00 EST, Dry Weight Start Date: 12/23/19 Stop Date: 06/20/20 Status: Ordered gabapentin 600 mg oral tablet 1 tablet = 600 mg, By Mouth, 3 times a day, # 90 tablet, 1 Refills, Maintenance, 10/30/20 13:02:00 EST, Tablet, [facility] #[id number], 179, cm, 10/18/20 16:27:00 EST, Height, 120.5, kg, 10/18/20 16:27:00 EST, Dry Weight Start Date: 10/30/20 Status: Ordered glipiZIDE 2.5 mg oral tablet, extended release 1 tablet = 2.5 mg, By Mouth, Daily, # 90 tablet, 1 Refills, Maintenance, 05/08/20 13:04:00 EDT, ER Tablet, [facility] #[id number], 183, cm, 02/22/20 3:42:00 EDT, Height, 141, [...] 5 Refills, Maintenance, 04/03/21 13:20:00 EDT, [facility]/pharmacy #1234,... Start Date: 04/03/21 Stop Date: [...] Refills, Maintenance, 11/16/20 9:25:00 EST, EC Tablet, [facility] #65566, 179, cm, 11/11/20 11:50:00 EST, Height, 120.5, kg, 10/18/20 16:27:00 EST, Dry Weight Start Date: 11/16/20 Stop Date: 05/15/21 Status: Ordered Trulicity Pen 1.5 mg/0.5 mL subcutaneous solution 0.5 mL = 1.5 mg, Subcutaneous Injection, Every week, rotate injection sites, # 2 mL, 6 Refills, Maintenance, 10/21/20 13:40:00 EST, Solution, [facility] #[id number], Partial fill upon patient request if the prescription is for a schedule II opioi... Start Date: 10/21/20 Status: Ordered Ventolin HFA 108 mcg/inh inhalation aerosol with adapter 2 puffs, Inhalation, Every 4 hours, # 18 Gm, 1 Refills, Maintenance, 11/11/19 13:17:00 EST, [facility] #[id number], 183, cm, 10/31/19 14:18:00 EST, Height, 141, kg, 08/30/19 19:46:00 EST, Dry Weight Start Date: 11/11/19 Status: Ordered Vitamin D3 1000 intl units oral tablet 1 tablet = 1,000 International_Units, By Mouth, Daily, # 90 tablet, 1 Refills, Maintenance, 12/11/19 12:04:00 EDT, Tablet, [facility] #[id number], 183, cm, 11/21/19 15:07:00 EST, Height, 137, [...]
--- OUTSIDE RECORDS SUMMARY | 2023-05-27 03:11 | XMS_ITS | Continuity of Care Document ---
Author Name Unknown Organization [facility] Address [address] [place] [address]- Care Team Providers Care Sandblasting Supervisor Name Role Phone Jone DE LA ROSA, Bri Barrett Primary Care Physician Encounter [facility] Date(s): 09/08/22 - 11/23/22 [facility] [address] [place], [place] [address] Attending Physician: Babak De La Cruz MD [...] Vaccine Date Status Refusal Reason SARS-CoV-2 mRNA ([id number]) vax 4 03/19/22 Not Given Patient Refuses [...] tablet, 0 Refills, Maintenance, 10/28/22 16:20:00 [facility], 183, cm, 05/01/22 21:57:00 EDT, Height, [...] Status: Ordered BD UF MINI PEN NEEDLE [id number] BD UF MINI PEN NEEDLE [id number], See Instructions, # 300 Unknown, 3 Refills, [...] Refills, Soft Stop, 03/16/22 11:01:00 EDT, Tablet, [facility]/pharmacy #[id number], Partial fill upon patient [...] 9:33:00 EST, Route to Pharmacy Electronically, [facility], 183, cm, 05/01/22 21:57:00 EDT, Height, [...] 03/16/22 10:59:00 EDT, Route to Pharmacy Electronically, [facility]/pharmacy#1234, Partial fill upon patient request if the pre... Start Date: 03/16/22 Stop Date: 12/11/22 Status: Ordered Pen [place], 31 G x 8 mm BD Ultra [...] 11:46:00 EST, Route to Pharmacy Electronically, [facility], 183, cm, 05/01/22 21:57:00 EDT, Height, [...] 0 Refills, Maintenance, 10/28/22 11:45:00 EST, [facility], 183, cm, 05/01/22 21:57:00 EDT, Height, [...] Team Personnel Name: Tita Walton NP Position: [facility] Associate Professional Member Role: Primary Care Nurse Address: Address: [address] [place] [address] Trauma Services [address] Name: Vaishnavi Mack Position: [facility] BRANDON Office Staff Member Role: Lifetime Consulting Physician Name: Kenia Montez RN Position: [facility] RN Member Role: Primary Care Nurse Name: Serena Starr RN Position: [facility] AMB Nurse Member Role: Primary Care Nurse Name: Amelie Easley RN Position: [facility] ED RN W/OE and Tasks Member Role: Primary Care Nurse Name: Gina Zee RN Position: [facility] RN Member Role: Primary Care Nurse Name: Olga Nielsen Position: [facility] Outreach Member Role: Lifetime Consulting Physician Name: Francisca Madera RN Position: [facility] RN Member Role: Primary Care Nurse Name: Aakash Bowman RN Position: [facility] RN Member Role: Primary Care Nurse Name: Ced Page RN Position: [facility] RN Member Role: Primary Care Nurse Name: Jerri Moctezuma RN Position: [facility] RN Member Role: Primary Care Nurse Name: Damari Coates RN Position: [facility] RN Member Role: Primary Care Nurse Name: Michelle Paul RN Position: [facility] RN Member Role: Primary Care Nurse Name: Gema Chu RN Position: [facility] RN Member Role: Primary Care Nurse Name: Yenni Ledezma RN Position: [facility] RN Member Role: Primary Care Nurse Name: Benja Camarena MD Position: [facility] Renal MD Member Role: Lifetime Consulting Physician Address: Address: [address] [facility] [address] [facility] [place] [address]- Name: Herbie Mullen MD Position: [facility] Renal MD Member Role: Lifetime Consulting Physician Address: Address: [address] [facility] [place] [address]- Name: Ayo Walter RN Position: [facility] ED RN W/OE and Tasks Member Role: Primary Care Nurse Name: Jone DE LA ROSA, Bri Barrett Position: [facility] Primary Care Physician Member Role: PCP Address: Address: [address] [place] [address], [address] [place] [address]- [place] Name: Marge Haas RN Position: [facility] Onco RN Member Role: Primary Care Nurse Name: Mckenzie Gallo RN Position: S RN Member Role: Primary Care Nurse Care Team Related Persons Name: MICHELLE RAE Address: home [address] [facility] [address] [place], [place] Name: KEILY HERNANDEZ Address: home [address] [place] [address] Name: CHUY MAYO
--- OUTSIDE RECORDS SUMMARY | 2023-05-27 03:11 | XMS_ITS | Continuity of Care Document ---
Author Name Unknown Organization [facility] Address [address] [place] [address]- Care Team Providers Care Hot Dip Tinning Supervisor Name Role Phone Bri Becerril MD Primary Care Physician [phone] Encounter [facility] Date(s): 05/04/22 - 07/16/22 [facility] [address] [place] [address]- Attending Physician: Babak De La Cruz MD [...] Vaccine Date Status Refusal Reason SARS-CoV-2 mRNA ([id number]) vax 4 03/19/22 Not Given Patient Refuses [...] Status: Ordered BD UF MINI PEN NEEDLE [id number] BD UF MINI PEN NEEDLE [id number], See Instructions, # 300 Unknown, 3 Refills, [...] Refills, Soft Stop, 03/16/22 11:01:00 EDT, Tablet, [facility]/pharmacy #1234, Partial fill upon [...] tablet, 1 Refills, Maintenance, 06/24/22 10:13:00 EDT, [facility], 183, cm, 05/01/22 21:57:00 EDT, Height, 136, [...] 03/16/22 10:59:00 EDT, Route to Pharmacy Electronically, [facility]/pharmacy#1234, Partial fill upon patient request if the pre... Start Date: 03/16/22 Stop Date: 12/11/22 Status: Ordered Pen [place], 31 G x 8 mm BD Ultra [...] # 180 tablet, 0 Refills, Hard Stop 229:33:00 EST, 05/31/22 9:33:00 EDT, EC Tablet, [facility] [...] 07/08/22 16:12:00 EDT, Route to Pharmacy Electronically, [facility]/pharmacy #1234, 183, cm, 05/01/22 21:57:00 EDT, Height, [...] 1 Refills, Maintenance, 05/31/22 9:33:00 EDT, [facility], 183, cm, 05/01/22 21:57:00 [...] # 90 tablet, 1 Refills, 05/31/22 14:45:00EDT, [facility], 183, cm, 05/01/22 21:57:00 EDT, [...] DE LA ROSA, Bri Barrett Address: Address: [address] [place] [address], [address] [place], [place] [address]
--- OUTSIDE RECORDS SUMMARY | 2023-05-27 03:11 | XMS_ITS | Continuity of Care Document ---
Author Name Unknown Organization [facility] Address [address] [place] [address]- Care Team Providers Care Puppy Trainer Name Role Phone Jone DE LA ROSA, Bri Barrett Primary Care Physician [phone] Encounter [facility] Date(s): 12/06/21 - 01/05/22 [facility] [address] [place], [place] [address] Attending Physician: Marlin Steen Admitting Physician: AdmtrMarlin Referring Physician: Admtr, Ar8 Allergies, Adverse Reactions, Alerts No Known Medication [...] med, # 14 tablet, 0 Refills, Acute 01/06/22 16:09:00 EDT, 12/30/21 16:09:00 EDT, Tablet, [facility]/pharmacy #1234, Partial fill upon patien... Start Date: 12/30/21 Stop Date: 01/06/22 Status: Ordered albuterol 0.083% inhalation solution 3 mL = 2.5 mg, Inhalation, Every 6 hours, PRN for wheezing, # 60 each, 2 Refills, Maintenance, 12/08/21 15:07:00 EDT, Solution, [facility]/pharmacy #1234, 178, cm, 12/06/21 13:33:00 EDT, Height, 139, kg, 11/26/21 17:26:00 EST, Dry Weight Start Date: 12/08/21 Status: Ordered amLODIPine 5 mg oral tablet 5 mg, 1, tablet, By Mouth, Daily, # 90 tablet, Refills 1, Tot. Refills 1, Maintenance, 12/27/21 14:28:00 EDT, Route to Pharmacy Electronically, [facility]/pharmacy #1234, Partial fill upon patient request if the prescription is for a schedule II opioid drug.... Start Date: 12/27/21 Status: Ordered Aspirin Low Dose 81 mg oral delayed release tablet See Instructions, TAKE 1 TABLET BY MOUTH DAILY, # 90 tablet, 0 Refills, Soft Stop, 12/27/21 14:29:00 EDT, [facility]/pharmacy #1234, 180, cm, 12/24/21 7:50:00 EDT, Height, 127.8, kg, 12/22/21 22:17:00 EDT, Dry Weight Start Date: 12/27/21 Status: Ordered atorvastatin 40 mg oral tablet 1 tablet, By Mouth, Daily at bedtime, # 90 tablet, 0 Refills, Maintenance, 12/27/21 14:28:00 EDT, [facility]/pharmacy #1234, 180, cm, 12/24/21 7:50:00 EDT, [...] 01/19/22 15:07:00 EDT, Route to Pharmacy Electronically, [facility]/pharmacy #1234, Partial fill upon patient request if the prescription is for a schedule II opioid drug... Start Date: 01/19/22 Status: Ordered clopidogrel 75 mg oral tablet 75 mg, 1, tablet, By Mouth, Daily, for 42 days, # 42 tablet, Refills 0, Tot. Refills 0, Hard Stop 01/19/22 15:07:00 EDT, 12/08/21 15:07:00 EDT, Route to Pharmacy Electronically, [facility]/pharmacy #1234, Partial fill upon patient request if the prescription... Start Date: 12/08/21 Stop Date: 01/19/22 Status: Ordered doxazosin 4 mg oral tablet 1 tablet, By Mouth, Daily at bedtime, # 90 tablet, 0 Refills, Maintenance, 12/27/21 14:32:00 EDT, [facility]/pharmacy #1234, 180, cm, 12/24/21 7:50:00 EDT, Height, 127.8, kg, 12/22/21 22:17:00 EDT, Dry Weight Start Date: 12/27/21 Status: Ordered Freestyle Lite Monitor See Instructions, # 1 each, Refills 0, Tot. Refills 0, Maintenance, Use to check glucose four timesdaily Dx:E11.9, 01/05/22 13:06:00 EDT, Supply, 180, cm, 12/27/21 17:00:00 EDT, Height, 127.8, kg, 12/27/21 17:00:00 EDT, Dry Weight Start Date: 01/05/22 Stop Date: 04/05/22 Status: Ordered furosemide 20 mg oral tablet 1, tablet, By Mouth, Daily, # 90 tablet, Refills 0, Tot. Refills 0, Maintenance, 12/27/21 14:32:00 EDT, Route to Pharmacy Electronically, [facility]/pharmacy #1234, 180, cm, 12/24/21 7:50:00 EDT, Height, 127.8, kg, 12/22/21 22:17:00 EDT, Dry Weight Start Date: 12/27/21 Status: Ordered furosemide 20 mg oral tablet 1, tablet, By Mouth, Daily, for 90 days, # 90 tablet, Refills 1, Tot. Refills 1, Hard Stop 06/06/2215:08:00 EDT, 12/08/21 15:08:00 EDT, [facility] 178, cm,12/06/21 13:33:00 EDT, Height, 139, kg, 11/26/21 17... Start Date: 12/08/21 Stop Date: 06/06/22 Status: Ordered gabapentin 600 mg oral tablet 1 tablet = 600 mg, By Mouth, 3 times a day, # 90 tablet, 1 Refills, Maintenance, 12/08/21 15:08:00 EDT, Tablet, [facility]/pharmacy #1234, 178, cm, 12/06/21 13:33:00 EDT, Height, 139, kg, 11/26/21 17:26:00 EST, Dry Weight Start Date: 12/08/21 Status: Ordered glipiZIDE 2.5 mg oral tablet, extended release 1 tablet = 2.5 mg, By Mouth, Daily, # 90 tablet, 0 Refills, Maintenance, 06/06/22 15:08:00 EDT, ER Tablet, [facility]/pharmacy #1234, 180, cm, 12/24/21 7:50:00 EDT, Height, 127.8, kg, 12/22/21 22:17:00 EDT,Dry Weight Start Date: 06/06/22 Status: Ordered glipiZIDE 2.5 mg oral tablet, extended release 1 tablet = 2.5 mg, By Mouth, Daily, for 90 days, # 90 tablet, 1 Refills, Hard Stop 06/06/22 15:08:00 EDT, 12/08/21 15:08:00 EDT, ER Tablet, [facility]/pharmacy #1234, 178, cm, 12/06/21 13:33:00 EDT, Height,139, [...] 22 units... Start Date: 12/27/21 Status: Ordered Insulin Lispro KwikPen 100 units/mL [...] 3 Refills, Maintenance, 12/27/21 14:33:00 EDT, Injection, [facility], Partial fill upon patient request if the prescription is for a schedule II opioid drug., 180, cm, 12/24/21 7:50:00 EDT, H... Start Date: 12/27/21 Status: Ordered Lantus Solostar Pen 100 units/mL subcutaneous solution See Instructions, 30 units Subcutaneous Injection Daily Discontinue Lantus vials, # 45 mL, 3 Refills, Maintenance, 01/05/22 13:03:00 EDT, Solution, [facility], Partial fill upon patient request if the prescription is for a schedule II opioid... Start Date: 01/05/22 Status: Ordered Left BKA prosthetic Left BKA [...] 12/27/21 14:35:00 EDT, Route to Pharmacy Electronically, [facility], Partial fill upon patientrequest if the prescription is for a schedule II op... Start Date: 12/27/21 Status: Ordered PriLOSEC OTC 20 mg oral delayed release tablet 1 tablet = 20 mg, By Mouth, 2 times a day, # 180 tablet, 0 Refills, Maintenance, 06/06/22 15:09:00 EDT, EC Tablet, [facility]/pharmacy #1234, 180, cm, 12/24/21 7:50:00 EDT, Height, 127.8, kg, 12/22/21 22:17:00 EDT, Dry Weight Start Date: 06/06/22 Status: Ordered PriLOSEC OTC 20 mg oral delayed release tablet 1 tablet = 20 mg, By Mouth, 2 times a day, for 90 days, # 180 tablet, 1 Refills, Hard Stop 06/06/2215:09:00 EDT, 12/08/21 15:09:00 EDT, EC Tablet, [facility]/pharmacy #1234, 178, cm, 12/06/21 13:33:00 EDT,Height, [...] 1 Refills, Maintenance, 12/08/21 15:07:00 EDT, Tablet, [facility]/pharmacy #1234, 178, cm, 12/06/21 13:33:00 EDT, Height, 139, kg, 11/26/21 17:26:00 EST, Dry Weight Start Date: 12/08/21 Stop Date: 06/06/22 Status: Ordered Xarelto 20 mg oral tablet 1 tablet = 20 mg, By Mouth, Daily at supper, # 30 tablet, 0 Refills, Maintenance, 12/08/21 15:09:00EDT, Tablet, [facility]/pharmacy #1234, Partial fill upon patient [...]
--- OUTSIDE RECORDS SUMMARY | 2023-05-27 03:11 | XMS_ITS | Continuity of Care Document ---
Author Name Unknown Organization [facility] Address [address] [place] [address]- Care Team Providers Care Coining Press Operator Name Role Phone Bri Becerril MD Primary Care Physician [phone] Encounter [facility] Date(s): 09/19/19 - 09/19/[address] [address]- [facility] Attending Physician: Bri Becerril MD Allergies, Adverse Reactions, Alerts Substance Reaction [...] 2 Refills, Maintenance, 09/05/19 10:10:00 EST, Solution, [facility] #[id number], 183, cm, 08/30/19 19:46:00 EST, Height, 141, kg, 08/30/19 19:46:00 EST, Dry Weight Start Date: 09/05/19 Status: Ordered amLODIPine 10 mg oral tablet 10 mg, 1, tablet, By Mouth, Daily, # 90 tablet, Refills 1, Tot. Refills 1, Maintenance, 07/17/19 11:36:27 EDT, Print Requisition Start Date: 07/17/19 Status: Ordered Aspirin Low Dose 81 mg oral delayed release tablet See Instructions, # 90 tablet, Refills 1 Tot. Refills 1, TAKE 1 TABLET BY MOUTH DAILY, [facility][id number] Start Date: 06/24/19 Status: Ordered atorvastatin 40 mg oral tablet See Instructions, # 90 tablet, Refills 1 Tot. Refills 1, TAKE 1 TABLET BY MOUTH DAILY AT BEDTIME, [facility] #[id number] Start Date: 06/14/19 Status: Ordered Basaglar KwikPen 100 units/mL subcutaneous solution See Instructions, Subcutaneous Infusion Inject 76 units every morning and 48 every evening, # 15 mL, 2 Refills, Maintenance, 03/29/19 17:39:00 EDT Start Date: 03/29/19 Status: Ordered clopidogrel 75 mg oral tablet See Instructions, # 90 tablet, Refills 1 Tot. Refills 1, TAKE 1 TABLET BY MOUTH DAILY, [facility] #[id number] Start Date: 06/24/19 Status: Ordered clotrimazole 1% topical cream 1 application, Topically, 2 times a day, for 14 days, # 60 Gm, 0 Refills, Acute 10/03/19 12:23:00 EST, 09/19/19 12:23:00 EST, Cream Start Date: 09/19/19 Stop Date: 10/03/19 Status: Ordered doxazosin 4 mg oral tablet 1 tablet = 4 mg, By Mouth, Daily, at bedtime, # 90 tablet, 1 Refills, Maintenance, 08/14/19 14:48:27 EST, Tablet Start Date: 08/14/19 Stop Date: 02/10/20 Status: Ordered furosemide 20 mg oral tablet 1 tablet, By Mouth, Daily, # 30 tablet, Refills 2 Tot. Refills 2, [facility] #[id number] Start Date: 08/19/19 Status: Ordered gabapentin 300 mg oral capsule 1 capsule, By Mouth, 2 times a day, # 60 capsule, Refills 1 Tot. Refills 1, [facility] #[id number] Start Date: 08/19/19 Status: Ordered Januvia 50 mg oral tablet 1 tablet = 50 mg, By Mouth, Daily, # 90 tablet, 1 Refills, Maintenance, 07/17/19 11:34:20 EDT, Tablet Start Date: 07/17/19 Stop Date: 11/12/19 Status: Ordered lisinopril 40 mg oral tablet See Instructions, # 90 tablet, Refills 1 Tot. Refills 1, TAKE 1 TABLET BY MOUTH DAILY, [facility] #[id number] Start Date: 06/24/19 Status: Ordered metFORMIN 500 mg oral tablet 2 tablet = 1,000 mg, By Mouth, 2 times a day, # 360 tablet, 1 Refills, Maintenance, 07/17/19 11:34:46 EDT, Tablet Start Date: 07/17/19 Status: Ordered methocarbamol 750 mg oral tablet See Instructions, TAKE 1 TABLET BY MOUTH THREE TIMES DAILY FOR 10 DAYS TAKE NEEDED FOR BACK PAIN.NOT TO DRIVE AFTER TAKING MED, # 30 tablet, 1 Refills, Soft Stop, 07/17/19 11:37:09 EDT Start Date: 07/17/19 Status: Ordered Metoprolol Tartrate 25 mg oral tablet 1 tablet, By Mouth, 2 times a day, # 60 tablet, Refills 1 Tot. Refills 1, [facility] #[id number] Start Date: 08/13/19 Status: Ordered OneTouch Verio Lancets See Instructions, # 1 box, Refills 3, Tot. Refills 3, Maintenance, use to check blood sugar 3 timesa day Dx: E11.9, 06/03/19 15:45:00 EDT, Compound Start Date: 06/03/19 Status: Ordered Ozempic (0.25 mg or 0.5 mg dose) 2 mg/1.5 mL subcutaneous solution See Instructions, # 1.5 mL, Refills 1 Tot. Refills 1, INJECT 0.25 MG(0.1875 ML) SUBCUTANEOUSLY EVERY WEEK FOR 4 WEEKS. DISCONTINUE TRULICITY, [facility] #[id number] Start Date: 08/19/19 Status: Ordered pantoprazole 40 mg oral delayed release tablet 1 tablet = 40 mg, By Mouth, Daily, # 30 tablet, 0 Refills, Maintenance, 12/29/17 1:18:44 EDT, EC Tablet Start Date: 12/29/17 Status: Ordered Ventolin HFA 108 mcg/inh inhalation aerosol with adapter 2 puffs, Inhalation, Every 4 hours, # 18 Gm, 1 Refills, Maintenance, 09/03/19 17:08:00 EST, [facility] #[id number], 183, cm, 08/30/19 19:46:15 EST, Height, 141, kg, 08/30/19 19:46:15 EST, Dry Weight Start Date: 09/03/19 Status: Ordered Problem List Condition Effective Dates Status Health Status Inform ant Anemia(Confirmed) Active Chronic back pain(Confirmed) Active Chronic kidney disease(Confirmed) Active Chronic obstructive pulmonar y disease (COPD)(Confirmed) Active Diabetic neuropathy(Confirmed) Active H/O: TIA(Confirmed) Active Heartburn(Confirmed) Active History [...]
--- OUTSIDE RECORDS SUMMARY | 2023-05-27 03:11 | XMS_ITS | Continuity of Care Document ---
Author Name Unknown Organization [facility] Address [address] [place] [address]- Care Team Providers Care Hole Digger Truck Driver Name Role Phone Bri Becerril MD Primary Care Physician Encounter [facility] Date(s): 07/29/21 - 08/28/21 [facility] [address] [place] [address]- Allergies, Adverse Reactions, Alerts No Known Medication [...] 2 Refills, Maintenance, 09/05/19 10:10:00 EST, Solution, [facility][id number], 183, cm, 08/30/19 19:46:00 EST, Height, 141, [...] 1, TAKE 1 TABLET BY MOUTH DAILY, [facility] #[id number] Start Date: 06/24/19 Status: Ordered atorvastatin 40 mg oral tablet 1 tablet, By Mouth, Daily at bedtime, # 90 tablet, 1 Refills, Maintenance, 11/23/20 11:14:00 EST, [facility] #[id number], 179, cm, 11/11/20 11:50:00 EST, Height, 120.5, kg, 10/18/20 16:27:00 EST, Dry Weight Start Date: 11/23/20 Status: Ordered Betadine 10% solution See Instructions, For wound dressing, # 1 each, 5 Refills, Maintenance, 04/03/21 13:35:00 EDT, [facility]/pharmacy #1234, Partial fill upon patient request if the prescription is for a schedule II opioid drug., For wound dressing, 183, cm, 03/17/21 11:22:00... Start Date: 04/03/21 Status: Ordered clopidogrel 75 mg oral tablet 75 mg, 1, tablet, By Mouth, Daily, # 42 tablet, Refills 0, Tot. Refills 0, Maintenance, 03/04/21 10:46:00 EDT, Route to Pharmacy Electronically, [facility], Partial fill upon patient request if the prescription is for a schedule II opioi... Start Date: 03/04/21 Stop Date: 04/15/21 Status: Ordered doxazosin 4 mg oral tablet 1 tablet, By Mouth, Daily at bedtime, # 90 tablet, 1 Refills, Maintenance, 07/31/20 13:33:00 EST, [facility] #[id number], 183, cm, 06/09/20 12:58:00 EDT, Height, 141, kg, 02/21/20 1:50:00 EDT, Dry Weight Start Date: 07/31/20 Status: Ordered furosemide 20 mg oral tablet 1, tablet, By Mouth, Daily, # 90 tablet, Refills 1, Tot. Refills 1, Maintenance, 12/23/19 9:21:00 EDT, Route to Pharmacy Electronically, [facility] #[id number], 183, cm, 11/21/19 15:07:00 EST, Height, 137, kg, 11/15/19 0:16:00 EST, Dry Weight Start Date: 12/23/19 Stop Date: 06/20/20 Status: Ordered gabapentin 600 mg oral tablet 1 tablet = 600 mg, By Mouth, 3 times a day, # 90 tablet, 1 Refills, Maintenance, 10/30/20 13:02:00 EST, Tablet, [facility] #59581, 179, cm, 10/18/20 16:27:00 EST, Height, 120.5, kg, 10/18/20 16:27:00 EST, Dry Weight Start Date: 10/30/20 Status: Ordered glipiZIDE 2.5 mg oral tablet, extended release 1 tablet = 2.5 mg, By Mouth, Daily, # 90 tablet, 1 Refills, Maintenance, 05/08/20 13:04:00 EDT, ER Tablet, [facility] #[id number], 183, cm, 02/22/20 3:42:00 EDT, Height, 141, [...] Refills, Maintenance, 11/16/20 9:25:00 EST, EC Tablet, [facility] #[id number], 179, cm, 11/11/20 11:50:00 EST, Height, 120.5, kg, 10/18/20 16:27:00 EST, Dry Weight Start Date: 11/16/20 Stop Date: 05/15/21 Status: Ordered Trulicity Pen 1.5 mg/0.5 mL subcutaneous solution 0.5 mL = 1.5 mg, Subcutaneous Injection, Every week, rotate injection sites, # 2 mL, 6 Refills, Maintenance, 10/21/20 13:40:00 EST, Solution, [facility] #[id number], Partial fill upon patient request if the prescription is for a schedule II opioi... Start Date: 10/21/20 Status: Ordered Ventolin HFA 108 mcg/inh inhalation aerosol with adapter 2 puffs, Inhalation, Every 4 hours, # 18 Gm, 1 Refills, Maintenance, 11/11/19 13:17:00 EST, [facility] #82559, 183, cm, 10/31/19 14:18:00 EST, Height, 141, kg, 08/30/19 19:46:00 EST, Dry Weight Start Date: 11/11/19 Status: Ordered Vitamin D3 1000 intl units oral tablet 1 tablet = 1,000 International_Units, By Mouth, Daily, # 90 tablet, 1 Refills, Maintenance, 12/11/19 12:04:00 EDT, Tablet, [facility] #16773, 183, cm, 11/21/19 15:07:00 EST, Height, 137, [...]
--- OUTSIDE RECORDS SUMMARY | 2023-05-27 03:11 | XMS_ITS | Continuity of Care Document ---
Author Name Unknown Organization [facility] ter Address [address] [place] [address]- Care Team Providers Care Greige Mender Name Role Phone Jone DE LA RSOA, Bri Barrett Primary Care Physician Encounter [facility] [place] Date(s): 02/24/21 - 03/04/[address] [address]- Discharge Disposition: A-D/C Home Attending Physician: Kaity DE LA ROSA, Irasema Admitting Physician: Maricel DE LA ROSA, Jaswinderligia Referring Physician: Not on Staff, Referring MD [...] 2 Refills, Maintenance, 09/05/19 10:10:00 EST, Solution, [facility] #[id number], 183, cm, 08/30/19 19:46:00 EST, Height, 141, kg, 08/30/19 19:46:00 EST, Dry Weight Start Date: 09/05/19 Status: Ordered amLODIPine 10 mg oral tablet 1 tablet, By Mouth, Daily, # 90 tablet, 0 Refills, Maintenance, 07/06/20 9:56:00 EDT, [facility] #[id number], 183, cm, 06/09/20 12:58:00 EDT, Height, 141, kg, 02/21/20 1:50:00 EDT, Dry Weight Start Date: 07/06/20 Status: Ordered amLODIPine 10 mg oral tablet 10 mg, Tablet, By Mouth, 03/04/21 9:00:00 EDT Start Date: 03/04/21 Stop Date: 03/04/21 Status: Completed Aspirin Low Dose 81 mg oral delayed release tablet See Instructions, # 90 tablet, Refills 1 Tot. Refills 1, TAKE 1 TABLET BY MOUTH DAILY, [facility] #[id number] Start Date: 06/24/19 Status: Ordered atorvastatin 40 mg oral tablet 1 tablet, By Mouth, Daily at bedtime, # 90 tablet, 1 Refills, Maintenance, 11/23/20 11:14:00 EST, [facility] #[id number], 179, cm, 11/11/20 11:50:00 EST, Height, 120.5, kg, 10/18/20 16:27:00 EST, Dry Weight Start Date: 11/23/20 Status: Ordered Basaglar KwikPen 100 units/mL subcutaneous solution See Instructions, Inject 78 units subcut every AM and 70 units every PM, # 12 mL, 3 Refills, Maintenance, 12/16/20 14:32:00 EDT Start Date: 12/16/20 Status: Ordered clopidogrel 75 mg oral tablet 75 mg, 1, tablet, By Mouth, Daily, # 42 tablet, Refills 0, Tot. Refills 0, Maintenance, 03/04/21 10:46:00 EDT, Route to Pharmacy Electronically, [facility], Partial fill upon patient request if the prescription is for a schedule II opioi... Start Date: 03/04/21 Stop Date: 04/15/21 Status: Ordered doxazosin 4 mg oral tablet 1 tablet, By Mouth, Daily at bedtime, # 90 tablet, 1 Refills, Maintenance, 07/31/20 13:33:00 EST, [facility] #[id number], 183, cm, 06/09/20 12:58:00 EDT, Height, 141, kg, 02/21/20 1:50:00 EDT, Dry Weight Start Date: 07/31/20 Status: Ordered furosemide 20 mg oral tablet 1, tablet, By Mouth, Daily, # 90 tablet, Refills 1, Tot. Refills 1, Maintenance, 12/23/19 9:21:00 EDT, Route to Pharmacy Electronically, [facility] #[id number], 183, cm, 11/21/19 15:07:00 EST, Height, 137, kg, 11/15/19 0:16:00 EST, Dry Weight Start Date: 12/23/19 Stop Date: 06/20/20 Status: Ordered gabapentin 300 mg oral capsule 600 mg, Capsule, By Mouth, 03/03/21 21:00:00 EDT Start Date: 03/03/21 Stop Date: 03/03/21 Status: Completed gabapentin 300 mg oral capsule 600 mg, Capsule, By Mouth, 03/04/21 9:00:00 EDT Start Date: 03/04/21 Stop Date: 03/04/21 Status: Completed gabapentin 600 mg oral tablet 1 tablet = 600 mg, By Mouth, 3 times a day, # 90 tablet, 1 Refills, Maintenance, 10/30/20 13:02:00 EST, Tablet, [facility] #[id number], 179, cm, 10/18/20 16:27:00 EST, Height, 120.5, kg, 10/18/20 16:27:00 EST, Dry Weight Start Date: 10/30/20 Status: Ordered glipiZIDE 2.5 mg oral tablet, extended release 1 tablet = 2.5 mg, By Mouth, Daily, # 90 tablet, 1 Refills, Maintenance, 05/08/20 13:04:00 EDT, ER Tablet, [facility] #[id number], 183, cm, 02/22/20 3:42:00 EDT, Height, 141, kg, 02/21/20 1:50:00 EDT, Dry Weight Start Date: 05/08/20 Stop Date: 11/04/20 Status: Ordered lisinopril 40 mg oral tablet 1 tablet, By Mouth, Daily, # 90 tablet, 0 Refills, Maintenance, 07/06/20 9:55:00 EDT, [facility] #[id number], 183, cm, 06/09/20 12:58:00 EDT, Height, 141, [...] mg, Tablet, By Mouth, Hold for: SBP < 100 or pulse < 60, 03/04/21 9:00:00 EDT Start Date: 03/04/21 Stop Date: 03/04/21 Status: Completed PriLOSEC OTC 20 mg oral delayed release tablet 1 tablet = 20 mg, By Mouth, 2 times a day, # 180 tablet, 1 Refills, Maintenance, 11/16/20 9:25:00 EST, EC Tablet, [facility] #[id number], 179, cm, 11/11/20 11:50:00 EST, Height, 120.5, kg, 10/18/20 16:27:00 EST, Dry Weight Start Date: 11/16/20 Stop Date: 05/15/21 Status: Ordered Trulicity Pen 1.5 mg/0.5 mL subcutaneous solution 0.5 mL = 1.5 mg, Subcutaneous Injection, Every week, rotate injection sites, # 2 mL, 6 Refills, Maintenance, 10/21/20 13:40:00 EST, Solution, [facility] #[id number], Partial fill upon patient request if the prescription is for a schedule II opioi... Start Date: 10/21/20 Status: Ordered Tylenol 325 mg oral tablet 650 mg, Tablet, By Mouth, Every 6 hours, PRN for Pain , Mild, Routine, 02/24/21 11:20:00 EDT Start Date: 02/24/21 Stop Date: 03/04/21 Status: Discontinued Ventolin HFA 108 mcg/inh inhalation aerosol with adapter 2 puffs, Inhalation, Every 4 hours, # 18 Gm, 1 Refills, Maintenance, 11/11/19 13:17:00 EST, [facility] #[id number], 183, cm, 10/31/19 14:18:00 EST, Height, 141, kg, 08/30/19 19:46:00 EST, Dry Weight Start Date: 11/11/19 Status: Ordered Vitamin D3 1000 intl units oral tablet 1 tablet = 1,000 International_Units, By Mouth, Daily, # 90 tablet, 1 Refills, Maintenance, 12/11/19 12:04:00 EDT, Tablet, [facility] #[id number], 183, cm, 11/21/19 15:07:00 EST, Height, 137, [...] Results Orders for Microbiology Reports Name Date AFB Culture w/ AFB Smear, Nonrespiratory (ACID FAST CULT,NON-RESP) 03/03/21 Anaerobic Culture (ANAEROBIC CULTURE) Fungal Culture, Nonrespiratory (FUNGAL C ULT,NON-RESPIRATORY) 03/03/21 Tissue Culture w/ Gram Smear (TISSUE/BIO PSY CULT.) 03/03/21 Blood Culture 02/24/21 Blood Culture #2 02/24/21 Microbiology Reports TEST:Anaerobic Culture STATUS:Unauthenticated BODY SITE: SOURCE:TISSUE1 COLLECTED DATE/TIME:03/03/21 5:30 PM Anaerobic Culture SPECIMEN DESCRIPTION : TISSUE TIPOSLEDT SECOND TOE SPECIAL REQUESTS : Patient in O.R. CULTURE : NO ANAEROBES ISOLATED SO FAR. REPORT STATUS : PRELIMINARY REPORT TEST:Tissue/Biopsy Culture STATUS:Unauthenticated BODY SITE: SOURCE:TISSUE1 COLLECTED DATE/TIME:03/03/21 5:30 PM Tissue/Biopsy Culture SPECIMEN DESCRIPTION : TISSUE TIPOSLEDT SECOND TOE SPECIAL REQUESTS : Patient in O.R. GRAM STAIN : 1+ WHITE BLOOD CELLS 1+ TISSUE CELLS 3+ GRAM POSITIVE COCCI REPORT STATUS : PRELIMINARY REPORT TEST:Fungal Culture, Non-Respiratory STATUS:Unauthenticated BODY SITE: SOURCE:TISSUE1 COLLECTED DATE/TIME:03/03/21 5:30 PM Fungal Culture, Non-Respiratory SPECIMEN DESCRIPTION : TISSUE TIPOSLEDT SECOND TOE SPECIAL REQUESTS : Patient in O.R. DIRECT EXAM : NO FUNGAL ELEMENTS OBSERVED REPORT STATUS : PRELIMINARY REPORT TEST:AFB Culture w/AFB Smear, Non-Respiratory STATUS:Unauthenticated BODY SITE: SOURCE:TISSUE1 COLLECTED DATE/TIME:03/03/21 5:29 PM AFB Culture w/AFB Smear, Non-Respiratory SPECIMEN DESCRIPTION : TISSUE TIPOSLEDT SECOND TOE SPECIAL REQUESTS : Patient in O.R. DIRECT EXAM : NO ACID FAST BACILLI SEEN ON DIRECT SMEAR, TEST PERFORMED AT [facility] CULTURE : SPECIMEN SENT TO [facility], [place], [place] REPORT STATUS : PRELIMINARY REPORT TEST:Blood Culture, Second Order STATUS:Auth (Verified) BODY SITE: SOURCE:Blood COLLECTED DATE/TIME:02/24/21 8:42 AM Blood Culture, Second Order SPECIMEN DESCRIPTION : BLOOD NO SITE SPECIAL REQUESTS : NONE CULTURE : NO GROWTH 5 DAYS. REPORT STATUS : FINAL 03/01/2021 TEST:Blood Culture STATUS:Auth (Verified) BODY SITE: SOURCE:Blood COLLECTED DATE/TIME:02/24/21 8:15 AM Blood Culture SPECIMEN DESCRIPTION : BLOOD NO SITE SPECIAL REQUESTS : NONE CULTURE : NO GROWTH 5 DAYS. REPORT STATUS : FINAL 03/01/2021 Radiology Reports * Exam Date Time Procedure Performing Provider Status 02/23/21 2:48 PM Foot Min 3 Views Left Cheryl Sarkar; Auth (Verified) Notes: (Foot Min 3 Views Left) Reason For Exam: with Pain;Trauma RESULT: Foot Min 3 Views Left Left foot 3 views dated February 23, 2021. No prior studies are available. HISTORY: Pain secondary to trauma. FINDINGS: Examination shows no evidence of fracture or dislocation. Joint spaces are fairly well-preserved. There is a small radiopaque foreign body in the soft tissues of the terminal phalanx of thegreat toe dorsally and medially. This may be a piece of the patient's toenail. It may also represent debris. Soft tissue swelling in the metatarsal region. IMPRESSION: Soft tissue swelling without associated acute osseous abnormality. Examination 15[address]. Thank you for allowing me to participate in the care of this patient. WSN: [id number] Ordering Physician: Tulio Verma Dictated By: Elian Fry MD Dictated Date/Time: 02/23/21 3:57 pm Reviewed By: Elian Fry MD Signed By: Elian Fry MD Signed Date/Time: 02/23/21 3:57 pm Transcribed By: JOSÉ Transcribed Date/Time: 02/23/21 3:57 pm Vital Signs Most recent to oldest [Reference Range]: 1 2 3 4 Oxygen Saturation [94-100 %] 97 % (03/04/21 5:00 AM) 94 % (03/03/21 8:19 PM) 98 % (03/03/21 7:00 PM) Pulse Rate [55-90 bpm] 67 bpm (03/04/21 9:47 AM) 68 bpm (03/04/21 5:00 AM) 66 bpm (03/03/21 8:19 PM) Blood Pressure [90-138/55-84 mm Hg] 126/65mm Hg (03/04/21 9:47 AM) 126/65mm Hg (03/04/21 9:47 AM) 122/56mm Hg (03/04/21 5:00 AM) Respiratory Rate [16-30 br/min] 18 br/min (03/04/21 9:46 AM) 18 br/min (03/04/21 5:00 AM) 18 br/min (03/03/21 10:02 PM) 18 br/min (03/03/21 10:02 PM) Temperature [96.8-100.4 DegF] 97.4 DegF (03/04/21 5:00 AM) 97.8 DegF (03/03/21 8:19 PM) 97.5 DegF (03/03/21 7:00 PM) Liters per Minute 4 L/min (03/03/21 7:00 PM) 4 L/min (03/03/21 6:45 PM) 4 L/min (03/03/21 6:30 PM) Mode of Delivery (Oxygen) Room air (03/04/21 5:00 AM) Room air (03/03/21 8:19 PM) Nasal cannula (03/03/21 7:00 PM) Blood pressure sites Arm, right (03/04/21 5:00 AM) Arm, right (03/03/21 8:19 PM) Arm, right (03/03/21 5:45 PM) Temperature Route Oral (03/04/21 5:00 AM) Oral (03/03/21 8:19 PM) Temporal (03/03/21 7:00 PM) Social History Social History Type Response Tobacco Use: 4 or less cigar ettes(less than 1/4 pack)/day in last 30 days. Sex
--- OUTSIDE RECORDS SUMMARY | 2023-05-27 03:11 | XMS_ITS | Continuity of Care Document ---
Author Name Unknown Organization [facility] ter Address [address] [place] [address]- Care Team Providers Care Production Sound Mixer Name Role Phone Bri Becerril MD Primary Care Physician [place] [facility] [place] - 04/12/[address] [address]- Encounter Diagnosis Housing instability(Final) - 04/12/22 Discharge Disposition: A-D/C Home Attending Physician: Yovany Choudhary MD Admitting Physician: Yovany Choudhary MD Referring Physician: Not on Staff, Referring [...] Vaccine Date Status Refusal Reason SARS-CoV-2 mRNA ([id number]) vax 4 03/19/22 Not Given Patient Refuses [...] 12/27/21 14:28:00 EDT, [id number] fill upon patient request if [...] Status: Ordered BD UF MINI PEN NEEDLE [id number] BD UF MINI PEN NEEDLE [id number], See Instructions, # 300 Unknown, 3 Refills, [...] 03/20/22 10:56:00 EDT, [facility], [facility] [...] 03/13/22 16:15:00 EDT, Route to Pharmacy Electronically, [facility]acy #[id number], Partial fill upon patient request if the prescription is for a schedule II opioid drug... Start Date: 03/13/22 Status: Ordered metoprolol 50 mg oral tablet 50 mg, 1, tablet, By Mouth, 2 times a day, # 180 tablet, Refills 2, Tot. Refills 2, Maintenance, 03/16/22 10:59:00 EDT, Route to Pharmacy Electronically, [facility]/pharmacy #[id number], Partial fill upon patientrequest if the prescription is for a schedule II op... Start Date: 03/16/22 Stop Date: 12/11/22 Status: Ordered Pen [place], 31 G x 8 mm BD Ultra [...] # 90 tablet, 1 Refills, 02/10/22 23:04:00EDT, [facility]/pharmacy #[id number], 180, cm, 01/07/22 16:17:00 EDT, [...] 3 Oxygen Saturation [94-100 %] 100 % (04/12/22 3:33 PM) 97 % (04/12/22 2:44 PM) 95 % (04/12/22 12:23 PM) Pulse Rate [55-90 bpm] 83 bpm (04/12/22 3:33 PM) 83 bpm (04/12/22 2:44 PM) 76 bpm (04/12/22 12:23 PM) Blood Pressure [90-138/55-84 mm Hg] 124/76mm Hg (04/12/22 3:33 PM) 120/74mm Hg (04/12/22 2:44 PM) 125/76mm Hg (04/12/22 12:23 PM) Respiratory Rate [16-30 br/min] 18 br/min (04/12/22 3:33 PM) 18 br/min (04/12/22 2:44 PM) 18 br/min (04/12/22 12:23 PM) Temperature [96.8-100.4 DegF] 97.4 DegF (04/12/22 3:33 PM) 98.0 DegF (04/12/22 2:44 PM) 97.9 DegF (04/12/22 12:23 PM) Mode of Delivery (Oxygen) Room air (04/12/22 3:33 PM) Room air (04/12/22 2:44 PM) Room air (04/12/22 12:23 PM) Blood pressure sites Arm, left (04/12/22 3:33 PM) Arm, left (04/12/22 2:44 PM) Arm, left (04/12/22 12:23 PM) Temperature Route Oral (04/12/22 3:33 PM) Oral (04/12/22 2:44 PM) Oral (04/12/22 12:23 PM) Social History Social History Type Response Smoking Status Former smoker, quit more than 30 days ago; Patient wants NRT during admission No; Type: Cigarettes; Other: quit 2020. one years ago. Started at age 14 at 2 packs a day to start and one pack a week after that.; entered on: 03/10/22 Sex
--- OUTSIDE RECORDS SUMMARY | 2023-05-27 03:11 | XMS_ITS | Continuity of Care Document ---
Author Name Unknown Organization [facility] ter Address [address] [place] [address]- Care Team Providers Care Freight Engineer Name Role Phone Bri Becerril MD Primary Care Physician [place] [facility] [place] 04/08/[address] [address]- Discharge Disposition: A-D/C Walkout Attending Physician: Not on Staff, Attending MD Admitting Physician: Not on Staff, Admitting MD Referring Physician: Not on Staff, Referring [...] 2 Refills, Maintenance, 09/05/19 10:10:00 EST, Solution, [facility] #[id number], 183, cm, 08/30/19 19:46:00 EST, Height, 141, kg, 08/30/19 19:46:00 EST, Dry Weight Start Date: 09/05/19 Status: Ordered amLODIPine 5 mg oral tablet 5 mg, 1, tablet, By Mouth, Daily, # 30 tablet, Refills 1, Tot. Refills 1, Maintenance, 04/03/21 13:27:00 EDT, Route to Pharmacy Electronically, [facility]/pharmacy #[id number], Partial fill upon patient request if the prescription is for a schedule II opioid drug.... Start Date: 04/03/21 Status: Ordered Aspirin Low Dose 81 mg oral delayed release tablet See Instructions, # 90 tablet, Refills 1 Tot. Refills 1, TAKE 1 TABLET BY MOUTH DAILY, [facility] #[id number] Start Date: 06/24/19 Status: Ordered atorvastatin 40 mg oral tablet 1 tablet, By Mouth, Daily at bedtime, # 90 tablet, 1 Refills, Maintenance, 11/23/20 11:14:00 EST, [facility] #[id number], 179, cm, 11/11/20 11:50:00 EST, Height, 120.5, [...] each, 5 Refills, Maintenance, 04/03/21 13:35:00 EDT, [facility]/pharmacy #1234, Partial fill upon patient request if the prescription is for a schedule II opioid drug., For wound dressing, 183, cm, 03/17/21 11:22:00... Start Date: 04/03/21 Status: Ordered clopidogrel 75 mg oral tablet 75 mg, 1, tablet, By Mouth, Daily, # 42 tablet, Refills 0, Tot. Refills 0, Maintenance, 03/04/21 10:46:00 EDT, Route to Pharmacy Electronically, [facility], Partial fill upon patient request if the prescription is for a schedule II opioi... Start Date: 03/04/21 Stop Date: 04/15/21 Status: Ordered Dilaudid 2 mg oral tablet 2 tablet = 4 mg, By Mouth, Every 4 hours, PRN as needed for pain, for 7 days, # 30 tablet, 0 Refills, Acute 04/10/21 13:59:00 EDT, 04/03/21 13:59:00 EDT, Tablet, [facility]/pharmacy #1234, Partial fill uponpatient request if the prescription is for a schedu... Start Date: 04/03/21 Stop Date: 04/10/21 Status: Ordered doxazosin 4 mg oral tablet 1 tablet, By Mouth, Daily at bedtime, # 90 tablet, 1 Refills, Maintenance, 07/31/20 13:33:00 EST, [facility] #[id number], 183, cm, 06/09/20 12:58:00 EDT, Height, 141, kg, 02/21/20 1:50:00 EDT, Dry Weight Start Date: 07/31/20 Status: Ordered furosemide 20 mg oral tablet 1, tablet, By Mouth, Daily, # 90 tablet, Refills 1, Tot. Refills 1, Maintenance, 12/23/19 9:21:00 EDT, Route to Pharmacy Electronically, [facility] #[id number], 183, cm, 11/21/19 15:07:00 EST, Height, 137, kg, 11/15/19 0:16:00 EST, Dry Weight Start Date: 12/23/19 Stop Date: 06/20/20 Status: Ordered gabapentin 600 mg oral tablet 1 tablet = 600 mg, By Mouth, 3 times a day, # 90 tablet, 1 Refills, Maintenance, 10/30/20 13:02:00 EST, Tablet, [facility] #[id number], 179, cm, 10/18/20 16:27:00 EST, Height, 120.5, kg, 10/18/20 16:27:00 EST, Dry Weight Start Date: 10/30/20 Status: Ordered glipiZIDE 2.5 mg oral tablet, extended release 1 tablet = 2.5 mg, By Mouth, Daily, # 90 tablet, 1 Refills, Maintenance, 05/08/20 13:04:00 EDT, ER Tablet, [facility] #[id number], 183, cm, 02/22/20 3:42:00 EDT, Height, 141, [...] each, 5 Refills, Maintenance, 04/03/21 13:20:00 EDT, [facility]/pharmacy #[id number],... Start Date: 04/03/21 Stop Date: 09/30/21 [...] Refills, Maintenance, 11/16/20 9:25:00 EST, EC Tablet, [facility] #[id number], 179, cm, 11/11/20 11:50:00 EST, Height, 120.5, kg, 10/18/20 16:27:00 EST, Dry Weight Start Date: 11/16/20 Stop Date: 05/15/21 Status: Ordered Trulicity Pen 1.5 mg/0.5 mL subcutaneous solution 0.5 mL = 1.5 mg, Subcutaneous Injection, Every week, rotate injection sites, # 2 mL, 6 Refills, Maintenance, 10/21/20 13:40:00 EST, Solution, [facility] #[id number], Partial fill upon patient request if the prescription is for a schedule II opioi... Start Date: 10/21/20 Status: Ordered Ventolin HFA 108 mcg/inh inhalation aerosol with adapter 2 puffs, Inhalation, Every 4 hours, # 18 Gm, 1 Refills, Maintenance, 11/11/19 13:17:00 EST, [facility] #[id number], 183, cm, 10/31/19 14:18:00 EST, Height, 141, kg, 08/30/19 19:46:00 EST, Dry Weight Start Date: 11/11/19 Status: Ordered Vitamin D3 1000 intl units oral tablet 1 tablet = 1,000 International_Units, By Mouth, Daily, # 90 tablet, 1 Refills, Maintenance, 12/11/19 12:04:00 EDT, Tablet, [facility] #[id number], 183, cm, 11/21/19 15:07:00 EST, Height, 137, [...] recent to oldest [Reference Range]: 1 2 Oxygen Saturation [94-100 %] 98 % (04/08/21 2:09 AM) 95 % (04/07/21 10:14 PM) Pulse Rate [55-90 bpm] 88 bpm (04/08/21 2:09 AM) 82 bpm (04/07/21 10:14 PM) Blood Pressure [90-138/55-84 mm Hg] 131/ 74mm Hg (04/08/21 2:09 AM) 113/63mm Hg (04/07/21 10:14 PM) Respiratory Rate [16-30 br/min] 18 br/mi n (04/08/21 2:09 AM) 18 br/min (04/07/21 10:14 PM) Temperature [96.8-100.4 DegF] 98.7 DegF (04/08/21 2:09 AM) 98.6 DegF (04/07/21 10:14 PM) Mode of Delivery (Oxygen) Room air (04/08/21 2:09 AM) Room air (04/07/21 10:14 PM) Blood pressure sites Arm, right (04/08/21 2:09 AM) Arm, right (04/07/21 10:14 PM) Temperature Route Oral (04/08/21 2:09 AM) Oral (04/07/21 10:14 PM) Social History Social History Type Response Tobacco Use: 4 or less cigar ettes(less than 1/4 pack)/day in last 30 days. Sex
--- OUTSIDE RECORDS SUMMARY | 2023-05-27 03:11 | XMS_ITS | Continuity of Care Document ---
Author Name Unknown Organization [facility] Address [address] [place] [address]- Care Team Providers Care Stock Control Clerk Name Role Phone Dom DE LA ROSA, [facility] A Primary Care Physician [phone] Encounter [facility] Date(s): 12/23/20 - 04/22/21 [facility] [address] [place] [id number] Attending Physician: Gaston Ponce MD Admitting Physician: Gaston Ponce MD Referring Physician: Bri Becerril MD Allergies, [...] 2 Refills, Maintenance, 09/05/19 10:10:00 EST, Solution, [facility] #[id number], 183, cm, 08/30/19 19:46:00 EST, Height, 141, kg, 08/30/19 19:46:00 EST, Dry Weight Start Date: 09/05/19 Status: Ordered amLODIPine 5 mg oral tablet 5 mg, 1, tablet, By Mouth, Daily, # 30 tablet, Refills 1, Tot. Refills 1, Maintenance, 04/03/21 13:27:00 EDT, Route to Pharmacy Electronically, [facility]/pharmacy #[id number], Partial fill upon patient request if the prescription is for a schedule II opioid drug.... Start Date: 04/03/21 Status: Ordered Aspirin Low Dose 81 mg oral delayed release tablet See Instructions, # 90 tablet, Refills 1 Tot. Refills 1, TAKE 1 TABLET BY MOUTH DAILY, [facility] #[id number] Start Date: 06/24/19 Status: Ordered atorvastatin 40 mg oral tablet 1 tablet, By Mouth, Daily at bedtime, # 90 tablet, 1 Refills, Maintenance, 11/23/20 11:14:00 EST, [facility] #[id number], 179, cm, 11/11/20 11:50:00 EST, Height, 120.5, [...] each, 5 Refills, Maintenance, 04/03/21 13:35:00 EDT, [facility]/pharmacy #[id number], Partial fill upon patient request if the prescription is for a schedule II opioid drug., For wound dressing, 183, cm, 03/17/21 11:22:00... Start Date: 04/03/21 Status: Ordered clopidogrel 75 mg oral tablet 75 mg, 1, tablet, By Mouth, Daily, # 42 tablet, Refills 0, Tot. Refills 0, Maintenance, 03/04/21 10:46:00 EDT, Route to Pharmacy Electronically, [facility], Partial fill upon patient request if the prescription is for a schedule II opioi... Start Date: 03/04/21 Stop Date: 04/15/21 Status: Ordered doxazosin 4 mg oral tablet 1 tablet, By Mouth, Daily at bedtime, # 90 tablet, 1 Refills, Maintenance, 07/31/20 13:33:00 EST, [facility] #[id number], 183, cm, 06/09/20 12:58:00 EDT, Height, 141, kg, 02/21/20 1:50:00 EDT, Dry Weight Start Date: 07/31/20 Status: Ordered furosemide 20 mg oral tablet 1, tablet, By Mouth, Daily, # 90 tablet, Refills 1, Tot. Refills 1, Maintenance, 12/23/19 9:21:00 EDT, Route to Pharmacy Electronically, [facility] #[id number], 183, cm, 11/21/19 15:07:00 EST, Height, 137, kg, 11/15/19 0:16:00 EST, Dry Weight Start Date: 12/23/19 Stop Date: 06/20/20 Status: Ordered gabapentin 600 mg oral tablet 1 tablet = 600 mg, By Mouth, 3 times a day, # 90 tablet, 1 Refills, Maintenance, 10/30/20 13:02:00 EST, Tablet, [facility] #[id number], 179, cm, 10/18/20 16:27:00 EST, Height, 120.5, kg, 10/18/20 16:27:00 EST, Dry Weight Start Date: 10/30/20 Status: Ordered glipiZIDE 2.5 mg oral tablet, extended release 1 tablet = 2.5 mg, By Mouth, Daily, # 90 tablet, 1 Refills, Maintenance, 05/08/20 13:04:00 EDT, ER Tablet, [facility] #[id number], 183, cm, 02/22/20 3:42:00 EDT, Height, 141, [...] each, 5 Refills, Maintenance, 04/03/21 13:20:00 EDT, [facility]/pharmacy #[id number],... Start Date: 04/03/21 Stop Date: [...] Refills, Maintenance, 11/16/20 9:25:00 EST, EC Tablet, [facility] #[id number], 179, cm, 11/11/20 11:50:00 EST, Height, 120.5, kg, 10/18/20 16:27:00 EST, Dry Weight Start Date: 11/16/20 Stop Date: 05/15/21 Status: Ordered Trulicity Pen 1.5 mg/0.5 mL subcutaneous solution 0.5 mL = 1.5 mg, Subcutaneous Injection, Every week, rotate injection sites, # 2 mL, 6 Refills, Maintenance, 10/21/20 13:40:00 EST, Solution, [facility] #[id number], Partial fill upon patient request if the prescription is for a schedule II opioi... Start Date: 10/21/20 Status: Ordered Ventolin HFA 108 mcg/inh inhalation aerosol with adapter 2 puffs, Inhalation, Every 4 hours, # 18 Gm, 1 Refills, Maintenance, 11/11/19 13:17:00 EST, [facility] #[id number], 183, cm, 10/31/19 14:18:00 EST, Height, 141, kg, 08/30/19 19:46:00 EST, Dry Weight Start Date: 11/11/19 Status: Ordered Vitamin D3 1000 intl units oral tablet 1 tablet = 1,000 International_Units, By Mouth, Daily, # 90 tablet, 1 Refills, Maintenance, 12/11/19 12:04:00 EDT, Tablet, [facility] #[id number], 183, cm, 11/21/19 15:07:00 EST, Height, 137, kg, 11/15/19 0:16:00 EST, Dry Weight Start Date: 12/11/19 Stop Date: 06/08/20 Status: Ordered ERLINDA COFFEY, See Instructions, # 1 each, Refills 0, [...]
--- OUTSIDE RECORDS SUMMARY | 2023-05-27 03:11 | XMS_ITS | Continuity of Care Document ---
Author Name Unknown Organization [facility] ter Address [address] [place] [address]- Care Team Providers Care Fur Tinter Name Role Phone Tylor Fernandes MD A Primary Care Physician [phone] [place] [facility] [place] - 05/05/[address] [address]- Discharge Disposition: A-D/C Walkout Attending Physician: Not [...] 2 Refills, Maintenance, 09/05/19 10:10:00 EST, Solution, [facility] #[id number], 183, cm, 08/30/19 19:46:00 EST, Height, 141, kg, 08/30/19 19:46:00 EST, Dry Weight Start Date: 09/05/19 Status: Ordered amLODIPine 5 mg oral tablet 5 mg, 1, tablet, By Mouth, Daily, # 30 tablet, Refills 1, Tot. Refills 1, Maintenance, 04/03/21 13:27:00 EDT, Route to Pharmacy Electronically, [facility]/pharmacy #[id number], Partial fill upon patient request if the prescription is for a schedule II opioid drug.... Start Date: 04/03/21 Status: Ordered Aspirin Low Dose 81 mg oral delayed release tablet See Instructions, # 90 tablet, Refills 1 Tot. Refills 1, TAKE 1 TABLET BY MOUTH DAILY, [facility] #[id number] Start Date: 06/24/19 Status: Ordered atorvastatin 40 mg oral tablet 1 tablet, By Mouth, Daily at bedtime, # 90 tablet, 1 Refills, Maintenance, 11/23/20 11:14:00 EST, [facility] #[id number], 179, cm, 11/11/20 11:50:00 EST, Height, 120.5, kg, 10/18/20 16:27:00 EST, Dry Weight Start Date: 11/23/20 Status: Ordered Augmentin 875 Tablet 1, tablet, By Mouth, 2 times a day, Maintenance, 05/04/21 14:04:00 EDT Start Date: 05/04/21 Stop Date: 05/06/21 Status: Ordered Betadine 10% solution See Instructions, For wound dressing, # 1 each, 5 Refills, Maintenance, 04/03/21 13:35:00 EDT, [facility]/pharmacy #[id number], Partial fill upon patient request [...] tablet, 1 Refills, Maintenance, 07/31/20 13:33:00 EST, [facility] #69048, 183, cm, 06/09/20 12:58:00 EDT, Height, 141, kg, 02/21/20 1:50:00 EDT, Dry Weight Start Date: 07/31/20 Status: Ordered furosemide 20 mg oral tablet 1, tablet, By Mouth, Daily, # 90 tablet, Refills 1, Tot. Refills 1, Maintenance, 12/23/19 9:21:00 EDT, Route to Pharmacy Electronically, [facility] #[id number], 183, cm, 11/21/19 15:07:00 EST, Height, 137, kg, 11/15/19 0:16:00 EST, Dry Weight Start Date: 12/23/19 Stop Date: 06/20/20 Status: Ordered gabapentin 600 mg oral tablet 1 tablet = 600 mg, By Mouth, 3 times a day, # 90 tablet, 1 Refills, Maintenance, 10/30/20 13:02:00 EST, Tablet, [facility] #[id number], 179, cm, 10/18/20 16:27:00 EST, Height, 120.5, kg, 10/18/20 16:27:00 EST, Dry Weight Start Date: 10/30/20 Status: Ordered glipiZIDE 2.5 mg oral tablet, extended release 1 tablet = 2.5 mg, By Mouth, Daily, # 90 tablet, 1 Refills, Maintenance, 05/08/20 13:04:00 EDT, ER Tablet, [facility] #[id number], 183, cm, 02/22/20 3:42:00 EDT, Height, 141, [...] each, 5 Refills, Maintenance, 04/03/21 13:20:00 EDT, [facility]/pharmacy #[id number],... Start Date: 04/03/21 Stop Date: [...] Refills, Maintenance, 11/16/20 9:25:00 EST, EC Tablet, [facility] #[id number], 179, cm, 11/11/20 11:50:00 EST, Height, 120.5, kg, 10/18/20 16:27:00 EST, Dry Weight Start Date: 11/16/20 Stop Date: 05/15/21 Status: Ordered Trulicity Pen 1.5 mg/0.5 mL subcutaneous solution 0.5 mL = 1.5 mg, Subcutaneous Injection, Every week, rotate injection sites, # 2 mL, 6 Refills, Maintenance, 10/21/20 13:40:00 EST, Solution, [facility] #[id number], Partial fill upon patient request if the prescription is for a schedule II opioi... Start Date: 10/21/20 Status: Ordered Ventolin HFA 108 mcg/inh inhalation aerosol with adapter 2 puffs, Inhalation, Every 4 hours, # 18 Gm, 1 Refills, Maintenance, 11/11/19 13:17:00 EST, [facility] #[id number], 183, cm, 10/31/19 14:18:00 EST, Height, 141, kg, 08/30/19 19:46:00 EST, Dry Weight Start Date: 11/11/19 Status: Ordered Vitamin D3 1000 intl units oral tablet 1 tablet = 1,000 International_Units, By Mouth, Daily, # 90 tablet, 1 Refills, Maintenance, 12/11/19 12:04:00 EDT, Tablet, [facility] #[id number], 183, cm, 11/21/19 15:07:00 EST, Height, 137, [...] Most recent to oldest [Reference Range]: 1 Oxygen Saturation [94-100 %] 100 % (05/05/21 12:54 PM) Pulse Rate [55-90 bpm] 75 bpm (05/05/21 12:54 PM) Blood Pressure [90-138/55-84 mm Hg] 126/ 67mm Hg (05/05/21 12:54 PM) Respiratory Rate [16-30 br/min] 16 br/mi n (05/05/21 12:54 PM) Temperature [96.8-100.4 DegF] 97.9 DegF (05/05/21 12:54 PM) Mode of Delivery (Oxygen) Room air (05/05/21 12:54 PM) Blood pressure sites Arm, left (05/05/21 12:54 PM) Temperature Route Oral (05/05/21 12:54 PM) Social History Social History Type Response Smoking Status Former smoker, quit more than 30 days ago; Patient wants NRT during admission No; Type: Cigarettes entered on: 04/24/21 Sex
--- OUTSIDE RECORDS SUMMARY | 2023-05-27 03:11 | XMS_ITS | Continuity of Care Document ---
Author Name Unknown Organization [facility] Address [address] [place] [address]- Care Team Providers Care Field Operator Name Role Phone Jone DE LA ROSA, Bri Barrett Primary Care Physician [place] [facility] [place] 07/29/21 - 12/03/21 [facility] [address] [place] [address]- Attending Physician: Babak De La Cruz MD [...] 2 Refills, Maintenance, 09/05/19 10:10:00 EST, Solution, [facility] #[id number], 183, cm, 08/30/19 19:46:00 EST, Height, 141, [...] 1, TAKE 1 TABLET BY MOUTH DAILY, [facility] #[id number] Start Date: 06/24/19 Status: Ordered atorvastatin 40 mg oral tablet 1 tablet, By Mouth, Daily at bedtime, # 90 tablet, 1 Refills, Maintenance, 11/23/20 11:14:00 EST, [facility] #[id number], 179, cm, 11/11/20 11:50:00 EST, Height, 120.5, kg, 10/18/20 16:27:00 EST, Dry Weight Start Date: 11/23/20 Status: Ordered Betadine 10% solution See Instructions, For wound dressing, # 1 each, 5 Refills, Maintenance, 04/03/21 13:35:00 EDT, [facility]/pharmacy #[id number], Partial fill upon patient [...] 03/04/21 10:46:00 EDT, Route to Pharmacy Electronically, [facility], Partial fill upon patient request if the prescription is for a schedule II opioi... Start Date: 03/04/21 Stop Date: 04/15/21 Status: Ordered doxazosin 4 mg oral tablet 1 tablet, By Mouth, Daily at bedtime, # 90 tablet, 1 Refills, Maintenance, 07/31/20 13:33:00 EST, [facility] #[id number], 183, cm, 06/09/20 12:58:00 EDT, Height, 141, kg, 02/21/20 1:50:00 EDT, Dry Weight Start Date: 07/31/20 Status: Ordered furosemide 20 mg oral tablet 1, tablet, By Mouth, Daily, # 90 tablet, Refills 1, Tot. Refills 1, Maintenance, 12/23/19 9:21:00 EDT, Route to Pharmacy Electronically, [facility] #[id number], 183, cm, 11/21/19 15:07:00 EST, Height, 137, kg, 11/15/19 0:16:00 EST, Dry Weight Start Date: 12/23/19 Stop Date: 06/20/20 Status: Ordered gabapentin 600 mg oral tablet 1 tablet = 600 mg, By Mouth, 3 times a day, # 90 tablet, 1 Refills, Maintenance, 10/30/20 13:02:00 EST, Tablet, [facility] #60773, 179, cm, 10/18/20 16:27:00 EST, Height, 120.5, kg, 10/18/20 16:27:00 EST, Dry Weight Start Date: 10/30/20 Status: Ordered glipiZIDE 2.5 mg oral tablet, extended release 1 tablet = 2.5 mg, By Mouth, Daily, # 90 tablet, 1 Refills, Maintenance, 05/08/20 13:04:00 EDT, ER Tablet, [facility] #28996, 183, cm, 02/22/20 3:42:00 EDT, Height, 141, [...] Refills, Maintenance, 11/16/20 9:25:00 EST, EC Tablet, [facility] #[id number], 179, cm, 11/11/20 11:50:00 EST, Height, 120.5, kg, 10/18/20 16:27:00 EST, Dry Weight Start Date: 11/16/20 Stop Date: 05/15/21 Status: Ordered Trulicity Pen 1.5 mg/0.5 mL subcutaneous solution 0.5 mL = 1.5 mg, Subcutaneous Injection, Every week, rotate injection sites, # 2 mL, 6 Refills, Maintenance, 10/21/20 13:40:00 EST, Solution, [facility] #[id number], Partial fill upon patient request if the prescription is for a schedule II opioi... Start Date: 10/21/20 Status: Ordered Ventolin HFA 108 mcg/inh inhalation aerosol with adapter 2 puffs, Inhalation, Every 4 hours, # 18 Gm, 1 Refills, Maintenance, 11/11/19 13:17:00 EST, [facility] #[id number], 183, cm, 10/31/19 14:18:00 EST, Height, 141, kg, 08/30/19 19:46:00 EST, Dry Weight Start Date: 11/11/19 Status: Ordered Vitamin D3 1000 intl units oral tablet 1 tablet = 1,000 International_Units, By Mouth, Daily, # 90 tablet, 1 Refills, Maintenance, 12/11/19 12:04:00 EDT, Tablet, [facility] #[id number], 183, cm, 11/21/19 15:07:00 EST, Height, 137, [...]
--- OUTSIDE RECORDS SUMMARY | 2023-05-27 03:11 | XMS_ITS | Continuity of Care Document ---
Author Name Unknown Organization [facility] Address [address] [place] [address]- Care Team Providers Care Pond Sawyer Name Role Phone Jone DE LA ROSA, Bri Barrett Primary Care Physician [place] [facility] [place](s): 06/15/22 - 08/25/22 [facility] [address] [place], [place] [address] [[email or web address] Attending Physician: Melani DIAZ, Carey Grady Admitting Physician: Melani DIAZ, Carey Grady Referring Physician: Melani DIAZ, Carey Grady Allergies, Adverse Reactions, Alerts No Known Medication [...] Vaccine Date Status Refusal Reason SARS-CoV-2 mRNA ([id number]) vax 4 03/19/22 Not Given Patient Refuses [...] Status: Ordered BD UF MINI PEN NEEDLE [id number] BD UF MINI PEN NEEDLE [id number], See Instructions, # 300 Unknown, 3 Refills, [...] Refills, Soft Stop, 03/16/22 11:01:00 EDT, Tablet, [facility]/pharmacy #[id number], Partial fill upon patient request [...] 12:37:00 EST, Route to Pharmacy Electronically, [facility], 183, cm, 05/01/22 21:57:00 EDT, Height, [...] Date: 08/29/22 Stop Date: 02/25/23 Status: Ordered furosemide 20 mg oral tablet 1, tablet, By Mouth, Daily, for 90 days, # 90 tablet, Refills 0, Tot. Refills 0, Hard Stop 229:33:00 EST, 05/31/22 9:33:00 EDT, Route to Pharmacy [...] 0 Refills, Maintenance, 05/31/22 9:33:00 EDT, Solution, [facility], Partial fill upon patient request [...] 03/16/22 10:59:00 EDT, Route to Pharmacy Electronically, [facility]/pharmacy#1234, Partial fill upon patient request if the pre... Start Date: 03/16/22 Stop Date: 12/11/22 Status: Ordered Pen [place], 31 G x 8 mm BD [...] Date: 08/29/22 Stop Date: 08/24/23 Status: Ordered PriLOSEC OTC 20 mg oral [...] Personnel Name: Anton DIAZ, Tita Culp Position: [facility] Associate Professional Member Role: Primary Care Nurse Address: Address: [address] [facility] [place] [address]- Name: Vaishnavi Mack Position: [facility] [place] Office Staff Member Role: Lifetime Consulting Physician Name: Kenia Montez RN Position: [facility] RN Member Role: Primary Care Nurse Name: Serena Starr RN Position: [facility] PCO RN Member Role: Primary Care Nurse Name: Amelie Easley RN Position: [facility] RN Member Role: Primary Care Nurse Name: Gina Zee RN Position: [facility] RN Member Role: Primary Care Nurse Name: Olga Nielsen Position: [facility] Outreach Member Role: Lifetime Consulting Physician Name: Francisca Madera RN Position: [facility] RN Member Role: Primary Care Nurse Name: Aakash Bowman RN Position: [facility] RN Member Role: Primary Care Nurse Name: Ced Page RN Position: [facility] RN Member Role: Primary Care Nurse Name: Jerri Moctezuma RN Position: [facility] RN Member Role: Primary Care Nurse Name: Damari Coates RN Position: [facility] SN RN Member Role: Primary Care Nurse Name: Michelle Paul RN Position: [facility] RN Member Role: Primary Care Nurse Name: Gema Chu RN Position: [facility] RN Member Role: Primary Care Nurse Name: Yenni Ledezma RN Position: [facility] RN Member Role: Primary Care Nurse Name: Benja Camraena MD Position: [facility] Renal MD Member Role: Lifetime Consulting Physician Address: Address: [address] [facility], [place] [address]- Name: Herbie Mullen MD Position: [facility] Renal MD Member Role: Lifetime Consulting Physician Address: Address: [address] [facility] [place] [address]- Name: Ayo Walter RN Position: [facility] ED RN W/OE and Tasks Member Role: Primary Care Nurse Name: Bri Becerril MD Position: [facility] Primary Care Physician Member Role: PCP Address: Address: [address] [place] [address], [address] [place], [place] - Name: Marge Haas RN Position: S RN Member Role: Primary Care Nurse Name: Mckenzie Gallo RN Position: S RN Member Role: Primary Care Nurse Care Team Related Persons Name: MICHELLE RAE Address: home [address] [address] Name: KEILY HERNANDEZ Address: home [address] [place] [address] Name: CHUY MAYO
--- OUTSIDE RECORDS SUMMARY | 2023-05-27 03:12 | XMS_ITS | Continuity of Care Document ---
Author Name Unknown Organization [facility] Address [address] [place] [address]- Care Team Providers Care Sheet Rock Nailer Name Role Phone Jone DE LA ROSA, Bri Barrett Primary Care Physician En[place] [facility] [place] 07/05/21 - 08/04/21 [facility] [address] [place] [address]- Allergies, Adverse Reactions, Alerts No Known Medication [...] 2 Refills, Maintenance, 09/05/19 10:10:00 EST, Solution, [facility] #[id number], 183, cm, 08/30/19 19:46:00 EST, Height, 141, [...] 1, TAKE 1 TABLET BY MOUTH DAILY, [facility] #[id number] Start Date: 06/24/19 Status: Ordered atorvastatin 40 mg oral tablet 1 tablet, By Mouth, Daily at bedtime, # 90 tablet, 1 Refills, Maintenance, 11/23/20 11:14:00 EST, [facility] #66039, 179, cm, 11/11/20 11:50:00 EST, Height, 120.5, [...] 03/04/21 10:46:00 EDT, Route to Pharmacy Electronically, [facility], Partial fill upon patient request if the prescription is for a schedule II opioi... Start Date: 03/04/21 Stop Date: 04/15/21 Status: Ordered doxazosin 4 mg oral tablet 1 tablet, By Mouth, Daily at bedtime, # 90 tablet, 1 Refills, Maintenance, 07/31/20 13:33:00 EST, [facility] #04801, 183, cm, 06/09/20 12:58:00 EDT, Height, 141, kg, 02/21/20 1:50:00 EDT, Dry Weight Start Date: 07/31/20 Status: Ordered furosemide 20 mg oral tablet 1, tablet, By Mouth, Daily, # 90 tablet, Refills 1, Tot. Refills 1, Maintenance, 12/23/19 9:21:00 EDT, Route to Pharmacy Electronically, [facility] #[id number], 183, cm, 11/21/19 15:07:00 EST, Height, 137, kg, 11/15/19 0:16:00 EST, Dry Weight Start Date: 12/23/19 Stop Date: 06/20/20 Status: Ordered gabapentin 600 mg oral tablet 1 tablet = 600 mg, By Mouth, 3 times a day, # 90 tablet, 1 Refills, Maintenance, 10/30/20 13:02:00 EST, Tablet, [facility] #76620, 179, cm, 10/18/20 16:27:00 EST, Height, 120.5, kg, 10/18/20 16:27:00 EST, Dry Weight Start Date: 10/30/20 Status: Ordered glipiZIDE 2.5 mg oral tablet, extended release 1 tablet = 2.5 mg, By Mouth, Daily, # 90 tablet, 1 Refills, Maintenance, 05/08/20 13:04:00 EDT, ER Tablet, [facility] #35249, 183, cm, 02/22/20 3:42:00 EDT, Height, 141, [...] Refills, Maintenance, 11/16/20 9:25:00 EST, EC Tablet, [facility] #44213, 179, cm, 11/11/20 11:50:00 EST, Height, 120.5, kg, 10/18/20 16:27:00 EST, Dry Weight Start Date: 11/16/20 Stop Date: 05/15/21 Status: Ordered Trulicity Pen 1.5 mg/0.5 mL subcutaneous solution 0.5 mL = 1.5 mg, Subcutaneous Injection, Every week, rotate injection sites, # 2 mL, 6 Refills, Maintenance, 10/21/20 13:40:00 EST, Solution, [facility] #45342, Partial fill upon patient request if the prescription is for a schedule II opioi... Start Date: 10/21/20 Status: Ordered Ventolin HFA 108 mcg/inh inhalation aerosol with adapter 2 puffs, Inhalation, Every 4 hours, # 18 Gm, 1 Refills, Maintenance, 11/11/19 13:17:00 EST, [facility] #[id number], 183, cm, 10/31/19 14:18:00 EST, Height, 141, kg, 08/30/19 19:46:00 EST, Dry Weight Start Date: 11/11/19 Status: Ordered Vitamin D3 1000 intl units oral tablet 1 tablet = 1,000 International_Units, By Mouth, Daily, # 90 tablet, 1 Refills, Maintenance, 12/11/19 12:04:00 EDT, Tablet, [facility] #68916, 183, cm, 11/21/19 15:07:00 EST, Height, 137, [...]
--- OUTSIDE RECORDS SUMMARY | 2023-05-27 03:12 | XMS_ITS | Continuity of Care Document ---
Author Name Unknown Organization [facility] ter Address [address] [place] [address]- Care Team Providers Care M48 M60 Armor Crewman Name Role Phone Dom DE LA ROSA, Tylor A Primary Care Physician Encounter [facility] [place] Date(s): 04/19/21 - 04/20/[address] [address]- Encounter Diagnosis Cellulitis(Final) - 04/20/21 Leg pain(Final) - 04/20/21 Discharge Disposition: A-Transfer SNF Attending Physician: Charan Perez MD Admitting Physician: Charan Perez MD Referring Physician: Not on Staff, [...] 2 Refills, Maintenance, 09/05/19 10:10:00 EST, Solution, [facility] #[id number], 183, cm, 08/30/19 19:46:00 EST, Height, 141, kg, 08/30/19 19:46:00 EST, Dry Weight Start Date: 09/05/19 Status: Ordered amLODIPine 5 mg oral tablet 5 mg, 1, tablet, By Mouth, Daily, # 30 tablet, Refills 1, Tot. Refills 1, Maintenance, 04/03/21 13:27:00 EDT, Route to Pharmacy Electronically, [facility]/pharmacy #[id number], Partial fill upon patient request if the prescription is for a schedule II opioid drug.... Start Date: 04/03/21 Status: Ordered Aspirin Low Dose 81 mg oral delayed release tablet See Instructions, # 90 tablet, Refills 1 Tot. Refills 1, TAKE 1 TABLET BY MOUTH DAILY, [facility] #65418 Start Date: 06/24/19 Status: Ordered atorvastatin 40 mg oral tablet 1 tablet, By Mouth, Daily at bedtime, # 90 tablet, 1 Refills, Maintenance, 11/23/20 11:14:00 EST, [facility] #79124, 179, cm, 11/11/20 11:50:00 EST, Height, 120.5, [...] each, 5 Refills, Maintenance, 04/03/21 13:35:00 EDT, [facility]/pharmacy #1234, Partial fill upon [...] tablet, 1 Refills, Maintenance, 07/31/20 13:33:00 EST, [facility] #91108, 183, cm, 06/09/20 12:58:00 EDT, Height, 141, kg, 02/21/20 1:50:00 EDT, Dry Weight Start Date: 07/31/20 Status: Ordered furosemide 20 mg oral tablet 1, tablet, By Mouth, Daily, # 90 tablet, Refills 1, Tot. Refills 1, Maintenance, 12/23/19 9:21:00 EDT, Route to Pharmacy Electronically, [facility] #[id number], 183, cm, 11/21/19 15:07:00 EST, Height, 137, kg, 11/15/19 0:16:00 EST, Dry Weight Start Date: 12/23/19 Stop Date: 06/20/20 Status: Ordered gabapentin 600 mg oral tablet 1 tablet = 600 mg, By Mouth, 3 times a day, # 90 tablet, 1 Refills, Maintenance, 10/30/20 13:02:00 EST, Tablet, [facility] #84371, 179, cm, 10/18/20 16:27:00 EST, Height, 120.5, kg, 10/18/20 16:27:00 EST, Dry Weight Start Date: 10/30/20 Status: Ordered glipiZIDE 2.5 mg oral tablet, extended release 1 tablet = 2.5 mg, By Mouth, Daily, # 90 tablet, 1 Refills, Maintenance, 05/08/20 13:04:00 EDT, ER Tablet, [facility] #[id number], 183, cm, 02/22/20 3:42:00 EDT, Height, 141, [...] each, 5 Refills, Maintenance, 04/03/21 13:20:00 EDT, [facility]/pharmacy #[id number],... Start Date: 04/03/21 Stop Date: 09/30/21 Status: [...] Refills, Maintenance, 11/16/20 9:25:00 EST, EC Tablet, [facility] #47206, 179, cm, 11/11/20 11:50:00 EST, Height, 120.5, kg, 10/18/20 16:27:00 EST, Dry Weight Start Date: 11/16/20 Stop Date: 05/15/21 Status: Ordered Trulicity Pen 1.5 mg/0.5 mL subcutaneous solution 0.5 mL = 1.5 mg, Subcutaneous Injection, Every week, rotate injection sites, # 2 mL, 6 Refills, Maintenance, 10/21/20 13:40:00 EST, Solution, [facility] #82585, Partial fill upon patient request if the prescription is for a schedule II opioi... Start Date: 10/21/20 Status: Ordered Ventolin HFA 108 mcg/inh inhalation aerosol with adapter 2 puffs, Inhalation, Every 4 hours, # 18 Gm, 1 Refills, Maintenance, 11/11/19 13:17:00 EST, [facility] #51098, 183, cm, 10/31/19 14:18:00 EST, Height, 141, kg, 08/30/19 19:46:00 EST, Dry Weight Start Date: 11/11/19 Status: Ordered Vitamin D3 1000 intl units oral tablet 1 tablet = 1,000 International_Units, By Mouth, Daily, # 90 tablet, 1 Refills, Maintenance, 12/11/19 12:04:00 EDT, Tablet, [facility] #25301, 183, cm, 11/21/19 15:07:00 EST, Height, 137, [...] Exam Date Time Procedure Performing Provider Status 04/19/21 11:27 PM Tibia/Fibula 2 Views Left Belia Sarkar; Auth (Verified) Notes: (Tibia/Fibula 2 Views Left) Reason For Exam: with Pain;Trauma RESULT: Tibia/Fibula 2 Views Left Tibia/Fibula 2 Views Left Hx of Present Illness: BKA, possible infection; Reason: Trauma; with Pain; Clinical Question(s): Osteomyelitis COMPARISON: None. FINDINGS: Postoperative changes of below the knee amputation across the proximal tibial and fibular diaphysis. No osseous erosions to indicate osteomyelitis. Visualized joints are normal. Normal soft tissues. Cutaneous elena overlie the stump. IMPRESSION: Postoperative changes of below the knee amputation. No evidence of osteomyelitis. WSN: [id number] Ordering Physician: Yovany Montoya Dictated By: Berto Martínez MD Dictated Date/Time: 04/19/21 11:30 p Reviewed By: Berto Martínez MD Signed By: Berto Martínez MD Signed Date/Time: 04/19/21 11:30 pm Transcribed By: JOSÉ Transcribed Date/Time: 04/19/21 11:28 pm Vital Signs Most recent to oldest [Reference Range]: 1 2 Oxygen Saturation [94-100 %] 98 % (04/20/21 1:25 AM) 100 % (04/19/21 10:59 PM) Pulse Rate [55-90 bpm] 79 bpm (04/20/21 1:25 AM) 88 bpm (04/19/21 10:59 PM) Blood Pressure [90-138/55-84 mm Hg] 123/ 65mm Hg (04/20/21 1:25 AM) 130/66mm Hg (04/19/21 10:59 PM) Respiratory Rate [16-30 br/min] 18 br/mi n (04/20/21 1:25 AM) 16 br/min (04/19/21 10:59 PM) Temperature [96.8-100.4 DegF] 97.6 DegF (04/19/21 10:59 PM) Mode of Delivery (Oxygen) Room air (04/20/21 1:25 AM) Room air (04/19/21 10:59 PM) Blood pressure sites Arm, left (04/20/21 1:25 AM) Arm, right (04/19/21 10:59 PM) Temperature Route Oral (04/19/21 10:59 PM) Social History Social History Type Response Tobacco Use: 4 or less cigar ettes(less than 1/4 pack)/day in last 30 days. Sex
--- OUTSIDE RECORDS SUMMARY | 2023-05-27 03:12 | XMS_ITS | Continuity of Care Document ---
Author Name Unknown Organization [facility] Address [address] [place] [address]- Care Team Providers Care Clinical Nurse Manager Name Role Phone Jone DE LA ROSA, Bri Barrett Primary Care Physician Encounter 11/02/19 - 12/19/19 [facility] Nurse [facility] [address] [place] [id number]- [facility] Discharge Disposition: NON COMPLIANT WITH PLAN OF TREATMENT Allergies, Adverse Reactions, Alerts Substance Reaction Severity [...] 2 Refills, Maintenance, 09/05/19 10:10:00 EST, Solution, [facility][id number], 183, cm, 08/30/19 19:46:00 EST, Height, 141, [...] 1, TAKE 1 TABLET BY MOUTH DAILY, [facility] #[id number] Start Date: 06/24/19 Status: Ordered atorvastatin 40 mg oral tablet 1 tablet, By Mouth, Daily at bedtime, # 90 tablet, 1 Refills, Maintenance, 12/09/19 20:32:00 EDT, [facility] #[id number], 183, cm, 11/21/19 15:07:00 EST, Height, 137, kg, 11/15/19 0:16:00 EST, Dry Weight Start Date: 12/09/19 Status: Ordered Basaglar KwikPen 100 units/mL subcutaneous solution See Instructions, Subcutaneous Infusion Inject 80 units every morning and 50 every evening, # 15 mL, 2 Refills, Maintenance, 03/29/19 17:39:00 EDT, [id number] Start Date: 03/29/19 Status: Ordered clopidogrel 75 mg oral tablet See Instructions, # 90 tablet, Refills 1 Tot. Refills 1, TAKE 1 TABLET BY MOUTH DAILY, [facility] #[id number] Start Date: 06/24/19 Status: Ordered doxazosin 4 mg oral tablet 1 tablet = 4 mg, By Mouth, Daily, at bedtime, # 90 tablet, 1 Refills, Maintenance, 08/14/19 14:48:27 EST, Tablet Start Date: 08/14/19 Stop Date: 02/10/20 Status: Ordered free style lancets 100 free style lancets 100, See Instructions, # 200 each, Refills 1, Tot. Refills 1, Maintenance, use twice daily for type 1 diabetes mellitus, 11/11/19 13:17:00 EST, [facility], 183, cm, 10/31/19 14:18:00EST, Height, 141, kg, 08/30/19 19:46:00 EST, Dry We... Start Date: 11/11/19 Status: Ordered freestyle lite blood glucstr 50s freestyle lite blood glucstr 50s, See Instructions, # 200 each, Refills 1, Tot. Refills 1, Maintenance, use to test blood sugar twice daily, 11/11/19 13:17:00 EST, Compound, 183, cm, 10/31/19 14:18:00 EST, Height, 141, kg, 08/30/19 19:46:00 EST, Dry... Start Date: 11/11/19 Status: Ordered furosemide 20 mg oral tablet 1 tablet, By Mouth, Daily, # 30 tablet, Refills 2 Tot. Refills 2, [facility] #[id number] Start Date: 08/19/19 Status: Ordered gabapentin 600 mg oral tablet 1 tablet = 600 mg, By Mouth, 3 times a day, # 90 tablet, 0 Refills, Maintenance, 11/21/19 15:20:00 EST, Tablet Start Date: 11/21/19 Status: Ordered glipiZIDE 2.5 mg oral tablet, extended release 1 tablet = 2.5 mg, By Mouth, Daily, # 90 tablet, 1 Refills, Maintenance, 11/21/19 15:52:00 EST, ER Tablet Start Date: 11/21/19 Stop Date: 05/19/20 Status: Ordered lisinopril 40 mg oral tablet See Instructions, # 90 tablet, Refills 1 Tot. Refills 1, TAKE 1 TABLET BY MOUTH DAILY, [facility] #[id number] Start Date: 06/24/19 Status: Ordered metFORMIN 750 mg oral tablet, extended release 1 tablet = 750 mg, By Mouth, Daily, with food, # 90 tablet, 1 Refills, Maintenance, 11/21/19 15:51:00 EST, ER Tablet Start Date: 11/21/19 Stop Date: 05/19/20 Status: Ordered methocarbamol 750 mg oral tablet See Instructions, TAKE 1 TABLET BY MOUTH THREE TIMES DAILY FOR 10 DAYS TAKE NEEDED FOR BACK PAIN.NOT TO DRIVE AFTER TAKING MED, # 90 tablet, 1 Refills, Soft Stop, 12/19/19 16:59:00 EDT, [facility] #[id number], 183, cm, 11/21/19 15:07:00 EST, H... Start Date: 12/19/19 Status: Ordered Metoprolol Tartrate 25 mg oral tablet 1 tablet, By Mouth, 2 times a day, # 60 tablet, 2 Refills, Maintenance, 12/09/19 20:38:00 EDT, [facility] #[id number], 183, cm, 11/21/19 15:07:00 EST, Height, 137, kg, 11/15/19 0:16:00 EST, Dry Weight Start Date: 12/09/19 Status: Ordered OneTouch Verio Lancets See Instructions, [...] SUBCUTANEOUSLY EVERY WEEK FOR 4 WEEKS. [id number] Start Date: 08/19/19 Status: Ordered pantoprazole 40 mg oral delayed release tablet 1 tablet = 40 mg, By Mouth, Daily, # 30 tablet, 0 Refills, Maintenance, 12/29/17 1:18:44 EDT, EC Tablet Start Date: 12/29/17 Status: Ordered Ventolin HFA 108 mcg/inh inhalation aerosol with adapter 2 puffs, Inhalation, Every 4 hours, # 18 Gm, 1 Refills, Maintenance, 11/11/19 13:17:00 EST, [facility] #37756, 183, cm, 10/31/19 14:18:00 EST, Height, 141, kg, 08/30/19 19:46:00 EST, Dry Weight Start Date: 11/11/19 Status: Ordered Vitamin D3 1000 intl units oral tablet 1 tablet = 1,000 International_Units, By Mouth, Daily, # 90 tablet, 1 Refills, Maintenance, 12/11/19 12:04:00 EDT, Tablet, [facility] #17143, 183, cm, 11/21/19 15:07:00 EST, Height, 137, [...]
--- OUTSIDE RECORDS SUMMARY | 2023-05-27 03:12 | XMS_ITS | Continuity of Care Document ---
Author Name Unknown Organization [facility] Address [address] [place] [id number]- Care Team Providers Care Quality Assurance Assessor Name Role Phone Bri Becerril MD Primary Care Physician Encounter [facility] Date(s): 09/08/22 - 12/04/22 [facility] [address] [place] [address]- Attending Physician: Babak De La Cruz MD [...] Vaccine Date Status Refusal Reason SARS-CoV-2 mRNA ([id number]) vax 4 03/19/22 Not Given Patient Refuses [...] tablet, By Mouth, Daily, # 28 tablet, 3 Refills, Maintenance, 11/28/22 13:47:00 EDT, [facility], 183, cm, 05/01/22 21:57:00 EDT, Height, 136, kg, 05/01/22 21:57:00 EDT, Dry Weight Start Date: 11/28/22 Status: Ordered atorvastatin 40 mg oral tablet 1 tablet, By Mouth, Daily at bedtime, # 90 tablet, 1 Refills, Maintenance, 07/25/22 17:24:00 EST, [facility], 183, cm, 05/01/22 21:57:00 EDT, Height, 136, kg, 05/01/22 21:57:00 EDT, Dry Weight Start Date: 07/25/22 Status: Ordered Automatic arm blood pressure cuff Automatic arm blood pressure cuff, See Instructions, # 1 each, Refills 0, Tot. Refills 0, Maintenance, Use twice daily to check BP, 06/07/22 16:06:00 EDT, Supply Start Date: 06/07/22 Status: Ordered BD UF MINI PEN NEEDLE [id number] BD UF MINI PEN NEEDLE [id number], See Instructions, # 300 Unknown, 3 Refills, [...] Refills, Soft Stop, 03/16/22 11:01:00 EDT, Tablet, [facility]/pharmacy #[id number], Partial fill upon patient request [...] 03/16/22 10:59:00 EDT, Route to Pharmacy Electronically, [facility]/pharmacy#[id number], Partial fill upon patient request if the pre... Start Date: 03/16/22 Stop Date: 12/11/22 Status: Ordered Pen [place], 31 G x 8 mm BD Ultra [...] meals, AND BEDTIME., # 112 tablet, Refills 2, Maintenance, 11/28/22 13:48:00 EDT, Route to Pharmacy Electronically, [facility], 183, cm, 05/01/22 21:57:00 EDT, Height, 136, kg, 05/01/22 21:57:00... Start Date: 11/28/22 Status: Ordered Transfer Bench See Instructions, # 1 each, Maintenance, standard 4 wheeled walker Dx: Left BKA ht: 6 ft; wt: 134 kg, 04/11/22 10:47:00 EDT, Supply Start Date: 04/11/22 Status: Ordered Trulicity Pen 1.5 mg/0.5 mL subcutaneous solution See Instructions, INJECT 0.5ML SUBCUTANEOUSLY ONCE WEEKLY. ROTATE INJECTION SITES., # 2 mL, 3 Refills, Maintenance, 11/28/22 13:48:00 EDT, [facility], 183, cm, 05/01/22 21:57:00 EDT, Height, 136, kg, 05/01/22 21:57:00 EDT, Dry Weight Start Date: 11/28/22 Status: Ordered Urinal (hand-held) Urinal (hand-held), See [...] Dry Weight Start Date: 11/27/22 Status: Ordered Walker See Instructions, [...] Team Personnel Name: Tita Walton NP Position: [facility] Associate Professional Member Role: Primary Care Nurse Address: Address: [address] [place] [address] [facility] [address] Name: Vaishnavi Mack Position: [facility] [place] Office Staff Member Role: Lifetime Consulting Physician Name: Kenia Montez RN Position: [facility] RN Member Role: Primary Care Nurse Name: Serena Starr RN Position: [facility] AMB Nurse Member Role: Primary Care Nurse Name: Amelie Easley RN Position: [facility] ED RN W/OE and Tasks Member Role: Primary Care Nurse Name: Gina Zee RN Position: [facility] RN Member Role: Primary Care Nurse Name: Olga Nielsen Position: [facility] Outreach Member Role: Lifetime Consulting Physician Name: Francisca Madera RN Position: [facility] RN Member Role: Primary Care Nurse Name: Aakash Bowman RN Position: [facility] RN Member Role: Primary Care Nurse Name: Ced Page RN Position: [facility] RN Member Role: Primary Care Nurse Name: Jerri Moctezuma RN Position: [facility] RN Member Role: Primary Care Nurse Name: Damari Coates RN Position: [facility] SN RN Member Role: Primary Care Nurse Name: Michelle Paul RN Position: [facility] RN Member Role: Primary Care Nurse Name: Gema Chu RN Position: [facility] RN Member Role: Primary Care Nurse Name: Yenni Ledezma RN Position: [facility] RN Member Role: Primary Care Nurse Name: Benja Camarena MD Position: [facility] Renal MD Member Role: Lifetime Consulting Physician Address: Address: [address] [place] [address] [address] [facility] [place] [address]- Name: Herbie Mullen MD Position: [facility] Renal MD Member Role: Lifetime Consulting Physician Address: Address: [address] [place] [address] [facility] [address] Name: Ayo Walter RN Position: [facility] ED RN W/OE and Tasks Member Role: Primary Care Nurse Name: Bri Becerril MD Position: [facility] Primary Care Physician Member Role: PCP Address: Address: [address] [place] [address], [address] [place] [address]- Name: Marge Haas RN Position: [facility] Onco RN Member Role: Primary Care Nurse Name: Mckenzie Gallo RN Position: [facility] RN Member Role: Primary Care Nurse Care Team Related Persons Name: MICHELLE RAE Address: home [address] [address] Name: KEILY HERNANDEZ Address: home [address] [place] [address] Name: CHUY MAYO
--- OUTSIDE RECORDS SUMMARY | 2023-05-27 03:12 | XMS_ITS | Continuity of Care Document ---
Author Name Unknown Organization 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 NSTEMI (non-ST elevated myocardial infarction)(Final) - 03/22/21 Leukocytosis(Final) - 03/22/21 Acute kidney injury(Final) - 03/22/21 Discharge Disposition: A-D/C Home Attending Physician: Jagdish Aguirre MD, Jerald Dickinson Admitting Physician: Tonny Carvajal MD Referring Physician: Not on Staff, Referring [...] 2 Refills, Maintenance, 09/05/19 10:10:00 EST, Solution, [facility] #[id number], 183, cm, 08/30/19 19:46:00 EST, Height, 141, kg, 08/30/19 19:46:00 EST, Dry Weight Start Date: 09/05/19 Status: Ordered amLODIPine 5 mg oral tablet 5 mg, Tablet, By Mouth, Hold for: abp <140, 04/03/21 9:00:00 EDT Start Date: 04/03/21 Stop Date: 04/03/21 Status: Completed amLODIPine 5 mg oral tablet 5 mg, 1, tablet, By Mouth, Daily, # 30 tablet, Refills 1, Tot. Refills 1, Maintenance, 04/03/21 13:27:00 EDT, Route to Pharmacy Electronically, [facility]/pharmacy #[id number], Partial fill upon patient request if the prescription is for a schedule II opioid drug.... Start Date: 04/03/21 Status: Ordered Aspirin Low Dose 81 mg oral delayed release tablet See Instructions, # 90 tablet, Refills 1 Tot. Refills 1, TAKE 1 TABLET BY MOUTH DAILY, [facility] #[id number] Start Date: 06/24/19 Status: Ordered atorvastatin 40 mg oral tablet 1 tablet, By Mouth, Daily at bedtime, # 90 tablet, 1 Refills, Maintenance, 11/23/20 11:14:00 EST, [facility] #[id number], 179, cm, 11/11/20 11:50:00 EST, Height, 120.5, [...] each, 5 Refills, Maintenance, 04/03/21 13:35:00 EDT, [facility]/pharmacy #1234, Partial fill upon patient request if the prescription is for a schedule II opioid drug., For wound dressing, 183, cm, 03/17/21 11:22:00... Start Date: 04/03/21 Status: Ordered clopidogrel 75 mg oral tablet 75 mg, 1, tablet, By Mouth, Daily, # 42 tablet, Refills 0, Tot. Refills 0, Maintenance, 03/04/21 10:46:00 EDT, Route to Pharmacy Electronically, [facility], Partial fill upon patient request if the prescription is for a schedule II opioi... Start Date: 03/04/21 Stop Date: 04/15/21 Status: Ordered Dilaudid 2 mg oral tablet 2 tablet = 4 mg, By Mouth, Every 4 hours, PRN as needed for pain, for 7 days, # 30 tablet, 0 Refills, Acute 04/10/21 13:59:00 EDT, 04/03/21 13:59:00 EDT, Tablet, [facility]/pharmacy #1234, Partial fill uponpatient request if the prescription is for a schedu... Start Date: 04/03/21 Stop Date: 04/10/21 Status: Ordered doxazosin 4 mg oral tablet 1 tablet, By Mouth, Daily at bedtime, # 90 tablet, 1 Refills, Maintenance, 07/31/20 13:33:00 EST, [facility] #[id number], 183, cm, 06/09/20 12:58:00 EDT, Height, 141, kg, 02/21/20 1:50:00 EDT, Dry Weight Start Date: 07/31/20 Status: Ordered furosemide 20 mg oral tablet 1, tablet, By Mouth, Daily, # 90 tablet, Refills 1, Tot. Refills 1, Maintenance, 12/23/19 9:21:00 EDT, Route to Pharmacy Electronically, [facility] #[id number], 183, cm, 11/21/19 15:07:00 EST, Height, 137, kg, 11/15/19 0:16:00 EST, Dry Weight Start Date: 12/23/19 Stop Date: 06/20/20 Status: Ordered gabapentin 300 mg oral capsule 600 mg, Capsule, By Mouth, 04/03/21 9:00:00 EDT Start Date: 04/03/21 Stop Date: 04/03/21 Status: Completed gabapentin 600 mg oral tablet 1 tablet = 600 mg, By Mouth, 3 times a day, # 90 tablet, 1 Refills, Maintenance, 10/30/20 13:02:00 EST, Tablet, [facility] #[id number], 179, cm, 10/18/20 16:27:00 EST, Height, 120.5, kg, 10/18/20 16:27:00 EST, Dry Weight Start Date: 10/30/20 Status: Ordered glipiZIDE 2.5 mg oral tablet, extended release 1 tablet = 2.5 mg, By Mouth, Daily, # 90 tablet, 1 Refills, Maintenance, 05/08/20 13:04:00 EDT, ER Tablet, [facility] #[id number], 183, cm, 02/22/20 3:42:00 EDT, Height, 141, [...] each, 5 Refills, Maintenance, 04/03/21 13:20:00 EDT, [facility]/pharmacy #[id number],... Start Date: 04/03/21 Stop Date: 09/30/21 Status: [...] 50 mg, Tablet, By Mouth, Hold for: sbp<140, 04/03/21 9:00:00 EDT Start Date: 04/03/21 Stop Date: 04/03/21 Status: Completed PriLOSEC OTC 20 mg oral delayed release tablet 1 tablet = 20 mg, By Mouth, 2 times a day, # 180 tablet, 1 Refills, Maintenance, 11/16/20 9:25:00 EST, EC Tablet, [facility] #[id number], 179, cm, 11/11/20 11:50:00 EST, Height, 120.5, kg, 10/18/20 16:27:00 EST, Dry Weight Start Date: 11/16/20 Stop Date: 05/15/21 Status: Ordered Trulicity Pen 1.5 mg/0.5 mL subcutaneous solution 0.5 mL = 1.5 mg, Subcutaneous Injection, Every week, rotate injection sites, # 2 mL, 6 Refills, Maintenance, 10/21/20 13:40:00 EST, Solution, [facility] #[id number], Partial fill upon patient request if the prescription is for a schedule II opioi... Start Date: 10/21/20 Status: Ordered Ventolin HFA 108 mcg/inh inhalation aerosol with adapter 2 puffs, Inhalation, Every 4 hours, # 18 Gm, 1 Refills, Maintenance, 11/11/19 13:17:00 EST, [facility] #[id number], 183, cm, 10/31/19 14:18:00 EST, Height, 141, kg, 08/30/19 19:46:00 EST, Dry Weight Start Date: 11/11/19 Status: Ordered Vitamin D3 1000 intl units oral tablet 1 tablet = 1,000 International_Units, By Mouth, Daily, # 90 tablet, 1 Refills, Maintenance, 12/11/19 12:04:00 EDT, Tablet, [facility] #[id number], 183, cm, 11/21/19 15:07:00 EST, Height, 137, [...] Results Orders for Microbiology Reports Name Date Urine Culture (URINE CULTURE) 03/25/21 Blood Culture 03/23/21 Blood Culture #2 03/23/21 Blood Culture 03/22/21 Blood Culture #2 03/22/21 Microbiology Reports TEST:Urine Culture STATUS:Auth (Verified) BODY SITE: SOURCE:URINE COLLECTED DATE/TIME:03/25/21 5:00 AM Urine Culture SPECIMEN DESCRIPTION : URINE SPECIAL REQUESTS : NONE Reflexed from [id number] CULTURE : NO GROWTH REPORT STATUS : FINAL 03/26/2021 TEST:Blood Culture STATUS:Auth (Verified) BODY SITE: SOURCE:Blood COLLECTED DATE/TIME:03/23/21 11:50 PM Blood Culture SPECIMEN DESCRIPTION : BLOOD NO SITE SPECIAL REQUESTS : NONE CULTURE : NO GROWTH 5 DAYS. REPORT STATUS : FINAL 03/29/2021 TEST:Blood Culture, Second Order STATUS:Auth (Verified) BODY SITE: SOURCE:Blood COLLECTED DATE/TIME:03/23/21 11:50 PM Blood Culture, Second Order SPECIMEN DESCRIPTION : BLOOD NO SITE SPECIAL REQUESTS : NONE CULTURE : NO GROWTH 5 DAYS. REPORT STATUS : FINAL 03/29/2021 TEST:Blood Culture STATUS:Auth (Verified) BODY SITE: SOURCE:Blood COLLECTED DATE/TIME:03/22/21 3:39 AM Blood Culture SPECIMEN DESCRIPTION : BLOOD L FORE ARM SPECIAL REQUESTS : NONE CULTURE : NO GROWTH 5 DAYS. REPORT STATUS : FINAL 03/27/2021 TEST:Blood Culture, Second Order STATUS:Auth (Verified) BODY SITE: SOURCE:Blood COLLECTED DATE/TIME:03/22/21 3:39 AM Blood Culture, Second Order SPECIMEN DESCRIPTION : BLOOD L AC SPECIAL REQUESTS : NONE CULTURE : NO GROWTH 5 DAYS. REPORT STATUS : FINAL 03/27/2021 Radiology Reports * Exam Date Time Procedure Performing Provider Status 03/22/21 4:21 PM Chest Portable Peggy Pool; Auth ( Verified) Notes: (Chest Portable) Reason For Exam: Shortness of Breath RESULT: Chest Portable Chest Portable Reason: Shortness of Breath; Clinical Question(s): CHF COMPARISON: 10/18/2020 FINDINGS: LINES AND TUBES: None. LUNGS AND PLEURA: Clear lungs. Normal pulmonary vascularity. No pleural effusion. No pneumothorax. HEART, MEDIASTINUM AND CINTHIA: Heart is normal in size. Normal upper mediastinal and hilar contour. Mild aortic calcification and unfolding. BONES AND SOFT TISSUES: No acute abnormality. Moderate glenohumeral osteoarthritis bilaterally. IMPRESSION: No acute abnormality. WSN: [id number] Ordering Physician: Jerald Oliver Dictated By: Luiz Johnson MD Dictated Date/Time: 03/22/21 4:22 pm Reviewed By: Luiz Johnson MD Signed By: Luiz Johnson MD Signed Date/Time: 03/22/21 4:22 pm Transcribed By: JOSÉ Transcribed Date/Time: 03/22/21 4:21 pm * Exam Date Time Procedure Performing Provider Status 03/22/21 5:02 AM Ankle Min 3 Views Left Greg Mulligan; Auth (Verified) Notes: (Ankle Min 3 Views Left) Reason For Exam: Infection RESULT: Ankle Min 3 Views Left Ankle Min 3 Views Left Reason: Infection; Clinical Question(s): Osteomyelitis. COMPARISON: None. FINDINGS: No evidence of acute or healing fracture or bone lesion. Intact ankle mortise and talar dome. No arthritic changes. Normal soft tissues. IMPRESSION: Normal. WSN: [id number] Ordering Physician: Ángel Lockwood Dictated By: Gala Lobato MD Dictated Date/Time: 03/22/21 9:03 am Reviewed By: Gala Lobato MD Signed By: Gala Lobato MD Signed Date/Time: 03/22/21 9:03 am Transcribed By: JOSÉ Transcribed Date/Time: 03/22/21 9:02 am * Exam Date Time Procedure Performing Provider Status 03/22/21 5:02 AM Foot Min 3 Views Left Yovany Mulligan ; Milana (Verified) Notes: (Foot Min 3 Views Left) Reason For Exam: Infection RESULT: Foot Min 3 Views Left Foot Min 3 Views Left, 3 views Reason: Infection; Clinical Question(s): Osteomyelitis COMPARISON: 02/23/2021 FINDINGS: Partial amputation of the second toe from the level of the mid shaft of the middle phalanx. The bony and has irregular contour however surgery appears recent. No arthritic changes. Subcutaneous emphysema in the soft tissues about the second toe and also the fourth toe, which could be related to recent surgery. IMPRESSION: Postoperative changes at the second toe. No new areas of osteomyelitis appreciated. WSN: [id number] Ordering Physician: Ángel Lockwood Dictated By: Gala Lobato MD Dictated Date/Time: 03/22/21 9:02 am Reviewed By: Gala Lobato MD Signed By: Gala Lobato MD Signed Date/Time: 03/22/21 9:02 am Transcribed By: JOSÉ Transcribed Date/Time: 03/22/21 9:01 am * Exam Date Time Procedure Performing Provider Status 03/22/21 5:02 AM XR Hip w/Pelvis 2-3 View Left Paula Mulligan (Verified) Notes: (XR Hip w/Pelvis 2-3 View Left) Reason For Exam: Pain RESULT: XR Hip w/Pelvis 2-3 View Left XR Hip w/Pelvis 2-3 View Left Reason: Pain; Clinical Question(s): Fracture COMPARISON: None. FINDINGS: Patient is rotated to the right. There is no fracture or dislocation. Normal hips and sacroiliac joints. Normal soft tissues. IMPRESSION: Normal. WSN: [id number] Ordering Physician: Sanam Galdamez Dictated By: Gala Lobato MD Dictated Date/Time: 03/22/21 9:00 am Reviewed By: Gala Lobato MD Signed By: Gala Lobato MD Signed Date/Time: 03/22/21 9:00 am Transcribed By: JOSÉ Transcribed Date/Time: 03/22/21 9:00 am Vital Signs Most recent to oldest [Reference Range]: 1 2 3 Weight 131.3 kg (03/30/21 3:48 PM) 131.3 kg (03/26/21 12:51 PM) 131.3 kg (03/22/21 2:49 PM) Oxygen Saturation [94-100 %] 93 % *L* (04/03/21 12:17 PM) 95 % (04/03/21 8:23 AM) 93 % *L* (04/02/21 10:49 PM) Pulse Rate [55-90 bpm] 68 bpm (04/03/21 12:17 PM) 83 bpm (04/03/21 9:01 AM) 83 bpm (04/03/21 8:23 AM) Blood Pressure [90-138/55-84 mm Hg] 102/48mm Hg (04/03/21 12:17 PM) 137/71mm Hg (04/03/21 9:02 AM) 137/71mm Hg (04/03/21 9:01 AM) Respiratory Rate [16-30 br/min] 18 br/min (04/03/21 12:17 PM) 16 br/min (04/03/21 10:01 AM) 16 br/min (04/03/21 9:01 AM) Temperature [96.8-100.4 DegF] 97.3 DegF (04/03/21 12:17 PM) 98.0 DegF (04/03/21 8:23 AM) 97.6 DegF (04/02/21 10:49 PM) Liters per Minute 3 L/min (04/03/21 12:17 PM) 3 L/min (04/03/21 8:23 AM) 2 L/min (04/02/21 10:49 PM) Mode of Delivery (Oxygen) Nasal cannula (04/03/21 12:17 PM) Nasal cannula (04/03/21 8:23 AM) Nasal cannula (04/02/21 10:49 PM) Blood pressure sites Arm, right (04/03/21 12:17 PM) Arm, right (04/03/21 8:23 AM) Arm, left (04/02/21 10:49 PM) Temperature Route Oral (04/03/21 12:17 PM) Oral (04/03/21 8:23 AM) Oral (04/02/21 10:49 PM) Weight Obtained Via Bed scale (03/22/21 2:49 PM) Social History Social History Type Response Tobacco Use: 4 or less cigar ettes(less than 1/4 pack)/day in last 30 days. Sex
--- OUTSIDE RECORDS SUMMARY | 2023-05-27 03:12 | XMS_ITS | Continuity of Care Document ---
Author Name Unknown Organization [facility] Address [address] [place] [address]- Care Team Providers Care Paralegal Legal Secretary Name Role Phone Jone DE LA ROSA, Bri Barrett Primary Care Physician [phone] [place] [facility] [place](s): 06/29/21 - 07/29/21 [facility] [address] [place] [address]- Allergies, Adverse Reactions, Alerts No Known Medication [...] 2 Refills, Maintenance, 09/05/19 10:10:00 EST, Solution, [facility] #[id number], 183, cm, 08/30/19 19:46:00 EST, Height, 141, [...] 1, TAKE 1 TABLET BY MOUTH DAILY, [facility] #[id number] Start Date: 06/24/19 Status: Ordered atorvastatin 40 mg oral tablet 1 tablet, By Mouth, Daily at bedtime, # 90 tablet, 1 Refills, Maintenance, 11/23/20 11:14:00 EST, [facility] #[id number], 179, cm, 11/11/20 11:50:00 EST, Height, 120.5, kg, 10/18/20 16:27:00 EST, Dry Weight Start Date: 11/23/20 Status: Ordered Betadine 10% solution See Instructions, For wound dressing, # 1 each, 5 Refills, Maintenance, 04/03/21 13:35:00 EDT, [facility]/pharmacy #[id number], Partial fill upon patient request if the prescription is for a schedule II opioid drug., For wound dressing, 183, cm, 03/17/21 11:22:00... Start Date: 04/03/21 Status: Ordered clopidogrel 75 mg oral tablet 75 mg, 1, tablet, By Mouth, Daily, # 42 tablet, Refills 0, Tot. Refills 0, Maintenance, 03/04/21 10:46:00 EDT, Route to Pharmacy Electronically, [facility], Partial fill upon patient request if the prescription is for a schedule II opioi... Start Date: 03/04/21 Stop Date: 04/15/21 Status: Ordered doxazosin 4 mg oral tablet 1 tablet, By Mouth, Daily at bedtime, # 90 tablet, 1 Refills, Maintenance, 07/31/20 13:33:00 EST, [facility] #[id number], 183, cm, 06/09/20 12:58:00 EDT, Height, 141, kg, 02/21/20 1:50:00 EDT, Dry Weight Start Date: 07/31/20 Status: Ordered furosemide 20 mg oral tablet 1, tablet, By Mouth, Daily, # 90 tablet, Refills 1, Tot. Refills 1, Maintenance, 12/23/19 9:21:00 EDT, Route to Pharmacy Electronically, [facility] #[id number], 183, cm, 11/21/19 15:07:00 EST, Height, 137, kg, 11/15/19 0:16:00 EST, Dry Weight Start Date: 12/23/19 Stop Date: 06/20/20 Status: Ordered gabapentin 600 mg oral tablet 1 tablet = 600 mg, By Mouth, 3 times a day, # 90 tablet, 1 Refills, Maintenance, 10/30/20 13:02:00 EST, Tablet, [facility] #[id number], 179, cm, 10/18/20 16:27:00 EST, Height, 120.5, kg, 10/18/20 16:27:00 EST, Dry Weight Start Date: 10/30/20 Status: Ordered glipiZIDE 2.5 mg oral tablet, extended release 1 tablet = 2.5 mg, By Mouth, Daily, # 90 tablet, 1 Refills, Maintenance, 05/08/20 13:04:00 EDT, ER Tablet, [facility] #[id number], 183, cm, 02/22/20 3:42:00 EDT, Height, 141, [...] Refills, Maintenance, 11/16/20 9:25:00 EST, EC Tablet, [facility] #[id number], 179, cm, 11/11/20 11:50:00 EST, Height, 120.5, kg, 10/18/20 16:27:00 EST, Dry Weight Start Date: 11/16/20 Stop Date: 05/15/21 Status: Ordered Trulicity Pen 1.5 mg/0.5 mL subcutaneous solution 0.5 mL = 1.5 mg, Subcutaneous Injection, Every week, rotate injection sites, # 2 mL, 6 Refills, Maintenance, 10/21/20 13:40:00 EST, Solution, [facility] #[id number], Partial fill upon patient request if the prescription is for a schedule II opioi... Start Date: 10/21/20 Status: Ordered Ventolin HFA 108 mcg/inh inhalation aerosol with adapter 2 puffs, Inhalation, Every 4 hours, # 18 Gm, 1 Refills, Maintenance, 11/11/19 13:17:00 EST, [facility] #[id number], 183, cm, 10/31/19 14:18:00 EST, Height, 141, kg, 08/30/19 19:46:00 EST, Dry Weight Start Date: 11/11/19 Status: Ordered Vitamin D3 1000 intl units oral tablet 1 tablet = 1,000 International_Units, By Mouth, Daily, # 90 tablet, 1 Refills, Maintenance, 12/11/19 12:04:00 EDT, Tablet, [facility] #[id number], 183, cm, 11/21/19 15:07:00 EST, Height, 137, [...]
--- OUTSIDE RECORDS SUMMARY | 2023-05-27 03:12 | XMS_ITS | Continuity of Care Document ---
Author Name Unknown Organization [facility] ter Address [address] [place] [id number]- Care Team Providers Care Rail Track Maintainer Name Role Phone Bri Becerril MD Primary Care Physician [phone] Encounter [facility] [place] Date(s): 02/22/21 - 03/24/[address] [address] Allergies, Adverse Reactions, Alerts Substance Reaction Severity [...] 2 Refills, Maintenance, 09/05/19 10:10:00 EST, Solution, [facility] #[id number], 183, cm, 08/30/19 19:46:00 EST, Height, 141, kg, 08/30/19 19:46:00 EST, Dry Weight Start Date: 09/05/19 Status: Ordered amLODIPine 10 mg oral tablet 1 tablet, By Mouth, Daily, # 90 tablet, 0 Refills, Maintenance, 07/06/20 9:56:00 EDT, [facility] #[id number], 183, cm, 06/09/20 12:58:00 EDT, Height, 141, kg, 02/21/20 1:50:00 EDT, Dry Weight Start Date: 07/06/20 Status: Ordered Aspirin Low Dose 81 mg oral delayed release tablet See Instructions, # 90 tablet, Refills 1 Tot. Refills 1, TAKE 1 TABLET BY MOUTH DAILY, [facility] #[id number] Start Date: 06/24/19 Status: Ordered atorvastatin 40 mg oral tablet 1 tablet, By Mouth, Daily at bedtime, # 90 tablet, 1 Refills, Maintenance, 11/23/20 11:14:00 EST, [facility] #[id number], 179, cm, 11/11/20 11:50:00 EST, Height, 120.5, [...] 03/04/21 10:46:00 EDT, Route to Pharmacy Electronically, [facility], Partial fill upon patient request if the prescription is for a schedule II opioi... Start Date: 03/04/21 Stop Date: 04/15/21 Status: Ordered doxazosin 4 mg oral tablet 1 tablet, By Mouth, Daily at bedtime, # 90 tablet, 1 Refills, Maintenance, 07/31/20 13:33:00 EST, [facility] #[id number], 183, cm, 06/09/20 12:58:00 EDT, Height, 141, kg, 02/21/20 1:50:00 EDT, Dry Weight Start Date: 07/31/20 Status: Ordered furosemide 20 mg oral tablet 1, tablet, By Mouth, Daily, # 90 tablet, Refills 1, Tot. Refills 1, Maintenance, 12/23/19 9:21:00 EDT, Route to Pharmacy Electronically, [facility] #[id number], 183, cm, 11/21/19 15:07:00 EST, Height, 137, kg, 11/15/19 0:16:00 EST, Dry Weight Start Date: 12/23/19 Stop Date: 06/20/20 Status: Ordered gabapentin 600 mg oral tablet 1 tablet = 600 mg, By Mouth, 3 times a day, # 90 tablet, 1 Refills, Maintenance, 10/30/20 13:02:00 EST, Tablet, [facility] #[id number], 179, cm, 10/18/20 16:27:00 EST, Height, 120.5, kg, 10/18/20 16:27:00 EST, Dry Weight Start Date: 10/30/20 Status: Ordered glipiZIDE 2.5 mg oral tablet, extended release 1 tablet = 2.5 mg, By Mouth, Daily, # 90 tablet, 1 Refills, Maintenance, 05/08/20 13:04:00 EDT, ER Tablet, [facility] #[id number], 183, cm, 02/22/20 3:42:00 EDT, Height, 141, kg, 02/21/20 1:50:00 EDT, Dry Weight Start Date: 05/08/20 Stop Date: 11/04/20 Status: Ordered lisinopril 40 mg oral tablet 1 tablet, By Mouth, Daily, # 90 tablet, 0 Refills, Maintenance, 07/06/20 9:55:00 EDT, [facility] #[id number], 183, cm, 06/09/20 12:58:00 EDT, Height, 141, [...] Refills, Maintenance, 11/16/20 9:25:00 EST, EC Tablet, [facility] #[id number], 179, cm, 11/11/20 11:50:00 EST, Height, 120.5, kg, 10/18/20 16:27:00 EST, Dry Weight Start Date: 11/16/20 Stop Date: 05/15/21 Status: Ordered Trulicity Pen 1.5 mg/0.5 mL subcutaneous solution 0.5 mL = 1.5 mg, Subcutaneous Injection, Every week, rotate injection sites, # 2 mL, 6 Refills, Maintenance, 10/21/20 13:40:00 EST, Solution, [facility] #[id number], Partial fill upon patient request if the prescription is for a schedule II opioi... Start Date: 10/21/20 Status: Ordered Ventolin HFA 108 mcg/inh inhalation aerosol with adapter 2 puffs, Inhalation, Every 4 hours, # 18 Gm, 1 Refills, Maintenance, 11/11/19 13:17:00 EST, [facility] #[id number], 183, cm, 10/31/19 14:18:00 EST, Height, 141, kg, 08/30/19 19:46:00 EST, Dry Weight Start Date: 11/11/19 Status: Ordered Vitamin D3 1000 intl units oral tablet 1 tablet = 1,000 International_Units, By Mouth, Daily, # 90 tablet, 1 Refills, Maintenance, 12/11/19 12:04:00 EDT, Tablet, [facility] #[id number], 183, cm, 11/21/19 15:07:00 EST, Height, 137, kg, 11/15/19 0:16:00 EST, Dry Weight Start Date: 12/11/19 Stop Date: 9/21/20 Status: Ordered WALKER WALKER, See Instructions, # [...]
--- OUTSIDE RECORDS SUMMARY | 2023-05-27 03:12 | XMS_ITS | Continuity of Care Document ---
Author Name Unknown Organization [facility] Address [address] [place] [address]- Care Team Providers Care Plumbing And Heating Mechanic Name Role Phone Jone DE LA ROSA, Bri Barrett Primary Care Physician [phone] [id number] Date[facility]s): 04/29/20 - 06/04/[facility] [address] [place] [address]- [facility] Attending Physician: Renato Das MD Admitting Physician: Renato Das MD Referring Physician: Constantin DIAZ, Awilda Vogel Allergies, Adverse Reactions, Alerts Substance Reaction Severity [...] 2 Refills, Maintenance, 09/05/19 10:10:00 EST, Solution, [facility] #[id number], 183, cm, 08/30/19 19:46:00 EST, Height, 141, kg, 08/30/19 19:46:00 EST, Dry Weight Start Date: 09/05/19 Status: Ordered amLODIPine 10 mg oral tablet 1 tablet, By Mouth, Daily, # 90 tablet, 1 Refills, Maintenance, 01/07/20 9:52:00 EDT, [facility] #[id number], 183, cm, 11/21/19 15:07:00 EST, Height, 137, kg, 11/15/19 0:16:00 EST, Dry Weight Start Date: 01/07/20 Status: Ordered Aspirin Low Dose 81 mg oral delayed release tablet See Instructions, # 90 tablet, Refills 1 Tot. Refills 1, TAKE 1 TABLET BY MOUTH DAILY, [facility] #[id number] Start Date: 06/24/19 Status: Ordered atorvastatin 40 mg oral tablet 1 tablet, By Mouth, Daily at bedtime, # 90 tablet, 1 Refills, Maintenance, 12/09/19 20:32:00 EDT, [facility] #[id number], 183, cm, 11/21/19 15:07:00 EST, Height, 137, kg, 11/15/19 0:16:00 EST, Dry Weight Start Date: 12/09/19 Status: Ordered B-D PEN NDL MINI 77ZX3FU(12/01)PRPL B-D PEN NDL MINI [id number](12/01)PRPL, See Instructions, # 300 each, 1 Refills, Maintenance, USE TO INJECT INSULIN THREE TIMES DAILY, 183, cm, 02/22/20 3:42:00 EDT, Height, 141, kg, 02/21/20 1:50:00 EDT, Dry Weight Start Date: 05/14/20 Status: Ordered B-D PEN NDL MINI 23HQ7MA(12/01)PRPL B-D PEN NDL MINI 20PP6UU(12/01)PRPL, See Instructions, # 300 each, 1 Refills, Maintenance, USE TO INJECT INSULIN THREE TIMES DAILY, 183, cm, 02/22/20 3:42:00 EDT, Height, 141, kg, 02/21/20 1:50:00 EDT, Dry Weight Start Date: 04/27/20 Status: Ordered B-D PEN NDL MINI [id number](12/01)PRPL B-D PEN NDL MINI 35LY0MA(12/01)PRPL, See Instructions, # 300 each, 1 Refills, Maintenance, USE TO INJECT INSULIN THREE TIMES DAILY, 183, cm, 02/22/20 3:42:00 EDT, Height, 141, kg, 02/21/20 1:50:00 EDT, Dry Weight Start Date: 05/06/20 Status: Ordered B-D PEN NDL MINI [id number](12/01)PRPL B-D PEN NDL MINI 35XM6HB(12/01)PRPL, See Instructions, # 300 each, 1 Refills, Maintenance, USE TO INJECT INSULIN THREE TIMES DAILY, 183, cm, 02/22/20 3:42:00 EDT, Height, 141, kg, 02/21/20 1:50:00 EDT, Dry Weight Start Date: 03/31/20 Status: Ordered Basaglar KwikPen 100 units/mL subcutaneous solution See Instructions, Subcutaneous Infusion Inject 70 units every morning and 50 every evening, # 15 mL, 2 Refills, Maintenance, 05/22/20 15:36:00 EDT, [facility] #[id number], 183, cm, 02/22/20 3:42:00 EDT, Height, 141, kg, 02/21/20 1:50:00 EDT, Dry... Start Date: 05/22/20 Status: Ordered doxazosin 4 mg oral tablet 1 tablet, By Mouth, Daily at bedtime, # 90 tablet, 1 Refills, Maintenance, 02/13/20 18:59:00 EDT, [facility] #[id number], 183, cm, 11/21/19 15:07:00 EST, Height, 137, kg, 11/15/19 0:16:00 EST, Dry Weight Start Date: 02/13/20 Status: Ordered furosemide 20 mg oral tablet 1, tablet, By Mouth, Daily, # 90 tablet, Refills 1, Tot. Refills 1, Maintenance, 12/23/19 9:21:00 EDT, Route to Pharmacy Electronically, [facility] #[id number], 183, cm, 11/21/19 15:07:00 EST, Height, 137, kg, 11/15/19 0:16:00 EST, Dry Weight Start Date: 12/23/19 Stop Date: 06/20/20 Status: Ordered gabapentin 300 mg oral capsule 1, capsule, By Mouth, 2 times a day, # 180 capsule, Refills 1, Tot. Refills 1, Maintenance, 01/10/20 13:52:00 EDT, Route to Pharmacy Electronically, [facility] #[id number], 183, cm, 11/21/19 15:07:00 EST, Height, 137, kg, 11/15/19 0:16:00 EST, [facility]. Start Date: 01/10/20 Stop Date: 07/08/20 Status: Ordered gabapentin 600 mg oral tablet 1 tablet = 600 mg, By Mouth, 3 times a day, # 90 tablet, 1 Refills, Maintenance, 04/16/20 12:44:00 EDT, Tablet, [facility] #[id number], 183, cm, 02/22/20 3:42:00 EDT, Height, 141, kg, 02/21/20 1:50:00 EDT, Dry Weight Start Date: 04/16/20 Status: Ordered glipiZIDE 2.5 mg oral tablet, extended release 1 tablet = 2.5 mg, By Mouth, Daily, # 90 tablet, 1 Refills, Maintenance, 05/08/20 13:04:00 EDT, ER Tablet, [facility] #[id number], 183, cm, 02/22/20 3:42:00 EDT, Height, 141, kg, 02/21/20 1:50:00 EDT, Dry Weight Start Date: 05/08/20 Stop Date: 11/04/20 Status: Ordered lisinopril 40 mg oral tablet 1 tablet, By Mouth, Daily, # 90 tablet, 1 Refills, Maintenance, 01/07/20 9:51:00 EDT, [facility] #[id number], 183, cm, 11/21/19 15:07:00 EST, Height, 137, kg, 11/15/19 0:16:00 EST, Dry Weight Start Date: 01/07/20 Status: Ordered methocarbamol 750 mg oral tablet See Instructions, TAKE 1 TABLET BY MOUTH THREE TIMES DAILY FOR 10 DAYS TAKE NEEDED FOR BACK PAIN.NOT TO DRIVE AFTER TAKING MED, # 90 tablet, 1 Refills, Soft Stop, 05/05/20 14:29:00 EDT, [facility] #[id number], 183, cm, 02/22/20 3:42:00 EDT, He... Start Date: 05/05/20 Status: Ordered Metoprolol Tartrate 25 mg oral tablet 1 tablet, By Mouth, 2 times a day, # 60 tablet, 2 Refills, Maintenance, 12/09/19 20:38:00 EDT, [facility] #[id number], 183, cm, 11/21/19 15:07:00 EST, Height, 137, kg, 11/15/19 0:16:00 EST, Dry Weight Start Date: 12/09/19 Status: Ordered Ozempic (0.25 mg or 0.5 mg dose) 2 mg/1.5 mL subcutaneous solution See Instructions, INJECT 0.25 SUBCUTANEOUSLY EVERY 4 WEEKS, # 1.5 mL, 2 Refills, 04/07/20 13:23:00 EDT, [facility] #[id number], 183, cm, 02/22/20 3:42:00 EDT, Height, 141, kg, 02/21/20 1:50:00 EDT, Dry Weight Start Date: 04/07/20 Status: Ordered PriLOSEC OTC 20 mg oral delayed release tablet 1 tablet = 20 mg, By Mouth, 2 times a day, # 60 tablet, 1 Refills, Maintenance, 05/05/20 14:29:00 EDT, EC Tablet, [facility] #[id number], 183, cm, 02/22/20 3:42:00 EDT, Height, 141, kg, :50:00 EDT, Dry Weight Start Date: 05/05/20 Status: Ordered rivaroxaban 15 mg oral tablet 1 tablet = 15 mg, By Mouth, 2 times a day with meals, # 60 tablet, 2 Refills, Maintenance, :59:00 EDT, Tablet, [facility] #[id number], 183, cm, 02/22/20 3:42:00 EDT, Height, 141, kg, 02/21/20 1:50:00 EDT, Dry Weight Start Date: 04/15/20 Stop Date: 07/14/20 Status: Ordered silver sulfADIAZINE 1% topical cream See Instructions, APPLY EXTERNALLY TO THE AFFECTED AREA TWICE DAILY, # 50 Gm, 0 Refills, Acute, [facility] #[id number], 20, APPLY EXTERNALLY TO THE AFFECTED AREA TWICE DAILY, 183, cm, 02/22/20 3:42:00 EDT, Height, 141, kg, 02/21/20 1:50:00 EDT, D... Start Date: 04/20/20 Status: Ordered Trulicity Pen 0.75 mg/0.5 mL subcutaneous solution 0.5 mL = 0.75 mg, Subcutaneous Injection, Every week, rotate injection sites Discontinue Ozempic, #2 mL, 3 Refills, Maintenance, 04/19/20 13:24:00 EDT, Solution, [facility] #[id number], 183, cm, 02/22/20 3:42:00 EDT, Height, 141, kg, 02/21/20... Start Date: 04/19/20 Status: Ordered Ventolin HFA 108 mcg/inh inhalation aerosol with adapter 2 puffs, Inhalation, Every 4 hours, # 18 Gm, 1 Refills, Maintenance, 11/11/19 13:17:00 EST, [facility] #[id number], 183, cm, 10/31/19 14:18:00 EST, Height, 141, kg, 08/30/19 19:46:00 EST, Dry Weight Start Date: 11/11/19 Status: Ordered Vitamin D3 1000 intl units oral tablet 1 tablet = 1,000 International_Units, By Mouth, Daily, # 90 tablet, 1 Refills, Maintenance, 12/11/19 12:04:00 EDT, Tablet, [facility] #[id number], 183, cm, 11/21/19 15:07:00 EST, Height, 137, [...]
--- OUTSIDE RECORDS SUMMARY | 2023-05-27 03:12 | XMS_ITS | Continuity of Care Document ---
Author Name Unknown Organization [facility] ter Address [address] [place] [address]- Care Team Providers Care Station Examiner Name Role Phone Bri Becerril MD Primary Care Physician [phone] Encounter [facility] [place] Date(s): 03/11/21 - 04/10/[address] [address] Allergies, Adverse Reactions, Alerts Substance Reaction Severity [...] 2 Refills, Maintenance, 09/05/19 10:10:00 EST, Solution, [facility] #[id number], 183, cm, 08/30/19 19:46:00 EST, Height, 141, [...] 1, TAKE 1 TABLET BY MOUTH DAILY, [facility] #[id number] Start Date: 06/24/19 Status: Ordered atorvastatin 40 mg oral tablet 1 tablet, By Mouth, Daily at bedtime, # 90 tablet, 1 Refills, Maintenance, 11/23/20 11:14:00 EST, [facility] #[id number], 179, cm, 11/11/20 11:50:00 EST, Height, 120.5, [...] 03/04/21 10:46:00 EDT, Route to Pharmacy Electronically, [facility], Partial fill upon patient request if the prescription is for a schedule II opioi... Start Date: 03/04/21 Stop Date: 04/15/21 Status: Ordered doxazosin 4 mg oral tablet 1 tablet, By Mouth, Daily at bedtime, # 90 tablet, 1 Refills, Maintenance, 07/31/20 13:33:00 EST, [facility] #[id number], 183, cm, 06/09/20 12:58:00 EDT, Height, 141, kg, 02/21/20 1:50:00 EDT, Dry Weight Start Date: 07/31/20 Status: Ordered furosemide 20 mg oral tablet 1, tablet, By Mouth, Daily, # 90 tablet, Refills 1, Tot. Refills 1, Maintenance, 12/23/19 9:21:00 EDT, Route to Pharmacy Electronically, [facility] #[id number], 183, cm, 11/21/19 15:07:00 EST, Height, 137, kg, 11/15/19 0:16:00 EST, Dry Weight Start Date: 12/23/19 Stop Date: 06/20/20 Status: Ordered gabapentin 600 mg oral tablet 1 tablet = 600 mg, By Mouth, 3 times a day, # 90 tablet, 1 Refills, Maintenance, 10/30/20 13:02:00 EST, Tablet, [email or web address] #[id number], 179, cm, 10/18/20 16:27:00 EST, Height, 120.5, kg, 10/18/20 16:27:00 EST, Dry Weight Start Date: 10/30/20 Status: Ordered glipiZIDE 2.5 mg oral tablet, extended release 1 tablet = 2.5 mg, By Mouth, Daily, # 90 tablet, 1 Refills, Maintenance, 05/08/20 13:04:00 EDT, ER Tablet, [email or web address] #[id number], 183, cm, 02/22/20 3:42:00 EDT, Height, 141, [...] Refills, Maintenance, 11/16/20 9:25:00 EST, EC Tablet, [facility] #[id number], 179, cm, 11/11/20 11:50:00 EST, Height, 120.5, kg, 10/18/20 16:27:00 EST, Dry Weight Start Date: 11/16/20 Stop Date: 05/15/21 Status: Ordered Trulicity Pen 1.5 mg/0.5 mL subcutaneous solution 0.5 mL = 1.5 mg, Subcutaneous Injection, Every week, rotate injection sites, # 2 mL, 6 Refills, Maintenance, 10/21/20 13:40:00 EST, Solution, [email or web address] #[id number], Partial fill upon patient request if the prescription is for a schedule II opioi... Start Date: 10/21/20 Status: Ordered Ventolin HFA 108 mcg/inh inhalation aerosol with adapter 2 puffs, Inhalation, Every 4 hours, # 18 Gm, 1 Refills, Maintenance, 11/11/19 13:17:00 EST, [facility] #[id number], 183, cm, 10/31/19 14:18:00 EST, Height, 141, kg, 08/30/19 19:46:00 EST, Dry Weight Start Date: 11/11/19 Status: Ordered Vitamin D3 1000 intl units oral tablet 1 tablet = 1,000 International_Units, By Mouth, Daily, # 90 tablet, 1 Refills, Maintenance, 12/11/19 12:04:00 EDT, Tablet, [facility] #[id number], 183, cm, 11/21/19 15:07:00 EST, Height, 137, [...]
--- OUTSIDE RECORDS SUMMARY | 2023-05-27 03:12 | XMS_ITS | Continuity of Care Document ---
Author Name Unknown Organization [facility] Address [address] [place] [address]- Care Team Providers Care Supervisor Painting Department Name Role Phone Bri Becerril MD Primary Care Physician [phone] [facility]counter [facility] Date(s): 03/05/21 - 04/28/21 [facility] [address], [place] [address] Attending Physician: Babak De La Cruz [...] 2 Refills, Maintenance, 09/05/19 10:10:00 EST, Solution, [facility] #[id number], 183, cm, 08/30/19 19:46:00 EST, Height, 141, kg, 08/30/19 19:46:00 EST, Dry Weight Start Date: 09/05/19 Status: Ordered amLODIPine 5 mg oral tablet 5 mg, 1, tablet, By Mouth, Daily, # 30 tablet, Refills 1, Tot. Refills 1, Maintenance, 04/03/21 13:27:00 EDT, Route to Pharmacy Electronically, [facility]/pharmacy #[id number], Partial fill upon patient request if the prescription is for a schedule II opioid drug.... Start Date: 04/03/21 Status: Ordered amoxicillin-clavulanate 875 mg-125 mg oral tablet 1 tablet, By Mouth, 2 times a day, for 7 days, # 14 tablet, 0 Refills, Acute 05/05/21 8:05:00 EDT, 04/28/21 8:05:00 EDT, Tablet, [facility], Partial fill upon patient request if the prescription is for a schedule II opioid drug., 183, cm... Start Date: 04/28/21 Stop Date: 05/05/21 Status: Ordered Aspirin Low Dose 81 mg oral delayed release tablet See Instructions, # 90 tablet, Refills 1 Tot. Refills 1, TAKE 1 TABLET BY MOUTH DAILY, [facility] #[id number] Start Date: 06/24/19 Status: Ordered atorvastatin 40 mg oral tablet 1 tablet, By Mouth, Daily at bedtime, # 90 tablet, 1 Refills, Maintenance, 11/23/20 11:14:00 EST, [facility] #[id number], 179, cm, 11/11/20 11:50:00 EST, Height, 120.5, [...] each, 5 Refills, Maintenance, 04/03/21 13:35:00 EDT, [facility]/pharmacy #[id number], Partial fill upon patient request if the prescription is for a schedule II opioid drug., For wound dressing, 183, cm, 03/17/21 11:22:00... Start Date: 04/03/21 Status: Ordered clopidogrel 75 mg oral tablet 75 mg, 1, tablet, By Mouth, Daily, # 42 tablet, Refills 0, Tot. Refills 0, Maintenance, 03/04/21 10:46:00 EDT, Route to Pharmacy Electronically, [facility], Partial fill upon patient request if the prescription is for a schedule II opioi... Start Date: 03/04/21 Stop Date: 04/15/21 Status: Ordered doxazosin 4 mg oral tablet 1 tablet, By Mouth, Daily at bedtime, # 90 tablet, 1 Refills, Maintenance, 07/31/20 13:33:00 EST, [facility] #[id number], 183, cm, 06/09/20 12:58:00 EDT, Height, 141, kg, 02/21/20 1:50:00 EDT, Dry Weight Start Date: 07/31/20 Status: Ordered furosemide 20 mg oral tablet 1, tablet, By Mouth, Daily, # 90 tablet, Refills 1, Tot. Refills 1, Maintenance, 12/23/19 9:21:00 EDT, Route to Pharmacy Electronically, [facility] #[id number], 183, cm, 11/21/19 15:07:00 EST, Height, 137, kg, 11/15/19 0:16:00 EST, Dry Weight Start Date: 12/23/19 Stop Date: 06/20/20 Status: Ordered gabapentin 600 mg oral tablet 1 tablet = 600 mg, By Mouth, 3 times a day, # 90 tablet, 1 Refills, Maintenance, 10/30/20 13:02:00 EST, Tablet, [facility] #[id number], 179, cm, 10/18/20 16:27:00 EST, Height, 120.5, kg, 10/18/20 16:27:00 EST, Dry Weight Start Date: 10/30/20 Status: Ordered glipiZIDE 2.5 mg oral tablet, extended release 1 tablet = 2.5 mg, By Mouth, Daily, # 90 tablet, 1 Refills, Maintenance, 05/08/20 13:04:00 EDT, ER Tablet, [facility] #[id number], 183, cm, 02/22/20 3:42:00 EDT, Height, 141, [...] each, 5 Refills, Maintenance, 04/03/21 13:20:00 EDT, [facility]/pharmacy #[id number],... Start Date: 04/03/21 Stop [...] Refills, Maintenance, 11/16/20 9:25:00 EST, EC Tablet, [facility] #[id number], 179, cm, 11/11/20 11:50:00 EST, Height, 120.5, kg, 10/18/20 16:27:00 EST, Dry Weight Start Date: 11/16/20 Stop Date: 05/15/21 Status: Ordered Trulicity Pen 1.5 mg/0.5 mL subcutaneous solution 0.5 mL = 1.5 mg, Subcutaneous Injection, Every week, rotate injection sites, # 2 mL, 6 Refills, Maintenance, 10/21/20 13:40:00 EST, Solution, [facility] #[id number], Partial fill upon patient request if the prescription is for a schedule II opioi... Start Date: 10/21/20 Status: Ordered Ventolin HFA 108 mcg/inh inhalation aerosol with adapter 2 puffs, Inhalation, Every 4 hours, # 18 Gm, 1 Refills, Maintenance, 11/11/19 13:17:00 EST, [facility] #[id number], 183, cm, 10/31/19 14:18:00 EST, Height, 141, kg, 08/30/19 19:46:00 EST, Dry Weight Start Date: 11/11/19 Status: Ordered Vitamin D3 1000 intl units oral tablet 1 tablet = 1,000 International_Units, By Mouth, Daily, # 90 tablet, 1 Refills, Maintenance, 12/11/19 12:04:00 EDT, Tablet, [facility] #[id number], 183, cm, 11/21/19 15:07:00 EST, Height, 137, [...]
--- OUTSIDE RECORDS SUMMARY | 2023-05-27 03:12 | XMS_ITS | Continuity of Care Document ---
Author Name Unknown Organization [facility] Address [address] [place] [address]- Care Team Providers Care Data Specialist Name Role Phone Bri Becerril MD Primary Care Physician [facility]counter [facility] Date[facility]s): 11/04/22 - 12/04/[address] [facility] [address] [place], [place] [address] Attending Physician: AdmMarlin cash Admitting Physician: AdmtrMarlin Referring Physician: Admtr, Ar8 [...] Vaccine Date Status Refusal Reason SARS-CoV-2 mRNA ([id number]) vax 4 03/19/22 Not Given Patient Refuses [...] 3 Refills, Maintenance, 11/28/22 13:47:00 EDT, [facility], 183, cm, 05/01/22 21:57:00 EDT, Height, [...] Status: Ordered BD UF MINI PEN NEEDLE [id number] BD UF MINI PEN NEEDLE [id number], See Instructions, # 300 Unknown, 3 Refills, [...] Refills, Soft Stop, 03/16/22 11:01:00 EDT, Tablet, [facility]/pharmacy #[id number], Partial [...] 03/16/22 10:59:00 EDT, Route to Pharmacy Electronically, [facility]/pharmacy#[id number], Partial fill upon patient request if the pre... Start Date: 03/16/22 Stop Date: 12/11/22 Status: Ordered Pen [place], 31 G x 8 mm BD Ultra [...] 13:48:00 EDT, Route to Pharmacy Electronically, [facility], 183, cm, 05/01/22 21:57:00 EDT, Height, [...] 3 Refills, Maintenance, 11/28/22 13:48:00 EDT, [facility], 183, cm, 05/01/22 21:57:00 EDT, Height, [...] Team Personnel Name: Tita Walton NP Position: [facility] Associate Professional Member Role: Primary Care Nurse Address: Address: [address] [place] [address] Trauma Services [address] Name: Vaishnavi Mack Position: [facility] [place] Office Staff Member Role: Lif[employer] Consulting Physician Name: Kenia Montez RN Position: [facility] RN Member Role: Primary Care Nurse Name: Serena Starr RN Position: [facility] AMB Nurse Member Role: Primary Care Nurse Name: Amelie Easley RN Position: [facility] ED RN W/OE and Tasks Member Role: Primary Care Nurse Name: Gina Zee RN Position: [facility] RN Member Role: Primary Care Nurse Name: Olga Nielsen Position: [facility] Outreach Member Role: Lifetime Consulting Physician Name: Francisca Madera RN Position: [facility] RN Member Role: Primary Care Nurse Name: Aakash Bowman RN Position: [facility] RN Member Role: Primary Care Nurse Name: Ced Page RN Position: [facility] RN Member Role: Primary Care Nurse Name: Jerri Moctezuma RN Position: [facility] RN Member Role: Primary Care Nurse Name: Damari Coates RN Position: [facility] SN RN Member Role: Primary Care Nurse Name: Michelle Paul RN Position: [facility] RN Member Role: Primary Care Nurse Name: Gema Chu RN Position: [facility] RN Member Role: Primary Care Nurse Name: Yenni Ledezma RN Position: [facility] RN Member Role: Primary Care Nurse Name: Benja Camarena MD Position: [facility] Renal MD Member Role: Lifetime Consulting Physician Address: Address: [address] [place] [address] [facility] [address] Name: Herbie Mullen MD Position: [facility] Renal MD Member Role: Lifetime Consulting Physician Address: Address: [address] [place] [address] [facility] [address] Name: Ayo Walter RN Position: [facility] ED RN W/OE and Tasks Member Role: Primary Care Nurse Name: Bri Becerril MD Position: [facility] Primary Care Physician Member Role: PCP Address: Address: [address] [place] [address], [address] [place] [address]- Name: Marge Haas RN Position: [facility] Onco RN Member Role: Primary Care Nurse Name: Mckenzie Gallo RN Position: [facility] RN Member Role: Primary Care Nurse Care Team Related Persons Name: MICHELLE RAE Address: home [address] [address] Name: KEILY HERNANDEZ Address: home [address] [place] [address] Name: CHUY MAYO
--- NOTE | 2023-05-27 03:13 | PC.NURSE ---
PT request blanket. RN given. Pt resting quietly at this time.
[2023-05-27] MEDS: cephALEXin 500 MG CAPSULE PO (05:08)
[2023-05-27] MEDS: Doxycycline Monohydrate 100 MG CAPSULE PO (05:08)
--- NOTE | 2023-05-27 05:15 | PC.NURSE ---
Patient ready for discharge. Pt denies having anyone to give him a ride. He reports that although he has a prosthetic leg he is not able to ambulate and uses a wheelchair at home.This RN requested ambulance ride.
--- NOTE | 2023-05-27 05:19 | PC.NURSE ---
Medications administered as per MAR.
== END 2023-05-27 06:40 | disposition home or self-care (01) ==
PROVIDERS: Emergency Provider Internal Medicine
DX: R07.89 Other chest pain (principal); L03.115 Cellulitis of right lower limb; E11.9 Type 2 diabetes mellitus without complications; Z89.512 Acquired absence of left leg below knee; Z79.899 Other long term (current) drug therapy; Z79.4 Long term (current) use of insulin
CPT/HCPCS: 36415; 80048; 84484; 85025; 93005; 99283; 99285

== ENCOUNTER 2023-08-25 17:25 | Emergency (ER) | payer OTHER, SELFPAY ==
[2023-08-25 17:43] VITALS: BP 156/84; BP 187/92; PULSE 64; PULSE 67; RESP 18; TEMP 36.4; O2SAT 95; BMI 31.4
--- NOTE | 2023-08-25 18:11 | ECG_ITS ---
Test Reason : DIZZINESS Blood Pressure : / mmHG Vent. Rate : 066 BPM Atrial Rate : 000 BPM P-R Int : 000 ms QRS Dur : 078 ms QT Int : 392 ms P-R-T Axes : 000 -24 028 degrees QTc Int : 410 ms Normal sinus rhythm Minimal voltage criteria for LVH, may be normal variant ( R in aVL ) Abnormal ECG When compared with ECG of 27-MAY-2023 01:35, No significant changes seen Referred By: Krystal Iyer Electronically Signed By:SARMAD AMES
--- NOTE | 2023-08-25 18:12 | ED_ITS ---
HPI - Extremity Problem General Chief complaint: Extremity Injury, Lower Stated complaint: HTN, Dizziness, Wound R Leg Time Seen by Provider: 08/25/23 17:50 Source: patient and old records reviewed Mode of arrival: EMS Limitations: other (poor historian) History of Present Illness HPI Narrative: 63 yo male with PMH of HTN, L BKA, DM, unsure if his L BKA and R toe amputation/leg infection is due to DM or PVD - he is also on xarelto but he cannot tell me why. He states he was just seen at [facility] 08/15 and they went him out on cephalexin for RLE wound he was supposed to take it 4 times a day but he did not only once a day. He comes here stating he needs wound care and that his PCP sent him here for more evaluation of the wound. He has no fevers. For months he has had on and off dizziness at rest he feels like he is spinning. He denies wanting to go to rehab. His wound is chronic he seems like he needs help at home but wants to be home. MD Complaint: other (chronic wound) Onset (ago): month(s) (few) Pain Consistency: intermittent Location: right and lower extremity Quality: dull Radiation: none Relieving factors: medication Exacerbating factors: nothing Associated symptoms: denies other symptoms Context: other (chronic) Related Data Home Medications Medication Instructions Recorded Confirmed amlodipine 10 mg tablet 10 mg PO DAILY 06/05/21 06/05/21 aspirin 81 mg tablet 81 mg PO DAILY 06/05/21 06/05/21 atorvastatin 40 mg tablet 40 mg PO BEDTIME 06/05/21 06/05/21 cholecalciferol (vit D3) 1,000 1 tab PO DAILY 06/05/21 06/05/21 unit-vitamin K2 (MK4) 100 mcg tablet clopidogrel 75 mg tablet 1 tab PO DAILY 06/05/21 06/05/21 clopidogrel 75 mg tablet 75 mg PO DAILY 06/05/21 06/05/21 doxazosin 4 mg tablet 4 mg PO BEDTIME 06/05/21 06/05/21 dulaglutide 1.5 mg/0.5 mL 0.5 ml subcut QWEEK 06/05/21 06/05/21 subcutaneous pen injector (Trulicity) furosemide 20 mg tablet 20 mg PO DAILY 06/05/21 06/05/21 gabapentin 600 mg tablet 600 mg PO TID 06/05/21 06/05/21 glipizide 2.5 mg tablet, extended 2.5 mg PO DAILY 06/05/21 06/05/21 release 24 hr lisinopril 40 mg tablet 40 mg PO DAILY 06/05/21 06/05/21 metformin 750 mg tablet,extended 750 mg PO DAILY 06/05/21 06/05/21 release 24 hr metoprolol tartrate 50 mg tablet 50 mg PO BID 06/05/21 06/05/21 omeprazole 20 mg capsule,delayed 1 cap PO BID 06/05/21 06/05/21 release rivaroxaban 15 mg tablet (Xarelto) 15 mg PO DAILY 06/05/21 06/05/21 insulin detemir U-100 100 unit/mL 70 unit subcut BID@0630,1630 06/06/21 06/06/21 subcutaneous solution (Levemir U-100 Insulin) Previous Rx's Medication Instructions Recorded cephalexin 500 mg capsule 500 mg PO QID 10 days #40 caps 05/27/23 doxycycline hyclate 100 mg tablet 100 mg PO BID #20 tabs 05/27/23 doxycycline hyclate 100 mg capsule 100 mg PO BID 7 days #14 caps 08/25/23 mupirocin 2 % topical ointment 1 appl topical BID 7 days #15 grams 08/25/23 Allergies Allergy/AdvReac Type Severity Reaction Status Date / Time bee pollen [bee stings] Allergy Shortness Verified 08/25/23 17:51 of Breath Review of Systems 2 Review of Systems: Constitutional : No Fever, No Chills ENT/Mouth : No sore throat, No Rhinorrhea Eyes: No Eye Pain, No Swelling, No Redness Cardiovascular : No Chest Pain, No SOB Respiratory : No Cough, No Sputum Gastrointestinal : No Nausea, No Vomiting, No Diarrhea, No abdominal Pain Genitourinary : No Dysuria, No Hematuria Musculoskeletal : No joint pain, No Myalgias, No Joint Swelling Skin : pos Skin Lesions, positive skin rash Neuro : No Weakness, No Numbness, No Headache Psych : No Anxiety, No Depression Heme/Lymph: No Bruising, No Bleeding,No Lymphadenopathy Endocrine : No Polyuria, No Polydipsia All other systems reviewed and are negative PMFSH Past Medical History Attestation statement: The following information was validated with the patient. Source: old records reviewed Medical History Toe amputee Unilateral complete BKA Diabetes Social History Social History Alcohol intake: former Patient Tobacco Use Status: Tobacco use Unknown Advance Directives: Yes Advance Directives on File: Yes Advance Directives Date on File: 06/07/21 Physical Exam 2 Vital Signs: Vital Signs: Last Vital Signs Temp 97.6 F 08/25/23 17:43 Pulse 64 08/25/23 17:43 Resp 18 08/25/23 17:43 BP 156/84 H 08/25/23 17:43 Pulse Ox 95 08/25/23 17:43 O2 Del Method Room Air 08/25/23 17:43 BMI result Body Mass Index 31.4 Appearance: Alert. Oriented X3. No acute distress. Eyes: Pupils equal, round and reactive to light. ENT: Pharynx normal. Neck: Normal inspection. Neck supple. CVS: Normal heart rate and rhythm. Pulses decreased but DP is palp in the R foot Respiratory: No respiratory distress. Breath sounds normal. Abdomen: Soft and nontender. Skin: Skin warm and dry. Normal skin color. Normal skin turgor. Extremities: No lower extremity edema. R anterior morataya scaly pink area but not warm to touch no extending erythema 2 open scabbed area no purulence noted no fluctuance or abscess Neuro: Oriented X 3. No motor deficit. No sensory deficit. Medical Decision Making Medical Decision Making MDM Narrative: 63 yo male with PMH of HTN, L BKA, DM, unsure if his L BKA and R toe amputation/leg infection is due to DM or PVD - he is also on xarelto but he cannot tell me why at this time leg is not infected this is an old wound - I can understand why you would start him on cephalexin given hx and mupirocin with VNA. For dizziness this is not new - will obtain labs and EKG - doubt posterior stroke. I am going to obtain records and involve CM for VNA services given he is high risk. Differential Diagnosis Differential Diagnoses: The differential diagnosis associated with the presentation includes chronic wounds, anemia, dehydration Admission/Observation Consideration of admission/observation: Escalation of care including admission/observation considered until CM can get involve - labs reassuring this is a chronic condition has had since 2021 per [facility] notes will refer to Dr. Kim and wound care center and start on mupirocin, cephalexin and consult CM for home VNA he does not want to stay overnight for inpatient CM Consult Healthcare Provider Management of the patient was discussed with: Design Engineer [employer] Lab Data [facility] Lab Attestation statement: I reviewed the patient's lab results. 08/25/23 18:52 08/25/23 18:51 Labs: Lab Results 08/25/23 08/25/23 Range/Units 18:51 18:52 WBC 10.0 (4.8-10.8) X10*3/uL RBC 6.19 H (4.60-5.80) X10*6/uL Hgb 16.3 (14.0-18.0) g/dl Hct 50.5 (42.0-52.0) % MCV 81.6 (80.0-98.0) fL MCH 26.3 L (27.0-33.0) pg MCHC 32.3 (31.0-36.0) g/dl RDW 13.7 (11.0-16.0) % Plt Count 288 (160-400) X10*3/uL MPV 9.7 (9.4-12.4) fL Immature Gran % (Auto) 0.4 (0.0-0.4) % Neut % (Auto) 67.4 (45-73) % Lymph % (Auto) 22.6 (20-40) % [place] % (Auto) 4.5 (2-11) % Eos % (Auto) 4.6 H (0-4) % Baso % (Auto) 0.5 (0-2) % Lymph # (Auto) 2.3 (1.2-4.9) X10*3/uL [place] # (Auto) 0.5 (0.1-1.2) X10*3/uL Eos # (Auto) 0.5 H (0.0-0.4) X10*3/uL Baso # (Auto) 0.1 (0.0-0.2) X10*3/uL Abs Immat Gran (auto) 0.04 H (0.00-0.03) X10*3/uL Absolute Neuts (auto) 6.7 (2.0-8.3) x10*3/uL Absolute Nucleated RBC 0.000 (0.0-0.012) X10*3/uL Nucleated RBC % (auto) 0.0 (0.0-0.2) /100WBC ESR 22 H (0-15) MM/HR Sodium 137 (135-145) mmol/L Potassium 4.9 D (3.3-5.1) mmol/L Chloride 102 (96-108) mmol/L Carbon Dioxide 26 (22-29) mmol/L Anion Gap 14 (12-20) BUN 26 H (9-16) mg/dL Creatinine 1.27 (0.5-1.4) mg/dL Estim Creat Clear Calc 74.5 Estimated GFR 57 Random Glucose 176 H (60-115) mg/dL Calcium 10.7 H (8.4-10.2) mg/dL Magnesium 2.0 (1.6-2.6) mg/dL Total Bilirubin 0.5 (0.0-1.0) mg/dL Direct Bilirubin 0.2 (0.0-0.5) mg/dL AST 14 (5-37) U/L ALT 21 (0-40) U/L Alkaline Phosphatase 118 H (39-117) U/L Troponin I High Sens 12.6 D (<3.5-35.0) ng/L C-Reactive Protein 1.26 H (< or = 0.50) mg/dL Total Protein 8.0 (6.5-8.0) g/dL Albumin 3.8 (3.5-5.0) g/dL COVID-19 (JOSUE) Negative (Negative) COVID-19 Clin Com See Note Independent Interpretation I performed an independent interpretation of an: EKG Interpretation: Rate: 66 Rhythm: NSR with 1st degree AVB Neal: left Normal P waves. prolonged russell Normal QRS complex. ST T wave : normal no PALLAVI qTC: normal prior studies: no acute ischemia The study has been interpreted contemporaneously by me. . Radiology Impression Discussion of test interpretation with radiology: I have reviewed the radiologist's reading. Independent Historian Clinical information obtained from an independent historian. History obtained from or confirmed by: EMS External Record Review External record reviewed: Inpatient record Prescription Management I considered prescription management with: Antibiotic and Other Discharge Plan Discharge Clinical Impression: Chronic wound Patient Disposition: Home, Self-Care Instructions: Chronic Wounds (ED) Additional Instructions: keep area clean and dry - please follow up with the two doctors listed below one is vascular surgeon other is our wound care center. take the oral antibiotics as prescribed and use the ointment. case management will call you at home and set up VNA return for fevers, increased redness, drainage or any other concerns. Prescriptions: New doxycycline hyclate 100 mg capsule 100 mg PO BID 7 Days Qty: 14 0RF mupirocin 2 % ointment 1 appl topical BID 7 Days Qty: 15 0RF No Action omeprazole 20 mg capsule,delayed release(DR/EC) 1 cap PO BID Trulicity 1.5 mg/0.5 mL pen injector 0.5 ml subcut QWEEK clopidogrel 75 mg tablet 1 tab PO DAILY atorvastatin 40 mg Tablet 40 mg PO BEDTIME clopidogrel 75 mg Tablet 75 mg PO DAILY amlodipine 10 mg Tablet 10 mg PO DAILY glipizide 2.5 mg Tablet Extended Release 24hr 2.5 mg PO DAILY metoprolol tartrate 50 mg Tablet 50 mg PO BID doxazosin 4 mg Tablet 4 mg PO BEDTIME aspirin 81 mg Tablet 81 mg PO DAILY furosemide 20 mg Tablet 20 mg PO DAILY lisinopril 40 mg Tablet 40 mg PO DAILY metformin 750 mg Tablet Extended Release 24 Hr 750 mg PO DAILY Xarelto 15 mg Tablet 15 mg PO DAILY gabapentin 600 mg Tablet 600 mg PO TID vitamin D3-vitamin K2 (MK4) 1,000-100 unit-mcg Tablet 1 tab PO DAILY Levemir U-100 Insulin 100 unit/mL Solution 70 unit SUBCUT BID@0630,1630 cephalexin 500 mg capsule 500 mg PO QID 10 Days Qty: 40 0RF doxycycline hyclate 100 mg tablet 100 mg PO BID Qty: 20 0RF Referrals: Lee Kim MD [Physician] - (you have to call to schedule appointment) Rylee Sue MD [Physician] - (any provider you have to call to schedule appointment)
[2023-08-25 18:58] LABS: MANUAL DIFF FLAG NO
[2023-08-25 18:59] LABS: Basophils Absolute Auto 0.1 X10*3/uL (0.0-0.2); Basophils Percent Auto 0.5 % (0-2); Eosinophils Absolute Auto 0.5 X10*3/uL (0.0-0.4); Eosinophils Percent Auto 4.6 % (0-4); Hematocrit 50.5 % (42.0-52.0); Hemoglobin 16.3 g/dl (14.0-18.0); Imm Gran Abs Auto 0.04 X10*3/uL (0.00-0.03); Imm Gran Pct Auto 0.4 % (0.0-0.4); Lymphocytes Absolute Auto 2.3 X10*3/uL (1.2-4.9); Lymphocytes Percent Auto 22.6 % (20-40); Mean Corpuscular HGB Conc 32.3 g/dl (31.0-36.0); Mean Corpuscular Hemoglobin 26.3 pg (27.0-33.0); Mean Corpuscular Volume 81.6 fL (80.0-98.0); Mean Platelet Volume 9.7 fL (9.4-12.4); Monocytes Absolute Auto 0.5 X10*3/uL (0.1-1.2); Monocytes Percent Auto 4.5 % (2-11); Neutrophils Absolute Auto 6.7 x10*3/uL (2.0-8.3); Neutrophils Percent Auto 67.4 % (45-73); Platelet Count 288 X10*3/uL (160-400); Red Blood Count 6.19 X10*6/uL (4.60-5.80); Red Cell Distribution Width 13.7 % (11.0-16.0)
[2023-08-25 19:18] LABS: COVID-19 Test Negative (Negative); IDNOW Serial# 08D9AD1C
[2023-08-25 20:26] LABS: Alanine Aminotransferase 21 U/L (0-40); Albumin Level 3.8 g/dL (3.5-5.0); Alkaline Phosphatase 118 U/L (39-117); Anion Gap 14 (12-20); Aspartate Amino Transferase 14 U/L (5-37); Bilirubin Direct 0.2 mg/dL (0.0-0.5); Bilirubin Total 0.5 mg/dL (0.0-1.0); Blood Urea Nitrogen 26 mg/dL (9-16); C Reactive Protein 1.26 mg/dL (< or = 0.50); Calcium 10.7 mg/dL (8.4-10.2); Carbon Dioxide 26 mmol/L (22-29); Chloride 102 mmol/L (96-108); Creatinine Clr Calc Pharmacy 74.5; Estimated Glomerular Filt Rate 57; Glucose Random 176 mg/dL (60-115); Potassium 4.9 mmol/L (3.3-5.1); Sodium 137 mmol/L (135-145)
[2023-08-25 20:28] LABS: Erythrocyte Sedimentation Rate 22 MM/HR (0-15)
[2023-08-25 20:33] VITALS: BP 175/78; PULSE 66; RESP 14; TEMP 36.5; O2SAT 98
[2023-08-25 20:33] LABS: Troponin-I High Sensitivity 12.6 ng/L (<3.5-35.0)
--- NOTE | 2023-08-26 14:40 | MHC.CM.ED ---
Addendum entered by Zakiya Chirinos 08/26/23 14:43: Just received notification from [facility] that they are unable to accept patient. Will continue to look for VNA. Original Note: Received case management consult overnight. Patient came to the ER due to chronic wounds. Work up was negative and patient was d/c'd home. CM was consulted to arrange VNA. Spoke with patient via telephone at [phone]. Patient lives with his sister and brother in law, ambulates with a walker and had no services prior to coming to the ER. PCP is Bri Becerril. Patient agreeable to referral being broadcasted. [facility] is able to accept patient. Patient agreeable. Continue to monitor for d/c needs.
--- NOTE | 2023-08-28 11:04 | MHC.CM.PN ---
Pt has been accepted to [facility] for home visits: d/c information uploaded in [employer] and remitted to agency.
== END 2023-08-26 01:16 | disposition home or self-care (01) ==
PROVIDERS: Emergency Provider Emergency Medicine
DX: R42 Dizziness and giddiness (principal); I10 Essential (primary) hypertension; Z48.00 Encounter for change or removal of nonsurgical wound dressing; Z11.52 Encounter for screening for COVID-19; Z20.822 Contact with and (suspected) exposure to COVID-19; Z79.899 Other long term (current) drug therapy
CPT/HCPCS: 80048; 80076; 83735; 84484; 85025; 85652; 86140; 87635; 93005; 99283; 99284

== ENCOUNTER → 2023-08-25 18:11 | Outpatient (BNV) | payer OTHER, SELFPAY | PROVIDERS: Emergency Provider Emergency Medicine; Visit Provider Internal Medicine | DX: R94.31 Abnormal electrocardiogram [ECG] [EKG] (principal) | CPT/HCPCS: 93010 ==